=== PATIENT | male | born 1975 | race Two or more races ===

== ENCOUNTER 2020-01-16 18:33 | Emergency (ER) | payer MEDICARE, MEDICAID, SELFPAY ==
--- NOTE | 2020-01-16 | CT_ITS ---
EXAMINATION: CT ABDOMEN AND PELVIS WITHOUT CONTRAST CLINICAL INFORMATION: Abdominal pain. Abdominal distention. COMPARISON: CT scan abdomen pelvis 06/16/2014. TECHNIQUE: Multidetector volumetric imaging was performed from the superior aspect of the liver through the pubic symphysis. Sagittal and coronal reformatted images were obtained on the technologist's workstation. This CT examination was performed using dose optimization techniques as appropriate, variously including the following: *Automated exposure control *Adjustment of mA and/or kV according to patient size (this includes techniques or standardized protocols for targeted exams where dose is matched to indication/reason for exam; i.e. extremities or head) *Use of iterative reconstruction technique DLP: 723 mGy-cm FINDINGS: LUNG BASES: The visualized lung bases are unremarkable. LIVER, GALLBLADDER, AND BILIARY TREE: The liver is normal in size, shape, and attenuation. No focal hepatic lesion or biliary ductal dilatation is present. The gallbladder is unremarkable with no evidence of radiopaque gallstones, gallbladder wall thickening, or obvious pericholecystic inflammatory changes. PANCREAS: Unremarkable. SPLEEN: Unremarkable. ADRENAL GLANDS: Unremarkable. KIDNEYS AND URETERS: The kidneys are normal in size, shape, and attenuation. No hydronephrosis, hydroureter, or calculi seen. No perinephric stranding. BLADDER: Unremarkable. GASTROINTESTINAL TRACT: There are scattered diverticula throughout the colon. There is no diverticulitis. There is no bowel wall thickening /edema. There is no bowel obstruction. There is a moderate volume of stool in the colon. The appendix is normal . The small bowel loops are unremarkable. The stomach is normal. There is no hiatal hernia. ABDOMINAL WALL: No significant hernia is appreciated. LYMPH NODES: Normal. VASCULAR: Unremarkable. PELVIC VISCERA: Unremarkable. OSSEOUS STRUCTURES: Degenerative spondylosis spine. Vacuum disc phenomenon L4-L5 and L5-S1. Degenerative lipping at the anterior endplates of lower thoracic and lower lumbar vertebrae. IMPRESSION: No acute abnormality CT scan abdomen pelvis.
[2020-01-16 19:21] VITALS: BP 130/84; PULSE 88; RESP 18; TEMP 37.1; O2SAT 100; BMI 33.3
[2020-01-16 19:48] VITALS: BP 123/76; PULSE 82; RESP 24; O2SAT 96
--- NOTE | 2020-01-16 20:51 | ECG_ITS ---
Test Reason : CHEST PAIN Blood Pressure : / mmHG Vent. Rate : 087 BPM Atrial Rate : 087 BPM P-R Int : 146 ms QRS Dur : 082 ms QT Int : 338 ms P-R-T Axes : 054 009 079 degrees QTc Int : 406 ms Normal sinus rhythm Nonspecific T wave abnormality Abnormal ECG When compared with ECG of 30-SEP-2019 11:35, Nonspecific T wave abnormality, worse in Lateral leads Referred By: Zayra Partida Electronically Signed By:DHRUV DURAND MD
--- NOTE | 2020-01-16 20:51 | XR_ITS ---
EXAMINATION: XR CHEST CLINICAL INFORMATION: Chest pain. COMPARISON: Chest x-ray 09/30/2019. TECHNIQUE: An upright portable view of the chest was obtained at 9:00 PM. FINDINGS: The lung prater are well expanded and appear clear bilaterally. The cardiac silhouette is normal. There are no pleural effusions or pneumothorax. The central pulmonary vasculature is normal. The hilar regions appear normal. There are multiple monitor leads overlying the chest. There are no acute osseous findings. IMPRESSION: 1. There are no acute cardiopulmonary findings.
--- NOTE | 2020-01-16 21:14 | ED_ITS ---
HPI - Chest Pain General Chief Complaint: Chest Pain Stated Complaint: chest pain Time Seen by Provider: 01/16/20 20:51 Source: patient Mode of arrival: ambulatory Limitations: no limitations History of Present Illness HPI narrative: 44-year-old male presents with left-sided chest pain radiating up to his neck and left arm. This pain has been intermittent, has no real onset, occurs while asleep, exertion, and rest. [id number] medications have not been effective to control this pain. He does report recent echocardiogram with Dr. Garza and states that the exam was normal. Does have hyperlipidemia but does not take the medications that were prescribed to him because he does not feel like he needs them. he also reports abdominal pain with this chest pain. States this pain is a throbbing pulling pain. He denies fevers, chills, palpitations, dysuria, hematuria, edema, changes in vision, falls, recent trauma, and illicit drug use. MD complaint: chest pain Onset (ago): week(s) ( Several) Timing of current episode: episodic Prior episodes: Yes Onset: during rest, during exertion and awoke with symptoms Pain location: left chest and lateral Pain radiation: right arm, neck and abdomen Severity: moderate Quality: tightness, aching and sharp Relieving factors: nothing Exacerbating factors: exertion, inspiration, eating and movement Treatment prior to arrival: other ( Tylenol) Risk Factors Coronary artery disease risk factors: hyperlipidemia Thoracic aortic dissection risk factors: none Related Data Home Medications Medication Instructions Recorded Confirmed baclofen 1 tab PO QID PRN 01/16/20 01/16/20 fluticasone propionate 1 spray INTRANASAL BID 01/16/20 01/16/20 naproxen 1 tab PO Q6H PRN 01/16/20 01/16/20 omeprazole 1 cap PO DAILY 01/16/20 01/16/20 Allergies Allergy/AdvReac Type Severity Reaction Status Date / Time aspirin [Aspirin] Allergy Unknown UNKNOWN Verified 01/16/20 19:51 penicillin V Allergy Unknown Swelling Verified 01/16/20 19:51 Penicillins Allergy Unknown SWELLING Verified 01/16/20 19:51 Review of Systems Review of Systems: Constitutional: No Fever, No Chills ENT/Mouth: no oral swelling, No Hoarseness, No Swallowing Difficulty Eyes: No Eye Pain, No Swelling, No Redness Cardiovascular: chest pain, No SOB Respiratory: No Cough, No Sputum, No Wheezing, No Smoke Exposure, No Dyspnea Gastrointestinal: No Nausea, No Vomiting, No Diarrhea, No abdominal Pain Genitourinary: No Dysuria, No Urinary Frequency, No Hematuria Musculoskeletal: No joint pain, No Myalgias, No Joint Swelling Skin: No Skin Lesions, positive rash Neuro: No Weakness, No Numbness, No Headache Psych: No Anxiety/Panic, No Depression Heme/Lymph: No Bruising, No Lymphadenopathy Endocrine: No Polyuria, No Polydipsia [facility] Past Medical History Attestation statement: The following information was validated with the patient. Source: old records reviewed Social History Social History Alcohol intake: never Smoking Status: Never smoker Smoked in Last 30 Days: No Use of substances other than those prescribed or required for medical reasons: No Advance Directives: No Advance Directives Information Provided: No Physical Exam Vital Signs and I&O and Narrative: Vital Signs and I&O: Vital Signs Temp 98.8 F 01/16/20 19:21 Pulse 76 01/16/20 23:15 Resp 18 01/16/20 23:15 BP 115/75 01/16/20 23:15 Pulse Ox 100 01/16/20 23:15 Intake & Output 01/16/20 01/16/20 01/17/20 06:59 18:59 06:59 Weight 90.718 kg Body Mass Index 33.3 Appearance: Alert. Oriented X3. No acute distress. Eyes: Pupils equal, round and reactive to light. ENT: Pharynx normal. Neck: Normal inspection. Neck supple. CVS: Normal heart rate and rhythm. Pulses normal. Respiratory: No respiratory distress. Breath sounds normal. Abdomen: Soft and nontender. Skin: Skin warm and dry. Normal skin color. Normal skin turgor. Extremities: No lower extremity edema. No lower extremity edema. Neuro: Oriented X 3. No motor deficit. No sensory deficit. Course Course Course Narrative: 44-year-old male presents with left-sided chest pain with radiation to the neck, arm, and abdomen. Patient is noncompliant with his medications for hyperlipidemia, does not have any other prescriptions. We will rule out ACS, AAA, acute abdomen, pneumonia. Lab values are unremarkable, troponins are negative, EKG is normal sinus, echo report on November 06, [address] Garza indicates a stress echo that is negative for ischemia. Highly unlikely that this is ACS, most likely costochondritis or musculoskeletal pain. Plan is for patient to follow-up with primary care physician as an outpatient for further workup as needed. Patient does verbalize understanding of and agrees to plan of care discharge home. MDM - Chest Pain MDM Narrative Medical decision making narrative: aaa, pneumonia Differential Diagnosis Differential diagnosis: Likely fracture of rib, pneumothorax, stable angina, atypical chest pain, st elevation myocardial infarction, costochondritis, chest pain and biliary colic Lab Data Attestation: I reviewed the patient's lab results. Result diagrams: 01/16/20 21:12 01/16/20 21:12 Labs: Lab Results 01/16/20 01/16/20 01/16/20 Range/Units 21:12 21:12 21:12 WBC 8.5 (4.8-10.8) X10*3/uL RBC 4.70 (4.60-5.80) X10*6/uL Hgb 15.1 (14.0-18.0) g/dl Hct 42.6 (42-52) % MCV 90.6 (80-98) fL MCH 32.1 (27.0-33.0) pg MCHC 35.4 (31.0-36.0) g/dl RDW 12.5 (11.0-16.0) % Plt Count 201 (160-400) X10*3/uL MPV 11.6 (9.4-12.4) fL Immature Gran % (Auto) 0.2 (0.0-0.4) % Neut % (Auto) 53.4 (45-73) % Lymph % (Auto) 36.0 (20-40) % [place] % (Auto) 6.3 (2-11) % Eos % (Auto) 3.4 (0-4) % Baso % (Auto) 0.7 (0-2) % Lymph # (Auto) 3.1 (1.2-4.9) X10*3/uL [place] # (Auto) 0.5 (0.1-1.2) X10*3/uL Eos # (Auto) 0.3 (0.0-0.4) X10*3/uL Baso # (Auto) 0.1 (0.0-0.2) X10*3/uL Abs Immat Gran (auto) 0.02 (0.00-0.03) X10*3/uL Absolute Neuts (auto) 4.5 (2.0-8.3) X10*3/uL Absolute Nucleated RBC 0.000 (0.0-0.012) X10*3/uL Nucleated RBC % (auto) 0.0 (0.0-0.2) /100WBC PT 12.4 (10.8-13.0) SEC INR 1.0 (0.9-1.1) APTT 36.6 (24.1-38.0) SEC Sodium (135-145) mmol/L Potassium (3.3-5.1) mmol/l Chloride (96-108) mmol/L Carbon Dioxide (22-29) mmol/L Anion Gap (12-20) BUN (9-16) mg/dL Creatinine (0.5-1.4) mg/dL Estim Creat Clear Calc Estimated GFR Random Glucose (60-115) mg/dL Calcium (8.4-10.2) mg/dL Magnesium (1.6-2.6) mg/dL Total Bilirubin 0.5 (0.0-1.0) mg/dL Direct Bilirubin < 0.2 (0.0-0.5) mg/dL AST 15 (5-37) U/L ALT 27 (0-40) U/L Alkaline Phosphatase 109 (39-117) U/L Troponin I High Sens (<3.5-35.0) ng/L Total Protein 6.6 (6.5-8.0) g/dL Albumin 4.0 (3.5-5.0) g/dL Lipase 58 (8-78) U/L 01/16/20 01/16/20 Range/Units 21:12 21:12 WBC (4.8-10.8) X10*3/uL RBC (4.60-5.80) X10*6/uL Hgb (14.0-18.0) g/dl Hct (42-52) % MCV (80-98) fL MCH (27.0-33.0) pg MCHC (31.0-36.0) g/dl RDW (11.0-16.0) % Plt Count (160-400) X10*3/uL MPV (9.4-12.4) fL Immature Gran % (Auto) (0.0-0.4) % Neut % (Auto) (45-73) % Lymph % (Auto) (20-40) % [place] % (Auto) (2-11) % Eos % (Auto) (0-4) % Baso % (Auto) (0-2) % Lymph # (Auto) (1.2-4.9) X10*3/uL [place] # (Auto) (0.1-1.2) X10*3/uL Eos # (Auto) (0.0-0.4) X10*3/uL Baso # (Auto) (0.0-0.2) X10*3/uL Abs Immat Gran (auto) (0.00-0.03) X10*3/uL Absolute Neuts (auto) (2.0-8.3) X10*3/uL Absolute Nucleated RBC (0.0-0.012) X10*3/uL Nucleated RBC % (auto) (0.0-0.2) /100WBC PT (10.8-13.0) SEC INR (0.9-1.1) APTT (24.1-38.0) SEC Sodium 140 (135-145) mmol/L Potassium 3.6 (3.3-5.1) mmol/l Chloride 107 (96-108) mmol/L Carbon Dioxide 24 (22-29) mmol/L Anion Gap 13 (12-20) BUN 14 (9-16) mg/dL Creatinine 0.86 (0.5-1.4) mg/dL Estim Creat Clear Calc 112.2 Estimated GFR > 60 Random Glucose 110 (60-115) mg/dL Calcium 8.6 (8.4-10.2) mg/dL Magnesium 2.0 (1.6-2.6) mg/dL Total Bilirubin (0.0-1.0) mg/dL Direct Bilirubin (0.0-0.5) mg/dL AST (5-37) U/L ALT (0-40) U/L Alkaline Phosphatase (39-117) U/L Troponin I High Sens < 3.5 (<3.5-35.0) ng/L Total Protein (6.5-8.0) g/dL Albumin (3.5-5.0) g/dL Lipase (8-78) U/L Imaging Data CT scan - abdomen: Attestation: I personally reviewed and interpreted this imaging study as follows: Radiologist's impression: LUNG BASES: The visualized lung bases are unremarkable. LIVER, GALLBLADDER, AND BILIARY TREE: The liver is normal in size, shape, and attenuation. No focal hepatic lesion or biliary ductal dilatation is present. The gallbladder is unremarkable with no evidence of radiopaque gallstones, gallbladder wall thickening, or obvious pericholecystic inflammatory changes. PANCREAS: Unremarkable. SPLEEN: Unremarkable. ADRENAL GLANDS: Unremarkable. KIDNEYS AND URETERS: The kidneys are normal in size, shape, and attenuation. No hydronephrosis, hydroureter, or calculi seen. No perinephric stranding. BLADDER: Unremarkable. GASTROINTESTINAL TRACT: There are scattered diverticula throughout the colon. There is no diverticulitis. There is no bowel wall thickening /edema. There is no bowel obstruction. There is a moderate volume of stool in the colon. The appendix is normal . The small bowel loops are unremarkable. The stomach is normal. There is no hiatal hernia. ABDOMINAL WALL: No significant hernia is appreciated. LYMPH NODES: Normal. VASCULAR: Unremarkable. PELVIC VISCERA: Unremarkable. OSSEOUS STRUCTURES: Degenerative spondylosis spine. Vacuum disc phenomenon L4-L5 and L5-S1. Degenerative lipping at the anterior endplates of lower thoracic and lower lumbar vertebrae. IMPRESSION: No acute abnormality CT scan abdomen pelvis. Chest x-ray: Attestation: I personally reviewed and interpreted this imaging study as follows: Radiologist's impression: COMPARISON: Chest x-ray 09/30/2019. TECHNIQUE: An upright portable view of the chest was obtained at 9:00 PM. FINDINGS: The lung prater are well expanded and appear clear bilaterally. The cardiac silhouette is normal. There are no pleural effusions or pneumothorax. The central pulmonary vasculature is normal. The hilar regions appear normal. There are multiple monitor leads overlying the chest. There are no acute osseous findings. IMPRESSION: 1. There are no acute cardiopulmonary findings ECG Data ECG #1: Attestation: I personally reviewed and interpreted this ECG as follows: ECG interpretation date: 01/16/20 ECG interpretation time: 18:37 Prior ECG tracings: available for review Interpretation: Normal sinus rhythm, 87 beats per minute, p.r. interval 146, QTC 406 Cannot rule out Inferior infarct , age undetermined Abnormal ECG When compared with ECG of 30-SEP-2019 11:35, Nonspecific T wave abnormality, worse in Lateral leads Discharge Plan Discharge Clinical Impression: Chest pain Qualifiers: Chest pain type: unspecified Qualified Code(s): R07.9 - Chest pain, unspecified Patient Disposition: Home, Self-Care Instructions: Chest Pain (ED), Chest Wall Pain (ED) Additional Instructions: you were evaluated for chest pain. Chest x-ray is negative for acute findings, CT scan of the abdomen is negative findings needing emergent intervention, EKG is normal sinus rhythm, troponins are negative. You must follow-up the primary care provider for further workup. Thank you for choosing this emergency department for evaluation. Please follow-up with primary care physician as needed. Return to the emergency department for any new, concerning, or worsening symptoms. Prescriptions: No Action baclofen 10 mg tablet 1 tab PO QID PRN (Reason: muscle spasm) RF: 0 omeprazole 20 mg capsule,delayed release(DR/EC) 1 cap PO DAILY RF: 0 fluticasone propionate 50 mcg/actuation spray,suspension 1 spray intranasal BID RF: 0 naproxen 500 mg tablet 1 tab PO Q6H PRN (Reason: pain) RF: 0 Interventions: ED Discharge Assessment Last Done: 01/16/20 23:18 Discharge Date/Time: 01/16/20 23:20 Print Language: [place]
[2020-01-16 21:24] LABS: MANUAL DIFF FLAG NO
[2020-01-16 21:25] LABS: Basophils Absolute Auto 0.1 X10*3/uL (0.0-0.2); Basophils Percent Auto 0.7 % (0-2); Eosinophils Absolute Auto 0.3 X10*3/uL (0.0-0.4); Eosinophils Percent Auto 3.4 % (0-4); Hematocrit 42.6 % (42-52); Hemoglobin 15.1 g/dl (14.0-18.0); Imm Gran Abs Auto 0.02 X10*3/uL (0.00-0.03); Imm Gran Pct Auto 0.2 % (0.0-0.4); Lymphocytes Absolute Auto 3.1 X10*3/uL (1.2-4.9); Mean Corpuscular HGB Conc 35.4 g/dl (31.0-36.0); Mean Corpuscular Hemoglobin 32.1 pg (27.0-33.0); Mean Corpuscular Volume 90.6 fL (80-98); Mean Platelet Volume 11.6 fL (9.4-12.4); Monocytes Absolute Auto 0.5 X10*3/uL (0.1-1.2); Monocytes Percent Auto 6.3 % (2-11); Neutrophils Absolute Auto 4.5 X10*3/uL (2.0-8.3); Neutrophils Percent Auto 53.4 % (45-73); Platelet Count 201 X10*3/uL (160-400); Red Cell Distribution Width 12.5 % (11.0-16.0); White Blood Count 8.5 X10*3/uL (4.8-10.8)
[2020-01-16 21:30] LABS: Prothrombin Time 12.4 SEC (10.8-13.0)
[2020-01-16 21:33] LABS: Partial Thromboplastin Time 36.6 SEC (24.1-38.0)
[2020-01-16 21:54] LABS: Alanine Aminotransferase 27 U/L (0-40); Alkaline Phosphatase 109 U/L (39-117); Aspartate Amino Transferase 15 U/L (5-37); Bilirubin Direct < 0.2 mg/dL (0.0-0.5); Bilirubin Total 0.5 mg/dL (0.0-1.0); Lipase 58 U/L (8-78); Total Protein 6.6 g/dL (6.5-8.0)
[2020-01-16 22:00] LABS: Anion Gap 13 (12-20); Blood Urea Nitrogen 14 mg/dL (9-16); Calcium 8.6 mg/dL (8.4-10.2); Carbon Dioxide 24 mmol/L (22-29); Chloride 107 mmol/L (96-108); Creatinine Clr Calc Pharmacy 112.2; Estimated Glomerular Filt Rate > 60; Glucose Random 110 mg/dL (60-115); Potassium 3.6 mmol/l (3.3-5.1); Sodium 140 mmol/L (135-145)
[2020-01-16 22:01] LABS: Troponin-I High Sensitivity < 3.5 ng/L (<3.5-35.0)
[2020-01-16 22:11] VITALS: BP 119/79; PULSE 78; RESP 16; O2SAT 97
[2020-01-16 23:15] VITALS: BP 115/75; PULSE 76; RESP 18; O2SAT 100
== END 2020-01-16 23:20 | disposition home or self-care (01) ==
PROVIDERS: Nurse Practitioner Family; Emergency Provider Emergency Medicine; PCP Nurse Practitioner Family
DX: R07.9 Chest pain, unspecified (principal)
CPT/HCPCS: 36415; 71045; 74176; 80048; 80076; 83690; 83735; 84484; 85025; 85610; 85730; 93005; 99284

== ENCOUNTER 2020-02-11 08:00 | Outpatient (RCR) | payer MEDICARE, MEDICAID, SELFPAY | END 2020-02-25 08:20 | disposition other institution (70) | LOC: HO.PT 08:00 | PROVIDERS: Visit Provider Family Medicine | DX: M54.6 Pain in thoracic spine (principal) | CPT/HCPCS: 97014; 97110; 97140; 97162 ==

== ENCOUNTER 2020-03-24 12:29 | Outpatient (REF) | payer MEDICARE, MEDICAID, SELFPAY ==
--- NOTE | 2020-03-24 | US_ITS ---
EXAMINATION: US SCROTUM CLINICAL INFORMATION: Bilateral testicular pain, greater than one year. COMPARISON: Scrotal ultrasound dated 04/27/2018. TECHNIQUE: A sonogram of the scrotum was performed assessing nam-scale appearance and color Doppler flow. Spectral Doppler analysis of the arterial and venous flow were performed in the testes bilaterally. FINDINGS: RIGHT: Right testicle measures 3.8 x 2.8 x 3.3 cm, volume 18.6 mL. No focal testicular parenchymal lesions are visualized. Spectral Doppler analysis of the arterial and venous flow is increased in the right testis. Right epididymal head is normal in size. There is small anechoic epididymal cyst measuring 0.6 x 0.6 x 0.5 cm No right varicocele is seen. There is a small complex right hydrocele. Right epididymal Doppler flow is increased. LEFT: Left testicle measures 4.4 x 2.4 x 3.0 cm, volume 16.9 mL. No focal testicular parenchymal lesions are visualized. Spectral Doppler analysis of the arterial and venous flow is increased in the left testis. Left epididymal head is normal in size. There is a small left epididymal cyst measuring 0.7 x 0.4 x 0.7 cm. No left hydrocele or varicocele is seen. Left epididymal Doppler flow is increased. US/US scrotum IMPRESSION: 1. Bilateral epididymoorchitis. 2. Complex hydrocele right scrotum. 3. Bilateral epididymal cysts.
== END 2020-03-24 12:30 | disposition home or self-care (01) ==
LOC: HO.US 12:29
PROVIDERS: Visit Provider Family Medicine
DX: N50.819 Testicular pain, unspecified (principal)
CPT/HCPCS: 76870

== ENCOUNTER 2020-05-14 09:17 | Outpatient (REF) | payer MEDICARE, MEDICAID, SELFPAY ==
--- NOTE | 2020-05-14 09:26 | XR_ITS ---
EXAMINATION: XR CHEST CLINICAL INFORMATION: Unspecified acute lower respiratory infection. COMPARISON: 01/16/2020 chest radiograph. TECHNIQUE: 2 views of the chest were obtained. FINDINGS: Low lung volumes limit evaluation. Minimal bibasilar linear markings are seen. The upper lung prater are clear. The heart and mediastinal structures are unremarkable. XR/XR chest 2V IMPRESSION: Minimal bibasilar linear atelectasis/scarring. No acute cardiopulmonary process.
== END 2020-05-14 09:18 | disposition home or self-care (01) ==
LOC: HO.XRAY 09:17
PROVIDERS: Visit Provider Emergency Medicine
DX: J22 Unspecified acute lower respiratory infection (principal)
CPT/HCPCS: 71046

== ENCOUNTER 2020-05-14 09:51 | Emergency (ER) | payer MEDICARE, MEDICAID, SELFPAY ==
[2020-05-14 12:31] VITALS: BP 117/75; PULSE 93; RESP 20; TEMP 36.9; O2SAT 97; BMI 33.3
--- NOTE | 2020-05-14 13:07 | ECG_ITS ---
Test Reason : SOB Blood Pressure : / mmHG Vent. Rate : 097 BPM Atrial Rate : 097 BPM P-R Int : 140 ms QRS Dur : 084 ms QT Int : 338 ms P-R-T Axes : 031 -01 023 degrees QTc Int : 429 ms Normal sinus rhythm Minimal voltage criteria for LVH, may be normal variant Inferior infarct (cited on or before 14-MAY-2020) Abnormal ECG When compared with ECG of 16-JAN-2020 18:37, Nonspecific T wave abnormality now evident in Inferior leads Nonspecific T wave abnormality no longer evident in Anterior leads Referred By: Nani Varela Electronically Signed By:MARGAUX ROSARIO
[2020-05-14 13:28] LABS: MANUAL DIFF FLAG NO
[2020-05-14 13:34] LABS: Basophils Percent Auto 0.2 % (0-2); Eosinophils Percent Auto 0.2 % (0-4); Hematocrit 44.4 % (42-52); Imm Gran Abs Auto 0.02 X10*3/uL (0.00-0.03); Imm Gran Pct Auto 0.4 % (0.0-0.4); Lymphocytes Absolute Auto 1.5 X10*3/uL (1.2-4.9); Lymphocytes Percent Auto 27.5 % (20-40); Mean Corpuscular HGB Conc 33.8 g/dl (31.0-36.0); Mean Corpuscular Hemoglobin 31.4 pg (27.0-33.0); Mean Corpuscular Volume 92.9 fL (80-98); Mean Platelet Volume 10.9 fL (9.4-12.4); Monocytes Absolute Auto 0.4 X10*3/uL (0.1-1.2); Neutrophils Absolute Auto 3.4 X10*3/uL (2.0-8.3); Neutrophils Percent Auto 64.7 % (45-73); Platelet Count 189 X10*3/uL (160-400); Red Blood Count 4.78 X10*6/uL (4.60-5.80); Red Cell Distribution Width 12.1 % (11.0-16.0); White Blood Count 5.3 X10*3/uL (4.8-10.8)
--- NOTE | 2020-05-14 13:38 | ED_ITS ---
HPI - General Adult General Chief complaint: Upper Respiratory Symptoms Stated complaint: difficulty breathing Time Seen by Provider: 05/14/20 12:51 Source: patient Mode of arrival: ambulatory Limitations: no limitations History of Present Illness HPI narrative: 45 y/o male with history of recently diagnosed COVID-19 last week presents to the ED with right sided chest pain and SOB. He had a CXR done today at his PCP office and it showed bibasilar liner atelectasis/scarring. He has been on azithromycin for the last few days for bronchitis. He is not bringing up phlegm but continues to cough and have SOB. He has nausea and diarrhea as well. MD complaint: SOB + chest pain Onset (ago): day(s) (4) Location: chest Radiation: non-radiation Severity: moderate Severity scale (1-10): 6 Quality: aching Pain Consistency: constant Relieving factors: rest Exacerbating factors: movement and other (deep breath and palpation) Associated symptoms: chest pain, cough, fever/chills, headaches, loss of appetite, nausea/vomiting and shortness of breath Treatments prior to arrival: none Related Data Home Medications Medication Instructions Recorded Confirmed baclofen 1 tab PO QID PRN 01/16/20 01/16/20 fluticasone propionate 1 spray INTRANASAL BID 01/16/20 01/16/20 naproxen 1 tab PO Q6H PRN 01/16/20 01/16/20 omeprazole 1 cap PO DAILY 01/16/20 01/16/20 Previous Rx's Medication Instructions Recorded albuterol sulfate 1 inh INHALATION QID PRN #6.7 g 05/14/20 prednisone 40 mg PO DAILY #10 tab 05/14/20 Allergies Allergy/AdvReac Type Severity Reaction Status Date / Time aspirin [Aspirin] Allergy Unknown UNKNOWN Verified 05/14/20 12:35 penicillin V Allergy Unknown Swelling Verified 05/14/20 12:35 Penicillins Allergy Unknown SWELLING Verified 05/14/20 12:35 Review of Systems Review of Systems: Constitutional: + Fever, No Chills ENT/Mouth: No sore throat, No Rhinorrhea, No Swallowing Difficulty Cardiovascular: + Chest Pain, + SOB, No Orthopnea, No Edema Respiratory: + Cough, No Sputum, No Wheezing, No dyspnea Gastrointestinal: + Nausea, No Vomiting, + Diarrhea, No abdominal Pain Genitourinary: No Dysuria, No Urinary Frequency, No Hematuria Musculoskeletal: No joint pain, + Myalgias Skin: No Skin Lesions, No rash Neuro: No Weakness, No Numbness, No Dizziness, + Headache Heme/Lymph: No Bruising, No Lymphadenopathy Endocrine: No Polyuria, No Polydipsia PMF Past Medical History Attestation statement: The following information was validated with the patient. Social History Social History Alcohol intake: never Smoking Status: Never smoker Advance Directives: No Advance Directives Information Provided: No Physical Exam Vital Signs: Vital Signs: Last Vital Signs Temp 98.4 F 05/14/20 12:31 Pulse 93 05/14/20 12:31 Resp 20 05/14/20 12:31 BP 117/75 05/14/20 12:31 Pulse Ox 97 05/14/20 12:31 Body Mass Index 33.3 Appearance: Alert. Oriented X3. No acute distress. Eyes: normal inspection ENT: Pharynx normal. Neck: Normal inspection. Neck supple. CVS: Normal heart rate and rhythm. Pulses normal. Right sided anterior chest wall tenderness Respiratory: No respiratory distress. Breath sounds normal. Abdomen: Soft and nontender. +BS x4 Skin: Skin warm and dry. Normal skin color. Normal skin turgor. No rashes. Extremities: No lower extremity edema. Negative Yumiko's sign Neuro: Oriented X 3. No motor deficit. No sensory deficit. Course Course Course Narrative: 45 y/o male with recently diagnosed COVID-19 & bronchitis presenting with worsening SOB and right sided chest pain. Will need to r/o ACS and PE - labs and EKG pending. His VSS and exam is reassuring. Reevaluation(s) Reevaluation #1: Labs and DDIMER are normal. VS stable. No resp distress or hypoxia. EKG ok. Stable for discharge. Will give prednisone and PRN albuterol to add to azithromycin for bronchitis. Medical Decision Making Lab Data Result diagrams: 05/14/20 13:25 05/14/20 13:24 Labs: Lab Results 05/14/20 05/14/20 05/14/20 Range/Units 13:24 13:24 13:25 WBC 5.3 (4.8-10.8) X10*3/uL RBC 4.78 (4.60-5.80) X10*6/uL Hgb 15.0 (14.0-18.0) g/dl Hct 44.4 (42-52) % MCV 92.9 (80-98) fL MCH 31.4 (27.0-33.0) pg MCHC 33.8 (31.0-36.0) g/dl RDW 12.1 (11.0-16.0) % Plt Count 189 (160-400) X10*3/uL MPV 10.9 (9.4-12.4) fL Immature Gran % (Auto) 0.4 (0.0-0.4) % Neut % (Auto) 64.7 (45-73) % Lymph % (Auto) 27.5 (20-40) % [place] % (Auto) 7.0 (2-11) % Eos % (Auto) 0.2 (0-4) % Baso % (Auto) 0.2 (0-2) % Lymph # (Auto) 1.5 (1.2-4.9) X10*3/uL [place] # (Auto) 0.4 (0.1-1.2) X10*3/uL Eos # (Auto) 0.0 (0.0-0.4) X10*3/uL Baso # (Auto) 0.0 (0.0-0.2) X10*3/uL Abs Immat Gran (auto) 0.02 (0.00-0.03) X10*3/uL Absolute Neuts (auto) 3.4 (2.0-8.3) X10*3/uL Absolute Nucleated RBC 0.000 (0.0-0.012) X10*3/uL Nucleated RBC % (auto) 0.0 (0.0-0.2) /100WBC D-Dimer < 200 NG/ML Sodium 140 (135-145) mmol/L Potassium 4.2 (3.3-5.1) mmol/L Chloride 104 (96-108) mmol/L Carbon Dioxide 28 (22-29) mmol/L Anion Gap 12 (12-20) BUN 12 (9-16) mg/dL Creatinine 0.95 (0.5-1.4) mg/dL Estim Creat Clear Calc 100.5 Estimated GFR > 60 Random Glucose 115 (60-115) mg/dL Calcium 8.5 (8.4-10.2) mg/dL ECG Data Attestation: I personally reviewed and interpreted this ECG as follows: Interpretation: normal sinus rhythm, HR 97, normal MD interval, normal QTc, no St segment elevations Critical Care Time Critical Care Time Critical Care Time: No Discharge Plan Discharge Clinical Impression: COVID-19 Patient Disposition: Home, Self-Care Instructions: COVID-19 (Coronavirus Disease 2019) (ED) Additional Instructions: Your lab workup & oxygen levels were normal. Rest. Drink plenty of fluids. Do not go out in public for the next 7-10 days. Take over the counter cold/flu medications as needed for your symptoms. Take Tylenol and/or Motrin as needed for fevers and body aches. Follow up with your doctor this week. If you shortness of breath worsens , if you develop difficulty breathing or any other concerning symptom come back to the ER for further evaluation. Prescriptions: New prednisone 20 mg tablet 40 mg PO DAILY Qty: 10 RF: 0 albuterol sulfate 90 mcg/actuation HFA aerosol inhaler 1 inh inhalation QID PRN (Reason: shortness of breath or wheezing) Qty: 6.7 RF: 0 No Action baclofen 10 mg tablet 1 tab PO QID PRN (Reason: muscle spasm) RF: 0 omeprazole 20 mg capsule,delayed release(DR/EC) 1 cap PO DAILY RF: 0 fluticasone propionate 50 mcg/actuation spray,suspension 1 spray intranasal BID RF: 0 naproxen 500 mg tablet 1 tab PO Q6H PRN (Reason: pain) RF: 0 Interventions: ED Discharge Assessment Last Done: 05/14/20 14:24 Discharge Date/Time: 05/14/20 14:25
[2020-05-14 13:43] LABS: D Dimer < 200 NG/ML
[2020-05-14 13:55] LABS: Anion Gap 12 (12-20); Blood Urea Nitrogen 12 mg/dL (9-16); Calcium 8.5 mg/dL (8.4-10.2); Carbon Dioxide 28 mmol/L (22-29); Chloride 104 mmol/L (96-108); Creatinine Clr Calc Pharmacy 100.5; Estimated Glomerular Filt Rate > 60; Glucose Random 115 mg/dL (60-115); Potassium 4.2 mmol/L (3.3-5.1); Sodium 140 mmol/L (135-145)
== END 2020-05-14 14:25 | disposition home or self-care (01) ==
PROVIDERS: Physician Assistant; Emergency Provider Emergency Medicine
DX: U07.1 COVID-19 (principal); R06.02 Shortness of breath; Z79.899 Other long term (current) drug therapy
CPT/HCPCS: 36415; 80048; 85025; 85379; 93005; 99283

== ENCOUNTER → 2020-05-21 15:00 | Outpatient (BNVA) | payer MEDICARE, MEDICAID, SELFPAY | PROVIDERS: Visit Provider Urology | DX: Z13.89 Encounter for screening for other disorder (principal) | CPT/HCPCS: 99202 ==

== ENCOUNTER 2020-09-10 15:43 | Emergency (ER) | payer OTHER, SELFPAY ==
--- NOTE | ~2020-09-10 | XR_ITS ---
EXAMINATION: XR ANKLE, LEFT CLINICAL INFORMATION: Left ankle swelling. COMPARISON: None TECHNIQUE: AP, lateral, and mortise views of the left ankle. FINDINGS: There is a small avulsion fracture fragments tip of medial malleolus with moderate soft tissue swelling. No additional fractures seen. The ankle mortise and subtalar joints are normal. XR/XR ankle LT 2V IMPRESSION: Acute small avulsion fracture fragments tip of medial malleolus with moderate medial malleolar soft tissue swelling.
--- NOTE | 2020-09-10 16:13 | ED.GENADULT ---
HPI - General Adult General Chief complaint: Extremity Injury, Lower Stated complaint: swollen ankle Time Seen by Provider: 09/10/20 16:13 Source: patient Limitations: no limitations History of Present Illness HPI narrative: Patient complaining of left ankle after he states he was cutting the lawn and a shoulder was hit and flew off and hit his left ankle at the medial aspect. Positive swelling since. Pain increases with range of motion or weight-bearing. Pain is 7/10. No other complaints at this time. Patient states he only takes Prilosec. Patient denies nausea vomiting chest pain shortness of breath. Related Data Home Medications Medication Instructions Recorded Confirmed baclofen 1 tab PO QID PRN 01/16/20 01/16/20 fluticasone propionate 1 spray INTRANASAL BID 01/16/20 01/16/20 naproxen 1 tab PO Q6H PRN 01/16/20 01/16/20 omeprazole 1 cap PO DAILY 01/16/20 01/16/20 Previous Rx's Medication Instructions Recorded albuterol sulfate 1 inh INHALATION QID PRN #6.7 g 05/14/20 prednisone 40 mg PO DAILY #10 tab 05/14/20 Allergies Allergy/AdvReac Type Severity Reaction Status Date / Time aspirin [Aspirin] Allergy Unknown UNKNOWN Verified 05/21/20 15:36 penicillin V Allergy Unknown Swelling Verified 05/21/20 15:36 Penicillins Allergy Unknown SWELLING Verified 05/21/20 15:36 Review of Systems Review of Systems: Constitutional : No Weight loss, No Fever, No Chills, No Night Sweats, No Fatigue, No Malaise ENT/Mouth : No Hearing loss, No Ear Pain, No Nasal Congestion, No Sinus Pain, No Hoarseness, No sore throat, No Rhinorrhea, No Swallowing Difficulty Eyes: No Eye Pain, No Swelling, No Redness, No Foreign Body, No Discharge, No Vision Changes Cardiovascular : No Chest Pain, No SOB, No Dyspnea on Exertion, No Orthopnea, No Edema, No Palpitations Respiratory : No Cough, No Sputum, No Wheezing, No Smoke Exposure, No Dyspnea Gastrointestinal : No Nausea, No Vomiting, No Diarrhea, No Constipation, No abdominal Pain, No Hematochezia, No Melena Genitourinary : no irregular bleeding, No Dysuria, No Urinary Frequency, No Hematuria, No Urinary Incontinence, No Urgency, No Flank Pain, No Urinary Flow Changes, No Hesitancy Musculoskeletal : No joint pain, No Myalgias, No Joint SwellingSkin : No Skin Lesions, No rash Neuro : No Weakness, No Numbness, No Paresthesias, No Loss of Consciousness, No Dizziness, No Headache Psych : No Anxiety/Panic, No Depression, No SI/HI/AH/VH, No Social Issues, Heme/Lymph: No Bruising, No Bleeding,No Lymphadenopathy Endocrine : No Polyuria, No Polydipsia, No Temperature Intolerance Constitutional: Constitutional: Denies chills and Denies fever(s) ENT: Denies sore throat Cardiovascular: Cardiovascular: Denies dyspnea Respiratory: Respiratory: Denies dyspnea Gastrointestinal: Gastrointestinal: Denies nausea and Denies vomiting Musculoskeletal: Musculoskeletal: Denies deformity, Reports arthralgias and Reports joint swelling Comments: Left ankle pain Neurologic: Reports system reviewed and no additional complaints, except as documented Hematologic/Lymphatic: Hematologic/Lymphatic: Denies easy bleeding and Denies easy bruising Allergic/Immunologic: Allergic/Immunologic: Denies urticaria PMFSH Past Medical History Attestation statement: The following information was validated with the patient. Social History Social History Alcohol intake: never Advance Directives: No Advance Directives Information Provided: No Physical Exam Vital Signs: Vital Signs: Last Vital Signs Temp 97.6 F 09/10/20 16:15 Pulse 88 09/10/20 16:15 Resp 16 09/10/20 16:15 BP 116/84 09/10/20 16:15 Pulse Ox 99 09/10/20 16:15 Body Mass Index 36.0 vital signs have been reviewed as normal and appeared to be correct. Blood pressure normal. Heart rate normal. Respiration rate normal. Temperature normal. Oxygen saturation normal. Appearance: Alert. Oriented X3. No acute distress. Head: Normal external exam. Normocephalic. Atraumatic. Eyes: PERRLA. EOMI. ENT: Pharynx normal. Uvula midline. Moist mucous membranes. Neck: Soft full range of motion, no JVD CVS: Heart regular rate and rhythm no murmurs and rubs Respiratory: Breath sounds are clear to auscultation bilaterally. No accessory muscle use noted. Abdomen: Soft nontender no rebound or guarding positive bowel sounds Skin: Skin warm and dry. Normal skin color. No rash no ecchymosis noted in the left lower extremity positive sensation positive bowel Extremities: Positive tenderness left ankle anterior aspect slight swelling noted medial malleolus nontender lateral malleolus nontender Neuro: Oriented X 3. No motor deficit. No sensory deficit. Reflexes normal. Course Course Course Narrative: Differential diagnosis: Left ankle sprain Left ankle contusion Left ankle fracture Right ankle positive medial tenderness Aircast crutches follow-up with orthopedics Medical Decision Making Imaging Data ankle: Radiologist's impression: [address] [id number] ReportSigned Patient: Maia Chan#: [id number]: 1975Acct:[id number]/Sex: 45 / MADM Date: 09/10/20Loc: HO.EDAttending Dr: Ordering Physician: Gabrielle Anton DO Date of Service: 09/10/20 Procedure(s): XR ankle LT 2V Accession Number(s): [id number] cc: Gabrielle Anton DO~ EXAMINATION: XR ANKLE, LEFT CLINICAL INFORMATION: Left ankle swelling. COMPARISON: None TECHNIQUE: AP, lateral, and mortise views of the left ankle. FINDINGS: There is a small avulsion fracture fragments tip of medial malleolus with moderate soft tissue swelling. No additional fractures seen. The ankle mortise and subtalar joints are normal. XR/XR ankle LT 2V IMPRESSION: Acute small avulsion fracture fragments tip of medial malleolus with moderate medial malleolar soft tissue swelling. 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: [employer] Discharge Plan Discharge Clinical Impression: Avulsion fracture of ankle Patient Disposition: Home, Self-Care Instructions: Ankle Fracture (ED) Additional Instructions: Your x-ray shows an avulsion fracture on the medial aspect Aircast crutches nonweightbearing follow-up with orthopedics Rest ice elevation Prescriptions: No Action baclofen 10 mg tablet 1 tab PO QID PRN (Reason: muscle spasm) RF: 0 omeprazole 20 mg capsule,delayed release(DR/EC) 1 cap PO DAILY RF: 0 fluticasone propionate 50 mcg/actuation spray,suspension 1 spray intranasal BID RF: 0 naproxen 500 mg tablet 1 tab PO Q6H PRN (Reason: pain) RF: 0 prednisone 20 mg tablet 40 mg PO DAILY Qty: 10 RF: 0 albuterol sulfate 90 mcg/actuation HFA aerosol inhaler 1 inh inhalation QID PRN (Reason: shortness of breath or wheezing) Qty: 6.7 RF: 0 Referrals: Dipak Busby MD [Physician] - 2 days
[2020-09-10 16:15] VITALS: BP 116/84; PULSE 88; RESP 16; TEMP 36.4; O2SAT 99; BMI 36.0
== END 2020-09-10 17:06 | disposition home or self-care (01) ==
PROVIDERS: Emergency Provider Emergency Medicine
DX: S82.52XA Displaced fracture of medial malleolus of left tibia, initial encounter for closed fracture (principal); M25.572 Pain in left ankle and joints of left foot; W01.0XXA Fall on same level from slipping, tripping and stumbling without subsequent striking against object, initial encounter; Y93.H2 Activity, gardening and landscaping; Y92.007 Garden or yard of unspecified non-institutional (private) residence as the place of occurrence of the external cause; Y99.9 Unspecified external cause status
CPT/HCPCS: 73600; 99283

== ENCOUNTER → 2020-09-15 08:18 | Outpatient (BNVA) | payer OTHER, SELFPAY | PROVIDERS: Visit Provider Physician Assistant | DX: S82.892A Other fracture of left lower leg, initial encounter for closed fracture (principal); S82.53XA Displaced fracture of medial malleolus of unspecified tibia, initial encounter for closed fracture | CPT/HCPCS: 99202 ==

== ENCOUNTER 2020-10-20 15:47 | Emergency (ER) | payer OTHER, SELFPAY ==
--- NOTE | 2020-10-20 | ECG_ITS ---
Test Reason : CP Blood Pressure : / mmHG Vent. Rate : 063 BPM Atrial Rate : 063 BPM P-R Int : 154 ms QRS Dur : 084 ms QT Int : 404 ms P-R-T Axes : 023 -09 040 degrees QTc Int : 413 ms Normal sinus rhythm Normal ECG When compared with ECG of 14-MAY-2020 13:44, Vent. rate has decreased BY 34 BPM Criteria for Inferior infarct are no longer Present Referred By: Generic ED Physician Electronically Signed By:Darwin Jones
--- NOTE | ~2020-10-20 | XR_ITS ---
EXAMINATION: XR CHEST CLINICAL INFORMATION: Chest pain COMPARISON: 05/14/2020 TECHNIQUE: Frontal view of the chest was obtained. FINDINGS: The lungs are hypoinflated but No significant abnormality is noted involving the heart, lungs, mediastinum, bony thorax or soft tissues. There has been clearing of previously detected basilar atelectasis. XR/XR chest 1V IMPRESSION: No acute intrathoracic disease.
[2020-10-20 17:05] VITALS: BP 159/101; PULSE 59; RESP 18; TEMP 36.6; O2SAT 99; BMI 33.3
[2020-10-20 17:20] LABS: MANUAL DIFF FLAG NO
[2020-10-20 17:23] LABS: Basophils Absolute Auto 0.1 X10*3/uL (0.0-0.2); Basophils Percent Auto 0.7 % (0-2); Eosinophils Absolute Auto 0.2 X10*3/uL (0.0-0.4); Eosinophils Percent Auto 2.6 % (0-4); Hematocrit 44.3 % (42-52); Hemoglobin 15.5 g/dl (14.0-18.0); Imm Gran Abs Auto 0.02 X10*3/uL (0.00-0.03); Imm Gran Pct Auto 0.3 % (0.0-0.4); Lymphocytes Absolute Auto 2.8 X10*3/uL (1.2-4.9); Lymphocytes Percent Auto 39.2 % (20-40); Mean Corpuscular Hemoglobin 32.1 pg (27.0-33.0); Mean Corpuscular Volume 91.7 fL (80-98); Mean Platelet Volume 11.2 fL (9.4-12.4); Monocytes Absolute Auto 0.5 X10*3/uL (0.1-1.2); Monocytes Percent Auto 6.7 % (2-11); Neutrophils Absolute Auto 3.6 X10*3/uL (2.0-8.3); Neutrophils Percent Auto 50.5 % (45-73); Platelet Count 206 X10*3/uL (160-400); Red Blood Count 4.83 X10*6/uL (4.60-5.80); Red Cell Distribution Width 12.4 % (11.0-16.0)
[2020-10-20 17:51] LABS: Anion Gap 12 (12-20); Blood Urea Nitrogen 11 mg/dL (9-16); Calcium 9.7 mg/dL (8.4-10.2); Carbon Dioxide 27 mmol/L (22-29); Chloride 104 mmol/L (96-108); Creatinine Clr Calc Pharmacy 102.7; Estimated Glomerular Filt Rate > 60; Glucose Random 90 mg/dL (60-115); Potassium 3.9 mmol/L (3.3-5.1); Sodium 139 mmol/L (135-145)
[2020-10-20 17:56] LABS: Troponin-I High Sensitivity < 3.5 ng/L (<3.5-35.0)
[2020-10-20 20:37] VITALS: BP 143/96; PULSE 62; RESP 16; TEMP 35.4; O2SAT 99
[2020-10-20 20:54] VITALS: BP 140/90; PULSE 63; RESP 16; TEMP 36.7; O2SAT 100
--- NOTE | 2020-10-20 22:05 | ED.CHESTPAIN ---
HPI - Chest Pain General Chief Complaint: Chest Pain Stated Complaint: cp Time Seen by Provider: 10/20/20 21:49 Source: patient Mode of arrival: ambulatory Limitations: no limitations History of Present Illness HPI narrative: Appearance: Alert. Oriented X3. No acute distress. Eyes: Pupils equal, round and reactive to light. ENT: Pharynx normal. Neck: Normal inspection. Neck supple. No lymph nodes noted. No crepitus CVS: Normal heart rate and rhythm. Pulses normal. Normal S1 and S2 Respiratory: No respiratory distress. Breath sounds normal. No Wheezing. No rales Abdomen: Soft and nontender. No rigidity. No distention. good BS x4 Skin: Skin warm and dry. Normal skin color. Normal skin turgor. Extremities: No lower extremity edema. No lower extremity edema. No Lacerations. No Rash Neuro: Oriented X 3. No motor deficit. No sensory deficit. Moving all extermities. No slurred speech.Patient comes to the emergency room complaining of chest pain that started yesterday. Patient states it is not quite chest pain, states he has left arm pain, left pain under his left axilla. Patient states this morning when he went to work at 06:30 in the morning, he really had a discomfort. After work, he came to the emergency room. At this time, patient does feel better, no shortness of breath, no numbness or tingling, patient is asymptomatic. Patient states the discomfort he was feeling earlier this morning was not related to exertion. Patient states he had a stress test done approximately 2 months ago, states it was normal Related Data Home Medications Medication Instructions Recorded Confirmed baclofen 1 tab PO QID PRN 01/16/20 01/16/20 fluticasone propionate 1 spray INTRANASAL BID 01/16/20 01/16/20 naproxen 1 tab PO Q6H PRN 01/16/20 01/16/20 omeprazole 1 cap PO DAILY 01/16/20 01/16/20 Previous Rx's Medication Instructions Recorded albuterol sulfate 1 inh INHALATION QID PRN #6.7 g 05/14/20 prednisone 40 mg PO DAILY #10 tab 05/14/20 Allergies Allergy/AdvReac Type Severity Reaction Status Date / Time aspirin [Aspirin] Allergy Unknown UNKNOWN Verified 05/21/20 15:36 penicillin V Allergy Unknown Swelling Verified 05/21/20 15:36 Penicillins Allergy Unknown SWELLING Verified 05/21/20 15:36 Review of Systems Review of Systems: Constitutional : No Weight loss, No Fever, No Chills, No Night Sweats, No Fatigue, No Malaise ENT/Mouth : No Hearing loss, No Ear Pain, No Nasal Congestion, No Sinus Pain, No Hoarseness, No sore throat, No Rhinorrhea, No Swallowing Difficulty Eyes: No Eye Pain, No Swelling, No Redness, No Foreign Body, No Discharge, No Vision Changes Cardiovascular : Left-sided arm pain, axilla pain, No SOB, No Dyspnea on Exertion, No Orthopnea, No Edema, No Palpitations Respiratory : No Cough, No Sputum, No Wheezing, No Smoke Exposure, No Dyspnea Gastrointestinal : No Nausea, No Vomiting, No Diarrhea, No Constipation, No abdominal Pain, No Hematochezia, No Melena Genitourinary : no irregular bleeding, No Dysuria, No Urinary Frequency, No Hematuria, No Urinary Incontinence, No Urgency, No Flank Pain, No Urinary Flow Changes, No Hesitancy Musculoskeletal : No joint pain, No Myalgias, No Joint Swelling Skin : No Skin Lesions, No rash Neuro : No Weakness, No Numbness, No Paresthesias, No Loss of Consciousness, No Dizziness, No Headache Psych : No Anxiety/Panic, No Depression, No SI/HI/AH/VH, No Social Issues, Heme/Lymph: No Bruising, No Bleeding,No Lymphadenopathy Endocrine : No Polyuria, No Polydipsia, No Temperature Intolerance [facility] Social History Social History (Updated 09/15/20 @ 08:31 by Mariela Roldan [facility]) Alcohol intake: never Advance Directives: No Advance Directives Information Provided: Yes Current occupational status: employed Current occupation: [employer] Physical Exam Vital Signs: Vital Signs: Last Vital Signs Temp 98.0 F 10/20/20 20:54 Pulse 63 10/20/20 20:54 Resp 16 10/20/20 20:54 BP 140/90 H 10/20/20 20:54 Pulse Ox 100 10/20/20 20:54 Body Mass Index 33.3 Appearance: Alert. Oriented X3. No acute distress. Eyes: Pupils equal, round and reactive to light. ENT: Pharynx normal. Neck: Normal inspection. Neck supple. No lymph nodes noted. No crepitus CVS: Normal heart rate and rhythm. Pulses normal. Normal S1 and S2 Respiratory: No respiratory distress. Breath sounds normal. No Wheezing. No rales Abdomen: Soft and nontender. No rigidity. No distention. good BS x4 Skin: Skin warm and dry. Normal skin color. Normal skin turgor. Extremities: No lower extremity edema. No Lacerations. No Rash Neuro: Oriented X 3. No motor deficit. No sensory deficit. Moving all extermities. No slurred speech. Course Course Course Narrative: Patient's troponin was obtained almost 24 hours after the pain started, troponin is negative. EKG within normal limits. Patient states he has an appointment tomorrow with his PCP Patient was not given aspirin in the emergency room, states he is allergic to aspirin, causes throat swelling MDM - Chest Pain Lab Data Result diagrams: 10/20/20 17:16 10/20/20 17:16 Labs: Lab Results 10/20/20 10/20/20 10/20/20 Range/Units 17:16 17:16 17:16 WBC 7.0 (4.8-10.8) X10*3/uL RBC 4.83 (4.60-5.80) X10*6/uL Hgb 15.5 (14.0-18.0) g/dl Hct 44.3 (42-52) % MCV 91.7 (80-98) fL MCH 32.1 (27.0-33.0) pg MCHC 35.0 (31.0-36.0) g/dl RDW 12.4 (11.0-16.0) % Plt Count 206 (160-400) X10*3/uL MPV 11.2 (9.4-12.4) fL Immature Gran % (Auto) 0.3 (0.0-0.4) % Neut % (Auto) 50.5 (45-73) % Lymph % (Auto) 39.2 (20-40) % [place] % (Auto) 6.7 (2-11) % Eos % (Auto) 2.6 (0-4) % Baso % (Auto) 0.7 (0-2) % Lymph # (Auto) 2.8 (1.2-4.9) X10*3/uL [place] # (Auto) 0.5 (0.1-1.2) X10*3/uL Eos # (Auto) 0.2 (0.0-0.4) X10*3/uL Baso # (Auto) 0.1 (0.0-0.2) X10*3/uL Abs Immat Gran (auto) 0.02 (0.00-0.03) X10*3/uL Absolute Neuts (auto) 3.6 (2.0-8.3) X10*3/uL Absolute Nucleated RBC 0.000 (0.0-0.012) X10*3/uL Nucleated RBC % (auto) 0.0 (0.0-0.2) /100WBC Sodium 139 (135-145) mmol/L Potassium 3.9 (3.3-5.1) mmol/L Chloride 104 (96-108) mmol/L Carbon Dioxide 27 (22-29) mmol/L Anion Gap 12 (12-20) BUN 11 (9-16) mg/dL Creatinine 0.93 (0.5-1.4) mg/dL Estim Creat Clear Calc 102.7 Estimated GFR > 60 Random Glucose 90 (60-115) mg/dL Calcium 9.7 D (8.4-10.2) mg/dL Troponin I High Sens < 3.5 (<3.5-35.0) ng/L Imaging Data Chest x-ray: Radiologist's impression: The lungs are hypoinflated but No significant abnormality is noted involving the heart, lungs, mediastinum, bony thorax or soft tissues. There has been clearing of previously detected basilar atelectasis. XR/XR chest 1V IMPRESSION: No acute intrathoracic disease. ECG Data ECG #1: Attestation: I personally reviewed and interpreted this ECG as follows: (Normal sinus rhythm, heart rate 63, no ST segment depression or elevation, no T-wave inversion, QTC 413) Discharge Plan Discharge Clinical Impression: Atypical chest pain Patient Disposition: Home, Self-Care Instructions: Chest Pain (ED) Additional Instructions: Please follow-up with your primary care physician tomorrow. If you have any worsening or new symptoms, please return to the emergency room or call 911 Prescriptions: No Action baclofen 10 mg tablet 1 tab PO QID PRN (Reason: muscle spasm) RF: 0 omeprazole 20 mg capsule,delayed release(DR/EC) 1 cap PO DAILY RF: 0 fluticasone propionate 50 mcg/actuation spray,suspension 1 spray intranasal BID RF: 0 naproxen 500 mg tablet 1 tab PO Q6H PRN (Reason: pain) RF: 0 prednisone 20 mg tablet 40 mg PO DAILY Qty: 10 RF: 0 albuterol sulfate 90 mcg/actuation HFA aerosol inhaler 1 inh inhalation QID PRN (Reason: shortness of breath or wheezing) Qty: 6.7 RF: 0
== END 2020-10-20 22:30 | disposition home or self-care (01) ==
PROVIDERS: Emergency Provider Emergency Medicine
DX: R07.89 Other chest pain (principal)
CPT/HCPCS: 36415; 71045; 80048; 84484; 85025; 93005; 99284

== ENCOUNTER 2020-10-26 10:31 | Outpatient (REF) | payer OTHER, SELFPAY ==
--- NOTE | ~2020-10-26 | XR_ITS ---
EXAMINATION: XR KNEE, LEFT CLINICAL INFORMATION: Pain COMPARISON: Previous x-ray December 2019 TECHNIQUE: Two views of the left knee. FINDINGS: Bone alignment is normal. No fracture or dislocation is seen. The joint spaces are normal. There is no joint effusion. There is prepatellar soft tissue swelling. XR/XR knee LT 2V IMPRESSION: Prepatellar soft tissue swelling.
[2020-10-26 12:01] LABS: Estimated Average Glucose 88 mg/dL; Hemoglobin A1c % 4.7 %
[2020-10-26 12:22] LABS: Glucose Urine UA NEG (NEG); Leukocyte Esterase Urine NEG (NEG); Nitrite Urine NEG (NEG); PH 5.5 (5.0-8.0); Specific Gravity - Urine 1.025 (1.005-1.025); Urine Blood NEG (NEG); Urine Ketones NEG (NEG); Urine Protein NEG (NEG-TRACE)
[2020-10-26 12:25] LABS: Appearance Urine CLEAR; Color Urine YELLOW
[2020-10-26 12:26] LABS: Cholesterol 200 mg/dL; Glucose Random 94 mg/dL (60-115); HDL Cholesterol 26 mg/dL; LDL Cholesterol Calculated 141 mg/dl; Triglycerides 169 mg/dL
[2020-10-26 12:36] LABS: RBC Urine 0-2 /HPF (0); Squamous Epithelial Cell Urine TRACE /LPF; WBC Urine 0 /HPF (0-4)
[2020-10-26 12:47] LABS: PSA,Total (Free>4and<10) 0.61 ng/mL (0.00-4.00)
== END 2020-10-26 10:32 | disposition home or self-care (01) ==
LOC: HO.XRAY 10:31
PROVIDERS: PCP Nurse Practitioner Family; Visit Provider Nurse Practitioner Family
DX: Z12.5 Encounter for screening for malignant neoplasm of prostate (principal); M25.562 Pain in left knee
CPT/HCPCS: 36415; 73560; 80061; 81001; 82947; 83036; 84153

== ENCOUNTER 2020-12-23 17:14 | Emergency (ER) | payer OTHER, SELFPAY ==
[2020-12-23 18:54] VITALS: BP 128/88; PULSE 86; RESP 18; TEMP 36.4; O2SAT 98; BMI 35.6
--- NOTE | 2020-12-23 19:27 | ED.GENADULT ---
HPI - General Adult General Chief complaint: General Medical Stated complaint: Headache neck pain Time Seen by Provider: 12/23/20 19:27 History of Present Illness HPI narrative: Patient is a 45-year-old male presents today with having neck pain that is on the right side radiating to the head. Dull in nature worse with movement of his neck. Patient denies any fever chills. No changes in vision. No nausea no vomiting. No change with light. No change with noise. No congestion no coughing, patient not vaccinated for COVID. Denies any chest pain. No shortness of breath. No focal weakness. Patient attempted to take Tylenol to no avail. Related Data Home Medications Medication Instructions Recorded Confirmed baclofen 10 mg tablet 1 tab PO QID PRN 01/16/20 01/16/20 fluticasone propionate 50 1 spray INTRANASAL BID 01/16/20 01/16/20 mcg/actuation nasal spray,suspension naproxen 500 mg tablet 1 tab PO Q6H PRN 01/16/20 01/16/20 omeprazole 20 mg capsule,delayed 1 cap PO DAILY 01/16/20 01/16/20 release Previous Rx's Medication Instructions Recorded albuterol sulfate 90 mcg/actuation 1 inh INHALATION QID PRN #6.7 g 05/14/20 aerosol inhaler prednisone 20 mg tablet 40 mg PO DAILY #10 tab 05/14/20 Allergies Allergy/AdvReac Type Severity Reaction Status Date / Time aspirin [Aspirin] Allergy Unknown UNKNOWN Verified 12/23/20 18:54 penicillin V Allergy Unknown Swelling Verified 12/23/20 18:54 Penicillins Allergy Unknown SWELLING Verified 12/23/20 18:54 Review of Systems Review of Systems: No fever No chills No change in smell or taste. No change in vision No focal weakness Yes all other systems are reviewed and are negative [facility] Past Medical History Attestation statement: The following information was validated with the patient. Medical History Asthma Hypertension Social History Social History Alcohol intake: never Advance Directives: No Advance Directives Information Provided: Yes Current occupational status: employed Current occupation: [employer] Physical Exam Vital Signs: Vital Signs: Last Vital Signs Temp 97.5 F 12/23/20 18:54 Pulse 86 12/23/20 18:54 Resp 18 12/23/20 18:54 BP 128/88 12/23/20 18:54 Pulse Ox 98 12/23/20 18:54 Body Mass Index 35.6 Appearance: Alert. Oriented X3. No acute distress. Eyes: Pupils equal, round and reactive to light. ENT: Pharynx normal. TMs intact bilaterally. Nose is patent mucous membrane is moist. Posterior pharynx is normal. Neck: Normal inspection. Neck supple. No lymph nodes noted. No crepitus. Positive paraspinal muscle tenderness. CVS: Normal heart rate and rhythm. Pulses normal. Normal S1 and S2 Respiratory: No respiratory distress. Breath sounds normal. No Wheezing. No rales Abdomen: Soft and nontender. No rigidity. No distention. good BS x4 Skin: Skin warm and dry. Normal skin color. Normal skin turgor. Extremities: No lower extremity edema. Neurovascular intact to all extremities. No Lacerations. No Rash Neuro: Oriented X 3. No motor deficit. No sensory deficit. Moving all extermities. No slurred speech Medical Decision Making MDM Narrative Medical decision making narrative: Well-appearing no distress TMs intact no evidence for otitis. Neurologically intact. No nuchal rigidity no fever not consistent with having meningitis no sudden in the family headache ongoing in the neck consistent with having toward a callus versus tension headache. Will discharge patient home. Close follow-up on an outpatient basis. Patient's blood pressure in the emergency department is 128/80. Discharge Plan Discharge Clinical Impression: Headache, Torticollis Patient Disposition: Home, Self-Care Instructions: Acute Headache (ED), Spasmodic Torticollis (ED) Prescriptions: No Action baclofen 10 mg tablet 1 tab PO QID PRN (Reason: muscle spasm) RF: 0 omeprazole 20 mg capsule,delayed release(DR/EC) 1 cap PO DAILY RF: 0 fluticasone propionate 50 mcg/actuation spray,suspension 1 spray intranasal BID RF: 0 naproxen 500 mg tablet 1 tab PO Q6H PRN (Reason: pain) RF: 0 prednisone 20 mg tablet 40 mg PO DAILY Qty: 10 RF: 0 albuterol sulfate 90 mcg/actuation HFA aerosol inhaler 1 inh inhalation QID PRN (Reason: shortness of breath or wheezing) Qty: 6.7 RF: 0 Referrals: Physician,Unknown [Primary Care Provider] - 2 days (Warm soak Motrin for pain close follow-up with her doctor on an outpatient basis.)
== END 2020-12-23 20:05 | disposition home or self-care (01) ==
PROVIDERS: Emergency Provider Emergency Medicine Emergency Medical Services
DX: M43.6 Torticollis (principal); M54.2 Cervicalgia; R51.9 Headache, unspecified; Z79.899 Other long term (current) drug therapy
CPT/HCPCS: 99282; 99283

== ENCOUNTER 2021-01-29 12:42 | Emergency (ER) | payer OTHER, SELFPAY ==
--- NOTE | 2021-01-29 | ECG_ITS ---
Test Reason : CHEST PAIN Blood Pressure : / mmHG Vent. Rate : 067 BPM Atrial Rate : 067 BPM P-R Int : 162 ms QRS Dur : 088 ms QT Int : 398 ms P-R-T Axes : 025 -08 024 degrees QTc Int : 420 ms Normal sinus rhythm Normal ECG When compared with ECG of 20-OCT-2020 15:55, No significant change was found Referred By: Generic ED Physician Electronically Signed By:DHRUV DURAND MD
--- NOTE | 2021-01-29 12:45 | PC.NURSE ---
EKG CALLED FOR
[2021-01-29 14:00] VITALS: BP 125/82; PULSE 83; RESP 22; TEMP 36.3; O2SAT 99
[2021-01-29 14:40] VITALS: BP 125/82; PULSE 83; RESP 22; TEMP 36.3; O2SAT 99; BMI 33.3
--- NOTE | 2021-01-29 14:44 | ED_ITS ---
HPI - Chest Pain General Chief Complaint: Chest Pain Stated Complaint: chest pain, lt knee pain Time Seen by Provider: 01/29/21 14:44 Source: patient Mode of arrival: ambulatory Limitations: no limitations History of Present Illness HPI narrative: 12 hours of chest pain radiating to his left arm. The pain woke him from sleep. In addition patient noticed leg swelling. He went to work this morning. Patient is under some stress. Had a stress test 1 year ago that was negative, nuclear stress MD complaint: chest pain Onset (ago): hour(s) Timing of current episode: constant Prior episodes: Yes Onset: during rest Pain location: left chest Pain radiation: left arm Severity: mild Quality: heaviness Relieving factors: nothing Exacerbating factors: exertion Associated symptoms: nausea and dyspnea Treatment prior to arrival: none Risk Factors Coronary artery disease risk factors: smoking history, hyperlipidemia and hypertension Related Data Home Medications Medication Instructions Recorded Confirmed baclofen 10 mg tablet 1 tab PO QID PRN 01/16/20 01/16/20 fluticasone propionate 50 1 spray INTRANASAL BID 01/16/20 01/16/20 mcg/actuation nasal spray,suspension naproxen 500 mg tablet 1 tab PO Q6H PRN 01/16/20 01/16/20 chlorthalidone 25 mg tablet 1 tab PO DAILY 01/29/21 cholecalciferol (vitamin D3) 1,250 1 cap PO QWEEK 01/29/21 mcg (50,000 unit) capsule esomeprazole magnesium 20 mg 1 cap PO DAILY 01/29/21 capsule,delayed release Previous Rx's Medication Instructions Recorded albuterol sulfate 90 mcg/actuation 1 inh INHALATION QID PRN #6.7 g 05/14/20 aerosol inhaler Allergies Allergy/AdvReac Type Severity Reaction Status Date / Time aspirin [Aspirin] Allergy Unknown UNKNOWN Verified 12/23/20 18:54 penicillin V Allergy Unknown Swelling Verified 12/23/20 18:54 Penicillins Allergy Unknown SWELLING Verified 12/23/20 18:54 Review of Systems Constitutional: Constitutional: Reports no additional constitutional complaints Eyes: Eyes: Reports no additional eye complaints ENT: Denies dizziness Cardiovascular: Cardiovascular: Reports no additional cardiovascular complaints Respiratory: Respiratory: Reports as per HPI Gastrointestinal: Gastrointestinal: Reports no additional gastrointestinal complaints Musculoskeletal: Musculoskeletal: Reports no additional musculoskeletal complaints Integumentary/Breasts: Skin/Breast: Denies rash Neurologic: Reports system reviewed and no additional complaints, except as documented, Denies dizziness and Denies Sensory deficit (Neuro) Psychiatric: Psychiatric: Denies anxiety [facility] Past Medical History Medical History Asthma Hypertension Social History Social History Alcohol intake: never Patient Tobacco Use Status: Never used Tobacco Use of substances other than those prescribed or required for medical reasons: No Advance Directives: No Advance Directives Information Provided: Yes Current occupational status: employed Current occupation: [employer] Physical Exam Vital Signs: Vital Signs: Last Vital Signs Temp 97.4 F 01/29/21 14:40 Pulse 83 01/29/21 14:40 Resp 22 H 01/29/21 14:40 BP 125/82 01/29/21 14:40 Pulse Ox 99 01/29/21 14:40 Body Mass Index 33.3 Const: General: healthy appearing Nutritional Appearance: average body habitus Orientation/consciousness: oriented to person and patient oriented x3 Limitations: no limitations HENMT: Head: Yes normal to inspection Ears: external ears normal General nose exam: Normal external nose present Mouth: Normal oral and palatal mucosa present and oropharynx normal Throat: Yes posterior oropharynx normal Eyes: General: appearance normal, both eyes and all related structures Neck: Other: supple Neck: Yes normal visual inspection Chest: Chest palpation & inspection: normal inspection of the chest Resp: Auscultation: clear to auscultation bilaterally Cardio: Jugular venous distension: no JVD Rate: regular rate Rhythm: r egular rhythm Heart sounds: S1 normal heart sound present and S2 normal heart sound present GI: Inspection: Yes normal to inspection Palpation (GI): Soft to palpation, nontender and No hepatosplenomegaly present Auscultation: normal bowel sounds : General: Yes no CVA tenderness Back/Spine/Pelvis: Back: no CVA tenderness Skin: General skin exam: no rashes or lesions noted Neuro: General: oriented to person and patient oriented x3 Cranial nerves: Yes CN's II-XII intact bilaterally Motor exam (neuro): 5/5 motor strength present throughout Sensory Exam: No Sensory deficit (Neuro) Extrem: Other: left knee with prepatellar bursitis Psych: Appearance: grossly normal Course Reevaluation(s) Reevaluation #1: with normal EKG, troponin negative after 12 hours, and less than a year ago negative nuclear stress, will dc home Time: 15:57 MDM - Chest Pain Lab Data Result diagrams: 01/29/21 15:21 01/29/21 15:21 Labs: Lab Results 01/29/21 01/29/21 01/29/21 Range/Units 15:21 15:21 15:21 WBC 5.3 (4.8-10.8) X10*3/uL RBC 4.70 (4.60-5.80) X10*6/uL Hgb 15.1 (14.0-18.0) g/dl Hct 43.1 (42-52) % MCV 91.7 (80-98) fL MCH 32.1 (27.0-33.0) pg MCHC 35.0 (31.0-36.0) g/dl RDW 12.2 (11.0-16.0) % Plt Count 189 (160-400) X10*3/uL MPV 11.4 (9.4-12.4) fL Immature Gran % (Auto) 0.2 (0.0-0.4) % Neut % (Auto) 51.7 (45-73) % Lymph % (Auto) 37.2 (20-40) % Stoddard % (Auto) 6.2 (2-11) % Eos % (Auto) 4.1 H (0-4) % Baso % (Auto) 0.6 (0-2) % Lymph # (Auto) 2.0 (1.2-4.9) X10*3/uL Stoddard # (Auto) 0.3 (0.1-1.2) X10*3/uL Eos # (Auto) 0.2 (0.0-0.4) X10*3/uL Baso # (Auto) 0.0 (0.0-0.2) X10*3/uL Abs Immat Gran (auto) 0.01 (0.00-0.03) X10*3/uL Absolute Neuts (auto) 2.8 (2.0-8.3) X10*3/uL Absolute Nucleated RBC 0.000 (0.0-0.012) X10*3/uL Nucleated RBC % (auto) 0.0 (0.0-0.2) /100WBC Sodium 142 (135-145) mmol/L Potassium 3.8 (3.3-5.1) mmol/L Chloride 109 H (96-108) mmol/L Carbon Dioxide 25 (22-29) mmol/L Anion Gap 12 (12-20) BUN 12 (9-16) mg/dL Creatinine 0.96 (0.5-1.4) mg/dL Estim Creat Clear Calc 98.5 Estimated GFR > 60 Random Glucose 115 (60-115) mg/dL Calcium 9.1 D (8.4-10.2) mg/dL Troponin I High Sens < 3.5 (<3.5-35.0) ng/L Discharge Plan Discharge Clinical Impression: Chest pain Patient Disposition: Home, Self-Care Instructions: Chest Pain (ED) Prescriptions: No Action baclofen 10 mg tablet 1 tab PO QID PRN (Reason: muscle spasm) RF: 0 fluticasone propionate 50 mcg/actuation spray,suspension 1 spray intranasal BID RF: 0 naproxen 500 mg tablet 1 tab PO Q6H PRN (Reason: pain) RF: 0 albuterol sulfate 90 mcg/actuation HFA aerosol inhaler 1 inh inhalation QID PRN (Reason: shortness of breath or wheezing) Qty: 6.7 RF: 0 chlorthalidone 25 mg tablet 1 tab PO DAILY RF: 0 esomeprazole magnesium 20 mg capsule,delayed release(DR/EC) 1 cap PO DAILY RF: 0 cholecalciferol (vitamin D3) 1,250 mcg (50,000 unit) capsule 1 cap PO QWEEK RF: 0 Referrals: Svetlana Shea ECONOMIC DEVELOPMENT MANAGER [Primary Care Provider] - 5 days
[2021-01-29 14:46] VITALS: PULSE 79
--- NOTE | 2021-01-29 15:22 | PC.NURSE ---
20 ga iv est in lac. pt reports 4/10 nonreporducable chest pain, in no distress, skin is wpd resps = and nonlabored, pt is nsr leads 2 and v1
[2021-01-29 15:27] LABS: MANUAL DIFF FLAG NO
[2021-01-29 15:36] LABS: Basophils Percent Auto 0.6 % (0-2); Eosinophils Absolute Auto 0.2 X10*3/uL (0.0-0.4); Eosinophils Percent Auto 4.1 % (0-4); Hematocrit 43.1 % (42-52); Hemoglobin 15.1 g/dl (14.0-18.0); Imm Gran Abs Auto 0.01 X10*3/uL (0.00-0.03); Imm Gran Pct Auto 0.2 % (0.0-0.4); Lymphocytes Percent Auto 37.2 % (20-40); Mean Corpuscular Hemoglobin 32.1 pg (27.0-33.0); Mean Corpuscular Volume 91.7 fL (80-98); Mean Platelet Volume 11.4 fL (9.4-12.4); Monocytes Absolute Auto 0.3 X10*3/uL (0.1-1.2); Monocytes Percent Auto 6.2 % (2-11); Neutrophils Absolute Auto 2.8 X10*3/uL (2.0-8.3); Neutrophils Percent Auto 51.7 % (45-73); Platelet Count 189 X10*3/uL (160-400); Red Cell Distribution Width 12.2 % (11.0-16.0); White Blood Count 5.3 X10*3/uL (4.8-10.8)
[2021-01-29 15:42] LABS: Anion Gap 12 (12-20); Blood Urea Nitrogen 12 mg/dL (9-16); Calcium 9.1 mg/dL (8.4-10.2); Carbon Dioxide 25 mmol/L (22-29); Chloride 109 mmol/L (96-108); Creatinine Clr Calc Pharmacy 98.5; Estimated Glomerular Filt Rate > 60; Glucose Random 115 mg/dL (60-115); Potassium 3.8 mmol/L (3.3-5.1); Sodium 142 mmol/L (135-145)
[2021-01-29 15:48] LABS: Troponin-I High Sensitivity < 3.5 ng/L (<3.5-35.0)
[2021-01-29 17:01] VITALS: BP 114/83; PULSE 67; RESP 16; O2SAT 97
== END 2021-01-29 17:02 | disposition home or self-care (01) ==
PROVIDERS: Emergency Provider Emergency Medicine; PCP Nurse Practitioner Primary Care
DX: R07.9 Chest pain, unspecified (principal); M79.602 Pain in left arm; R11.0 Nausea; Z79.899 Other long term (current) drug therapy
CPT/HCPCS: 36415; 80048; 84484; 85025; 93005; 99283; 99284

== ENCOUNTER → 2021-02-12 14:16 | Outpatient (BNVA) | payer OTHER, SELFPAY | PROVIDERS: PCP Nurse Practitioner Primary Care; Referring Provider Nurse Practitioner Primary Care; Visit Provider Nurse Practitioner | DX: Z01.818 Encounter for other preprocedural examination (principal); R10.13 Epigastric pain; K21.9 Gastro-esophageal reflux disease without esophagitis; Z79.899 Other long term (current) drug therapy | CPT/HCPCS: 99202 ==

== ENCOUNTER 2021-03-31 16:00 | Outpatient (RCR) | payer OTHER, SELFPAY | END 2021-05-05 11:50 | disposition home or self-care (01) | LOC: HO.PT 16:00 | PROVIDERS: PCP Nurse Practitioner Primary Care; Visit Provider Nurse Practitioner Primary Care | DX: M25.562 Pain in left knee (principal) | CPT/HCPCS: 97033; 97110; 97140; 97161; 97530 ==

== ENCOUNTER 2021-04-12 09:44 | Emergency (ER) | payer OTHER, SELFPAY ==
[2021-04-12 10:18] VITALS: BP 138/96; PULSE 83; RESP 16; TEMP 36.4; O2SAT 98; BMI 33.3
[2021-04-12 11:05] LABS: COVID-19 Test Positive (Negative)
--- NOTE | 2021-04-12 12:03 | ED.URI ---
HPI - URI/Sore Throat General Chief Complaint: Upper Respiratory Symptoms Stated Complaint: ear pain Time Seen by Provider: 04/12/21 11:36 Source: patient Mode of arrival: ambulatory Limitations: no limitations History of Present Illness HPI Narrative: This is a 46-year-old male past medical history significant for HTN, asthma, GERD presenting to the emergency department with complaints of facial pressure sinus congestion, and bilateral ear pain x3 days. Patient tells me has been progressively worsening. Patient tells me no one around him is sick. He has not had any recent sick contacts. He is not vaccinated against COVID. He denies chest pain, shortness of breath. MD elicited complaint: nasal congestion, sinus pain and other (Ear ache ) Onset (ago): day(s) (3) Consistency: constant Severity: severe Able to tolerate fluids by mouth: Yes Exacerbating factors: nothing Relieving factors: nothing Associated symptoms: nasal congestion Treatments prior to arrival: none Related Data Home Medications Medication Instructions Recorded Confirmed fluticasone propionate 50 1 spray INTRANASAL BID 01/16/20 01/16/20 mcg/actuation nasal spray,suspension naproxen 500 mg tablet 1 tab PO Q6H PRN 01/16/20 01/16/20 esomeprazole magnesium 20 mg 1 cap PO DAILY 01/29/21 capsule,delayed release Previous Rx's Medication Instructions Recorded albuterol sulfate 90 mcg/actuation 1 inh INHALATION QID PRN #6.7 g 05/14/20 aerosol inhaler peg 3350-electrolytes 236 240 ml PO Q10M 1 Days #4000 ml 02/12/21 gram-22.74 gram-6.74 gram-5.86 gram solution (Golytely) doxycycline hyclate 100 mg capsule 100 mg PO BID 10 Days #20 cap 04/12/21 Allergies Allergy/AdvReac Type Severity Reaction Status Date / Time aspirin [Aspirin] Allergy Unknown UNKNOWN Verified 02/12/21 14:35 penicillin V Allergy Unknown Swelling Verified 02/12/21 14:35 Penicillins Allergy Unknown SWELLING Verified 02/12/21 14:35 Review of Systems Review of Systems: Constitutional : No Fever, No Chills, positive fatigue, positive Malaise ENT/Mouth : No sore throat, positive runny nose, + ear ache Eyes: No Discharge Cardiovascular : No Chest Pain, No SOB Respiratory : No Cough, No Sputum Gastrointestinal : No Nausea, No Vomiting, No Diarrhea Genitourinary : No Dysuria, No Urinary Frequency Musculoskeletal : positive Myalgia Skin : No rash Neuro : No Headache Yes all other systems are reviewed and are negative [facility] Past Medical History Attestation statement: The following information was validated with the patient. Source: old records reviewed and nursing notes reviewed Medical History Asthma Hypertension Social History Social History Alcohol intake: never Patient Tobacco Use Status: Never used Tobacco Advance Directives: No Advance Directives Information Provided: No Current occupational status: employed Current occupation: [employer] Physical Exam Vital Signs: Vital Signs: Last Vital Signs Temp 97.5 F 04/12/21 10:18 Pulse 83 04/12/21 10:18 Resp 16 04/12/21 10:18 BP 138/96 H 04/12/21 10:18 Pulse Ox 98 04/12/21 10:18 BMI result Body Mass Index 33.3 VSS Appearance: Alert.? Oriented X3.? No acute distress.? Head: Normocephalic, atraumatic, no step-offs or deformities Eyes: Pupils equal, round and reactive to light.? ENT: Pharynx normal.? Neck: Normal inspection.? Neck supple.? CVS: Normal heart rate and rhythm.? Pulses normal.? Respiratory: No respiratory distress.? Breath sounds normal.? Abdomen: Soft and nontender.? Skin: Skin warm and dry.? Normal skin color.? Normal skin turgor.? Extremities: No lower extremity edema.? No calf ttp. 5/5 strength to bilateral upper and lower extremities Back: No midline tenderness, no C-spine tenderness, full range of motion, no CVA tenderness bilaterally Neuro: Oriented X 3.? No motor deficit.? No sensory deficit. Course Reevaluation(s) Reevaluation #1: Patient is COVID positive. Likely reason for patient's symptoms however since he is having facial pressure/congestion will also treat for sinusitis. At this time I will treat patient for sinusitis, with doxycycline as patient is allergic to Augmentin. Feel comfortable discharge home patient is saturating well on room air, no acute distress. I have advised him to return with new or worsening symptoms and I have outlined strict return precautions and is discharge and have reviewed them with him. Comfortable with discharge home. Time: 12:07 MDM - URI/Sore Throat MDM Narrative Medical decision making narrative: 1205 46 yo M pmhx GERD presents to ED with sinus congestion & b/l ear ache X3 days. Denies chest pain, shortness of breath. Physical examination benign. However, positive forward bending pressure, consistent with sinusitis. Patient is saturating 98% on room air even after ambulation. Unlikely PE. Plan at this time is to obtain a COVID test to rule out COVID-19. Medical Records Attestation: I reviewed the patient's medical records. Lab Data Attestation: I reviewed the patient's lab results. Labs: Lab Results 04/12/21 Range/Units 10:22 COVID-19 (JAMIE) Positive A (Negative) COVID-19 Clin Com See Note Critical Care Time Critical Care Time Critical Care Time: No Discharge Plan Discharge Clinical Impression: COVID-19, Sinusitis Patient Disposition: Home, Self-Care Instructions: Sinusitis (ED), COVID-19 (Coronavirus Disease 2019) (ED) Additional Instructions: Take your medications as prescribed. If you were prescribed antibiotics today, it is important that you take your medication to their entirety, do not skip any doses, do not finish them early. Today you tested positive for COVID-19. Take Ibuprofen or Tylenol as needed for fevers or body aches. Quarantine for 7 days and ensure you wear a mask. After 7 days you should wear a mask for 3 days after that. Practice social distancing and good hand hygiene. Drink plenty of fluids. Follow-up with your primary care provider this week. Return to the emergency department with new or worsening symptoms. In case of emergency call 911 You can purchase a pulse oximeter from your local pharmacy or grocery store, and monitor your oxygen saturation if it goes below 94% you should return to the emergency department for further evaluation. Prescriptions: New doxycycline hyclate 100 mg capsule 100 mg PO BID 10 Days Qty: 20 RF: 0 No Action fluticasone propionate 50 mcg/actuation spray,suspension 1 spray intranasal BID RF: 0 naproxen 500 mg tablet 1 tab PO Q6H PRN (Reason: pain) RF: 0 albuterol sulfate 90 mcg/actuation HFA aerosol inhaler 1 inh inhalation QID PRN (Reason: shortness of breath or wheezing) Qty: 6.7 RF: 0 esomeprazole magnesium 20 mg capsule,delayed release(DR/EC) 1 cap PO DAILY RF: 0 peg 3350-electrolytes [Golytely] 236-22.74-6.74 -5.86 gram recon soln 240 ml PO Q10M 1 Days Qty: 4000 RF: 0 Referrals: Svetlana Shea PRINCIPAL SOLUTIONS ARCHITECT [Primary Care Provider] - 2 days Stand Alone Forms: Work/School Release Interventions: ED Discharge Assessment Last Done: 04/12/21 12:28 Discharge Date/Time: 04/12/21 12:29
== END 2021-04-12 12:29 | disposition home or self-care (01) ==
PROVIDERS: Emergency Provider Emergency Medicine; PCP Nurse Practitioner Primary Care
DX: U07.1 COVID-19 (principal); J32.9 Chronic sinusitis, unspecified; I10 Essential (primary) hypertension; J45.909 Unspecified asthma, uncomplicated
CPT/HCPCS: 36415; 87635; 99282; 99283

== ENCOUNTER → 2021-05-03 09:27 | Outpatient (BNVA) | payer OTHER, SELFPAY | PROVIDERS: PCP Nurse Practitioner Primary Care; Referring Provider Nurse Practitioner Primary Care; Visit Provider Internal Medicine | DX: I77.810 Thoracic aortic ectasia (principal); R07.2 Precordial pain; G47.33 Obstructive sleep apnea (adult) (pediatric) | CPT/HCPCS: 93005; 99212 ==

== ENCOUNTER → 2021-06-14 10:06 | Outpatient (BNVA) | payer OTHER, SELFPAY | PROVIDERS: PCP Nurse Practitioner Primary Care; Visit Provider Internal Medicine | DX: G47.33 Obstructive sleep apnea (adult) (pediatric) (principal); R40.0 Somnolence; E66.9 Obesity, unspecified; Z68.35 Body mass index [BMI] 35.0-35.9, adult | CPT/HCPCS: 99202 ==

== ENCOUNTER → 2021-06-22 09:41 | Outpatient (BNVA) | payer OTHER, SELFPAY | PROVIDERS: PCP Nurse Practitioner Primary Care; Referring Provider Nurse Practitioner Primary Care; Visit Provider Nurse Practitioner | DX: R10.13 Epigastric pain (principal); K21.9 Gastro-esophageal reflux disease without esophagitis | CPT/HCPCS: 99212 ==

== ENCOUNTER → 2021-07-15 14:46 | Outpatient (REF) | payer OTHER, SELFPAY | LOC: HO.SL 14:46 | PROVIDERS: PCP Nurse Practitioner Primary Care; Visit Provider Internal Medicine | DX: G47.33 Obstructive sleep apnea (adult) (pediatric) (principal); R40.0 Somnolence; E66.9 Obesity, unspecified | CPT/HCPCS: 95806 ==

== ENCOUNTER → 2021-07-27 09:08 | Outpatient (REF) | payer OTHER, SELFPAY ==
--- NOTE | 2021-07-27 09:12 | CA_ITS ---
Transthoracic Echocardiogram Patient (Last, First, Middle): Jay Chan, Gender: Male Date of : 1975 Age: 46 Procedure Date: 07/27/2021 Procedure Type: Transthoracic Echocardiogram Location: OP Height: 165.1 cm Weight: 86.18 kg BSA: 1.94 m2 Heart Rate: bpm BP: 116 / 84 mmHg Scholastic Aptitude Test Grader: IVANA Referring MD: Mukesh Santo MD Pipe Fitter Maintenance: Sacha Garza MD Symptoms: I77.810 - Thoracic aortic ectasia Study Quality: Fair ECG Rhythm: Sinus Conclusions: - 1. Normal LV systolic and diastolic function with LVEF of 60 65% 2. Normal cardiac valvular Doppler 3. Mildly dilated ascending aorta at 3.9 cm 4. Normal RV systolic pressure 5. No gross pericardial effusion Findings Left Ventricle Normal left ventricular size, thickness, and systolic function. The visually estimated ejection fraction is between 60-65%. Spectral Doppler is indicative of a normal filling pattern. Right Ventricle Normal right ventricular cavity size and systolic function. Atria The left atrium is likely dilated. There is no evidence of interatrial shunt. The right atrium is normal in size. Aortic Valve Normal aortic valve structure and function. There is no aortic valve stenosis. There is no aortic valve regurgitation. Mitral Valve Normal mitral valve structure and function. There is trace mitral valve regurgitation. There is no mitral valve stenosis. Pulmonic Valve The pulmonic valve was not well visualized. There is trace pulmonic valve regurgitation. Tricuspid Valve Normal tricuspid valve structure. There is trace tricuspid valve regurgitation. The right ventricular systolic pressure is normal. The right ventricular systolic pressure is 25 mmHg. Normal right atrial pressure. There is no evidence of pulmonary hypertension. Great Vessels The pulmonary artery was not well visualized. There is mild dilatation of the ascending aorta measuring 3.90 cm. Venous The inferior vena cava is normal in size and collapses greater than 50% with inspiration. Pericardium/Pleural There is no evidence of pericardial effusion. Prior Study Comparison No significant change compared to prior study dated: 09/17/2019. Measurements 2D Linear Measurements IVSd: 0.88 0.6-0.9/0.6-1.0 cm LVIDd: 4.67 3.9-5.3/4.2-5.9 cm LVIDd Index: 2.41 2.4-3.2/2.2-3.1 cm/m2 LVIDs: 3.09 2.0-3.6 cm LVPWd: 1.05 0.7-1.1 cm LA Diam: 3.00 2.7-3.8/3.0-4.0 cm LAIDs Index: 1.55 1.5-2.3 cm/m2 LV Mass: 193.21 67-162/88-224 g LV Mass Index: 99.59 43-95/49-115 g/m2 LVOT Diam: 2.40 3.0+(-)1.3 cm 2D Systolic Function EF 4C: 59.70 >55% EF 2C: 61.20 >55% EF BiP: 61.00 >55% Mitral Valve MV Pk E: 0.85 MV PK A: 0.57 MV Decel Time: 174.00 E/A: 1.50 E'Lateral: 10.90 E'Medial: 9.03 E/E' Med: 9.40 E/E' Lat: 7.80 PHT: 51.00 MVA PHT: 4.31 Decel Montague: 4.89 Aortic Valve AoV Pk Ramiro: 1.03 AoV Mn Ramiro: 0.80 AoV VTI: 0.22 AoV Pk Grad: 4.00 Aov Mn Grad: 3.00 JOSEPH Cont.VTI: 3.73 LVOT LVOT Pk Ramiro: 0.82 LVOT Mn Ramiro: 0.59 LVOT VTI: 0.18 LVOT Pk Grad: 3.00 LVOT Mn Grad: 2.00 LVOT Diam: 2.40 LVOT Area: 4.52 Diastolic Function MV Pk E: 0.85 MV Pk A: 0.57 E/A: 1.50 E'Medial: 9.03 E/E' Med: 9.40 E' Laterial: 10.90 E/E' Lat: 7.80 Right Ventricle TAPSE (mm): 17.80 TVS' Ramiro: 9.79 Tricuspid Valve TR Pk Ramiro: 2.32 TR Pk Grad: 22.00 RA Press: 3.00 RVSP: 25.00 Great Vessels Aorta Sinus of Valsalva: 4.16 2.0-3.[address] [place]: 3.62 1.7-3.4 cm Ao Asc: 3.90 2.1-3.4 cm Ao Arch: 3.10 Updated in Other Vendor System with Status of Final Sacha Garza MD electronically signed on 07/27/2021 11:26:21 AM with status of Final
== END ==
LOC: HO.CARD 09:08
PROVIDERS: PCP Nurse Practitioner Primary Care; Visit Provider Internal Medicine
DX: I77.810 Thoracic aortic ectasia (principal)
CPT/HCPCS: 93306

== ENCOUNTER → 2021-08-03 14:51 | Outpatient (BNVA) | payer OTHER, SELFPAY | PROVIDERS: PCP Nurse Practitioner Primary Care; Visit Provider Internal Medicine | DX: G47.33 Obstructive sleep apnea (adult) (pediatric) (principal); E66.9 Obesity, unspecified; Z68.34 Body mass index [BMI] 34.0-34.9, adult | CPT/HCPCS: 99212 ==

== ENCOUNTER → 2021-08-05 10:41 | Outpatient (BNVA) | payer OTHER, SELFPAY | PROVIDERS: PCP Nurse Practitioner Primary Care; Visit Provider Dietitian, Registered | DX: E66.9 Obesity, unspecified (principal); Z68.34 Body mass index [BMI] 34.0-34.9, adult | CPT/HCPCS: 97802 ==

== ENCOUNTER 2021-09-27 09:32 | Emergency (ER) | payer OTHER, SELFPAY ==
[2021-09-27 09:45] VITALS: BP 120/84; PULSE 89; RESP 18; TEMP 36.9; O2SAT 97; BMI 33.3
--- NOTE | 2021-09-27 10:01 | ED_ITS ---
HPI - Extremity Injury (Lower) General Chief Complaint: Extremity Injury, Lower Stated Complaint: r thigh inj work realted Time Seen by Provider: 09/27/21 10:01 Source: patient Mode of arrival: ambulatory Limitations: no limitations History of Present Illness HPI Narrative: Patient is a 46 year old male presenting to the emergency department today with right upper leg pain. Patient states that he stepped out of his work van weird and now has right upper leg pain. Patient denies any dizziness, lightheadedness, abdominal pain, nausea, vomiting, fever, chills, blurry vision, double vision, loss of vision, chest pain, difficulty breathing, shortness of breath, back pain, night sweats, pain with urination, increased urinary frequency, increased urinary urgency, blood in his urine or stool, syncope or a near syncopal episode, bowel incontinence, bladder incontinence, bowel retention, bladder retention, or any other complaints at this time. MD complaint: thigh injury Onset (ago): hour(s) Injury: Right: thigh Place: work Severity: mild Severity scale (1-10): 2 Exacerbating factors: nothing Associated symptoms: snap/pop sensation Other symptoms: none Related Data Home Medications Medication Instructions Recorded Confirmed esomeprazole magnesium 20 mg 1 cap PO DAILY 01/29/21 06/01/21 capsule,delayed release fluticasone propionate 50 1 spray intranasal DAILY 06/14/21 mcg/actuation nasal spray,suspension (Flonase Allergy Relief) Previous Rx's Medication Instructions Recorded peg 3350-electrolytes 236 240 ml PO Q10M 1 day #4,000 mL 06/22/21 gram-22.74 gram-6.74 gram-5.86 gram solution (Golytely) cyclobenzaprine 10 mg tablet 10 mg PO TID PRN muscle spasm 7 09/27/21 days #21 tabs Allergies Allergy/AdvReac Type Severity Reaction Status Date / Time aspirin [Aspirin] Allergy Unknown UNKNOWN Verified 08/03/21 15:06 Penicillins Allergy Unknown SWELLING Verified 08/03/21 15:06 Review of Systems Constitutional: Constitutional: Reports no additional constitutional complaints, Denies chills, Denies fever(s) and Denies night sweats Eyes: Eyes: Reports no additional eye complaints, Denies blurry vision, Denies change in vision, Denies diplopia, Denies eye discharge, Denies loss of vision and Denies eye pain ENT: Denies dizziness Cardiovascular: Cardiovascular: Reports no additional cardiovascular complaints, Denies chest pain, Denies lightheadedness, Denies Loss of Consciousness and Denies dyspnea Respiratory: Respiratory: Reports no additional respiratory complaints and Denies dyspnea Gastrointestinal: Gastrointestinal: Reports no additional gastrointestinal complaints, Denies abdominal pain, Denies melena, Denies hematochezia, Denies change in bowel habits and Denies change in stool character Genitourinary: Genitourinary: Reports no additional male genitourinary complaints, Denies hematuria, Denies oliguria, Denies difficulty urinating, Denies dysuria, Denies urinary frequency, Denies urinary hesitancy, Denies urinary incontinence and Denies urinary urgency Musculoskeletal: Musculoskeletal: Reports no additional musculoskeletal complaints, Denies numbness and Denies tingling Comments: right upper leg pain Neurologic: Denies dizziness, Denies loss of vision, Denies numbness and Denies tingling Psychiatric: Psychiatric: Reports no additional psychiatric complaints Endocrine: Endocrine: Reports no additional endocrine complaints Hematologic/Lymphatic: Hematologic/Lymphatic: Reports no additional hematologic/lymphatic complaints Allergic/Immunologic: Allergic/Immunologic: Reports no additional allergic/immunologic complaints [facility] Past Medical History Attestation statement: The following information was validated with the patient. Source: old records reviewed Medical History Asthma Hypertension Surgical History History of surgery on left wrist Hx of wisdom tooth extraction Family History Family History Mother Breast cancer Hypertension Diabetes Social History Social History Alcohol intake: never Patient Tobacco Use Status: Former Tobacco user Advance Directives: No Advance Directives Information Provided: No Current occupational status: employed Current occupation: [employer] Physical Exam Vital Signs: Vital Signs: Last Vital Signs Temp 98.5 F 09/27/21 09:45 Pulse 89 09/27/21 09:45 Resp 18 09/27/21 09:45 BP 120/84 09/27/21 09:45 Pulse Ox 97 09/27/21 09:45 O2 Del Method 09/27/21 09:45 BMI result Body Mass Index 33.3 Const: General: cooperative, no acute distress, alert and awake Nutritional Appearance: well nourished Orientation/consciousness: patient oriented x3 Limitations: no limitations HEENT: Head: Yes normal to inspection and Yes atraumatic Ears: hearing grossly normal bilaterally and external ears normal General nose exam: Normal external nose present, no nasal discharge noted and no epistaxis Face and sinus: Yes normal facial exam, No abrasion and No laceration Mouth: Normal oral and palatal mucosa present, no drooling and no muffled voice Eyes: General: appearance normal, both eyes and all related structures Periorbital: periorbital findings normal Eyelids: Yes eyelids normal Conjunctivae: conjunctivae normal Pupils: Equal, round and reactive pupils present EOM: EOMs intact bilaterally Neck: Neck: Yes normal visual inspection, Yes full ROM and Yes no lymphadenopathy Chest: Chest palpation & inspection: normal inspection of the chest Resp: Effort & Inspection: normal respiratory effort and able to speak in complete sentences Auscultation: clear to auscultation bilaterally Cardio: Rate: regular rate Rhythm: regular rhythm GI: Inspection: Yes normal to inspection Neuro: General: patient oriented x3 and moves all extremities Cranial nerves: Yes Equal, round and reactive pupils present Cognition (Neuro): normal cognition Motor exam (neuro): 5/5 motor strength present throughout Sensory Exam: Normal double simultaneous stimulation for sensation Coordination: [id number] test normal Extrem: Other: pain with right leg raise but able to do it well General: Yes normal to inspection, Yes full ROM and Yes capillary refill normal Psych: Appearance: grossly normal Mental Status: mental status grossly normal Affect: normal affect Attitude: cooperative Thought process: Normal thought process present Thought content: Normal thought content present Insight: Good insight present (Psych) MDM - Extremity Injury (Lower) MDM Narrative Medical decision making narrative: Patient is a 46 year old male presenting to the emergency department today with right upper leg pain. Patient's physical exam showed pain with a right leg lift however, the patient was able to do it and to do it against resistance. I explained my physical exam findings to the patient. I answered all questions asked by the patient. Patient received PO Flexeril and IM Toradol which he stated helped his pain significantly. I offered the patient a knee immobilizer and crutches however, the patient refused. I stressed the importance of the patient taking his medication as prescribed. I stressed the importance of the patient following up with his primary care provider and an orthopedic provider. I stressed the importance of the patient returning to the emergency department immediately if his symptoms were to worsen or if he were to develop any dizziness, shortness of breath, difficulty breathing, chest pain, blurry vision, loss of vision, nausea, vomiting, abdominal pain, fever, chills, back pain, or any other complaints. Patient verbalized agreement and understanding with this treatment plan and discharge. Differential Diagnosis Differential diagnosis: Unlikely acute internal derangement of knee (quad strain, quad sprain) Medical Records Attestation: I reviewed the patient's medical records. Discharge Plan Discharge Clinical Impression: Quadriceps strain Patient Disposition: Home, Self-Care Instructions: Muscle Strain (ED) Additional Instructions: Follow up with your primary care provider and an orthopedic provider. Return to the emergency department immediately if your symptoms worsen or if you develop any dizziness, shortness of breath, difficulty breathing, chest pain, blurry vision, loss of vision, nausea, vomiting, abdominal pain, fever, chills, back pain, or any other complaints. Prescriptions: New cyclobenzaprine 10 mg tablet 10 mg PO TID PRN (Reason: muscle spasm) 7 Days Qty: 21 0RF No Action esomeprazole magnesium 20 mg capsule,delayed release(DR/EC) 1 cap PO DAILY peg 3350-electrolytes [Golytely] 236-22.74-6.74 -5.86 gram recon soln 240 ml PO Q10M 1 Days Qty: 4000 0RF Rx Instructions: until fecal effluent is clear; do not exceed a total volume of 2,000 mL fluticasone propionate [Flonase Allergy Relief] 50 mcg/actuation spray,suspension 1 spray intranasal DAILY Rx Instructions: administer into each nostril Referrals: [facility] [place] [facility] [Provider Group] Svetlana Shea NP [Primary Care Provider] - Stand Alone Forms: Work/School Release Interventions: ED Discharge Assessment Last Done: 09/27/21 10:23 Discharge Date/Time: 09/27/21 10:23 Print Language: Frisian
[2021-09-27] MEDS: Cyclobenzaprine HCl 5 MG TABLET PO (10:13)
[2021-09-27] MEDS: Ketorolac Tromethamine 15 MG/ML VIAL IM (10:14)
== END 2021-09-27 10:23 | disposition home or self-care (01) ==
PROVIDERS: Emergency Provider Emergency Medicine; PCP Nurse Practitioner Primary Care
DX: S76.111A Strain of right quadriceps muscle, fascia and tendon, initial encounter (principal); W17.89XA Other fall from one level to another, initial encounter; Y93.9 Activity, unspecified; Y92.9 Unspecified place or not applicable; Y99.0 Civilian activity done for income or pay; Z79.899 Other long term (current) drug therapy; Z87.891 Personal history of nicotine dependence
CPT/HCPCS: 96372; 99283; 99284; J1885

== ENCOUNTER → 2021-10-07 12:18 | Outpatient (BNVA) | payer OTHER, SELFPAY | PROVIDERS: PCP Nurse Practitioner Primary Care; Visit Provider Physician Assistant | DX: S76.311A Strain of muscle, fascia and tendon of the posterior muscle group at thigh level, right thigh, initial encounter (principal) | CPT/HCPCS: 99202 ==

== ENCOUNTER 2021-12-21 16:17 | Emergency (ER) | payer OTHER, SELFPAY ==
[2021-12-21 18:55] VITALS: BP 141/97; PULSE 74; RESP 16; TEMP 36.1; O2SAT 97; BMI 33.3
[2021-12-21 19:27] LABS: Strep A Nucleic Acid Negative (Negative)
[2021-12-21 19:31] LABS: COVID-19 Test Negative (Negative); IDNOW Serial# 16C4AD1C
--- NOTE | 2021-12-21 22:02 | ED_ITS ---
HPI - URI/Sore Throat General Chief Complaint: Upper Respiratory Symptoms Stated Complaint: sore throat, nasal drip Time Seen by Provider: 12/21/21 18:47 Source: patient Mode of arrival: ambulatory History of Present Illness HPI Narrative: 46-year-old male with remote history of asthma presents with sore throat, nasal congestion and runny nose and states that he was exposed to COVID positive individual. All the symptoms began yesterday and have not been associated with any fever, chills, ear pain, GI or symptoms. Patient otherwise denies any shortness of breath or chest pain. Related Data Home Medications Medication Instructions Recorded Confirmed esomeprazole magnesium 20 mg 1 cap PO DAILY 01/29/21 06/01/21 capsule,delayed release fluticasone propionate 50 1 spray intranasal DAILY 06/14/21 mcg/actuation nasal spray,suspension (Flonase Allergy Relief) Previous Rx's Medication Instructions Recorded peg 3350-electrolytes 236 240 ml PO Q10M 1 day #4,000 mL 06/22/21 gram-22.74 gram-6.74 gram-5.86 gram solution (Golytely) cyclobenzaprine 10 mg tablet 10 mg PO TID PRN muscle spasm 7 09/27/21 days #21 tabs Allergies Allergy/AdvReac Type Severity Reaction Status Date / Time aspirin [Aspirin] Allergy Unknown UNKNOWN Verified 12/21/21 18:58 Penicillins Allergy Unknown SWELLING Verified 12/21/21 18:58 Review of Systems Review of Systems: Pertinent positives and negatives as stated in HPI 10 point review of systems is otherwise negative. [facility] Past Medical History Source: nursing notes reviewed Medical History Asthma Hypertension Obesity (BMI 35.0-39.9 without comorbidity) Somnolence, daytime Surgical History History of surgery on left wrist Hx of wisdom tooth extraction Family History Family History Mother Breast cancer Hypertension Diabetes Social History Social History Alcohol intake: never Patient Tobacco Use Status: Former Tobacco user Advance Directives: No Advance Directives Information Provided: No Current occupational status: employed Current occupation: [employer] Physical Exam Vital Signs: Vital Signs: Last Vital Signs Temp 97.0 F 12/21/21 18:55 Pulse 74 12/21/21 18:55 Resp 16 12/21/21 18:55 BP 141/97 H 12/21/21 18:55 Pulse Ox 97 12/21/21 18:55 O2 Del Method 12/21/21 18:55 BMI result Body Mass Index 33.3 VITAL SIGNS: Reviewed. GENERAL: Well developed, well nourished, in no acute distress. HEAD: Normocephalic/atraumatic EYES: PERRLA, EOMI EARS: Ext canals without abnormality, TMs non-bulging and non-erythematous NOSE: Nasal congestion with boggy turbinates and mild tenderness on palpation across maxillary sinuses OROPHARYNX: no oral lesions noted, posterior pharynx clear but noted cobblestoning NECK: Supple, no adenopathy LUNGS: Normal breath sounds. No adventitious sounds or accessory muscle use. S pO2<97> CARDIOVASCULAR: Regular rate and rhythm without noted murmurs ABDOMEN: Soft, non-tender, non-distended with bowel sounds. MUSCULOSKELETAL: No tenderness, deformities, or effusions noted on gross inspection. EXTREMITIES: No cyanosis, clubbing or edema. SKIN: Inspection of the skin reveals no rashes NEUROLOGIC: Alert and oriented x 4. Strength and sensation to light touch were grossly intact x 4. Course Course Course Narrative: 46-year-old male with history and clinical presentation consistent with likely allergic rhinitis in combination with postnasal drip. Review of COVID and strep results negative for acute findings. All this was discussed with the patient and he acknowledges that he feels this may be allergic rhinitis as well and has Flonase at home. He is otherwise discharged home in stable condition. MDM - URI/Sore Throat Lab Data Labs: Lab Results 12/21/21 12/21/21 Range/Units 19:01 19:01 COVID-19 (JAMIE) Negative (Negative) COVID-19 Clin Com See Note S. pyogenes GrpA MELBA Negative (Negative) Discharge Plan Discharge Clinical Impression: Cough with exposure to COVID-19 virus, Allergic rhinitis Patient Disposition: Home, Self-Care Instructions: Postnasal Drip (DC), Allergic Rhinitis (ED) Additional Instructions: 1. Recommend that you start using [id number] Flonase and combination with Claritin during the day and consider using Benadryl in the evening as this will reduce the amount of nasal congestion. 2. Continue to drink plenty of water and recommend [id number] Tylenol/ibuprofen as needed for sinus pain. 3. If you have been exposed to someone with COVID 19 positive you must follow current CDC guidelines for isolation. Although your test today was negative it is highly recommended that you test again in 2-3 days. 4. Follow-up with your primary care provider in the next 1-2 days. Return to the ER for any worsening of symptoms. Prescriptions: No Action esomeprazole magnesium 20 mg capsule,delayed release(DR/EC) 1 cap PO DAILY cyclobenzaprine 10 mg tablet 10 mg PO TID PRN (Reason: muscle spasm) 7 Days Qty: 21 0RF peg 3350-electrolytes [Golytely] 236-22.74-6.74 -5.86 gram recon soln 240 ml PO Q10M 1 Days Qty: 4000 0RF Rx Instructions: until fecal effluent is clear; do not exceed a total volume of 2,000 mL fluticasone propionate [Flonase Allergy Relief] 50 mcg/actuation spray,suspension 1 spray intranasal DAILY Rx Instructions: administer into each nostril Referrals: Svetlana Shea NP [Primary Care Provider] -
== END 2021-12-21 23:14 | disposition home or self-care (01) ==
PROVIDERS: Emergency Provider Student in an Organized Health Care Education/Training Program; PCP Nurse Practitioner Primary Care
DX: R05.9 Cough, unspecified (principal); J30.9 Allergic rhinitis, unspecified; Z20.822 Contact with and (suspected) exposure to COVID-19; J02.9 Acute pharyngitis, unspecified; Z87.891 Personal history of nicotine dependence
CPT/HCPCS: 87635; 87651; 99282; 99283

== ENCOUNTER 2022-06-08 09:51 | Emergency (ER) | payer OTHER, SELFPAY ==
--- NOTE | ~2022-06-08 | XR_ITS ---
EXAMINATION: XR CHEST CLINICAL INFORMATION: Cough. COMPARISON: 10/20/2020 chest radiograph. TECHNIQUE: Frontal view of the chest was obtained. FINDINGS: No significant abnormality is noted involving the heart, lungs, mediastinum, bony thorax or soft tissues. XR/XR chest 1V IMPRESSION: No acute cardiopulmonary process.
[2022-06-08 10:04] VITALS: BP 125/92; PULSE 99; RESP 18; TEMP 36.4; O2SAT 96; BMI 34.9
[2022-06-08 11:12] LABS: IDNOW Serial# 6674DD1D; Strep A Nucleic Acid Negative (Negative)
[2022-06-08 11:40] LABS: Influenza A PCR NEGATIVE (Negative); Influenza B PCR NEGATIVE (Negative); Resp Syncy Virus RNA Qual PCR NEGATIVE (Negative); SARS COV2 PCR INHOUSE NEGATIVE (Negative)
[2022-06-08 13:46] VITALS: BP 120/80; PULSE 89; RESP 17; TEMP 37.1; O2SAT 96
--- NOTE | 2022-06-08 13:56 | ED.URI ---
HPI - URI/Sore Throat General Chief Complaint: Upper Respiratory Symptoms Stated Complaint: Cough/Congestion/[place] Time Seen by Provider: 06/08/22 13:30 Source: patient Mode of arrival: ambulatory Limitations: no limitations History of Present Illness HPI Narrative: 47-year-old male with a history of asthma who presents to the ER with complaints of cough, runny nose, wheezing since Monday. Patient reports chest discomfort with coughing only. No fevers, chills, shortness of breath, leg swelling or leg pain. Cough is worsened at night time Related Data Home Medications Medication Instructions Recorded Confirmed esomeprazole magnesium 20 mg 1 cap PO DAILY 01/29/21 06/01/21 capsule,delayed release fluticasone propionate 50 1 spray intranasal DAILY 06/14/21 mcg/actuation nasal spray,suspension (Flonase Allergy Relief) Previous Rx's Medication Instructions Recorded peg 3350-electrolytes 236 240 ml PO Q10M 1 day #4,000 mL 06/22/21 gram-22.74 gram-6.74 gram-5.86 gram solution (Golytely) cyclobenzaprine 10 mg tablet 10 mg PO TID PRN muscle spasm 7 09/27/21 days #21 tabs albuterol sulfate 90 mcg/actuation 2 puff inhalation Q4-6H PRN 06/08/22 aerosol inhaler shortness of breath or wheezing #8.5 grams benzonatate 200 mg capsule 200 mg PO TID PRN cough #30 caps 06/08/22 prednisone 20 mg tablet 40 mg PO DAILY 5 days #10 tabs 06/08/22 Allergies Allergy/AdvReac Type Severity Reaction Status Date / Time aspirin [Aspirin] Allergy Unknown UNKNOWN Verified 06/08/22 10:04 Penicillins Allergy Unknown SWELLING Verified 06/08/22 10:04 Review of Systems Review of Systems: Yes all other systems are reviewed and are negative Constitutional: Constitutional: Reports no additional constitutional complaints, Denies body ache(s), Denies chills, Denies fever(s), Denies headache(s) and Denies weakness Eyes: Eyes: Reports no additional eye complaints and Denies change in vision ENT: Reports system reviewed and no additional complaints, except as documented, Denies dizziness, Denies headache(s), Denies nasal congestion, Reports nasal discharge and Denies neck pain Cardiovascular: Cardiovascular: Reports no additional cardiovascular complaints, Denies chest pain, Denies leg edema and Denies dyspnea Respiratory: Respiratory: Reports no additional respiratory complaints, Reports cough, Denies dyspnea and Reports wheezing Gastrointestinal: Gastrointestinal: Reports no additional gastrointestinal complaints, Denies abdominal pain, Denies diarrhea, Denies nausea and Denies vomiting Genitourinary: Genitourinary: Denies urinary incontinence Musculoskeletal: Musculoskeletal: Reports no additional musculoskeletal complaints, Denies back pain, Denies arthralgias, Denies joint swelling, Denies neck pain, Denies numbness and Denies tingling Integumentary/Breasts: Skin/Breast: Reports system reviewed and no additional complaints, except as docu and Denies rash Neurologic: Reports system reviewed and no additional complaints, except as documented, Denies Abnormal speech present, Denies dizziness, Denies headache(s), Denies numbness, Denies tingling and Denies weakness Allergic/Immunologic: Allergic/Immunologic: Reports wheezing PMFSH Past Medical History Attestation statement: The following information was validated with the patient. Source: old records reviewed and nursing notes reviewed Medical History Asthma Hypertension Obesity (BMI 35.0-39.9 without comorbidity) Somnolence, daytime Surgical History History of surgery on left wrist Hx of wisdom tooth extraction Family History Family History Mother Breast cancer Hypertension Diabetes Social History Social History Alcohol intake: never Patient Tobacco Use Status: Former Tobacco user Advance Directives: No Advance Directives Information Provided: Yes Current occupational status: employed Current occupation: [employer] Physical Exam Vital Signs: Vital Signs: Last Vital Signs Temp 98.7 F 06/08/22 13:46 Pulse 89 06/08/22 13:46 Resp 17 06/08/22 13:46 BP 120/80 06/08/22 13:46 Pulse Ox 96 06/08/22 13:46 O2 Del Method 06/08/22 13:46 BMI result Body Mass Index 34.9 Const: General: cooperative, healthy appearing, comfortable and no acute distress Orientation/consciousness: patient oriented x3 Limitations: no limitations HEENT: Head: Yes normal to inspection Ears: hearing grossly normal bilaterally and TM's normal bilaterally General nose exam: Normal external nose present Face and sinus: Yes normal facial exam Mouth: Normal oral and palatal mucosa present Throat: Yes posterior oropharynx normal, Yes tonsils normal and Yes uvula midline Eyes: General: appearance normal, both eyes and all related structures Pupils: Equal, round and reactive pupils present Neck: Neck: Yes normal visual inspection, Yes full ROM, Yes no lymphadenopathy and Yes no meningeal signs Chest: Chest palpation & inspection: normal inspection of the chest Resp: Other: Mild expiratory wheezing Effort & Inspection: normal respiratory effort Cardio: Rate: regular rate Rhythm: regular rhythm Peripheral pulses: Peripheral pulses 2+ throughout GI: Inspection: Yes normal to inspection Palpation (GI): Soft to palpation and nontender Auscultation: normal bowel sounds Back/Spine/Pelvis: Thoracic/Lumbar Spine: thoracic and lumbar spine normal to inspection Skin: General skin exam: no rashes or lesions noted Neuro: General: patient oriented x3, no meningeal signs, no focal motor deficits and normal sensation to monofilament Cranial nerves: Yes Equal, round and reactive pupils present Cognition (Neuro): normal cognition Speech: No Abnormal speech present Gait exam (Neuro): Normal gait present Motor exam (neuro): 5/5 motor strength present throughout Extrem: General: Yes normal to inspection, Yes no pedal edema and Yes no calf tenderness Course Course Course Narrative: Chest x-ray shows no acute finding. Viral testing is negative. Likely viral URI with wheezing. Patient will be discharged home with albuterol MDI, prednisone course, tessalon p.r.n.. Reviewed worrisome signs and symptoms when to return to the emergency room. Comfortable plan for discharge home. Medical Decision Making Medical Decision Making [facility] Narrative: 47-year-old male here with cough, wheezing, runny nose since Monday. Patient also reports chest discomfort with coughing only. On exam patient with mild expiratory wheezing. Vital stable. Overall nontoxic appearing Will check chest x-ray, viral test Differential Diagnosis Differential Diagnoses: The differential diagnosis associated with the presentation includes Asthma exacerbation, viral URI, pneumonia, influenza Less likely PE perc score 0 Lab Data Labs: Lab Results 06/08/22 06/08/22 Range/Units 10:54 10:54 Influenza Type A (PCR) NEGATIVE (Negative) Influenza Type B (PCR) NEGATIVE (Negative) RSV RNA Qual (PCR) NEGATIVE (Negative) SARS-CoV-2 RNA (RT-PCR) NEGATIVE (Negative) S. pyogenes GrpA MELBA Negative (Negative) Independent Interpretation I performed an independent interpretation of an: Plain X-Ray Interpretation: I independetely reviewed the chest x-ray and agree with radiologist's report Radiology Impression Discussion of test interpretation with radiology: I have reviewed the radiologist's reading. Radiologist Impression: Launch?Image [address] [address] XRay Report Signed Patient: Jay Chan MR#: [id number] : 1975 Acct:[id number] Age/Sex: 47 / M ADM Date: 06/08/22 Loc: .ED Attending Dr: Ordering Physician: Generic ED Physician Date of Service: 06/08/22 Procedure(s): XR chest 1V Accession Number(s): [id number] cc: Generic ED Physician~ EXAMINATION: XR CHEST CLINICAL INFORMATION: Cough. COMPARISON: 10/20/2020 chest radiograph. TECHNIQUE: Frontal view of the chest was obtained. FINDINGS: No significant abnormality is noted involving the heart, lungs, mediastinum, bony thorax or soft tissues. XR/XR chest 1V IMPRESSION: No acute cardiopulmonary process. ? Discharge Plan Discharge Clinical Impression: Viral infection Patient Disposition: Home, Self-Care Instructions: Viral Syndrome (ED) Additional Instructions: Use inhaler as needed Take Motrin and Tylenol as needed for pain or fever Increase fluids, rest Return for worsening symptoms Your COVID and flu test are negative Your x-rays normal Prescriptions: New prednisone 20 mg tablet 40 mg PO DAILY 5 Days Qty: 10 0RF benzonatate 200 mg capsule 200 mg PO TID PRN (Reason: cough) Qty: 30 0RF albuterol sulfate 90 mcg/actuation HFA aerosol inhaler 2 puff inhalation Q4-6H PRN (Reason: shortness of breath or wheezing) Qty: 8.5 0RF No Action esomeprazole magnesium 20 mg capsule,delayed release(DR/EC) 1 cap PO DAILY cyclobenzaprine 10 mg tablet 10 mg PO TID PRN (Reason: muscle spasm) 7 Days Qty: 21 0RF peg 3350-electrolytes [Golytely] 236-22.74-6.74 -5.86 gram recon soln 240 ml PO Q10M 1 Days Qty: 4000 0RF Rx Instructions: until fecal effluent is clear; do not exceed a total volume of 2,000 mL fluticasone propionate [Flonase Allergy Relief] 50 mcg/actuation spray,suspension 1 spray intranasal DAILY Rx Instructions: administer into each nostril Referrals: Svetlana Shea [facility] [Primary Care Provider] - 1 week Stand Alone Forms: Work/School Release Interventions: ED Discharge Assessment Last Done: 06/08/22 14:05 Discharge Date/Time: 06/08/22 14:06
== END 2022-06-08 14:06 | disposition home or self-care (01) ==
PROVIDERS: Emergency Provider Emergency Medicine; PCP Nurse Practitioner Primary Care
DX: B34.9 Viral infection, unspecified (principal); R05.9 Cough, unspecified; Z20.822 Contact with and (suspected) exposure to COVID-19; Z20.828 Contact with and (suspected) exposure to other viral communicable diseases; Z87.891 Personal history of nicotine dependence
CPT/HCPCS: 0241U; 36415; 71045; 87651; 99282; 99283

== ENCOUNTER → 2022-07-26 10:35 | Outpatient (BNVA) | payer OTHER, SELFPAY | PROVIDERS: PCP Nurse Practitioner Primary Care; Referring Provider Nurse Practitioner Primary Care; Visit Provider Surgery | DX: K42.9 Umbilical hernia without obstruction or gangrene (principal); E66.9 Obesity, unspecified | CPT/HCPCS: 99202 ==

== ENCOUNTER 2022-08-08 21:57 | Emergency (ER) | payer OTHER, SELFPAY ==
--- NOTE | 2022-08-08 | ECG_ITS ---
Test Reason : CHEST PAIN Blood Pressure : / mmHG Vent. Rate : 074 BPM Atrial Rate : 074 BPM P-R Int : 154 ms QRS Dur : 082 ms QT Int : 384 ms P-R-T Axes : 039 -11 035 degrees QTc Int : 426 ms Normal sinus rhythm Normal ECG When compared with ECG of 29-JAN-2021 14:41, No significant change was found Referred By: Generic ED Physician Electronically Signed By:KATH TOWNSEND MD
[2022-08-08 22:00] VITALS: BP 156/95; PULSE 84; RESP 18; TEMP 36.1; O2SAT 96; BMI 34.9
[2022-08-08 22:23] LABS: MANUAL DIFF FLAG NO
[2022-08-08 22:24] LABS: Basophils Absolute Auto 0.1 X10*3/uL (0.0-0.2); Basophils Percent Auto 0.8 % (0-2); Eosinophils Absolute Auto 0.3 X10*3/uL (0.0-0.4); Eosinophils Percent Auto 4.7 % (0-4); Hemoglobin 15.3 g/dl (14.0-18.0); Imm Gran Abs Auto 0.01 X10*3/uL (0.00-0.03); Imm Gran Pct Auto 0.1 % (0.0-0.4); Lymphocytes Percent Auto 42.1 % (20-40); Mean Corpuscular HGB Conc 34.8 g/dl (31.0-36.0); Mean Corpuscular Hemoglobin 31.6 pg (27.0-33.0); Mean Corpuscular Volume 90.9 fL (80.0-98.0); Mean Platelet Volume 11.4 fL (9.4-12.4); Monocytes Absolute Auto 0.4 X10*3/uL (0.1-1.2); Monocytes Percent Auto 6.1 % (2-11); NRBC Pct Auto 0.3 /100WBC (0.0-0.2); Neutrophils Absolute Auto 3.3 x10*3/uL (2.0-8.3); Neutrophils Percent Auto 46.2 % (45-73); Platelet Count 215 X10*3/uL (160-400); Red Blood Count 4.84 X10*6/uL (4.60-5.80); Red Cell Distribution Width 12.5 % (11.0-16.0); White Blood Count 7.2 X10*3/uL (4.8-10.8)
[2022-08-08 22:42] LABS: Alanine Aminotransferase 36 U/L (0-40); Albumin Level 4.2 g/dL (3.5-5.0); Alkaline Phosphatase 114 U/L (39-117); Anion Gap 14 (12-20); Aspartate Amino Transferase 21 U/L (5-37); Bilirubin Total 0.4 mg/dL (0.0-1.0); Blood Urea Nitrogen 14 mg/dL (9-16); Carbon Dioxide 25 mmol/L (22-29); Chloride 107 mmol/L (96-108); Creatinine Clr Calc Pharmacy 65.6; Estimated Glomerular Filt Rate 52; Glucose Random 115 mg/dL (60-115); Sodium 142 mmol/L (135-145); Total Protein 7.3 g/dL (6.5-8.0)
[2022-08-08 22:50] LABS: Troponin-I High Sensitivity < 2.7 ng/L (<3.5-35.0)
--- NOTE | 2022-08-08 23:44 | ED.CHESTPAIN ---
HPI - Chest Pain General Chief Complaint: Chest Pain Stated Complaint: chest pain/ left side numb Time Seen by Provider: 08/08/22 23:35 Source: patient Mode of arrival: ambulatory Limitations: no limitations History of Present Illness HPI narrative: Patient comes emergency room complaining of chest pain that started approximately 9 hours ago. Patient states that he had a mild numbness/tingling sensation on his left arm. At this time, patient is asymptomatic. Denies chest pain or shortness of breath, no syncopal episodes. No chest pain or shortness of breath with exertion. Related Data Home Medications Medication Instructions Recorded Confirmed esomeprazole magnesium 20 mg 1 cap PO DAILY 01/29/21 06/01/21 capsule,delayed release fluticasone propionate 50 1 spray intranasal DAILY 06/14/21 mcg/actuation nasal spray,suspension (Flonase Allergy Relief) ibuprofen 800 mg tablet 800 mg PO TID 07/26/22 Previous Rx's Medication Instructions Recorded cyclobenzaprine 10 mg tablet 10 mg PO TID PRN muscle spasm 7 09/27/21 days #21 tabs albuterol sulfate 90 mcg/actuation 2 puff inhalation Q4-6H PRN 06/08/22 aerosol inhaler shortness of breath or wheezing #8.5 grams benzonatate 200 mg capsule 200 mg PO TID PRN cough #30 caps 06/08/22 Allergies Allergy/AdvReac Type Severity Reaction Status Date / Time aspirin [Aspirin] Allergy Unknown UNKNOWN Verified 08/08/22 22:00 Penicillins Allergy Unknown SWELLING Verified 07/26/22 10:39 Review of Systems Review of Systems: Constitutional : No Weight loss, No Fever, No Chills, No Night Sweats, No Fatigue, No Malaise ENT/Mouth : No Hearing loss, No Ear Pain, No Nasal Congestion, No Sinus Pain, No Hoarseness, No sore throat, No Rhinorrhea, No Swallowing Difficulty Eyes: No Eye Pain, No Swelling, No Redness, No Foreign Body, No Discharge, No Vision Changes Cardiovascular : Chest pain that self-resolved, No SOB, No Dyspnea on Exertion, No Orthopnea, No Edema, No Palpitations Respiratory : No Cough, No Sputum, No Wheezing, No Smoke Exposure, No Dyspnea Gastrointestinal : No Nausea, No Vomiting, No Diarrhea, No Constipation, No abdominal Pain, No Hematochezia, No Melena Genitourinary : no irregular bleeding, No Dysuria, No Urinary Frequency, No Hematuria, No Urinary Incontinence, No Urgency, No Flank Pain, No Urinary Flow Changes, No Hesitancy Musculoskeletal : No joint pain, No Myalgias, No Joint Swelling Skin : No Skin Lesions, No rash Neuro : No Weakness, No Numbness, mild paresthesias in the left arm which self-resolved, No Loss of Consciousness, No Dizziness, No Headache Psych : No Anxiety/Panic, No Depression, No SI/HI/AH/VH, No Social Issues, Heme/Lymph: No Bruising, No Bleeding,No Lymphadenopathy Endocrine : No Polyuria, No Polydipsia, No Temperature Intolerance [facility] Past Medical History Medical History Asthma Hypertension Obesity (BMI 35.0-39.9 without comorbidity) Somnolence, daytime Surgical History History of surgery on left wrist Hx of wisdom tooth extraction Family History Family History Mother Breast cancer Hypertension Diabetes Social History Social History Alcohol intake: never Patient Tobacco Use Status: Former Tobacco user Advance Directives: No Advance Directives Information Provided: Yes Current occupational status: employed Current occupation: [employer] Physical Exam Vital Signs: Vital Signs: Last Vital Signs Temp 96.9 F 08/08/22 22:00 Pulse 84 08/08/22 22:00 Resp 18 08/08/22 22:00 BP 156/95 H 08/08/22 22:00 Pulse Ox 96 08/08/22 22:00 O2 Del Method Room Air 08/08/22 22:00 BMI result Body Mass Index 34.9 Const: Other: Appearance: Alert. Oriented X3. No acute distress. Eyes: Pupils equal, round and reactive to light. ENT: Pharynx normal. Neck: Normal inspection. Neck supple. No lymph nodes noted. No crepitus CVS: Normal heart rate and rhythm. Pulses normal. Normal S1 and S2 Respiratory: No respiratory distress. Breath sounds normal. No Wheezing. No rales Abdomen: Soft and nontender. No rigidity. No distention. Skin: Skin warm and dry. Normal skin color. Normal skin turgor. Extremities: No lower extremity edema. No Lacerations. No Rash Neuro: Oriented X 3. No motor deficit. No sensory deficit. Moving all extremities. No slurred speech. CN 2 through 12 grossly intact Psych: calm, cooperative, normal affect Medical Decision Making Medical Decision Making [facility] Narrative: -my interpretation of EKG: Normal sinus rhythm, heart rate 74, no ST segment depression or elevation, no T-wave inversion, QTC 426 -troponin x2 negative -patient is asymptomatic at this time -discussed with the patient if he keeps having recurrent symptoms, he needs to follow up with his primary care physician and probably have him scheduled for a stress test Differential Diagnosis Differential Diagnoses: The differential diagnosis associated with the presentation includes (Atypical chest pain, anxiety, ACS, pleurisy, costochondritis, muscle spasms) Lab Data [facility] Lab Attestation statement: I reviewed the patient's lab results. 08/08/22 22:14 08/08/22 22:14 Labs: Lab Results 08/08/22 08/08/22 08/08/22 Range/Units 22:14 22:14 22:14 WBC 7.2 (4.8-10.8) X10*3/uL RBC 4.84 (4.60-5.80) X10*6/uL Hgb 15.3 (14.0-18.0) g/dl Hct 44.0 (42.0-52.0) % MCV 90.9 (80.0-98.0) fL MCH 31.6 (27.0-33.0) pg MCHC 34.8 (31.0-36.0) g/dl RDW 12.5 (11.0-16.0) % Plt Count 215 (160-400) X10*3/uL MPV 11.4 (9.4-12.4) fL Immature Gran % (Auto) 0.1 (0.0-0.4) % Neut % (Auto) 46.2 (45-73) % Lymph % (Auto) 42.1 H (20-40) % [place] % (Auto) 6.1 (2-11) % Eos % (Auto) 4.7 H (0-4) % Baso % (Auto) 0.8 (0-2) % Lymph # (Auto) 3.0 (1.2-4.9) X10*3/uL [place] # (Auto) 0.4 (0.1-1.2) X10*3/uL Eos # (Auto) 0.3 (0.0-0.4) X10*3/uL Baso # (Auto) 0.1 (0.0-0.2) X10*3/uL Abs Immat Gran (auto) 0.01 (0.00-0.03) X10*3/uL Absolute Neuts (auto) 3.3 (2.0-8.3) x10*3/uL Absolute Nucleated RBC 0.020 H (0.0-0.012) X10*3/uL Nucleated RBC % (auto) 0.3 H (0.0-0.2) /100WBC Sodium 142 (135-145) mmol/L Potassium 4.0 (3.3-5.1) mmol/L Chloride 107 (96-108) mmol/L Carbon Dioxide 25 (22-29) mmol/L Anion Gap 14 (12-20) BUN 14 (9-16) mg/dL Creatinine 1.46 H (0.5-1.4) mg/dL Estim Creat Clear Calc 65.6 Estimated GFR 52 Random Glucose 115 (60-115) mg/dL Calcium 9.0 (8.4-10.2) mg/dL Total Bilirubin 0.4 (0.0-1.0) mg/dL AST 21 (5-37) U/L ALT 36 (0-40) U/L Alkaline Phosphatase 114 (39-117) U/L Troponin I High Sens < 2.7 (<3.5-35.0) ng/L Total Protein 7.3 (6.5-8.0) g/dL Albumin 4.2 (3.5-5.0) g/dL 08/09/22 Range/Units 00:14 WBC (4.8-10.8) X10*3/uL RBC (4.60-5.80) X10*6/uL Hgb (14.0-18.0) g/dl Hct (42.0-52.0) % MCV (80.0-98.0) fL MCH (27.0-33.0) pg MCHC (31.0-36.0) g/dl RDW (11.0-16.0) % Plt Count (160-400) X10*3/uL MPV (9.4-12.4) fL Immature Gran % (Auto) (0.0-0.4) % Neut % (Auto) (45-73) % Lymph % (Auto) (20-40) % [place] % (Auto) (2-11) % Eos % (Auto) (0-4) % Baso % (Auto) (0-2) % Lymph # (Auto) (1.2-4.9) X10*3/uL [place] # (Auto) (0.1-1.2) X10*3/uL Eos # (Auto) (0.0-0.4) X10*3/uL Baso # (Auto) (0.0-0.2) X10*3/uL Abs Immat Gran (auto) (0.00-0.03) X10*3/uL Absolute Neuts (auto) (2.0-8.3) x10*3/uL Absolute Nucleated RBC (0.0-0.012) X10*3/uL Nucleated RBC % (auto) (0.0-0.2) /100WBC Sodium (135-145) mmol/L Potassium (3.3-5.1) mmol/L Chloride (96-108) mmol/L Carbon Dioxide (22-29) mmol/L Anion Gap (12-20) BUN (9-16) mg/dL Creatinine (0.5-1.4) mg/dL Estim Creat Clear Calc Estimated GFR Random Glucose (60-115) mg/dL Calcium (8.4-10.2) mg/dL Total Bilirubin (0.0-1.0) mg/dL AST (5-37) U/L ALT (0-40) U/L Alkaline Phosphatase (39-117) U/L Troponin I High Sens < 2.7 (<3.5-35.0) ng/L Total Protein (6.5-8.0) g/dL Albumin (3.5-5.0) g/dL Discharge Plan Discharge Clinical Impression: Atypical chest pain Patient Disposition: Home, Self-Care Instructions: Chest Pain (ED) Additional Instructions: Please follow-up with your primary care physician tomorrow. If you have any worsening or new symptoms, please return to the emergency room or call 911 Prescriptions: No Action esomeprazole magnesium 20 mg capsule,delayed release(DR/EC) 1 cap PO DAILY cyclobenzaprine 10 mg tablet 10 mg PO TID PRN (Reason: muscle spasm) 7 Days Qty: 21 0RF benzonatate 200 mg capsule 200 mg PO TID PRN (Reason: cough) Qty: 30 0RF albuterol sulfate 90 mcg/actuation HFA aerosol inhaler 2 puff inhalation Q4-6H PRN (Reason: shortness of breath or wheezing) Qty: 8.5 0RF fluticasone propionate [Flonase Allergy Relief] 50 mcg/actuation spray,suspension 1 spray intranasal DAILY Rx Instructions: administer into each nostril ibuprofen 800 mg tablet 800 mg PO TID
--- OUTSIDE RECORDS SUMMARY | 2022-08-08 23:44 | XMS_ITS | Continuity of Care Document ---
Author Name Unknown Organization [facility] ter Address [address] [place] [id number]- Care Team Providers Care Senior Dot Net Developer Name Role Phone Julio César CORBETT, Yann Jonas Primary Care Physician Encounter [facility] Date(s): 05/31/21 - 08/28/[address] [id number] Attending Physician: Mukesh Santo MD Admitting Physician: Mukesh Santo MD Referring Physician: Mukesh Santo MD Allergies, Adverse Reactions, Alerts Substance Reaction Severity Status aspirin throat swelling Active penicillins throat swelling Active Immunizations Given and Recorded Vaccine Date Status Refusal Reason Hepatitis A Adult Vaccine 02/16/15 Given Hepatitis A Adult Vaccine 09/04/13 Recorded Typhoid Vaccine, Inactivated 09/04/13 Recorded Yellow Fever Vaccine 09/04/13 Recorded Medications ciprofloxacin 500 mg oral tablet 1 tablet = 500 mg, By Mouth, Every 12 hours, for severe diarrhea during travel, # 6 tablet, 0 Refills, Maintenance, 02/16/15 13:04:02, 1 tablet By Mouth Every 12 hours,Instr:for severe diarrhea during travel Start Date: 02/16/15 Status: Ordered Flonase 1 sprays, Daily, 0 Refills, Maintenance, 02/16/15 12:55:37 Start Date: 02/16/15 Status: Ordered Prilosec OTC = 20 mg, By Mouth, Daily, 0 Refills, Maintenance, 02/16/15 12:55:26 Start Date: 02/16/15 Status: Ordered Problem List Condition Effective Dates Status Health Status Inform ant Advice or immunization for travel(Confirmed) Active
[2022-08-09 00:41] LABS: Troponin-I High Sensitivity < 2.7 ng/L (<3.5-35.0)
--- NOTE | 2022-08-09 01:15 | PC.NURSE ---
pt a&o, no sob or chest pain at discharge, pt ambulated with a steady gait, Reviewed discharge instructions with pt. pt verbalized understanding.
== END 2022-08-09 01:17 | disposition home or self-care (01) ==
PROVIDERS: Emergency Provider Emergency Medicine; PCP Nurse Practitioner Primary Care
DX: R07.89 Other chest pain (principal); Z87.891 Personal history of nicotine dependence; Z79.899 Other long term (current) drug therapy
CPT/HCPCS: 36415; 80053; 84484; 85025; 93005; 99283; 99285

== ENCOUNTER → 2022-08-17 14:38 | Outpatient (BNVA) | payer OTHER, SELFPAY | PROVIDERS: PCP Nurse Practitioner Primary Care; Visit Provider Urology | DX: N41.9 Inflammatory disease of prostate, unspecified (principal) | CPT/HCPCS: 99212 ==

== ENCOUNTER → 2022-08-22 11:01 | Outpatient (BNVA) | payer OTHER, SELFPAY | PROVIDERS: PCP Nurse Practitioner Primary Care; Referring Provider Nurse Practitioner Primary Care; Visit Provider Internal Medicine | DX: I77.810 Thoracic aortic ectasia (principal); R07.2 Precordial pain | CPT/HCPCS: 99212 ==

== ENCOUNTER → 2022-09-27 10:45 | Outpatient (REF) | payer OTHER, SELFPAY ==
--- NOTE | 2022-09-27 10:48 | CA_ITS ---
Acquisition Time: 2022-09-27 10:50:27 Total Exercise Time: 00:08:26 Test Indications: Chest Pain Medications: Protocol: RHIANNON Max HR: 187 BPM 108% of Pred: 172 BPM Max BP: 142/064 mmHG Max Work Load: 10.1 METS Exercise stress test exercise 8 min 26 sec of Rhiannon protocol achieving 96% MPHR, without anginal symptoms, without arrhythmias, with normotensive response to exericse, without EKG changes. Echo images obtained by tech at rest and immediately post peak exercise. Definity contrast used. Test reviewed with Dr. Santo Referred By: Mukesh Santo Overread By: VIDAL CANO
== END ==
LOC: HO.CARD 10:45
PROVIDERS: PCP Nurse Practitioner Primary Care; Visit Provider Internal Medicine
DX: R07.2 Precordial pain (principal)
CPT/HCPCS: 93350; Q9957

== ENCOUNTER 2022-11-09 13:53 | Outpatient (AMB) | payer OTHER, SELFPAY ==
--- NOTE | 2022-11-09 14:02 | MHC.OFFVIS ---
Intake Vital Signs 11/09/22 14:03 Height 5 ft 5 in Weight 211 lb 10.3 oz BMI 35.2 BP 126/74 Blood Pressure Location Rt brachial Position Sitting Pulse 91 Pulse Source Pulse Oximeter Pulse Oximetry (%) 97 Oxygen Delivery Method Room Air Intake Visit Reasons: Obstructive sleep apnea Allergies aspirin [Aspirin] Allergy (Unknown, Verified 11/09/22 14:24) UNKNOWN Penicillins Allergy (Unknown, Verified 11/09/22 14:24) SWELLING Medication List - Last Reconciled 11/09/22 by Frandy Britton MD albuterol sulfate 90 mcg/actuation 2 puffs inhalation Q4-6H PRN esomeprazole magnesium 1 cap PO DAILY fluticasone propionate 50 mcg/actuation (Flonase Allergy Relief) 1 spray intranasal DAILY Do you need a note to return to daycare/school/sports/work: No HPI Obstructive sleep apnea HPI Details THIS 47 YEARS OLD GENTLEMAN WITH GROSS OBESITY, ROUND FACE AND TYPICAL FEATURES CONDUCIVE TO OBSTRUCTIVE SLEEP APNEA, WAS CONFIRMED CASE OF SLEEP APNEA PER ALL SLEEP STUDY LAST YEAR. HE WAS PRESCRIBED CPAP DEVICE WHICH HE DID GET, BUT NEVER PUT IT ON DUE TO SOME MISUNDERSTANDING. HIS CPAP DEVICE WAS TAKEN AWAY DUE TO NONCOMPLIANCE. HE COMES TODAY WITH SAME COMPLAINTS THAT HE HAS HARD TIME TO SLEEP AT NIGHT, WAKES FREQUENTLY WITH GASPING LIKE FEELING, AND HE REMAINS TIRED/SLLEPY DURING THE DAYTIME . I HAD A LONG DISCUSSION WITH HIM WHY DID HE NOT USE THE CPAP. HE SAY IS HE DID USE FOR 1 NIGHT AND SLEPT BETTER AND ACCORDING TO HIS HE DID NOT HAVE SNORING ON THAT NIGHT. BUT LATER ON HE DID NOT USE IT DUE TO GROSS MISUNDERSTANDING. HE WANTS TO GO BACK ON CPAP. HIS SLEEP STUDY 5 WAS MORE THAN 1 YEAR AGO, AND UNFORTUNATELY WOULD NEED A NEW STUDY TO GO ON CPAP THERAPY. [facility] Medical History Asthma GERD (gastroesophageal reflux disease) Headache Hx of chest pain Hypertension Obesity (BMI 35.0-39.9 without comorbidity) LEEROY (obstructive sleep apnea) Somnolence, daytime Stuffy nose Surgical History History of surgery on left wrist Hx of wisdom tooth extraction Family History Mother Breast cancer Hypertension Diabetes Social History Are you a primary intensive care nurse to a significant other at home: No Do you presently have visiting nurse or other home services: Yes ([facility]) Alcohol intake: never Patient Tobacco Use Status: Former Tobacco user Quit Date: 20 yrs ago Second Hand Smoke Exposure: No Current occupational status: employed Current occupation: [employer] Review of Systems Const All systems reviewed & are unremarkable except as noted in HPI and below Eyes Reports no additional complaints ENT Reports nasal congestion (Mild off and) Card Denies chest pain, Denies irregular heart rhythm and Denies leg edema Resp Reports no additional complaints, Denies cough and Denies wheezing GI Reports heartburn (GERD symptoms controlled) Reports no additional complaints Musc Reports no additional complaints Skin/Breast Reports system reviewed and no additional complaints, except as documented Neuro Reports no additional complaints Psych Reports other (Claims of lot of stress due to family issues.) Aller/Immun Denies wheezing Physical Exam Vital Signs: Last Vital Signs Pulse 91 11/09/22 14:03 BP 126/74 11/09/22 14:03 Pulse Ox 97 11/09/22 14:03 Oxygen Delivery Method Room Air 11/09/22 14:03 BMI result Body Mass Index 35.2 Const General: healthy appearing (Except for being overweight), comfortable, no acute distress, alert and awake Orientation/consciousness: patient oriented x3 HEENT Head: Yes normal to inspection General nose exam: No nasal polyps present and No nasal discharge present Face and sinus: Yes sinuses nontender Mouth: oropharynx abnormals (Moderately narrow, Mallampati class 3) Throat: Yes posterior oropharynx normal Eyes General: appearance normal, both eyes and all related structures Neck Neck: Yes normal visual inspection, Yes no lymphadenopathy, Yes trachea midline, Yes no JVD and Yes other (Neck circumference 17 in) Thyroid: Thyroid normal Chest Chest palpation & inspection: normal inspection of the chest, normal palpation of entire chest wall and no tenderness Resp Effort & Inspection: normal respiratory effort Auscultation: clear to auscultation bilaterally, no crackles, no rales and no wheezes Percussion: percussion normal Cardio Palpation: normal PMI Rate: regular rate Rhythm: regular rhythm Heart sounds: no gallops and no murmurs Peripheral pulses: Peripheral pulses 2+ throughout GI Palpation (GI): Soft to palpation, nontender, No hepatosplenomegaly present and no masses Auscultation: normal bowel sounds Back/Spine/Pelvis Thoracic/Lumbar Spine: thoracic and lumbar spine normal to inspection Skin General skin exam: no rashes or lesions noted Neuro General: patient oriented x3 and no focal motor deficits Cranial nerves: Yes CN's II-XII intact bilaterally Extrem General: Yes normal to inspection, Yes no clubbing, cyanosis or edema and Yes no calf tenderness Psych Appearance: grossly normal and well kempt Speech and movement: Normal speech and movement present Assessment & Plan Assessment & Plan (1) Obesity (BMI 35.0-39.9 without comorbidity): Comment: HE CONTINUES TO BE MODERATELY OBESE. MOST OF HIS OBESITY IS IN ABDOMEN. ALSO HAS A ROUNDED FACE WITH SHORT NECK. DISCUSSED ABOUT NEED TO LOSE WEIGHT, ENCOURAGED TO JOIN A WEIGHT MANAGEMENT PROGRAM. ENCOURAGED TO WALK 2-3 MILES EVERY DAY, AND CUT DOWN THE CALORIES INTAKE. Code(s): E66.9 - Obesity, unspecified (2) Somnolence, daytime: Comment: HE DOES HAVE DAYTIME SLEEPINESS, EPWORTH SLEEPINESS SCALE 16/24. THIS IS MOST LIKELY SECONDARY TO OBSTRUCTIVE SLEEP APNEA AND POOR SLEEP QUALITY AND NON USE OF CPAP . Code(s): R40.0 - Somnolence (3) LEEROY (obstructive sleep apnea): Comment: The sleep study in July 2021, confirmed diagnosis of very severe obstructive sleep apnea, with nocturnal hypoxemia. Ideally he should have CPAP titration in the sleep lab. However because of urgency to start him on the CPAP, CPAP therapy was prescribed. He did get the CPAP machine, but due to lack of understanding he did not start using the CPAP. Due to his noncompliance the CPAP device was taken away. He continues to have active symptoms of sleep apnea, with daytime sleepiness, ESS= 16/24 . I will order a new home-based sleep study, and then take it from there. Code(s): G47.33 - Obstructive sleep apnea (adult) (pediatric) Orders: Orders RT home sleep study Today E66.9 - Obesity, unspecified, G47.33 - Obstructive sleep apnea (adult) (pediatric), R40.0 - Somnolence Coding Level of Care Code Est Pt Level 3 (65968) Diagnoses Obesity (BMI 35.0-39.9 without comorbidity) E66.9 Somnolence, daytime R40.0 LEEROY (obstructive sleep apnea) G47.33
[2022-11-09 14:03] VITALS: BP 126/74; PULSE 91; O2SAT 97; BMI 35.2
== END 2022-11-09 14:31 | disposition home or self-care (01) ==
PROVIDERS: PCP Nurse Practitioner Primary Care; Visit Provider Internal Medicine
DX: E66.9 Obesity, unspecified (principal); R40.0 Somnolence; G47.33 Obstructive sleep apnea (adult) (pediatric)
CPT/HCPCS: 99213

== ENCOUNTER → 2022-11-09 13:53 | Outpatient (BNVA) | payer OTHER, SELFPAY | PROVIDERS: PCP Nurse Practitioner Primary Care; Visit Provider Internal Medicine | DX: G47.33 Obstructive sleep apnea (adult) (pediatric) (principal); R40.0 Somnolence; J45.909 Unspecified asthma, uncomplicated; E66.9 Obesity, unspecified; Z68.35 Body mass index [BMI] 35.0-35.9, adult; Z99.89 Dependence on other enabling machines and devices; Z91.148 Patient's other noncompliance with medication regimen for other reason | CPT/HCPCS: 99212 ==

== ENCOUNTER 2022-11-15 08:48 | Outpatient (REF) | payer OTHER, SELFPAY ==
[2022-11-15 12:08] LABS: Estimated Average Glucose 85 mg/dL; Hemoglobin A1c % 4.6 %
[2022-11-15 13:48] LABS: CT PCR NOT DETECTED (Not Detect.); NG PCR NOT DETECTED (Not Detect.)
== END 2022-11-15 08:49 | disposition home or self-care (01) ==
LOC: HO.HHCL 08:48
PROVIDERS: Visit Provider Nurse Practitioner Primary Care
DX: Z00.00 Encounter for general adult medical examination without abnormal findings (principal); R73.01 Impaired fasting glucose; Z20.2 Contact with and (suspected) exposure to infections with a predominantly sexual mode of transmission
CPT/HCPCS: 0353U; 83036

== ENCOUNTER → 2022-11-24 07:46 | Outpatient (REF) | payer OTHER, SELFPAY ==
--- NOTE | 2022-11-24 07:49 | CA_ITS ---
Transthoracic Echocardiogram Patient (Last, First, Middle): Jay Chan, Gender: Male Date of : 1975 Age: 47 Procedure Date: 11/24/2022 Procedure Type: Transthoracic Echocardiogram Location: OP Height: 165.1 cm Weight: 90.72 kg BSA: 1.98 m2 Heart Rate: 71 bpm BP: 125 / 90 mmHg Milk Truck Driver: NAPOLEON Gallagher MD: Mukesh Santo MD Distribution Center Assistant: Sacha Garza MD Symptoms: I77.810 - Thoracic aortic ectasia Study Quality: Adequate ECG Rhythm: Sinus Conclusions: - 1. Normal LV systolic and diastolic function 2. Normal cardiac valvular Doppler, aortic valve not well visualized 3. Mildly dilated ascending aorta at 4.1 cm 4. Normal RV systolic pressure 5. No pericardial effusion Findings Left Ventricle Normal left ventricular size, thickness, and systolic function. The visually estimated ejection fraction is between 55-60%. Spectral Doppler is indicative of a normal filling pattern. Right Ventricle Normal right ventricular cavity size and systolic function. Atria Both atria are normal in size. Interatrial shunt cannot be excluded. Aortic Valve The aortic valve was not well visualized. There is no aortic valve stenosis. There is no aortic valve regurgitation. Mitral Valve Normal mitral valve structure and function. There is trace mitral valve regurgitation. There is no mitral valve stenosis. Pulmonic Valve The pulmonic valve was not well visualized. Tricuspid Valve Likely normal tricuspid valve structure and function. There is mild tricuspid valve regurgitation. The right ventricular systolic pressure is normal. The right ventricular systolic pressure is 25 mmHg. Normal right atrial pressure. There is no evidence of pulmonary hypertension. Great Vessels The pulmonary artery was not well visualized. There is mild dilatation of the ascending aorta measuring 4.10 cm. Venous The inferior vena cava is normal in size and collapses greater than 50% with inspiration. Pericardium/Pleural There is no evidence of pericardial effusion. Prior Study Comparison Changes noted compared to prior study dated: 07/27/2021. Ascending aorta is further enlarged at 4.1 cm Measurements 2D Linear Measurements IVSd: 0.98 0.6-0.9/0.6-1.0 cm LVIDd: 4.34 3.9-5.3/4.2-5.9 cm LVIDd Index: 2.19 2.4-3.2/2.2-3.1 cm/m2 LVIDs: 2.58 2.0-3.6 cm LVPWd: 0.86 0.7-1.1 cm LA Diam: 3.00 2.7-3.8/3.0-4.0 cm LAIDs Index: 1.52 1.5-2.3 cm/m2 LV Mass: 160.33 67-162/88-224 g LV Mass Index: 80.98 43-95/49-115 g/m2 LVOT Diam: 2.70 3.0+(-)1.3 cm 2D Systolic Function EF 4C: 53.00 >55% EF 2C: 57.60 >55% EF BiP: 55.70 >55% Mitral Valve MV Pk E: 0.80 MV PK A: 0.64 MV Decel Time: 199.00 E/A: 1.20 E'Lateral: 11.20 E'Medial: 8.16 E/E' Med: 9.80 E/E' Lat: 7.10 PHT: 58.00 MVA PHT: 3.79 Decel Heard: 4.01 Aortic Valve AoV Pk Ramiro: 1.09 AoV Mn Ramiro: 0.78 AoV VTI: 0.23 AoV Pk Grad: 5.00 Aov Mn Grad: 3.00 JOSEPH Cont.VTI: 4.59 LVOT LVOT Pk Ramiro: 0.93 LVOT Mn Ramiro: 0.61 LVOT VTI: 0.18 LVOT Pk Grad: 3.00 LVOT Mn Grad: 2.00 LVOT Diam: 2.70 LVOT Area: 5.73 Diastolic Function MV Pk E: 0.80 MV Pk A: 0.64 E/A: 1.20 E'Medial: 8.16 E/E' Med: 9.80 E' Laterial: 11.20 E/E' Lat: 7.10 Right Ventricle TAPSE (mm): 18.90 TVS' Ramiro: 9.14 Tricuspid Valve TR Pk Ramiro: 2.32 TR Pk Grad: 22.00 RA Press: 3.00 RVSP: 25.00 Great Vessels Aorta Sinus of Valsalva: 4.20 2.0-3.5 cm Ao Asc: 4.10 2.1-3.4 cm Ao Arch: 3.90 Pulmonary Valve PV Pk Ramiro: 0.87 Peak PV Grad: 3.00 Updated in Other Vendor System with Status of Final Sacha Garza MD electronically signed on 11/24/2022 3:45:42 PM with status of Final
== END ==
LOC: HO.CARD 07:46
PROVIDERS: Visit Provider Internal Medicine
DX: I77.810 Thoracic aortic ectasia (principal)
CPT/HCPCS: 93306

== ENCOUNTER → 2022-11-24 07:49 | Outpatient (BNV) | payer OTHER, SELFPAY | PROVIDERS: Visit Provider Internal Medicine Cardiovascular Disease | DX: I36.1 Nonrheumatic tricuspid (valve) insufficiency (principal) | CPT/HCPCS: 93306 ==

== ENCOUNTER 2022-12-09 13:48 | Emergency (ER) | payer OTHER, SELFPAY ==
--- NOTE | ~2022-12-09 | XR_ITS ---
EXAMINATION: XR CHEST CLINICAL INFORMATION: Cough COMPARISON: Chest radiograph from 06/08/2022 TECHNIQUE: 2 views of the chest were obtained. FINDINGS: Bilateral low lung volumes. No pneumothorax. Trachea is midline. Cardiac mediastinal silhouette is not enlarged. No large pleural effusion. Degenerative changes of the thoracolumbar spine. Soft tissues are unremarkable. XR/XR chest 2V IMPRESSION: No acute cardiopulmonary process.
[2022-12-09 14:01] VITALS: BP 117/78; PULSE 110; RESP 18; TEMP 36.9; O2SAT 99; BMI 34.6
--- NOTE | 2022-12-09 14:03 | ED_ITS ---
HPI - URI/Sore Throat General Chief Complaint: Upper Respiratory Symptoms Stated Complaint: cold symptoms Time Seen by Provider: 12/09/22 14:27 Source: patient Mode of arrival: ambulatory Limitations: no limitations History of Present Illness HPI Narrative: 39-year-old male with a history of GERD, LEEROY, obesity, history of prostatitis, history of COVID in the past who presents to the ER for evaluation of cough, alecia dy aches, sore throat, malaise and generally not feeling well since yesterday. His woke up today with similar symptoms. He works for [email or web address] in is around a lot of people all the time but no known sick contacts. He has had a dry cough with some chest discomfort when coughing only. No sputum production. He has had subjective fevers and chills at home. No nausea, vomiting, abdominal pain. No difficulty breathing or shortness of breath. He took a COVID test that was negative yesterday MD elicited complaint: cough, sore throat and other ( body aches, headaches) Onset (ago): day(s) (1) Consistency: progressively worsening Severity: moderate Able to tolerate fluids by mouth: Yes Exacerbating factors: supine positioning Relieving factors: OTC cold medicine Associated symptoms: fever, chills, myalgias, headache, nasal congestion, sore throat, cough and shortness of breath Treatments prior to arrival: cold medicine Related Data Home Medications Medication Instructions Recorded Confirmed esomeprazole magnesium 20 mg 1 cap PO DAILY 01/29/21 09/20/22 capsule,delayed release fluticasone propionate 50 1 spray intranasal DAILY 06/14/21 09/20/22 mcg/actuation nasal spray,suspension (Flonase Allergy Relief) Previous Rx's Medication Instructions Recorded albuterol sulfate 90 mcg/actuation 2 puff inhalation Q4-6H PRN 06/08/22 aerosol inhaler shortness of breath or wheezing #8.5 grams Allergies Allergy/AdvReac Type Severity Reaction Status Date / Time aspirin [Aspirin] Allergy Unknown UNKNOWN Verified 11/09/22 14:24 Penicillins Allergy Unknown SWELLING Verified 11/09/22 14:24 Review of Systems Review of Systems: Yes all other systems are reviewed and are negative PMFSH Past Medical History Medical History Asthma GERD (gastroesophageal reflux disease) Headache Hx of chest pain Hypertension Obesity (BMI 35.0-39.9 without comorbidity) LEEROY (obstructive sleep apnea) Somnolence, daytime Stuffy nose Surgical History History of surgery on left wrist Hx of wisdom tooth extraction Family History Family History Mother Breast cancer Hypertension Diabetes Social History Social History Are you a primary dog day care attendant to a significant other at home: No Do you presently have visiting nurse or other home services: Yes ([facility]) Alcohol intake: never Patient Tobacco Use Status: Former Tobacco user Quit Date: 20 yrs ago Second Hand Smoke Exposure: No Advance Directives: No Advance Directives Information Provided: No Current occupational status: employed Current occupation: [employer] Physical Exam Vital Signs: Vital Signs: Last Vital Signs Temp 98.4 F 12/09/22 14:01 Pulse 110 H 12/09/22 14:01 Resp 18 12/09/22 14:01 BP 117/78 12/09/22 14:01 Pulse Ox 99 12/09/22 14:01 O2 Del Method Room Air 12/09/22 14:01 BMI result Body Mass Index 34.6 Appearance: Alert. Oriented X3. No acute distress. Head: normocephalic, atraumatic. Eyes: Pupils equal, round and reactive to light. ENT: Pharynx normal. No tonsillar swelling or exudate. Normal TMs bilaterally. Neck: Normal inspection. Neck supple. CVS: Normal heart rate and rhythm. Pulses normal. Respiratory: No respiratory distress. Breath sounds normal. Abdomen: Soft and nontender. +BS x4 Skin: Skin warm and dry. Normal skin color. Normal skin turgor. No rashes. Extremities: No lower extremity edema. No joint swelling. Neuro/psych: Oriented X 3. No motor deficit. No sensory deficit. CN II-XII intact. Normal speech and cognition. Course Course Course Narrative: This is an RME: Additional HPI, ROS, PE not included below will be deferred to primary provider. This is a 16-atyv-vni-male presenting to the ER with complaints of cough, body aches x 2 days. Tested negative for covid yesterday. VSS. Slight expiratory wheeze at RLB. Normal respiratory effort. Plan: Viral swabs, cxr Medical Decision Making Medical Decision Making [facility] Narrative: 47-year-old male presenting to the ER for evaluation of cough, body aches, headaches, fatigue since yesterday. Vital signs stable on arrival. His examination is unremarkable, clear lungs without wheezing or rhonchi. He is in no distress. Chest x-ray was performed which was normal, no evidence of pneumonia. Viral PCR was also negative. Patient counseled that his symptoms most likely due to other viral etiology. At this time he is stable for discharge home with supportive care. We discussed diagnosis, management as well as return precautions. He is stable for discharge home. Differential Diagnosis Differential Diagnoses: The differential diagnosis associated with the presentation includes strep, covid, flu, rsv, other viral syndrome, bronchitis, pneumonia, no evidence of peritonsillar abcsess or retropharyngeal abscess Lab Data [facility] Lab Attestation statement: I reviewed the patient's lab results. Labs: Lab Results 12/09/22 Range/Units 14:28 Influenza Type A (PCR) NEGATIVE (Negative) Influenza Type B (PCR) NEGATIVE (Negative) RSV RNA Qual (PCR) NEGATIVE (Negative) SARS-CoV-2 RNA (RT-PCR) NEGATIVE (Negative) Independent Interpretation I performed an independent interpretation of an: Plain X-Ray Interpretation: Clear lungs, no infiltrate Radiology Impression Discussion of test interpretation with radiology: I have reviewed the radiologist's reading. Radiologist Impression: EXAMINATION: XR CHEST CLINICAL INFORMATION: Cough COMPARISON: Chest radiograph from 06/08/2022 TECHNIQUE: 2 views of the chest were obtained. FINDINGS: Bilateral low lung volumes. No pneumothorax. Trachea is midline. Cardiac mediastinal silhouette is not enlarged. No large pleural effusion. Degenerative changes of the thoracolumbar spine. Soft tissues are unremarkable. XR/XR chest 2V IMPRESSION: No acute cardiopulmonary process. External Record Review External record reviewed: Outpatient record, Prior outpatient labs and Prior outpatient radiology Prescription Management I considered prescription management with: Antibiotic Critical Care Time Critical Care Time Critical Care Time: No Discharge Plan Discharge Clinical Impression: Viral infection Patient Disposition: Home, Self-Care Instructions: Viral Syndrome (ED) Additional Instructions: You tested negative for COVID, flu, RSV. Your chest x-ray was normal. Your lungs are clear on examination her vital signs are normal. Your symptoms most likely due to a viral illness. Treatment is rest and supportive care. Take [id number] cold and flu medications as needed for your symptoms. Acute drinking plenty of fluids. Do not down public while you are not feeling well. Follow-up with your doctor as needed. If you develop new or worsening symptoms call 911 or come back to the ER for further evaluation. Prescriptions: No Action esomeprazole magnesium 20 mg capsule,delayed release(DR/EC) 1 cap PO DAILY albuterol sulfate 90 mcg/actuation HFA aerosol inhaler 2 puff inhalation Q4-6H PRN (Reason: shortness of breath or wheezing) Qty: 8.5 0RF fluticasone propionate [Flonase Allergy Relief] 50 mcg/actuation spray,suspension 1 spray intranasal DAILY Rx Instructions: administer into each nostril
[2022-12-09 15:11] LABS: Influenza A PCR NEGATIVE (Negative); Influenza B PCR NEGATIVE (Negative); Resp Syncy Virus RNA Qual PCR NEGATIVE (Negative); SARS COV2 PCR INHOUSE NEGATIVE (Negative)
== END 2022-12-09 16:03 | disposition home or self-care (01) ==
PROVIDERS: Physician Assistant Medical; Emergency Provider Emergency Medicine; PCP Nurse Practitioner Primary Care
DX: B34.9 Viral infection, unspecified (principal); R05.9 Cough, unspecified; M79.10 Myalgia, unspecified site; R50.9 Fever, unspecified; Z20.822 Contact with and (suspected) exposure to COVID-19; Z20.828 Contact with and (suspected) exposure to other viral communicable diseases
CPT/HCPCS: 0241U; 71046; 99282; 99283

== ENCOUNTER → 2022-12-13 15:00 | Outpatient (REF) | payer OTHER, SELFPAY | LOC: HO.SL 15:00 | PROVIDERS: Visit Provider Internal Medicine | DX: G47.33 Obstructive sleep apnea (adult) (pediatric) (principal); R40.0 Somnolence; E66.9 Obesity, unspecified | CPT/HCPCS: 95806 ==

== ENCOUNTER → 2022-12-13 15:20 | Outpatient (BNV) | payer OTHER, SELFPAY | PROVIDERS: Visit Provider Internal Medicine | DX: G47.33 Obstructive sleep apnea (adult) (pediatric) (principal) | CPT/HCPCS: 95806 ==

== ENCOUNTER 2023-01-17 13:09 | Outpatient (AMB) | payer OTHER, SELFPAY ==
[2023-01-17 13:24] VITALS: BP 110/72; PULSE 75; O2SAT 97; BMI 36.3
--- NOTE | 2023-01-17 13:24 | MHC.OFFVIS ---
Intake Vital Signs 01/17/23 13:24 Height 5 ft 5 in Weight 218 lb BMI 36.3 BP 110/72 Blood Pressure Location Lt brachial Position Sitting Pulse 75 Pulse Source Pulse Oximeter Pulse Oximetry (%) 97 Oxygen Delivery Method Room Air Intake Visit Reasons: f/u sleep study Intake Note: pt is here for follow up of sleep study School Health Assistant Required: No Allergies aspirin [Aspirin] Allergy (Unknown, Verified 01/17/23 13:40) UNKNOWN Penicillins Allergy (Unknown, Verified 01/17/23 13:40) SWELLING Medication List - Last Reconciled 01/17/23 by Frandy Britton MD albuterol sulfate 90 mcg/actuation 2 puffs inhalation Q4-6H PRN esomeprazole magnesium 1 cap PO DAILY fluticasone propionate 50 mcg/actuation (Flonase Allergy Relief) 1 spray intranasal DAILY Do you need a note to return to daycare/school/sports/work: No HPI f/u sleep study HPI Details 47 YEARS OLD GENTLEMAN IS HERE FOR FOLLOW-UP AFTER HIS SLEEP STUDY. HE CONTINUES TO HAVE DIFFICULTY IN SLEEPING AT NIGHT BECAUSE OF FREQUENT AWAKENING. FEELS TIRED AND SLEEPY DURING THE DAYTIME. HE HAS NASAL CONGESTION OFF AND ON DUE TO ALLERGIC RHINITIS. 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 [facility] Medical History (Updated 01/17/23 @ 13:55 by Frandy Britton MD) Asthma Stuffy nose Hx of chest pain GERD (gastroesophageal reflux disease) Headache LEEROY (obstructive sleep apnea) Somnolence, daytime Obesity (BMI 35.0-39.9 without comorbidity) Asthma Hypertension Surgical History Hx of wisdom tooth extraction History of surgery on left wrist Family History Mother Breast cancer Hypertension Diabetes Social History Are you a primary dog daycare provider to a significant other at home: No Do you presently have visiting nurse or other home services: Yes ([facility]) Alcohol intake: never Patient Tobacco Use Status: Former Tobacco user Quit Date: 20 yrs ago Second Hand Smoke Exposure: No Current occupational status: employed Current occupation: [employer] Review of Systems Const All systems reviewed & are unremarkable except as noted in HPI and below Eyes Reports no additional complaints ENT Reports nasal congestion (Mild off and) Card Denies chest pain, Denies irregular heart rhythm and Denies leg edema Resp Reports no additional complaints, Denies cough and Denies wheezing GI Reports heartburn (GERD symptoms controlled) Reports no additional complaints Musc Reports no additional complaints Skin/Breast Reports system reviewed and no additional complaints, except as documented Neuro Reports no additional complaints Psych Reports other (Claims of lot of stress due to family issues.) Aller/Immun Denies wheezing Physical Exam Vital Signs: Last Vital Signs Pulse 75 01/17/23 13:24 BP 110/72 01/17/23 13:24 Pulse Ox 97 01/17/23 13:24 Oxygen Delivery Method Room Air 01/17/23 13:24 BMI result Body Mass Index 36.3 Const General: healthy appearing (Except for being overweight), comfortable, no acute distress, alert and awake Orientation/consciousness: patient oriented x3 HEENT Head: Yes normal to inspection General nose exam: No nasal polyps present and No nasal discharge present Face and sinus: Yes sinuses nontender Mouth: oropharynx abnormals (Moderately narrow, Mallampati class 3) Throat: Yes posterior oropharynx normal Eyes General: appearance normal, both eyes and all related structures Neck Neck: Yes normal visual inspection, Yes no lymphadenopathy, Yes trachea midline, Yes no JVD and Yes other (Neck circumference 17 in) Thyroid: Thyroid normal Chest Chest palpation & inspection: normal inspection of the chest, normal palpation of entire chest wall and no tenderness Resp Effort & Inspection: normal respiratory effort Auscultation: clear to auscultation bilaterally, no crackles, no rales and no wheezes Percussion: percussion normal Cardio Palpation: normal PMI Rate: regular rate Rhythm: regular rhythm Heart sounds: no gallops and no murmurs Peripheral pulses: Peripheral pulses 2+ throughout GI Palpation (GI): Soft to palpation, nontender, No hepatosplenomegaly present and no masses Auscultation: normal bowel sounds Back/Spine/Pelvis Thoracic/Lumbar Spine: thoracic and lumbar spine normal to inspection Skin General skin exam: no rashes or lesions noted Neuro General: patient oriented x3 and no focal motor deficits Cranial nerves: Yes CN's II-XII intact bilaterally Extrem General: Yes normal to inspection, Yes no clubbing, cyanosis or edema and Yes no calf tenderness Psych Appearance: grossly normal and well kempt Speech and movement: Normal speech and movement present Results Reviewed Results Reviewed: Home-based sleep study on 12/14/2022. TOTAL SLEEP TIME AHI 26.4, ALL THE SLEEP WAS IN SUPINE POSITION, HE SLEPT ONLY FOR 86 MINUTES DURING THE WHOLE NIGHT. Assessment & Plan Assessment & Plan (1) Obesity (BMI 35.0-39.9 without comorbidity): Comment: HE CONTINUES TO BE MODERATELY OBESE. MOST OF HIS OBESITY IS IN ABDOMEN. ALSO HAS A ROUNDED FACE WITH SHORT NECK. DISCUSSED ABOUT NEED TO LOSE WEIGHT, ENCOURAGED TO JOIN A WEIGHT MANAGEMENT PROGRAM. ENCOURAGED TO WALK 2-3 MILES EVERY DAY, AND CUT DOWN THE CALORIES INTAKE. Code(s): E66.9 - Obesity, unspecified (2) LEEROY (obstructive sleep apnea): Comment: The sleep study in July 2021, confirmed diagnosis of very severe obstructive sleep apnea, with nocturnal hypoxemia. Due to his noncompliance the CPAP device was taken away. He had a repeat sleep study as noted above and it shows moderately severe obstructive sleep apnea, with total sleep time AHI 26. He slept only for 86 minute. Nocturnal hypoxemia was only minimal O2 sat below 88% for 8 minutes. HE IS ANXIOUS TO RESTART CPAP THERAPY. I HAVE ORDERED AUTO PAP MODE PRESSURE SETTING 6-20 CM .USING FULLFACE MASK HE HAS BEEN GIVEN FULL INSTRUCTIONS FOR THE USE. OF CPAP WILL BE RECHECKED IN 6-8 WEEKS. Code(s): G47.33 - Obstructive sleep apnea (adult) (pediatric) (3) Somnolence, daytime: Comment: HE DOES HAVE DAYTIME SLEEPINESS, EPWORTH SLEEPINESS SCALE 16/24. THIS IS MOST LIKELY SECONDARY TO OBSTRUCTIVE SLEEP APNEA AND POOR SLEEP QUALITY AND NON USE OF CPAP . HOPEFULLY WITH THE USE OF CPAP OF THIS WILL IMPROVE, HE MAY ALSO NEED SOME SLEEP FACILITATING AGENT BUT WILL SEE HOW HE DOES AFTER HE STARTS ON THE CPAP THERAPY. Code(s): R40.0 - Somnolence (4) Asthma: Comment: HE HAS INTERMITTENT COUGH WITH SOME WHEEZING AND ALSO DYSPNEA ON EXERTION, PROBABLY DUE TO MILD BRONCHIAL ASTHMA. TX : ALBUTEROL HFA 2 PUFFS Q 4-6 HOURS P.R.N.. Code(s): J45.909 - Unspecified asthma, uncomplicated Medications: Refilled albuterol sulfate 90 mcg/actuation 2 puffs inhalation Q4-6H PRN 8.5 grams 3RF shortness of breath or wheezing Coding Level of Care Code Est Pt Level 3 (89941) Diagnoses Obesity (BMI 35.0-39.9 without comorbidity) E66.9 LEEROY (obstructive sleep apnea) G47.33 Somnolence, daytime R40.0 Asthma J45.909
== END 2023-01-17 13:46 | disposition home or self-care (01) ==
PROVIDERS: Visit Provider Internal Medicine
DX: E66.9 Obesity, unspecified (principal); G47.33 Obstructive sleep apnea (adult) (pediatric); R40.0 Somnolence; J45.909 Unspecified asthma, uncomplicated
CPT/HCPCS: 99213

== ENCOUNTER → 2023-01-17 13:09 | Outpatient (BNVA) | payer OTHER, SELFPAY | PROVIDERS: Visit Provider Internal Medicine | DX: G47.33 Obstructive sleep apnea (adult) (pediatric) (principal); R40.0 Somnolence; E66.9 Obesity, unspecified; J45.909 Unspecified asthma, uncomplicated; Z68.36 Body mass index [BMI] 36.0-36.9, adult | CPT/HCPCS: 99212 ==

== ENCOUNTER 2023-03-24 15:25 | Emergency (ER) | payer MEDICARE, SELFPAY ==
[2023-03-24 15:28] VITALS: BP 114/67; PULSE 90; RESP 20; TEMP 36.5; O2SAT 97; BMI 34.3
--- NOTE | 2023-03-24 15:28 | ED.GENADULT ---
HPI - General Adult General Chief complaint: Extremity Problem Stated complaint: ankles swollen,legs bruised, chest rash Time Seen by Provider: 03/24/23 17:50 Source: patient Mode of arrival: ambulatory Limitations: no limitations History of Present Illness HPI narrative: Patient is a 48 year old assigned male at with a history of asthma presenting to the emergency department today with bilateral ankle swelling and a rash. Patient states that over the last week he has been having bilateral ankle swelling that is better when he elevates them and a rash all over that is itchy. Patient denies any dizziness, lightheadedness, abdominal pain, nausea, vomiting, fever, chills, blurry vision, double vision, loss of vision, chest pain, difficulty breathing, shortness of breath, back pain, night sweats, pain with urination, increased urinary frequency, increased urinary urgency, blood in his urine or stool, syncope or a near syncopal episode, recent trauma or falls, bowel incontinence, bladder incontinence, bowel retention, bladder retention, or any other complaints at this time. Onset (ago): week(s) (1) Location: left, right and lower extremity Severity: mild Relieving factors: none Exacerbating factors: none Associated symptoms: rash Treatments prior to arrival: none Related Data Home Medications Medication Instructions Recorded Confirmed esomeprazole magnesium 20 mg 1 cap PO DAILY 01/29/21 09/20/22 capsule,delayed release fluticasone propionate 50 1 spray intranasal DAILY 06/14/21 09/20/22 mcg/actuation nasal spray,suspension (Flonase Allergy Relief) Previous Rx's Medication Instructions Recorded albuterol sulfate 90 mcg/actuation 2 puff inhalation Q4-6H PRN 01/17/23 aerosol inhaler shortness of breath or wheezing #8.5 grams prednisone 20 mg tablet 20 mg PO DAILY 7 days #7 tabs 03/24/23 Allergies Allergy/AdvReac Type Severity Reaction Status Date / Time aspirin [Aspirin] Allergy Unknown UNKNOWN Verified 01/17/23 13:40 Penicillins Allergy Unknown SWELLING Verified 01/17/23 13:40 Review of Systems Constitutional: Constitutional: Reports no additional constitutional complaints, Denies chills, Denies fever(s) and Denies night sweats Eyes: Eyes: Reports no additional eye complaints, Denies blurry vision, Denies change in vision, Denies diplopia, Denies eye discharge, Denies loss of vision and Denies eye pain ENT: Denies dizziness Cardiovascular: Cardiovascular: Reports no additional cardiovascular complaints, Denies chest pain, Denies lightheadedness, Denies Loss of Consciousness and Denies dyspnea Respiratory: Respiratory: Reports no additional respiratory complaints and Denies dyspnea Gastrointestinal: Gastrointestinal: Reports no additional gastrointestinal complaints, Denies abdominal pain, Denies melena, Denies hematochezia, Denies change in bowel habits and Denies change in stool character Genitourinary: Genitourinary: Reports no additional male genitourinary complaints, Denies hematuria, Denies oliguria, Denies difficulty urinating, Denies dysuria, Denies urinary frequency, Denies urinary hesitancy, Denies urinary incontinence and Denies urinary urgency Musculoskeletal: Musculoskeletal: Reports no additional musculoskeletal complaints, Denies numbness and Denies tingling Comments: bilateral ankle pain Integumentary/Breasts: Skin/Breast: Reports rash Neurologic: Denies dizziness, Denies loss of vision, Denies numbness and Denies tingling Psychiatric: Psychiatric: Reports no additional psychiatric complaints Endocrine: Endocrine: Reports no additional endocrine complaints Hematologic/Lymphatic: Hematologic/Lymphatic: Reports no additional hematologic/lymphatic complaints Allergic/Immunologic: Allergic/Immunologic: Reports no additional allergic/immunologic complaints [facility] Past Medical History Attestation statement: The following information was validated with the patient. Source: old records reviewed and nursing notes reviewed Medical History Cough with exposure to COVID-19 virus Right hamstring muscle strain Somnolence, daytime Obesity (BMI 35.0-39.9 without comorbidity) Precordial chest pain Colon cancer screening Epigastric pain Avulsion fracture of medial malleolus Closed avulsion fracture of left ankle Orchalgia COVID-19 Chest pain Asthma Stuffy nose Hx of chest pain GERD (gastroesophageal reflux disease) Headache LEEROY (obstructive sleep apnea) Asthma Hypertension Surgical History Hx of wisdom tooth extraction History of surgery on left wrist Family History Family History Mother Breast cancer Hypertension Diabetes Social History Social History Are you a primary patient care coordinator to a significant other at home: No Do you presently have visiting nurse or other home services: Yes ([facility]) Alcohol intake: never Patient Tobacco Use Status: Former Tobacco user Quit Date: 20 yrs ago Second Hand Smoke Exposure: No Advance Directives: No Advance Directives Information Provided: No Current occupational status: employed Current occupation: [employer] Physical Exam ED Vital Signs: Vital Signs - 24 hr 03/24/23 15:28 Temperature 97.7 F Pulse Rate 90 Respiratory Rate 20 Blood Pressure 114/67 Pulse Oximetry 97 Oxygen Delivery Method Room Air BMI result Body Mass Index 34.3 Const General: cooperative, no acute distress, alert and awake Nutritional Appearance: well nourished Orientation/consciousness: patient oriented x3 Limitations: no limitations HENMT Head: Yes normal to inspection and Yes atraumatic Ears: hearing grossly normal bilaterally and external ears normal General nose exam: Normal external nose present, no nasal discharge noted and no epistaxis Face and sinus: Yes normal facial exam, No abrasion and No laceration Mouth: Normal oral and palatal mucosa present, no drooling and no muffled voice Eyes General: appearance normal, both eyes and all related structures Periorbital: periorbital findings normal Eyelids: Yes eyelids normal Conjunctivae: conjunctivae normal Pupils: Equal, round and reactive pupils present EOM: EOMs intact bilaterally Neck Neck: Yes normal visual inspection, Yes full ROM and Yes no lymphadenopathy Chest Chest palpation & inspection: normal inspection of the chest Resp Effort & Inspection: normal respiratory effort and able to speak in complete sentences GI Inspection: Yes normal to inspection Skin Other: rash consistent with dermatitis to the bilateral arms and legs Neuro General: patient oriented x3 and moves all extremities Cranial nerves: Yes Equal, round and reactive pupils present Cognition (Neuro): normal cognition Motor exam (neuro): 5/5 motor strength present throughout Sensory Exam: Normal double simultaneous stimulation for sensation Coordination: [id number] test normal Extrem General: Yes normal to inspection, Yes full ROM and Yes capillary refill normal Psych Appearance: grossly normal Mental Status: mental status grossly normal Affect: normal affect Attitude: cooperative Thought process: Normal thought process present Thought content: Normal thought content present Insight: Good insight present (Psych) Course Course Course Narrative: RME performed by Spring Prado PA-C. Patient is a 48 year old assigned male at presenting to the emergency department with bilateral ankle swelling and a rash. Labs ordered. Patient placed back in the waiting room pending room availability and results. Medical Decision Making Medical Decision Making [facility] Narrative: Patient is a 48 year old assigned male at with a history of asthma and HTN presenting to the emergency department today with bilateral ankle swelling and a rash. Patient's physical exam was as noted in the physical exam portion of this note. Patient's blood work was unremarkable. I explained my physical exam findings as well as all test results to the patient. I answered all questions asked by the patient. I stressed the importance of the patient taking his medication as prescribed. I stressed the importance of the patient following up with his primary care provider. I stressed the importance of the patient returning to the emergency department immediately if his symptoms were to worsen or if he were to develop any dizziness, shortness of breath, difficulty breathing, chest pain, blurry vision, loss of vision, nausea, vomiting, abdominal pain, fever, chills, back pain, or any other complaints. Patient verbalized agreement and understanding with this treatment plan and discharge. Differential Diagnosis Differential Diagnoses: The differential diagnosis associated with the presentation includes Dermatitis Arthritis Leg edema Dependent edema Admission/Observation Consideration of admission/observation: Escalation of care including admission/observation considered Patient would have been admitted to the hospital had his work up had any findings where hospital admission was appropriate and his clinical presentation warranted hospital admission. Lab Data [facility] Lab Attestation statement: I reviewed the patient's lab results. My interpretation of these studies and their corresponding values is that they are grossly normal. 03/24/23 16:07 03/24/23 16:07 Labs: Lab Results 03/24/23 Range/Units 16:07 WBC 6.4 (4.8-10.8) X10*3/uL RBC 4.59 L (4.60-5.80) X10*6/uL Hgb 14.6 (14.0-18.0) g/dl Hct 41.3 L (42.0-52.0) % MCV 90.0 (80.0-98.0) fL MCH 31.8 (27.0-33.0) pg MCHC 35.4 (31.0-36.0) g/dl RDW 12.6 (11.0-16.0) % Plt Count 213 (160-400) X10*3/uL MPV 11.1 (9.4-12.4) fL Immature Gran % (Auto) 0.3 (0.0-0.4) % Neut % (Auto) 50.1 (45-73) % Lymph % (Auto) 35.7 (20-40) % [place] % (Auto) 7.8 (2-11) % Eos % (Auto) 5.5 H (0-4) % Baso % (Auto) 0.6 (0-2) % Lymph # (Auto) 2.3 (1.2-4.9) X10*3/uL [place] # (Auto) 0.5 (0.1-1.2) X10*3/uL Eos # (Auto) 0.4 (0.0-0.4) X10*3/uL Baso # (Auto) 0.0 (0.0-0.2) X10*3/uL Abs Immat Gran (auto) 0.02 (0.00-0.03) X10*3/uL Absolute Neuts (auto) 3.2 (2.0-8.3) x10*3/uL Absolute Nucleated RBC 0.000 (0.0-0.012) X10*3/uL Nucleated RBC % (auto) 0.0 (0.0-0.2) /100WBC ESR 7 (0-15) MM/HR Sodium 144 (135-145) mmol/L Potassium 3.6 (3.3-5.1) mmol/L Chloride 110 H (96-108) mmol/L Carbon Dioxide 26 (22-29) mmol/L Anion Gap 12 (12-20) BUN 14 (9-16) mg/dL Creatinine 1.00 (0.5-1.4) mg/dL Estim Creat Clear Calc 90.7 Estimated GFR > 60 Random Glucose 89 (60-115) mg/dL Calcium 8.8 (8.4-10.2) mg/dL Magnesium 2.2 (1.6-2.6) mg/dL Total Bilirubin 0.5 (0.0-1.0) mg/dL AST 16 (5-37) U/L ALT 23 (0-40) U/L Alkaline Phosphatase 107 (39-117) U/L C-Reactive Protein 0.92 H (< or = 0.50) mg/dL B-Natriuretic Peptide < 10 (<100) pg/mL Total Protein 6.6 (6.5-8.0) g/dL Albumin 3.9 (3.5-5.0) g/dL Discharge Plan Discharge Clinical Impression: Rash, Edema Patient Disposition: Home, Self-Care Instructions: Acute Rash (ED), Leg Edema (ED) Additional Instructions: Follow up with your primary care provider. Return to the emergency department immediately if your symptoms worsen or if you develop any dizziness, shortness of breath, difficulty breathing, chest pain, blurry vision, loss of vision, nausea, vomiting, abdominal pain, fever, chills, back pain, or any other complaints. Prescriptions: New prednisone 20 mg tablet 20 mg PO DAILY 7 Days Qty: 7 0RF No Action esomeprazole magnesium 20 mg capsule,delayed release(DR/EC) 1 cap PO DAILY fluticasone propionate [Flonase Allergy Relief] 50 mcg/actuation spray,suspension 1 spray intranasal DAILY Rx Instructions: administer into each nostril albuterol sulfate 90 mcg/actuation HFA aerosol inhaler 2 puff inhalation Q4-6H PRN (Reason: shortness of breath or wheezing) Qty: 8.5 3RF Referrals: Svetlana Shea, [facility] [Primary Care Provider] - Stand Alone Forms: Work/School Release Print Language: Nigerian
[2023-03-24 16:16] LABS: MANUAL DIFF FLAG NO
[2023-03-24 16:18] LABS: Basophils Percent Auto 0.6 % (0-2); Eosinophils Absolute Auto 0.4 X10*3/uL (0.0-0.4); Eosinophils Percent Auto 5.5 % (0-4); Hematocrit 41.3 % (42.0-52.0); Hemoglobin 14.6 g/dl (14.0-18.0); Imm Gran Abs Auto 0.02 X10*3/uL (0.00-0.03); Imm Gran Pct Auto 0.3 % (0.0-0.4); Lymphocytes Absolute Auto 2.3 X10*3/uL (1.2-4.9); Lymphocytes Percent Auto 35.7 % (20-40); Mean Corpuscular HGB Conc 35.4 g/dl (31.0-36.0); Mean Corpuscular Hemoglobin 31.8 pg (27.0-33.0); Mean Platelet Volume 11.1 fL (9.4-12.4); Monocytes Absolute Auto 0.5 X10*3/uL (0.1-1.2); Monocytes Percent Auto 7.8 % (2-11); Neutrophils Absolute Auto 3.2 x10*3/uL (2.0-8.3); Neutrophils Percent Auto 50.1 % (45-73); Platelet Count 213 X10*3/uL (160-400); Red Blood Count 4.59 X10*6/uL (4.60-5.80); Red Cell Distribution Width 12.6 % (11.0-16.0); White Blood Count 6.4 X10*3/uL (4.8-10.8)
[2023-03-24 16:32] LABS: Alanine Aminotransferase 23 U/L (0-40); Albumin Level 3.9 g/dL (3.5-5.0); Alkaline Phosphatase 107 U/L (39-117); Anion Gap 12 (12-20); Aspartate Amino Transferase 16 U/L (5-37); Bilirubin Total 0.5 mg/dL (0.0-1.0); Blood Urea Nitrogen 14 mg/dL (9-16); C Reactive Protein 0.92 mg/dL (< or = 0.50); Calcium 8.8 mg/dL (8.4-10.2); Carbon Dioxide 26 mmol/L (22-29); Chloride 110 mmol/L (96-108); Creatinine Clr Calc Pharmacy 90.7; Estimated Glomerular Filt Rate > 60; Glucose Random 89 mg/dL (60-115); Magnesium 2.2 mg/dL (1.6-2.6); Potassium 3.6 mmol/L (3.3-5.1); Sodium 144 mmol/L (135-145); Total Protein 6.6 g/dL (6.5-8.0)
[2023-03-24 16:38] LABS: B Type Natriuretic Peptide < 10 pg/mL (<100)
[2023-03-24 17:17] LABS: Erythrocyte Sedimentation Rate 7 MM/HR (0-15)
--- NOTE | 2023-03-24 17:52 | PC.NURSE ---
strong steady gait. non pitting edema noted left ankle. pt states he has swelling juan ankles.
== END 2023-03-24 18:42 | disposition home or self-care (01) ==
PROVIDERS: Physician Assistant Medical; Emergency Provider Emergency Medicine; PCP Nurse Practitioner Primary Care
DX: R60.0 Localized edema (principal); R21 Rash and other nonspecific skin eruption; R06.02 Shortness of breath; M25.473 Effusion, unspecified ankle; Z87.891 Personal history of nicotine dependence; Z79.899 Other long term (current) drug therapy
CPT/HCPCS: 36415; 80053; 83735; 83880; 85025; 85652; 86140; 99282; 99283

== ENCOUNTER 2023-05-06 10:13 | Emergency (ER) | payer MEDICARE, MEDICAID, SELFPAY ==
--- NOTE | ~2023-05-06 | US_ITS ---
EXAMINATION: US VENOUS ULTRASOUND WITH DOPPLER LOWER EXTREMITY, RIGHT CLINICAL INFORMATION: Right-sided pain COMPARISON: None available. TECHNIQUE: Ultrasound of the deep veins is performed from the hip to the calf with compression sonography and color and pulse Doppler assessment. Spectral analysis with color-flow imaging is performed. FINDINGS: There is normal venous compression and respiratory variation and augmented flow. The visualized common femoral vein, superficial femoral vein, profunda femoral vein, popliteal vein, and the trifurcation region shows no evidence of deep venous thrombosis. There is no significant popliteal fossa cyst. If the patient's symptoms persist, followup ultrasound in 5 days 7 days might be of value to exclude proximal propagation from a non-visualized calf vein. US/US venous duplex LE RT IMPRESSION: No DVT demonstrated in the right lower extremity.
[2023-05-06 10:22] VITALS: BP 125/91; PULSE 81; RESP 20; TEMP 36.6; O2SAT 98; BMI 35.1
--- NOTE | 2023-05-06 10:56 | ED_ITS ---
HPI - Extremity Injury (Lower) General Chief Complaint: Extremity Injury, Lower Stated Complaint: calf pain Time Seen by Provider: 05/06/23 10:35 Source: patient and RN notes reviewed Mode of arrival: ambulatory Limitations: no limitations History of Present Illness HPI Narrative: This is a 48-year-old male presenting to the emergency department with complaints of right calf pain since yesterday. Patient denies any recent trauma or injury to his right leg or calf. He states that he has been driving back and forth short distances for the last several weeks. He also reports that he had a flight to [facility] in March. He denies any chest pain or shortness of breath. Denies any history of blood clots, recent hospitalizations or surgeries. No other complaints or concerns at this time. Onset (ago): day(s) Relieving factors: nothing Exacerbating factors: movement Other symptoms: none Related Data Home Medications Medication Instructions Recorded Confirmed esomeprazole magnesium 20 mg 1 cap PO DAILY 01/29/21 09/20/22 capsule,delayed release fluticasone propionate 50 1 spray intranasal DAILY 06/14/21 09/20/22 mcg/actuation nasal spray,suspension (Flonase Allergy Relief) Previous Rx's Medication Instructions Recorded albuterol sulfate 90 mcg/actuation 2 puff inhalation Q4-6H PRN 01/17/23 aerosol inhaler shortness of breath or wheezing #8.5 grams prednisone 20 mg tablet 20 mg PO DAILY 7 days #7 tabs 03/24/23 Allergies Allergy/AdvReac Type Severity Reaction Status Date / Time aspirin [Aspirin] Allergy Unknown UNKNOWN Verified 05/06/23 10:24 Penicillins Allergy Unknown SWELLING Verified 05/06/23 10:24 Review of Systems Review of Systems: Yes all other systems are reviewed and are negative [facility] Past Medical History Attestation statement: The following information was validated with the patient. Medical History Cough with exposure to COVID-19 virus Right hamstring muscle strain Somnolence, daytime Obesity (BMI 35.0-39.9 without comorbidity) Precordial chest pain Colon cancer screening Epigastric pain Avulsion fracture of medial malleolus Closed avulsion fracture of left ankle Orchalgia COVID-19 Chest pain Asthma Stuffy nose Hx of chest pain GERD (gastroesophageal reflux disease) Headache LEEROY (obstructive sleep apnea) Asthma Hypertension Surgical History Hx of wisdom tooth extraction History of surgery on left wrist Family History Family History Mother Breast cancer Hypertension Diabetes Social History Social History Are you a primary congregational care pastor to a significant other at home: No Do you presently have visiting nurse or other home services: Yes ([facility]) Alcohol intake: never Patient Tobacco Use Status: Former Tobacco user Quit Date: 20 yrs ago Second Hand Smoke Exposure: No Advance Directives: No Advance Directives Information Provided: No Current occupational status: employed Current occupation: [employer] Physical Exam Vital Signs: Vital Signs: Last Vital Signs Temp 97.9 F 05/06/23 10:22 Pulse 81 05/06/23 10:22 Resp 20 05/06/23 10:22 BP 125/91 H 05/06/23 10:22 Pulse Ox 98 05/06/23 10:22 O2 Del Method Room Air 05/06/23 10:22 BMI result Body Mass Index 35.1 Const: Other: General: Awake, alert, and oriented X3. No acute distress. HEENT: Normal inspection CVS: Normal heart rate and rhythm. Pulses normal. Respiratory: No respiratory distress Skin: Warm, dry, no rashes noted to exposed skin. Normal skin color. Normal skin turgor. Extremities: Right calf with no obvious swelling or deformity. Mild tenderness palpation along the calf, negative Homans sign, pedal pulse 2 +. Full range of motion of the ankle without difficulty. No overlying erythema or warmth. Neuro: Oriented X 3. No motor deficit. No sensory deficit. Course Reevaluation(s) Reevaluation #1: Ultrasound negative for DVT. Symptoms likely musculoskeletal in nature. Discharged with conservative treatment, given return precautions. Patient understands and agrees with plan. Patient stable for discharge. Time: 12:16 Medical Decision Making Medical Decision Making [facility]DM Narrative: This is a 48-year-old male, with a history of hypertension, asthma, GERD, LEEROY, presenting to the emergency department with complaints of atraumatic right calf pain since yesterday. On arrival, blood pressure 125/91, all other vital signs within normal limits. Patient has mild tenderness palpation along the right calf. Given recent travel history, will obtain ultrasound of the right lower leg to rule out DVT. Other differential diagnoses include calf strain, muscle spasm. There is no overlying erythema or warmth, to suggest any evidence of cellulitis. He has no chest pain or shortness of breath therefore PE is less likely. Differential Diagnosis Differential Diagnoses: The differential diagnosis associated with the presentation includes See above Radiology Impression Discussion of test interpretation with radiology: I have reviewed the radiologist's reading. Radiologist Impression: EXAMINATION: US VENOUS ULTRASOUND WITH DOPPLER LOWER EXTREMITY, RIGHT CLINICAL INFORMATION: Right-sided pain COMPARISON: None available. TECHNIQUE: Ultrasound of the deep veins is performed from the hip to the calf with compression sonography and color and pulse Doppler assessment. Spectral analysis with color-flow imaging is performed. FINDINGS: There is normal venous compression and respiratory variation and augmented flow. The visualized common femoral vein, superficial femoral vein, profunda femoral vein, popliteal vein, and the trifurcation region shows no evidence of deep venous thrombosis. There is no significant popliteal fossa cyst. If the patient's symptoms persist, followup ultrasound in 5 days 7 days might be of value to exclude proximal propagation from a non-visualized calf vein. US/US venous duplex LE RT IMPRESSION: No DVT demonstrated in the right lower extremity. Dictated By: Sb Hernández MD Discharge Plan Discharge Clinical Impression: Pain of right calf Patient Disposition: Home, Self-Care Instructions: Leg Cramps (ED) Additional Instructions: You were seen in the emergency department due to right calf pain. You likely have a strain in your muscle. Your ultrasound of your calf does not show any blood clots. Please take ibuprofen or Tylenol as needed for pain. Massage, heat or ice can also help with your pain. If continued to have pain in your right calf, please return or follow-up with your primary care physician for re-evaluation. If any new or worsening symptoms occur, please return for re-evaluation. Prescriptions: No Action esomeprazole magnesium 20 mg capsule,delayed release(DR/EC) 1 cap PO DAILY prednisone 20 mg tablet 20 mg PO DAILY 7 Days Qty: 7 0RF fluticasone propionate [Flonase Allergy Relief] 50 mcg/actuation spray,suspension 1 spray intranasal DAILY Rx Instructions: administer into each nostril albuterol sulfate 90 mcg/actuation HFA aerosol inhaler 2 puff inhalation Q4-6H PRN (Reason: shortness of breath or wheezing) Qty: 8.5 3RF
[2023-05-06 12:42] VITALS: BP 138/89; PULSE 64; RESP 16; TEMP 36.6; O2SAT 97
== END 2023-05-06 12:45 | disposition home or self-care (01) ==
PROVIDERS: Emergency Provider Emergency Medicine; PCP Nurse Practitioner Primary Care
DX: M79.661 Pain in right lower leg (principal)
CPT/HCPCS: 93971; 99284

== ENCOUNTER 2023-05-09 11:59 | Outpatient (REF) | payer MEDICARE, MEDICAID, SELFPAY ==
[2023-05-09 13:28] LABS: MANUAL DIFF FLAG NO
[2023-05-09 13:38] LABS: Basophils Absolute Auto 0.1 X10*3/uL (0.0-0.2); Basophils Percent Auto 0.8 % (0-2); Eosinophils Absolute Auto 0.3 X10*3/uL (0.0-0.4); Eosinophils Percent Auto 4.3 % (0-4); Hematocrit 45.9 % (42.0-52.0); Imm Gran Abs Auto 0.02 X10*3/uL (0.00-0.03); Imm Gran Pct Auto 0.3 % (0.0-0.4); Lymphocytes Absolute Auto 2.7 X10*3/uL (1.2-4.9); Mean Corpuscular HGB Conc 34.9 g/dl (31.0-36.0); Mean Corpuscular Hemoglobin 31.6 pg (27.0-33.0); Mean Corpuscular Volume 90.7 fL (80.0-98.0); Mean Platelet Volume 11.9 fL (9.4-12.4); Monocytes Absolute Auto 0.5 X10*3/uL (0.1-1.2); Monocytes Percent Auto 6.5 % (2-11); Neutrophils Absolute Auto 3.7 x10*3/uL (2.0-8.3); Neutrophils Percent Auto 51.1 % (45-73); Platelet Count 254 X10*3/uL (160-400); Red Blood Count 5.06 X10*6/uL (4.60-5.80); Red Cell Distribution Width 12.6 % (11.0-16.0); White Blood Count 7.3 X10*3/uL (4.8-10.8)
[2023-05-09 13:49] LABS: Anion Gap 12 (12-20); Blood Urea Nitrogen 14 mg/dL (9-16); C Reactive Protein 0.68 mg/dL (< or = 0.50); Calcium 9.5 mg/dL (8.4-10.2); Carbon Dioxide 26 mmol/L (22-29); Chloride 108 mmol/L (96-108); Estimated Glomerular Filt Rate > 60; Glucose Random 104 mg/dL (60-115); Potassium 4.1 mmol/L (3.3-5.1); Sodium 142 mmol/L (135-145)
[2023-05-09 13:50] LABS: Estimated Average Glucose 88 mg/dL; Hemoglobin A1c % 4.7 % (<6.0)
[2023-05-09 14:15] LABS: Prostate Specific Antigen 0.43 ng/mL (<0.05-4.0)
[2023-05-09 14:31] LABS: Erythrocyte Sedimentation Rate 7 MM/HR (0-15)
== END 2023-05-09 12:00 | disposition home or self-care (01) ==
LOC: HO.HHCL 11:59
PROVIDERS: Visit Provider Nurse Practitioner Family
DX: N40.1 Benign prostatic hyperplasia with lower urinary tract symptoms (principal); N13.8 Other obstructive and reflux uropathy; E66.01 Morbid (severe) obesity due to excess calories; Z68.35 Body mass index [BMI] 35.0-35.9, adult
CPT/HCPCS: 36415; 80048; 83036; 84153; 85025; 85652; 86140; 87086

== ENCOUNTER 2023-08-30 11:10 | Emergency (ER) | payer MEDICAID, SELFPAY ==
[2023-08-30 11:22] VITALS: BP 117/81; PULSE 95; RESP 19; TEMP 37.1; O2SAT 97; BMI 37.8
--- NOTE | 2023-08-30 11:27 | ED_ITS ---
HPI - General Adult General Chief complaint: Upper Respiratory Symptoms Stated complaint: sinus infection Time Seen by Provider: 08/30/23 11:26 Source: patient, RN notes reviewed and old records reviewed Mode of arrival: ambulatory Limitations: no limitations History of Present Illness HPI narrative: 48-year-old male presents for evaluation facial pain and pressure, bilateral ear pain Reports his symptoms started yesterday noon Patient reports 8/10 pressure below both of his eyes and to both of his ears. Denies any sore throat, fevers, chills, coughing He admits to seasonal allergies Denies any abdominal pain, nausea, vomiting, diarrhea He also complains of swelling above his right eye and thinks he may have a ?stye. ? Denies blurry vision Related Data Home Medications ?Medication ?Instructions ?Recorded ?Confirmed esomeprazole magnesium 20 mg 1 cap PO DAILY 01/29/21 09/20/22 capsule,delayed release fluticasone propionate 50 1 spray intranasal DAILY 06/14/21 09/20/22 mcg/actuation nasal spray,suspension (Flonase Allergy Relief) Previous Rx's ?Medication ?Instructions ?Recorded albuterol sulfate 90 mcg/actuation 2 puff inhalation Q4-6H PRN 01/17/23 aerosol inhaler shortness of breath or wheezing #8.5 grams prednisone 20 mg tablet 20 mg PO DAILY 7 days #7 tabs 03/24/23 azithromycin 250 mg tablet See Rx Instructions PO .COMPLEX #6 08/30/23 tabs Allergies Allergy/AdvReac Type Severity Reaction Status Date / Time aspirin [Aspirin] Allergy Unknown UNKNOWN Verified 08/30/23 11:25 Penicillins Allergy Unknown SWELLING Verified 08/30/23 11:25 Review of Systems Constitutional: Constitutional: Denies body ache(s), Denies chills, Denies fever(s) and Reports headache(s) Eyes: Eyes: Denies blurry vision Comments: Right upper eyelid swelling ENT: Reports otalgia, Reports facial pain, Reports headache(s), Reports nasal congestion, Reports nasal discharge, Reports sinus pain and Reports sinus pressure Cardiovascular: Cardiovascular: Denies chest pain and Denies dyspnea Respiratory: Respiratory: Denies cough and Denies dyspnea Gastrointestinal: Gastrointestinal: Denies abdominal pain, Denies nausea and Denies vomiting Musculoskeletal: Musculoskeletal: Denies back pain Integumentary/Breasts: Skin/Breast: Denies rash Neurologic: Reports headache(s) [facility] Past Medical History Medical History Cough with exposure to COVID-19 virus Right hamstring muscle strain Somnolence, daytime Obesity (BMI 35.0-39.9 without comorbidity) Precordial chest pain Colon cancer screening Epigastric pain Avulsion fracture of medial malleolus Closed avulsion fracture of left ankle Orchalgia COVID-19 Chest pain Asthma Stuffy nose Hx of chest pain GERD (gastroesophageal reflux disease) Headache LEEROY (obstructive sleep apnea) Asthma Hypertension Surgical History Hx of wisdom tooth extraction History of surgery on left wrist Family History Family History Mother Breast cancer Hypertension Diabetes Social History Social History Are you a primary healthcare advisory services manager to a significant other at home: No Do you presently have visiting nurse or other home services: Yes ([facility]) Alcohol intake: never Patient Tobacco Use Status: Former Tobacco user Quit Date: 20 yrs ago Second Hand Smoke Exposure: No Current occupational status: employed Current occupation: [employer] Physical Exam ED Vital Signs: Vital Signs - 24 hr 08/30/23 11:22 Temperature 98.8 F Pulse Rate 95 Respiratory Rate 19 Blood Pressure 117/81 Pulse Oximetry 97 Oxygen Delivery Method Room Air BMI result Body Mass Index 37.8 Const General: healthy appearing, comfortable, no acute distress, alert and awake Nutritional Appearance: well nourished Orientation/consciousness: patient oriented x3 HENMT Head: Yes normocephalic and Yes atraumatic Ears: TM normal on the right, left TM abnormal (Left TM erythematous, bulging. No perforation) and EAC's normal Face and sinus: Yes sinus tenderness and Yes Facial tenderness on exam of face and sinuses Throat: Yes posterior oropharynx normal Eyes Periorbital: periorbital findings abnormal (Right upper eyelid edema/hordeolum. No cellulitis) Eyelids: Yes eyelids normal Conjunctivae: conjunctivae normal Sclerae: sclerae normal Corneas: corneas normal Pupils: Equal, round and reactive pupils present EOM: EOMs intact bilaterally Neck Neck: Yes full ROM Resp Effort & Inspection: normal respiratory effort, able to speak in complete sentences, no audible wheezes and not labored Auscultation: clear to auscultation bilaterally GI Inspection: No distended Palpation (GI): Soft to palpation, not firm, nontender, no guarding and not rigid Skin General skin exam: elasticity normal Neuro General: patient oriented x3 Cranial nerves: Yes Equal, round and reactive pupils present and Yes Bilaterally intact EOM present Cognition (Neuro): normal cognition Extrem Other: Moving all extremities well without any obvious deformities Medical Decision Making Medical Decision Making MDM Narrative: 48-year-old male presents for evaluation of upper respiratory symptoms with sinus pressure, ear pain. His sinus pressure is likely related to seasonal allergies as his symptoms started yesterday, less likely to be infected. However he does have evidence of acute left otitis media. We will treat with azithromycin due to penicillin allergy. He also has a stye and was educated on symptomatic treatment Differential Diagnosis Differential Diagnoses: The differential diagnosis associated with the presentation includes Sinusitis Seasonal allergies Otitis media Otitis externa Upper respiratory infection Hordeolum Stye Discharge Plan Discharge Clinical Impression: Acute left otitis media, Hordeolum Patient Disposition: Home, Self-Care Instructions: Stye (ED), Ear Infection (ED) Additional Instructions: Take azithromycin as directed I also recommend using an [id number] decongestant Use ibuprofen or Tylenol for Apply warm compresses to the right upper eyelid every 2 hours Follow-up your primary doctor Return for new or worsening symptoms Prescriptions: New azithromycin 250 mg tablet See Rx Instructions .ROUTE .COMPLEX Qty: 6 0RF Rx Instructions: For 250 mg dose pack: take 500 mg today (day 1), then 250 mg for 4 days (days 2-5) No Action esomeprazole magnesium 20 mg capsule,delayed release(DR/EC) 1 cap PO DAILY prednisone 20 mg tablet 20 mg PO DAILY 7 Days Qty: 7 0RF fluticasone propionate [Flonase Allergy Relief] 50 mcg/actuation spray,suspension 1 spray intranasal DAILY Rx Instructions: administer into each nostril albuterol sulfate 90 mcg/actuation HFA aerosol inhaler 2 puff inhalation Q4-6H PRN (Reason: shortness of breath or wheezing) Qty: 8.5 3RF Stand Alone Forms: Work/School Release Print Language: Lebanese
== END 2023-08-30 11:35 | disposition home or self-care (01) ==
PROVIDERS: Emergency Provider Emergency Medicine; PCP Nurse Practitioner Primary Care
DX: H92.03 Otalgia, bilateral (principal); H66.93 Otitis media, unspecified, bilateral; H00.019 Hordeolum externum unspecified eye, unspecified eyelid
CPT/HCPCS: 99281

== ENCOUNTER 2023-10-31 10:56 | Emergency (ER) | payer MEDICAID, SELFPAY ==
--- NOTE | ~2023-10-31 | XR_ITS ---
EXAMINATION: XR CHEST CLINICAL INFORMATION: Chest pain. Cough. COMPARISON: Most recent chest radiograph dated 12/09/2022. TECHNIQUE: 2 views of the chest were obtained. FINDINGS: The lungs are clear. The cardiomediastinal silhouette is normal in size. There is no pleural effusion or pneumothorax. No acute osseous abnormality. XR/XR chest 2V IMPRESSION: No acute cardiopulmonary findings.
[2023-10-31 11:01] VITALS: BP 134/104; PULSE 116; RESP 20; TEMP 36.8; O2SAT 98; BMI 35.4
--- NOTE | 2023-10-31 11:06 | ECG_ITS ---
Test Reason : tachy Blood Pressure : / mmHG Vent. Rate : 106 BPM Atrial Rate : 106 BPM P-R Int : 148 ms QRS Dur : 078 ms QT Int : 338 ms P-R-T Axes : 029 -20 051 degrees QTc Int : 448 ms Sinus tachycardia Otherwise normal ECG When compared to the previous EKG of aug 08 2022, increase in rate. Referred By: Jia Aguirre Electronically Signed By:MARGAUX ROSARIO
[2023-10-31 12:06] LABS: Influenza A PCR NEGATIVE (Negative); Influenza B PCR NEGATIVE (Negative); Resp Syncy Virus RNA Qual PCR NEGATIVE (Negative); SARS COV2 PCR INHOUSE NEGATIVE (Negative)
--- NOTE | 2023-10-31 13:13 | ED.GENADULT ---
HPI - General Adult General Chief complaint: General Medical Stated complaint: Body pains Time Seen by Provider: 10/31/23 13:12 Source: patient, RN notes reviewed and old records reviewed Mode of arrival: ambulatory Limitations: no limitations History of Present Illness ED Provider: CHRIS LEIJA PA-C HPI narrative: 48-year-old male, with a history of hypertension, asthma, GERD, LEEROY, presenting to the emergency department with multiple concerns. He endorses bilateral ear pain and sinus pain/ congestion x24 hours. No recent swimming. No hearing changes or discharge from the ears. Denies fever/chills, sore throat, cough, sputum production. No known sick contacts. Also endorses sciatica flare . Admits to atraumatic right hip pain radiating into his thigh. Reports history of same with diagnosis of sciatica. He has not trialled any OTC pain medications for this at home. Denies numbness/tingling/weakness of the LEs. Patient was noted to endorse chest heaviness in triage however is denying this to me. denies chest pain, palpitations, sob, dyspnea, hemoptysis. denies recent travel/ long car rides. Related Data Home Medications ?Medication ?Instructions ?Recorded ?Confirmed esomeprazole magnesium 20 mg 1 cap PO DAILY 01/29/21 09/20/22 capsule,delayed release fluticasone propionate 50 1 spray intranasal DAILY 06/14/21 09/20/22 mcg/actuation nasal spray,suspension (Flonase Allergy Relief) Previous Rx's ?Medication ?Instructions ?Recorded albuterol sulfate 90 mcg/actuation 2 puff inhalation Q4-6H PRN 01/17/23 aerosol inhaler shortness of breath or wheezing #8.5 grams prednisone 20 mg tablet 20 mg PO DAILY 7 days #7 tabs 03/24/23 azithromycin 250 mg tablet See Rx Instructions PO .COMPLEX #6 08/30/23 tabs ciprofloxacin 0.3 %-dexamethasone 4 drp otic (ears) BID 7 days #7.5 10/31/23 0.1 % ear drops,suspension mL (Ciprodex) doxycycline hyclate 100 mg tablet 100 mg PO BID 7 days #14 tabs 10/31/23 lidocaine 5 % topical patch 1 patch topical DAILY #15 ea 10/31/23 (Lidoderm) naproxen 500 mg tablet 500 mg PO Q8-12H PRN pain (scale 10/31/23 score 1-3) #20 tabs Allergies Allergy/AdvReac Type Severity Reaction Status Date / Time aspirin [Aspirin] Allergy Unknown UNKNOWN Verified 10/31/23 11:03 Penicillins Allergy Unknown SWELLING Verified 10/31/23 11:03 Review of Systems Review of Systems: Constitutional: No fever, chills, fatigue, night sweats, weight changes ENT/Mouth: No hearing loss, nasal congestion, sinus pain, rhinorrhea, sore throat, +b/l ear pain, +sinus pain Eyes: No eye pain, swelling, redness, vision changes, discharge Cardio: No chest pain, palpitations, FUENTES, orthopnea, peripheral edema Pulm: No SOB, cough, sputum, wheezing, dyspnea, hemoptysis GI: No nausea, vomiting, hematemesis, abdominal pain, diarrhea, constipation, hematochezia, melena : No irregular bleeding, dysuria, frequency, urgency, hesitancy, hematuria, flank pain, urinary flow changes, urinary incontinence or retention MSK: No back pain, neck pain, joint pain, myalgias Skin: No lesions, rashes, +right hip/thigh pain Neuro: No weakness, numbness, paresthesias, LOC, dizziness, headache Psych: No anxiety/panic, depression, SI/HI, AH/VH All other systems reviewed and are negative. [facility] Past Medical History Attestation statement: The following information was validated with the patient. Source: old records reviewed and nursing notes reviewed Medical History Cough with exposure to COVID-19 virus Right hamstring muscle strain Somnolence, daytime Obesity (BMI 35.0-39.9 without comorbidity) Precordial chest pain Colon cancer screening Epigastric pain Avulsion fracture of medial malleolus Closed avulsion fracture of left ankle Orchalgia COVID-19 Chest pain Asthma Stuffy nose Hx of chest pain GERD (gastroesophageal reflux disease) Headache LEEROY (obstructive sleep apnea) Asthma Hypertension Surgical History Hx of wisdom tooth extraction History of surgery on left wrist Family History Family History Mother Breast cancer Hypertension Diabetes Social History Social History Are you a primary primary care provider to a significant other at home: No Do you presently have visiting nurse or other home services: Yes ([facility]) Alcohol intake: never Patient Tobacco Use Status: Former Tobacco user Second Hand Smoke Exposure: No Advance Directives: No Advance Directives Information Provided: Yes Do you have a plan to hurt others: No Plan Current occupational status: employed Current occupation: [employer] Physical Exam ED Vital Signs: Vital Signs - 24 hr 10/31/23 11:01 10/31/23 13:23 10/31/23 14:21 Temperature 98.3 F 98.7 F Pulse Rate 116 H 96 96 Respiratory Rate 20 18 18 Blood Pressure 134/104 H 136/89 136/89 Pulse Oximetry 98 97 97 Oxygen Delivery Method Room Air Room Air Room Air BMI result Body Mass Index 35.4 Patient initially hypertensive and tachycardic, now normalized. Const General: cooperative, healthy appearing, comfortable and no acute distress Orientation/consciousness: patient oriented x3 Limitations: no limitations HENMT Other: + Pain on manipulation of left pinna. No mastoid tenderness. Left EAC erythematous, no edema or discharge. TM intact without erythema, effusion, or bulging. + Pain on manipulation of right pinna. No mastoid tenderness. Right EAC erythematous, no edema or discharge. TM intact without erythema, effusion, or bulging. + ttp over maxillary sinuses Head: Yes normal to inspection, Yes No palpable skull fracture present, Yes normocephalic and Yes atraumatic Eyes General: appearance normal, both eyes and all related structures Pupils: Equal, round and reactive pupils present Neck Neck: Yes normal visual inspection and Yes no lymphadenopathy Resp Effort & Inspection: normal respiratory effort and able to speak in complete sentences Auscultation: clear to auscultation bilaterally Cardio Rate: regular rate Rhythm: regular rhythm Back/Spine/Pelvis Other: No midline spinous tenderness or step off deformity. No paraspinal muscle tenderness. Skin General skin exam: no rashes or lesions noted Neuro Other: Strength 5/5 intact throughout. No saddle anesthesia. Sensation intact to light touch. Neurovascular intact distally.? General: patient oriented x3 and gait normal Cranial nerves: Yes Equal, round and reactive pupils present Course Course Course Narrative: 1417-- ekg showing sinus tachycardia, otherwise wnl. cxr unremarkable. he tested negative for covid, flu, rsv. > physical exam consistent with bilateral otitis externa and maxillary sinusitis. doxy and ciprodex sent to pharmacy > flexeril, naproxen, and lido patches sent to sciatica flare > Patient has remained stable throughout ED visit today. Discussed worrisome signs and symptoms and when to return to the ED. All questions answered at this time. Patient is agreeable with disposition and stable for discharge. Medical Decision Making Medical Decision Making [facility] Narrative: 48-year-old male, with a history of hypertension, asthma, GERD, LEEROY, presenting to the emergency department with multiple concerns. Patient initially tachy and hypertensive, now normalized. he is nontoxic appearing and in NAD. ttp over maxillary sinuses. Bilateral EACs erythematous without edema or discharge. TMs WNL bilaterally. Hearing intact. No mastoid tenderness or protrusion of the auricles. RRR. Lungs are CTA bilaterally. No midline spinous tenderness or step off deformity. No paraspinal muscle tenderness.Strength 5/5 intact throughout.? No saddle anesthesia.? Sensation intact to light touch.? Neurovascular intact distally.? Ambulating with steady gait. Differential diagnosis includes viral syndrome, sinusitis, msk sprain/ strain, sciatica. unlikely fracture, dislocation, Guillain-[place], cauda equina, epidural abscess, cord compression. Plan for ekg, cxr, viral serology, re-evaluation. Differential Diagnosis Differential Diagnoses: The differential diagnosis associated with the presentation includes as above Admission/Observation not indicated Lab Data [facility] Lab Attestation statement: I reviewed the patient's lab results. as above Labs: Lab Results 10/31/23 Range/Units 11:12 Influenza Type A (PCR) NEGATIVE (Negative) Influenza Type B (PCR) NEGATIVE (Negative) RSV RNA Qual (PCR) NEGATIVE (Negative) SARS-CoV-2 RNA (RT-PCR) NEGATIVE (Negative) Independent Interpretation I performed an independent interpretation of an: EKG and Plain X-Ray Interpretation: EKG showing sinus tachycardia with a rate of 106 beats per minute, QT 338, QTC 448, no acute ischemic changes or ST elevations. CXR without infiltrate or consolidation, agree with radiologist's interpretation. Radiology Impression Discussion of test interpretation with radiology: I have reviewed the radiologist's reading. Radiologist Impression: EXAMINATION: XR CHEST CLINICAL INFORMATION: Chest pain. Cough. COMPARISON: Most recent chest radiograph dated 12/09/2022. TECHNIQUE: 2 views of the chest were obtained. FINDINGS: The lungs are clear. The cardiomediastinal silhouette is normal in size. There is no pleural effusion or pneumothorax. No acute osseous abnormality. XR/XR chest 2V IMPRESSION: No acute cardiopulmonary findings. External Record Review External record reviewed: Inpatient record Prescription Management I considered prescription management with: Pain Medication (naproxen) and Antibiotic (doxycycline, ciprodex) Social Determinants Patient?s care significantly limited by Social Determinants of Health including: Other Social Determinant of Health Critical Care Time Critical Care Time Critical Care Time: No Discharge Plan Discharge Clinical Impression: Bilateral otitis externa, Sinusitis, Sciatica Patient Disposition: Home, Self-Care Instructions: Sinusitis (ED), Otitis Externa (ED), Sciatica (ED), Lower Back Exercises (ED) Additional Instructions: You tested negative for COVID, flu, RSV. Your EKG showed fast heart rate otherwise normal. Your chest x-ray is normal. Your physical exam is consistent with an ear infection of both outer ears along with sinus infection. Ciprodex ear drops have been sent to your pharmacy for treatment. Doxycycline is an antibiotic that has been sent to your pharmacy for treatment. Take all medications to completion and do not skip any doses. Additionally, naproxen as an anti-inflammatory that has been sent to your pharmacy to treat your sciatica. You may also apply lidocaine patches to the area as needed. Please follow-up with your primary care physician. Return with new or worsening symptoms. In the case of an emergency call 911. Prescriptions: New doxycycline hyclate 100 mg tablet 100 mg PO BID 7 Days Qty: 14 0RF ciprofloxacin-dexamethasone [Ciprodex] 0.3-0.1 % drops,suspension 4 drp otic (ears) BID 7 Days Qty: 7.5 0RF lidocaine [Lidoderm] 5 % adhesive patch,medicated 1 patch topical DAILY Qty: 15 0RF Rx Instructions: leave on most painful area for up to 12 hrs naproxen 500 mg tablet 500 mg PO Q8-12H PRN (Reason: pain (scale score 1-3)) Qty: 20 0RF No Action esomeprazole magnesium 20 mg capsule,delayed release(DR/EC) 1 cap PO DAILY azithromycin 250 mg tablet See Rx Instructions .ROUTE .COMPLEX Qty: 6 0RF Rx Instructions: For 250 mg dose pack: take 500 mg today (day 1), then 250 mg for 4 days (days 2-5) prednisone 20 mg tablet 20 mg PO DAILY 7 Days Qty: 7 0RF fluticasone propionate [Flonase Allergy Relief] 50 mcg/actuation spray,suspension 1 spray intranasal DAILY Rx Instructions: administer into each nostril albuterol sulfate 90 mcg/actuation HFA aerosol inhaler 2 puff inhalation Q4-6H PRN (Reason: shortness of breath or wheezing) Qty: 8.5 3RF Referrals: Svetlana Shea, CANCER CENTER DIRECTOR [Primary Care Provider] - Stand Alone Forms: Work/School Release Interventions: ED Discharge Assessment Last Done: 10/31/23 14:21 Discharge Date/Time: 10/31/23 14:22 Print Language: Romanian
[2023-10-31 13:23] VITALS: BP 136/89; PULSE 96; RESP 18; O2SAT 97
[2023-10-31 14:21] VITALS: BP 136/89; PULSE 96; RESP 18; TEMP 37.1; O2SAT 97
== END 2023-10-31 14:22 | disposition home or self-care (01) ==
PROVIDERS: Physician Assistant; Emergency Provider Emergency Medicine Emergency Medical Services; PCP Nurse Practitioner Primary Care
DX: H60.93 Unspecified otitis externa, bilateral (principal); J32.0 Chronic maxillary sinusitis; M54.31 Sciatica, right side; R00.0 Tachycardia, unspecified; I10 Essential (primary) hypertension; Z03.818 Encounter for observation for suspected exposure to other biological agents ruled out; J45.909 Unspecified asthma, uncomplicated
CPT/HCPCS: 0241U; 71046; 93005; 99283

== ENCOUNTER → 2023-10-31 11:06 | Outpatient (BNV) | payer MEDICAID, SELFPAY | PROVIDERS: Emergency Provider Emergency Medicine Emergency Medical Services; PCP Nurse Practitioner Primary Care; Visit Provider Internal Medicine | DX: R00.0 Tachycardia, unspecified (principal) | CPT/HCPCS: 93010 ==

== ENCOUNTER → 2023-11-13 08:31 | Outpatient (REF) | payer MEDICARE, MEDICAID, SELFPAY ==
--- NOTE | 2023-11-13 08:33 | CA_ITS ---
Transthoracic Echocardiogram Patient (Last, First, Middle): Jay Singer, Gender: Male Date of : 1975 Age: 48 Procedure Date: 11/13/2023 Procedure Type: Transthoracic Echocardiogram Location: OP Height: 162.56 cm Weight: 95.26 kg BSA: 2.00 m2 Heart Rate: 74 bpm BP: 122 / 90 mmHg Loan Administrator: NAPOLEON Gallagher MD: Mukesh Santo MD Nuclear Criticality Safety Engineer: Sacha Garza MD Symptoms: I77.810 - Thoracic aortic ectasia Study Quality: Adequate ECG Rhythm: Sinus Conclusions: - 1. Normal LV ejection fraction 55-60% 2. Normal cardiac valvular Doppler 3. Mildly dilated ascending aorta at 4.3 cm 4. Normal RV systolic pressure 5. No pericardial effusion Findings Left Ventricle Normal left ventricular size, thickness, and systolic function. The visually estimated ejection fraction is between 55-60%. Spectral Doppler is indicative of a normal filling pattern. Right Ventricle Normal right ventricular cavity size and systolic function. Atria Both atria are normal in size. There is no evidence of interatrial shunt. Aortic Valve Normal aortic valve structure and function. There is no aortic valve stenosis. There is no aortic valve regurgitation. Mitral Valve Normal mitral valve structure and function. There is trace mitral valve regurgitation. There is no mitral valve stenosis. Pulmonic Valve The pulmonic valve is likely normal. There is trace pulmonic valve regurgitation. Tricuspid Valve Normal tricuspid valve structure. There is trace tricuspid valve regurgitation. The right ventricular systolic pressure is normal. The right ventricular systolic pressure is 25 mmHg. Normal right atrial pressure. There is no evidence of pulmonary hypertension. Great Vessels The pulmonary artery was not well visualized. There is mild dilatation of the ascending aorta measuring 4.20 cm. Venous The inferior vena cava is normal in size and collapses greater than 50% with inspiration. Pericardium/Pleural There is no evidence of pericardial effusion. Prior Study Comparison Changes noted compared to prior study dated: 11/24/2022. Ascending aorta is mildly dilated Measurements 2D Linear Measurements IVSd: 1.30 0.6-0.9/0.6-1.0 cm LVIDd: 3.17 3.9-5.3/4.2-5.9 cm LVIDd Index: 1.59 2.4-3.2/2.2-3.1 cm/m2 LVIDs: 2.19 2.0-3.6 cm LVPWd: 1.17 0.7-1.1 cm LA Diam: 2.80 2.7-3.8/3.0-4.0 cm LAIDs Index: 1.40 1.5-2.3 cm/m2 LV Mass: 153.45 67-162/88-224 g LV Mass Index: 76.73 43-95/49-115 g/m2 LVOT Diam: 2.30 3.0+(-)1.3 cm 2D Systolic Function EF 4C: 54.60 >55% EF 2C: 64.90 >55% EF BiP: 59.50 >55% Mitral Valve MV Pk E: 0.90 MV PK A: 0.61 MV Decel Time: 188.00 E/A: 1.50 E'Lateral: 10.40 E'Medial: 8.92 E/E' Med: 10.00 E/E' Lat: 8.60 PHT: 55.00 MVA PHT: 4.[address] [place]: 4.75 Aortic Valve AoV Pk Ramiro: 0.92 AoV Mn Ramiro: 0.66 AoV VTI: 0.19 AoV Pk Grad: 3.00 Aov Mn Grad: 2.00 JOSEPH Cont.VTI: 3.81 LVOT LVOT Pk Ramiro: 0.82 LVOT Mn Ramiro: 0.57 LVOT VTI: 0.18 LVOT Pk Grad: 3.00 LVOT Mn Grad: 2.00 LVOT Diam: 2.30 LVOT Area: 4.15 Diastolic Function MV Pk E: 0.90 MV Pk A: 0.61 E/A: 1.50 E'Medial: 8.92 E/E' Med: 10.00 E' Laterial: 10.40 E/E' Lat: 8.60 Right Ventricle TAPSE (mm): 18.00 TVS' Ramiro: 9.25 Tricuspid Valve TR Pk Ramiro: 2.32 TR Pk Grad: 22.00 RA Press: 3.00 RVSP: 25.00 Great Vessels Aorta Sinus of Valsalva: 3.90 2.0-3.5 cm Ao Asc: 4.20 2.1-3.4 cm Ao Arch: 3.10 Pulmonary Valve PV Pk Ramiro: 1.06 Peak PV Grad: 4.00 Updated in Other Vendor System with Status of Final Sacha Garza MD electronically signed on 11/13/2023 11:59:51 AM with status of Final
== END ==
LOC: HO.CARD 08:31
PROVIDERS: PCP Nurse Practitioner Primary Care; Visit Provider Internal Medicine
DX: I77.810 Thoracic aortic ectasia (principal)
CPT/HCPCS: 93306

== ENCOUNTER → 2023-11-13 08:33 | Outpatient (BNV) | payer MEDICAID, SELFPAY | PROVIDERS: PCP Nurse Practitioner Primary Care; Visit Provider Internal Medicine Cardiovascular Disease | DX: I71.21 Aneurysm of the ascending aorta, without rupture (principal) | CPT/HCPCS: 93306 ==

== ENCOUNTER 2023-11-17 10:48 | Outpatient (REF) | payer MEDICARE, MEDICAID, SELFPAY ==
[2023-11-17 13:30] LABS: Cholesterol 209 mg/dL (<200); HDL Cholesterol 29 mg/dL (>40); LDL Cholesterol Calculated 138 mg/dL (<100); Triglycerides 212 mg/dL (<150)
== END 2023-11-17 10:49 | disposition home or self-care (01) ==
LOC: HO.HHCL 10:48
PROVIDERS: Visit Provider Nurse Practitioner Primary Care
DX: E78.5 Hyperlipidemia, unspecified (principal)
CPT/HCPCS: 36415; 80061

== ENCOUNTER 2023-11-27 13:02 | Outpatient (REF) | payer MEDICAID, SELFPAY ==
--- NOTE | ~2023-11-27 | US_ITS ---
EXAMINATION: US SCROTUM CLINICAL INFORMATION: Atraumatic scrotal pain x6 months. COMPARISON: Ultrasound scrotum 03/24/2020. TECHNIQUE: A sonogram of the scrotum was performed assessing nam-scale appearance and color Doppler flow. Spectral Doppler analysis of the arterial and venous flow were performed in the testes bilaterally. FINDINGS: RIGHT: Right testicle measures 3.7 x 2.4 x 3.2 cm, volume 15.0 mL. Parenchymal echotexture is homogeneous. No focal testicular parenchymal lesions are visualized. Spectral Doppler analysis of the arterial and venous flow is normal in the right testis. Right testicular appendage measures 4 x 6 mm. Right epididymal head cyst measures 6 x 5 x 7 mm. Small right hydrocele. No varicocele. LEFT: Left testicle measures 4.3 x 2.5 x 2.9 cm, volume 16.1 mL. Parenchymal echotexture is homogeneous. No focal testicular parenchymal lesions are visualized. Spectral Doppler analysis of the arterial and venous flow is normal in the left testis. Prominent rete testis. Left inguinal hernia containing fat measures 3.9 x 1.5 cm invaginating into the left hemiscrotum. Multiseptated left epididymal head cyst measures 1.1 x 1.5 x 1.0 cm. Small left hydrocele. No varicocele. US/US scrotum IMPRESSION: Bilateral epididymal head cysts. Small bilateral hydroceles. Left inguinal hernia containing fat. Right testicular appendage. Electronically signed by: Zackary Diaz MD 02/29/2024 02:00 PM [facility]
== END 2023-11-27 13:03 | disposition home or self-care (01) ==
LOC: HO.US 13:02
PROVIDERS: PCP Nurse Practitioner Primary Care; Visit Provider Nurse Practitioner Primary Care
DX: N50.812 Left testicular pain (principal)
CPT/HCPCS: 76870

== ENCOUNTER 2023-11-29 14:31 | Outpatient (AMB) | payer MEDICAID, SELFPAY ==
[2023-11-29 14:37] VITALS: BP 120/78; PULSE 98; BMI 35.6
--- NOTE | 2023-11-29 14:37 | MHC.OFFVIS ---
Vital Signs 11/29/23 14:37 Height 5 ft 5 in Weight 213 lb 13.574 oz BMI 35.6 BP 120/78 Blood Pressure Location Lt brachial Position Sitting Pulse 98 Pulse Source Pulse Oximeter Intake Visit Reasons: follow up after echo Allergies aspirin [Aspirin] Allergy (Unknown, Verified 10/31/23 11:03) UNKNOWN Penicillins Allergy (Unknown, Verified 10/31/23 11:03) SWELLING HPI Comments Details: 48-year-old male presents today for a follow-up. He had his echocardiogram but did not perform his stress echo. The order for the stress echo has . He reports he still gets the left-sided stabbing at random times. He has a history of sleep apnea but does not use his CPAP machine. [facility] Medical History Chest pain Cough with exposure to COVID-19 virus Right hamstring muscle strain Somnolence, daytime Obesity (BMI 35.0-39.9 without comorbidity) Precordial chest pain Colon cancer screening Epigastric pain Avulsion fracture of medial malleolus Closed avulsion fracture of left ankle Orchalgia COVID-19 Asthma Stuffy nose Hx of chest pain GERD (gastroesophageal reflux disease) Headache LEEROY (obstructive sleep apnea) Asthma Hypertension Surgical History Hx of wisdom tooth extraction History of surgery on left wrist Family History Mother Breast cancer Hypertension Diabetes Social History Are you a primary special needs caregiver to a significant other at home: No Do you presently have visiting nurse or other home services: Yes ([facility]) Alcohol intake: never Patient Tobacco Use Status: Former Tobacco user Second Hand Smoke Exposure: No Current occupational status: employed Current occupation: [employer] Review of Systems Const Denies weakness ENT Denies dizziness Card Denies chest pain, Denies chest pain with activity, Denies syncope, Denies rapid heart rate, Denies pedal edema, Denies edema, Denies leg edema, Denies lightheadedness, Denies palpitations, Denies dyspnea, Denies dyspnea on exertion and Denies orthopnea Resp Denies cough, Denies dyspnea and Denies dyspnea on exertion GI Denies hematochezia and Denies change in stool character Musc Denies abnormal gait, Denies muscle cramps, Denies muscle weakness, Denies numbness, Denies radiating pain into limb and Denies tingling Neuro Denies abnormal gait, Denies dizziness, Denies syncope, Denies numbness, Denies tingling and Denies weakness Endo Denies palpitations Physical Exam Vital Signs: Last Vital Signs Pulse 98 11/29/23 14:37 BP 120/78 11/29/23 14:37 BMI result Body Mass Index 35.6 Const General: healthy appearing and no acute distress Orientation/consciousness: patient oriented x3 HEENT Head: Yes normal to inspection Eyes General: appearance normal, both eyes and all related structures Neck Neck: Yes normal visual inspection Chest Chest palpation & inspection: normal inspection of the chest Resp Effort & Inspection: normal respiratory effort Auscultation: clear to auscultation bilaterally Cardio Jugular venous distension: no JVD Palpation: normal PMI Rate: regular rate Rhythm: regular rhythm Heart sounds: S1 normal heart sound present, S2 normal heart sound present, no click, no gallops, no murmurs and no rubs GI Inspection: Yes normal to inspection Palpation (GI): Soft to palpation Skin General skin exam: no rashes or lesions noted Neuro General: patient oriented x3 Extrem General: Yes normal to inspection Psych Appearance: grossly normal Results Reviewed Results Reviewed: Conclusions: - 1. Normal LV ejection fraction 55-60% 2. Normal cardiac valvular Doppler 3. Mildly dilated ascending aorta at 4.3 cm 4. Normal RV systolic pressure 5. No pericardial effusion Assessment & Plan Assessment & Plan (1) Chest pain: Code(s): R07.9 - Chest pain, unspecified Category: Medical (2) LEEROY (obstructive sleep apnea): Comment: The sleep study in July 2021, confirmed diagnosis of very severe obstructive sleep apnea, with nocturnal hypoxemia. Due to his noncompliance the CPAP device was taken away. He had a repeat sleep study as noted above and it shows moderately severe obstructive sleep apnea, with total sleep time AHI 26. He slept only for 86 minute. Nocturnal hypoxemia was only minimal O2 sat below 88% for 8 minutes. HE IS ANXIOUS TO RESTART CPAP THERAPY. I HAVE ORDERED AUTO PAP MODE PRESSURE SETTING 6-20 CM .USING FULLFACE MASK HE HAS BEEN GIVEN FULL INSTRUCTIONS FOR THE USE. OF CPAP WILL BE RECHECKED IN 6-8 WEEKS. Code(s): G47.33 - Obstructive sleep apnea (adult) (pediatric) Category: Medical (3) Ascending aorta dilatation: Code(s): I77.810 - Thoracic aortic ectasia Category: Medical Plan Advised patient to do stress echocardiogram. Encouraged CPAP use. Ascending aorta is currently a 4.3 cm. Discussed the importance of CPAP use and blood pressure control. Avoidance of salt in diet discussed. Emergency room care if needed for symptoms. Orders: Orders CA echo stress exercise 11/29/23 R07.9 - Chest pain, unspecified Coding Level of Care Code Est Pt Level 3 (11313) Diagnoses Chest pain R07.9 LEEROY (obstructive sleep apnea) G47.33 Ascending aorta dilatation I77.810
== END 2023-11-29 14:54 | disposition home or self-care (01) ==
PROVIDERS: PCP Nurse Practitioner Primary Care; Visit Provider Nurse Practitioner
DX: R07.9 Chest pain, unspecified (principal); G47.33 Obstructive sleep apnea (adult) (pediatric); I77.810 Thoracic aortic ectasia
CPT/HCPCS: 99213

== ENCOUNTER → 2023-11-29 14:31 | Outpatient (BNVA) | payer MEDICAID, SELFPAY | PROVIDERS: PCP Nurse Practitioner Primary Care; Visit Provider Nurse Practitioner | DX: R07.9 Chest pain, unspecified (principal); G47.33 Obstructive sleep apnea (adult) (pediatric); I77.810 Thoracic aortic ectasia | CPT/HCPCS: 99212 ==

== ENCOUNTER 2024-01-15 08:00 | Outpatient (RCR) | payer MEDICAID, SELFPAY | END 2024-03-13 09:30 | disposition home or self-care (01) | LOC: HO.PT 08:00 | PROVIDERS: PCP Nurse Practitioner Primary Care; Visit Provider Nurse Practitioner Primary Care | DX: M54.2 Cervicalgia (principal) | CPT/HCPCS: 97110; 97140; 97161 ==

== ENCOUNTER → 2024-01-18 10:38 | Outpatient (REF) | payer MEDICAID, SELFPAY ==
--- NOTE | 2024-01-18 10:41 | CA_ITS ---
Acquisition Time: 2024-01-18 10:52:15 Total Exercise Time: 00:09:17 Test Indications: Chest Pain Medications: SEE EMAR Protocol: RHIANNON Max HR: 179 BPM 104% of Pred: 171 BPM Max BP: 168/084 mmHG Max Work Load: 10.1 METS Exercise stress test with exercise 9 min 17 sec of Rhiannon protocol, achieving > 85% MPHR, without anginal symptoms, without arrythmia, with normotensive response to exercise, without EKG changes meeting criteria for ischemia. Echo images obtained at rest and immediately post peak exercise. Definity contrast used. Test reviewed with Dr Garza STRESS ECHO : Technique : Images were obtained at rest and immediately post exercise within 1 minute for wall motion analysis. Definity contrast was used to enhance endocardial definition. Images were obtained in multiple views and compared side to side. Findings : Images at rest are of good quality. LV systolic function is normal with normal wall motion. LV diastolic function and RVSP are normal. Post exercise images are of adequate quality.There is good augmentation of overall systolic function with no regional wall motion abnormalities. LV diastolic function and RVSP are normal. Conclusion : No evidence of ischemia, diastolic dysfunction or pulmonary hypertension wiith achieved workload. Referred By: Irene Palacios Overread By: KATH GARZA MD
== END ==
LOC: HO.CARD 10:38
PROVIDERS: PCP Nurse Practitioner Primary Care; Visit Provider Nurse Practitioner
DX: R07.9 Chest pain, unspecified (principal)
CPT/HCPCS: 93350; Q9957

== ENCOUNTER → 2024-01-18 10:41 | Outpatient (BNV) | payer MEDICAID, SELFPAY | PROVIDERS: PCP Nurse Practitioner Primary Care; Visit Provider Internal Medicine Cardiovascular Disease | DX: R07.9 Chest pain, unspecified (principal) | CPT/HCPCS: 93351; 93352 ==

== ENCOUNTER 2024-02-05 13:58 | Emergency (ER) | payer MEDICAID, SELFPAY ==
--- NOTE | ~2024-02-05 | US_ITS ---
EXAMINATION: US ABDOMEN LIMITED CLINICAL INFORMATION: Right upper quadrant pain. COMPARISON: CT abdomen/pelvis 01/16/2020. TECHNIQUE: Real-time imaging of the right upper quadrant abdominal viscera. FINDINGS: PANCREAS: Normal. LIVER: The liver is normal in size. The liver contour is normal. Increased liver parenchymal echogenicity. No focal hepatic lesion. There is no intrahepatic biliary duct dilatation seen. GALLBLADDER: The gallbladder is physiologically distended without evidence of stones, sludge, polyps, wall thickening or pericholecystic fluid. COMMON BILE DUCT: Normal in caliber measuring 0.3 cm in diameter. RIGHT KIDNEY: No hydronephrosis. No renal calculi or focal parenchymal lesions. The kidney measures 11.3 cm in maximum dimension. FREE FLUID: None. US/US abdomen limited IMPRESSION: 1. Increased liver parenchymal echogenicity is nonspecific and could be seen in the setting of hepatic steatosis or hepatocellular disease. Correlate with liver function tests. 2. Otherwise, normal examination. Electronically signed by: Mirta Morales MD 02/05/2024 04:43 PM EDT
--- NOTE | ~2024-02-05 | CT_ITS ---
EXAMINATION: CT ABDOMEN AND PELVIS WITHOUT CONTRAST CLINICAL INFORMATION: Right flank pain. COMPARISON: Abdominal ultrasound done earlier the same day. CT abdomen/pelvis dated 01/16/2020. TECHNIQUE: Multidetector volumetric imaging was performed from the superior aspect of the liver through the pubic symphysis. Sagittal and coronal reformatted images were obtained on the technologist's workstation. This CT examination was performed using dose optimization techniques as appropriate, variously including the following: *Automated exposure control. *Adjustment of mA and/or kV according to patient size (this includes techniques or standardized protocols for targeted exams where dose is matched to indication/reason for exam; i.e. extremities or head). *Use of iterative reconstruction technique. DLP: 694 mGy-cm FINDINGS: LUNG BASES: The visualized lung bases are unremarkable. LIVER, GALLBLADDER, AND BILIARY TREE: The liver is normal in size and shape. Parenchymal hypoattenuation, consistent with steatosis. No focal hepatic lesion or biliary ductal dilatation is present. The gallbladder is unremarkable with no evidence of radiopaque gallstones, gallbladder wall thickening, or obvious pericholecystic inflammatory changes. PANCREAS: Unremarkable. SPLEEN: Unremarkable. ADRENAL GLANDS: Unremarkable. KIDNEYS AND URETERS: The kidneys are normal in size, shape, and attenuation. No hydronephrosis, hydroureter, or calculi seen. No perinephric stranding. BLADDER: Unremarkable. GASTROINTESTINAL TRACT: No small or large bowel obstruction. No bowel wall thickening or inflammatory change. Unremarkable appendix. PERITONEAL CAVITY: No intra-abdominal free air or free fluid. No intra-abdominal mass or organized fluid collection/abscess formation. ABDOMINAL WALL: Tiny, fat-containing midline upper abdominal hernia, increased when compared to the prior examination. This now measures approximately 1.3 cm in ML dimension. This contains fat with mild stranding and trace fluid which could indicate a degree of ischemia. Previously, the neck of the hernia measuring approximately 0.4 cm and demonstrated minimal, if any, stranding. No associated bowel loops. Correlate for focal tenderness. LYMPH NODES: Normal. VASCULAR: Unremarkable. PELVIC VISCERA: Small prostate calcifications. OSSEOUS STRUCTURES: Unremarkable. CT/CT abdomen pelvis wo IV con IMPRESSION: 1. Tiny, fat-containing midline upper abdominal hernia, increased in size when compared to the prior examination. This now measures approximately 1.3 cm in ML dimension. This contains fat with mild stranding and trace fluid which could indicate a degree of ischemia. No associated bowel loops. Correlate for focal tenderness. 2. No intra-abdominal mass, lymphadenopathy, or ascites. 3. Hepatic steatosis. No hepatic parenchymal lesion or biliary ductal dilatation. Fleischner guidelines were followed. Electronically signed by: Delonte Bateman MD 02/05/2024 08:50 PM EDT
[2024-02-05 14:31] VITALS: BP 130/70; PULSE 85; RESP 18; TEMP 36.7; O2SAT 99; BMI 35.8
--- NOTE | 2024-02-05 14:31 | ED_ITS ---
HPI - Abdominal Pain General Chief Complaint: Abdominal Pain Stated Complaint: Kidney pain/nausea Time Seen by Provider: 02/05/24 18:20 Source: patient Mode of arrival: ambulatory Limitations: no limitations History of Present Illness ED Provider: Lynn CATALAN HPI narrative: This is a 49-year-old male history of asthma, obstructive sleep apnea, GERD, hypertension, presenting to the emergency department with right-sided abdominal pain that radiates to the right flank ongoing for the past 2 days, patient reports pain started as intermittent in nature now feels constant. He reports associated nausea however no vomiting. He has no known history of kidney stones. He denies fevers, chills, chest pain, shortness of breath, vomiting, changes in urination or bowel habits. Related Data Home Medications ?Medication ?Instructions ?Recorded ?Confirmed fluticasone propionate 50 1 spray intranasal DAILY 06/14/21 09/20/22 mcg/actuation nasal spray,suspension (Flonase Allergy Relief) esomeprazole magnesium 20 mg 20 mg PO DAILY 11/29/23 capsule,delayed release lidocaine 5 % topical patch 1 patch topical DAILY PRN 11/29/23 (Lidoderm) Previous Rx's ?Medication ?Instructions ?Recorded albuterol sulfate 90 mcg/actuation 2 puff inhalation Q4-6H PRN 01/17/23 aerosol inhaler shortness of breath or wheezing #8.5 grams azithromycin 250 mg tablet See Rx Instructions PO .COMPLEX #6 08/30/23 tabs doxycycline hyclate 100 mg tablet 100 mg PO BID 7 days #14 tabs 10/31/23 naproxen 500 mg tablet 500 mg PO Q8-12H PRN pain (scale 10/31/23 score 1-3) #20 tabs acetaminophen 325 mg capsule 325 mg PO Q4H PRN pain #30 caps 02/05/24 (Tylenol) Allergies Allergy/AdvReac Type Severity Reaction Status Date / Time aspirin [Aspirin] Allergy Unknown UNKNOWN Verified 02/05/24 14:34 Penicillins Allergy Unknown SWELLING Verified 02/05/24 14:34 Review of Systems Review of Systems Yes all other systems are reviewed and are negative PMFSH Past Medical History Attestation statement: The following information was validated with the patient. Source: old records reviewed and nursing notes reviewed Medical History Chest pain Cough with exposure to COVID-19 virus Right hamstring muscle strain Somnolence, daytime Obesity (BMI 35.0-39.9 without comorbidity) Precordial chest pain Colon cancer screening Epigastric pain Avulsion fracture of medial malleolus Closed avulsion fracture of left ankle Orchalgia COVID-19 Asthma Stuffy nose Hx of chest pain GERD (gastroesophageal reflux disease) Headache LEEROY (obstructive sleep apnea) Asthma Hypertension Surgical History Hx of wisdom tooth extraction History of surgery on left wrist Family History Family History Mother Breast cancer Hypertension Diabetes Social History Social History Are you a primary home health care worker to a significant other at home: No Do you presently have visiting nurse or other home services: Yes ([facility]) Alcohol intake: never Patient Tobacco Use Status: Former Tobacco user Second Hand Smoke Exposure: No Advance Directives: No Advance Directives Information Provided: No Do you have a plan to hurt others: No Plan Current occupational status: employed Current occupation: [employer] Physical Exam ED Vital Signs: Vital Signs - 24 hr 02/05/24 14:31 02/05/24 19:56 Temperature 98.0 F 97.7 F Pulse Rate 85 61 Respiratory Rate 18 18 Blood Pressure 130/70 142/91 H Pulse Oximetry 99 100 Oxygen Delivery Method Room Air Room Air BMI result Body Mass Index 35.8 vss Appearance: Alert.? Oriented X3.? No acute distress.? Head: Normocephalic, atraumatic, no step-offs or deformities Eyes: Pupils equal, round and reactive to light.? Neck: Normal inspection.? Neck supple.? CVS: Normal heart rate and rhythm.? Pulses normal.? Respiratory: No respiratory distress.? Breath sounds normal.? Abdomen: Soft and + right sided TTP on exam RUQ > RLQ.?Normal BS throughout Skin: Skin warm and dry.? Normal skin color.? Normal skin turgor.? Back: + CVAT on right Extremities: No lower extremity edema.? No calf ttp. 5/5 strength to bilateral upper and lower extremities Neuro: Oriented X 3.? No motor deficit.? No sensory deficit. CN 2-12 intact Course Course Course Narrative: This is a Rapid Medical Exam performed in triage by Jia Aguirre PA-C. Full HPI, ROS and PE to be performed by primary ED provider. 49-year-old male with past medical history asthma, GERD, LEEROY, prostatitis, HTN presenting to the ED c/o right sided abdominal pain radiating to R flank x 2 days, intermittent but now constant. Admits to nausea. denies fever, dysuria, vomiting. Denies history of stones PE: Abdomen soft /+RUQ & R CVAT Plan: labs, UA Reevaluation(s) Reevaluation #1: CBC unremarkable. Chemistry no acute findings needing intervention. Normal lipase. Urine clean. Ultrasound of abdomen with increased liver parenchymal echogenicity is nonspecific could be in the setting of hepatic steatosis or hepatocellular disease will have him follow-up with GI. Tiny fat containing midline upper umbilical hernia increased in size 1.3 cm contains fat with mild stranding and trace fluid which could indicate a degree of ischemia. No intra-abdominal mass, lymphadenopathy or ascites. Hepatic steatosis noted. Time: 20:55 Reevaluation #2: Dr. Chou evaluated patient no abdominal hernia on exam. Will have him follow with general surgery . Dr. Chou also evaluated patient who agrees there is no umbilical hernia palpated on exam. Discuss this case with General surgery Dr. Monique who recommends outpatient follow-up. No need for emergent management at this time. Patient has no tenderness over umbilical region. Educated patient on diagnosis and treatment plan, answered all question, patient verbalizes understanding. At this time patient will be discharged home, advised to return with new or worsening symptoms. Educated on worrisome signs and symptoms and when to return. At this time I feel comfortable discharge home. Time: 21:02 Medical Decision Making Medical Decision Making MDM Narrative: 49 yo m present w/ right sided abd pain and r flank pain x 2 days PE soft and + right sided TTP on exam RUQ > RLQ.?Normal BS throughout History and physical exam concerning for kidney stone versus pyelonephritis versus renal colic . Unlikely , cholangitis, pancreatitis, acute abdomen, obstruction, diverticulitis, appendicitis, cholecystitis. Will rule out UTI and metabolic derangements Plan labs, imaging, urine Differential Diagnosis Differential Diagnoses: The differential diagnosis associated with the presentation includes (History and physical exam concerning for kidney stone versus pyelonephritis versus renal colic . Unlikely , cholangitis, pancreatitis, acute abdomen, obstruction, diverticulitis, appendicitis, cholecystitis. Will rule out UTI and metabolic derangements) Admission/Observation Consideration of admission/observation: Escalation of care including admission/observation considered (possible ) Lab Data MDM Lab Attestation statement: I reviewed the patient's lab results. 02/05/24 15:22 02/05/24 15:22 Labs: Lab Results 02/05/24 Range/Units 15:22 WBC 7.8 (4.8-10.8) X10*3/uL RBC 4.85 (4.60-5.80) X10*6/uL Hgb 15.3 (14.0-18.0) g/dl Hct 44.3 (42.0-52.0) % MCV 91.3 (80.0-98.0) fL MCH 31.5 (27.0-33.0) pg MCHC 34.5 (31.0-36.0) g/dl RDW 12.4 (11.0-16.0) % Plt Count 223 (160-400) X10*3/uL MPV 10.9 (9.4-12.4) fL Immature Gran % (Auto) 0.1 (0.0-0.4) % Neut % (Auto) 47.9 (45-73) % Lymph % (Auto) 40.0 (20-40) % Ralls % (Auto) 6.2 (2-11) % Eos % (Auto) 4.8 H (0-4) % Baso % (Auto) 1.0 (0-2) % Lymph # (Auto) 3.1 (1.2-4.9) X10*3/uL Ralls # (Auto) 0.5 (0.1-1.2) X10*3/uL Eos # (Auto) 0.4 (0.0-0.4) X10*3/uL Baso # (Auto) 0.1 (0.0-0.2) X10*3/uL Abs Immat Gran (auto) 0.01 (0.00-0.03) X10*3/uL Absolute Neuts (auto) 3.7 (2.0-8.3) x10*3/uL Absolute Nucleated RBC 0.000 (0.0-0.012) X10*3/uL Nucleated RBC % (auto) 0.0 (0.0-0.2) /100WBC Sodium 138 (135-145) mmol/L Potassium 3.9 (3.3-5.1) mmol/L Chloride 107 (96-108) mmol/L Carbon Dioxide 24 (22-29) mmol/L Anion Gap 11 L (12-20) BUN 14 (9-16) mg/dL Creatinine 0.97 (0.5-1.4) mg/dL Estim Creat Clear Calc 97.9 Estimated GFR > 60 Random Glucose 92 (60-115) mg/dL Calcium 9.3 (8.4-10.2) mg/dL Magnesium 2.1 (1.6-2.6) mg/dL Total Bilirubin 0.4 (0.0-1.0) mg/dL Direct Bilirubin 0.1 (0.0-0.5) mg/dL AST 20 (5-37) U/L ALT 32 (0-40) U/L Alkaline Phosphatase 99 (39-117) U/L Total Protein 7.0 (6.5-8.0) g/dL Albumin 4.2 (3.5-5.0) g/dL Lipase 37 (8-78) U/L Urine Color Yellow Urine Appearance Clear Urine pH 5.5 (5.0-9.0) Ur Specific [place] 1.020 (1.005-1.025) Urine Protein Negative (Neg-Trace) mg/dL Urine Glucose (UA) Negative (Negative) mg/dL Urine Ketones Negative (Negative) mg/dL Urine Blood Negative (Negative) Urine Nitrite Negative (Negative) Ur Leukocyte Esterase Negative (Negative) Independent Interpretation I performed an independent interpretation of an: Ultrasound ( US/US abdomen limited IMPRESSION: 1. Increased liver parenchymal echogenicity is nonspecific and could be seen in the setting of hepatic steatosis or hepatocellular disease. Correlate with liver function tests. 2. Otherwise, normal examination. ) and CT Scan (CT/CT abdomen pelvis wo IV con IMPRESSION: 1. Tiny, fat-containing midline upper abdominal hernia, increased in size when compared to the prior examination. This now measures approximately 1.3 cm in ML dimension. This contains fat with mild stranding and trace fluid which could indicate a degree ) Radiology Impression Discussion of test interpretation with radiology: I have reviewed the radiologist's reading. External Record Review External record reviewed: Inpatient record, Office record, Outpatient record, Prior outpatient labs, Prior outpatient radiology, Primary care record and Outside ED record Medications Administered Discontinued Medications Generic Name Dose Route Start Last Admin Trade Name Bethany PRN Reason Stop Dose Admin Acetaminophen 975 mg 02/05/24 20:38 02/05/24 20:56 Acetaminophen 325 Mg Tablet PO 02/05/24 20:39 Not Given ONCE ONE Morphine Sulfate 4 mg 02/05/24 20:24 02/05/24 20:56 Morphine Sulfate 4 Mg/Ml Cartridge IVPUSH 02/05/24 20:25 Not Given ONCE ONE Protocol Ondansetron HCl 4 mg 02/05/24 20:25 02/05/24 20:56 Ondansetron Hcl 4 Mg/2 Ml Vial IVPUSH 02/05/24 20:26 Not Given ONCE ONE Critical Care Time Critical Care Time Critical Care Time: Yes Total Critical Care Time: 35 Attestation: I attest to this time spent taking care of the patient, obtaining history, physical, reviewing labs, imaging, treatment of patients condition +/- specialist/hospitalist consult Discharge Plan Discharge Clinical Impression: Abdominal pain, Acute right flank pain, Hernia, umbilical Patient Disposition: Home, Self-Care Instructions: Umbilical Hernia (ED), Abdominal Pain (ED), Flank Pain (ED) Additional Instructions: Take your medications as prescribed. If you were prescribed antibiotics today, it is important that you take your medication to their entirety, do not skip any doses, do not finish them early. Follow-up with your primary care provider this week. Return to the emergency department with new or worsening symptoms. Such as fevers, chills, chest pain, shortness of breath, nausea, vomiting, dizziness, headache, vision changes, lethargy In case of emergency call 911 Prescriptions: New acetaminophen [Tylenol] 325 mg capsule 325 mg PO Q4H PRN (Reason: pain) Qty: 30 0RF No Action esomeprazole magnesium 20 mg capsule,delayed release(DR/EC) 20 mg PO DAILY azithromycin 250 mg tablet See Rx Instructions .ROUTE .COMPLEX Qty: 6 0RF Rx Instructions: For 250 mg dose pack: take 500 mg today (day 1), then 250 mg for 4 days (days 2-5) doxycycline hyclate 100 mg tablet 100 mg PO BID 7 Days Qty: 14 0RF naproxen 500 mg tablet 500 mg PO Q8-12H PRN (Reason: pain (scale score 1-3)) Qty: 20 0RF fluticasone propionate [Flonase Allergy Relief] 50 mcg/actuation spray,suspension 1 spray intranasal DAILY Rx Instructions: administer into each nostril albuterol sulfate 90 mcg/actuation HFA aerosol inhaler 2 puff inhalation Q4-6H PRN (Reason: shortness of breath or wheezing) Qty: 8.5 3RF lidocaine [Lidoderm] 5 % adhesive patch,medicated 1 patch topical DAILY PRN Rx Instructions: leave on most painful area for up to 12 hrs Referrals: [facility] [place] General Surgeons [Provider Group] - 2 days Stand Alone Forms: Work/School Release Print Language: [place]an
[2024-02-05 15:26] LABS: MANUAL DIFF FLAG NO
[2024-02-05 15:28] LABS: Appearance Urine Clear; Basophils Absolute Auto 0.1 X10*3/uL (0.0-0.2); Color Urine Yellow; Eosinophils Absolute Auto 0.4 X10*3/uL (0.0-0.4); Eosinophils Percent Auto 4.8 % (0-4); Glucose Urine UA Negative (Negative); Hematocrit 44.3 % (42.0-52.0); Hemoglobin 15.3 g/dl (14.0-18.0); Imm Gran Abs Auto 0.01 X10*3/uL (0.00-0.03); Imm Gran Pct Auto 0.1 % (0.0-0.4); Leukocyte Esterase Urine Negative (Negative); Lymphocytes Absolute Auto 3.1 X10*3/uL (1.2-4.9); Mean Corpuscular HGB Conc 34.5 g/dl (31.0-36.0); Mean Corpuscular Hemoglobin 31.5 pg (27.0-33.0); Mean Corpuscular Volume 91.3 fL (80.0-98.0); Mean Platelet Volume 10.9 fL (9.4-12.4); Monocytes Absolute Auto 0.5 X10*3/uL (0.1-1.2); Monocytes Percent Auto 6.2 % (2-11); Neutrophils Absolute Auto 3.7 x10*3/uL (2.0-8.3); Neutrophils Percent Auto 47.9 % (45-73); Nitrite Urine Negative (Negative); PH 5.5 (5.0-9.0); Platelet Count 223 X10*3/uL (160-400); Red Blood Count 4.85 X10*6/uL (4.60-5.80); Red Cell Distribution Width 12.4 % (11.0-16.0); Urine Blood Negative (Negative); Urine Ketones Negative (Negative); Urine Protein Negative (Neg-Trace); White Blood Count 7.8 X10*3/uL (4.8-10.8)
[2024-02-05 15:42] LABS: Alanine Aminotransferase 32 U/L (0-40); Albumin Level 4.2 g/dL (3.5-5.0); Alkaline Phosphatase 99 U/L (39-117); Anion Gap 11 (12-20); Aspartate Amino Transferase 20 U/L (5-37); Bilirubin Direct 0.1 mg/dL (0.0-0.5); Bilirubin Total 0.4 mg/dL (0.0-1.0); Blood Urea Nitrogen 14 mg/dL (9-16); Calcium 9.3 mg/dL (8.4-10.2); Carbon Dioxide 24 mmol/L (22-29); Chloride 107 mmol/L (96-108); Creatinine Clr Calc Pharmacy 97.9; Estimated Glomerular Filt Rate > 60; Glucose Random 92 mg/dL (60-115); Lipase 37 U/L (8-78); Magnesium 2.1 mg/dL (1.6-2.6); Potassium 3.9 mmol/L (3.3-5.1); Sodium 138 mmol/L (135-145)
[2024-02-05 19:56] VITALS: BP 142/91; PULSE 61; RESP 18; TEMP 36.5; O2SAT 100
--- NOTE | 2024-02-05 20:56 | PC.NURSE ---
pt states pain is 0/10. meds not given. PA aware.
[2024-02-05 21:23] VITALS: BP 142/91; PULSE 61; RESP 18; TEMP 36.5; O2SAT 100
== END 2024-02-05 21:24 | disposition home or self-care (01) ==
PROVIDERS: Physician Assistant; Emergency Provider Internal Medicine; PCP Nurse Practitioner Primary Care
DX: R10.9 Unspecified abdominal pain (principal); K42.9 Umbilical hernia without obstruction or gangrene; R10.11 Right upper quadrant pain; I10 Essential (primary) hypertension; J45.909 Unspecified asthma, uncomplicated; Z79.899 Other long term (current) drug therapy
CPT/HCPCS: 36415; 74176; 76705; 80048; 80076; 81003; 83690; 83735; 85025; 99284

== ENCOUNTER 2024-04-24 10:14 | Emergency (ER) | payer MEDICAID, SELFPAY ==
[2024-04-24 11:11] VITALS: BP 140/88; PULSE 99; RESP 18; TEMP 37.1; O2SAT 95; BMI 37.4
--- NOTE | 2024-04-24 11:11 | ED_ITS ---
HPI - General Adult General Chief complaint: Upper Respiratory Symptoms Stated complaint: Cough Chest Discomfort Time Seen by Provider: 04/24/24 12:46 Source: patient, RN notes reviewed and old records reviewed Mode of arrival: ambulatory Limitations: no limitations History of Present Illness ED Provider: Naresh HELTON narrative: 49-year-old male presents for evaluation of fevers, cough, congestion for the last 3 days. He also complains of ear pain. He complains of mucus but denies significant sore throat. No significant shortness of breath or chest pain. Positive sick contacts Related Data Home Medications ?Medication ?Instructions ?Recorded ?Confirmed fluticasone propionate 50 1 spray intranasal DAILY 06/14/21 09/20/22 mcg/actuation nasal spray,suspension (Flonase Allergy Relief) esomeprazole magnesium 20 mg 20 mg PO DAILY 11/29/23 capsule,delayed release lidocaine 5 % topical patch 1 patch topical DAILY PRN 11/29/23 (Lidoderm) Previous Rx's ?Medication ?Instructions ?Recorded albuterol sulfate 90 mcg/actuation 2 puff inhalation Q4-6H PRN 01/17/23 aerosol inhaler shortness of breath or wheezing #8.5 grams azithromycin 250 mg tablet See Rx Instructions PO .COMPLEX #6 08/30/23 tabs doxycycline hyclate 100 mg tablet 100 mg PO BID 7 days #14 tabs 10/31/23 naproxen 500 mg tablet 500 mg PO Q8-12H PRN pain (scale 10/31/23 score 1-3) #20 tabs acetaminophen 325 mg capsule 325 mg PO Q4H PRN pain #30 caps 02/05/24 (Tylenol) azithromycin 250 mg tablet See Rx Instructions PO .COMPLEX #6 04/24/24 tabs Allergies Allergy/AdvReac Type Severity Reaction Status Date / Time aspirin [Aspirin] Allergy Unknown UNKNOWN Verified 04/24/24 11:12 Penicillins Allergy Unknown SWELLING Verified 04/24/24 11:12 Review of Systems Constitutional: Constitutional: Reports body ache(s), Reports chills, Reports fever(s) and Reports headache(s) ENT: Reports headache(s) Cardiovascular: Cardiovascular: Denies dyspnea Respiratory: Respiratory: Reports cough and Denies dyspnea Gastrointestinal: Gastrointestinal: Denies abdominal pain, Denies nausea and Denies vomiting Neurologic: Reports headache(s) [facility] Past Medical History Medical History Chest pain Cough with exposure to COVID-19 virus Right hamstring muscle strain Somnolence, daytime Obesity (BMI 35.0-39.9 without comorbidity) Precordial chest pain Colon cancer screening Epigastric pain Avulsion fracture of medial malleolus Closed avulsion fracture of left ankle Orchalgia COVID-19 Asthma Stuffy nose Hx of chest pain GERD (gastroesophageal reflux disease) Headache LEEROY (obstructive sleep apnea) Asthma Hypertension Surgical History Hx of wisdom tooth extraction History of surgery on left wrist Family History Family History Mother Breast cancer Hypertension Diabetes Social History Social History Are you a primary rn palliative care to a significant other at home: No Do you presently have visiting nurse or other home services: Yes ([facility]) Alcohol intake: never Patient Tobacco Use Status: Former Tobacco user Second Hand Smoke Exposure: No Advance Directives: No Advance Directives Information Provided: Yes Do you have a plan to hurt others: No Plan Current occupational status: employed Current occupation: [employer] Physical Exam ED Vital Signs: Vital Signs - 24 hr 04/24/24 11:11 Temperature 98.8 F Pulse Rate 99 Respiratory Rate 18 Blood Pressure 140/88 H Pulse Oximetry 95 Oxygen Delivery Method Room Air BMI result Body Mass Index 37.4 Const General: healthy appearing, comfortable, no acute distress, alert and awake Nutritional Appearance: well nourished Orientation/consciousness: patient oriented x3 HENMT Head: Yes normocephalic and Yes atraumatic Throat: Yes posterior oropharynx normal Eyes Eyelids: Yes eyelids normal Conjunctivae: conjunctivae normal Sclerae: sclerae normal Corneas: corneas normal Pupils: Equal, round and reactive pupils present EOM: EOMs intact bilaterally Neck Neck: Yes full ROM Resp Effort & Inspection: normal respiratory effort, able to speak in complete sentences, no audible wheezes and not labored Auscultation: clear to auscultation bilaterally Cardio Rate: regular rate Rhythm: regular rhythm Skin General skin exam: elasticity normal Neuro General: patient oriented x3 Cranial nerves: Yes Equal, round and reactive pupils present and Yes Bilaterally intact EOM present Cognition (Neuro): normal cognition Extrem Other: Moving all extremities well without any obvious deformities Course Course Course Narrative: RME, this is a rapid medical exam performed by Damon Infante please refer to primary provider for complete H&P- 49-year-old presents for evaluation congestion, sore throat, ear and cough. Reports positive sick contacts. Plan for viral swabs and strep swab Medical Decision Making Medical Decision Making MDM Narrative: 49-year-old male presents for evaluation of flu-like symptoms. He tested positive for influenza a and strep pharyngitis. He will be treated for strep pharyngitis with azithromycin due to penicillin allergy. He is outside the window of Tamiflu treatment. Lungs are clear, vital signs are stable Differential Diagnosis Differential Diagnoses: The differential diagnosis associated with the presentation includes Influenza COVID-19 Strep pharyngitis Pneumonia Lab Data Labs: Lab Results 04/24/24 Range/Units 11:57 Influenza Type A (PCR) POSITIVE A (Negative) Influenza Type B (PCR) NEGATIVE (Negative) RSV RNA Qual (PCR) NEGATIVE (Negative) SARS-CoV-2 RNA (RT-PCR) NEGATIVE (Negative) S. pyogenes GrpA MELBA Positive A (Negative) Discharge Plan Discharge Clinical Impression: Strep pharyngitis, Influenza A Patient Disposition: Home, Self-Care Instructions: Strep Throat (ED) Additional Instructions: Take the antibiotic as directed You tested positive for strep throat. You also tested positive for the flu Your lungs sound clear Use ibuprofen/Tylenol as needed for pain Follow-up with your primary doctor, return for new or worsening symptoms Prescriptions: New azithromycin 250 mg tablet See Rx Instructions .ROUTE .COMPLEX Qty: 6 0RF Rx Instructions: For 250 mg dose pack: take 500 mg today (day 1), then 250 mg for 4 days (days 2-5) No Action esomeprazole magnesium 20 mg capsule,delayed release(DR/EC) 20 mg PO DAILY azithromycin 250 mg tablet See Rx Instructions .ROUTE .COMPLEX Qty: 6 0RF Rx Instructions: For 250 mg dose pack: take 500 mg today (day 1), then 250 mg for 4 days (days 2-5) doxycycline hyclate 100 mg tablet 100 mg PO BID 7 Days Qty: 14 0RF naproxen 500 mg tablet 500 mg PO Q8-12H PRN (Reason: pain (scale score 1-3)) Qty: 20 0RF acetaminophen [Tylenol] 325 mg capsule 325 mg PO Q4H PRN (Reason: pain) Qty: 30 0RF fluticasone propionate [Flonase Allergy Relief] 50 mcg/actuation spray,suspension 1 spray intranasal DAILY Rx Instructions: administer into each nostril albuterol sulfate 90 mcg/actuation HFA aerosol inhaler 2 puff inhalation Q4-6H PRN (Reason: shortness of breath or wheezing) Qty: 8.5 3RF lidocaine [Lidoderm] 5 % adhesive patch,medicated 1 patch topical DAILY PRN Rx Instructions: leave on most painful area for up to 12 hrs Stand Alone Forms: Work/School Release Print Language: Serbian
[2024-04-24 12:10] LABS: IDNOW Serial# 58CA691E; Strep A Nucleic Acid Positive (Negative)
[2024-04-24 12:53] LABS: Influenza A PCR POSITIVE (Negative); Influenza B PCR NEGATIVE (Negative); Resp Syncy Virus RNA Qual PCR NEGATIVE (Negative); SARS COV2 PCR INHOUSE NEGATIVE (Negative)
[2024-04-24 13:08] VITALS: BP 140/88; PULSE 99; RESP 18; TEMP 37.1; O2SAT 95
== END 2024-04-24 13:09 | disposition home or self-care (01) ==
PROVIDERS: Physician Assistant; Emergency Provider Student in an Organized Health Care Education/Training Program; PCP Nurse Practitioner Primary Care
DX: J02.0 Streptococcal pharyngitis (principal); J10.1 Influenza due to other identified influenza virus with other respiratory manifestations; R05.9 Cough, unspecified; R07.89 Other chest pain; R50.9 Fever, unspecified; H92.03 Otalgia, bilateral; Z87.891 Personal history of nicotine dependence; Z03.818 Encounter for observation for suspected exposure to other biological agents ruled out
CPT/HCPCS: 0241U; 87651; 99282; 99283

== ENCOUNTER 2024-04-29 13:22 | Outpatient (AMB) | payer MEDICAID, SELFPAY ==
[2024-04-29 13:24] VITALS: BP 124/90; PULSE 83; BMI 36.5
--- NOTE | 2024-04-29 13:24 | A.OFFVIS_ITS ---
Vital Signs 04/29/24 13:24 Height 5 ft 4 in Weight 212 lb 8.41 oz BMI 36.5 BP 124/90 H Blood Pressure Location Lt brachial Position Sitting Pulse 83 Pulse Source Pulse Oximeter Intake Visit Reasons: f/u [facility] Required: No Allergies aspirin [Aspirin] Allergy (Unknown, Verified 04/29/24 13:26) UNKNOWN Penicillins Allergy (Unknown, Verified 04/29/24 13:26) SWELLING Medication List - Last Reconciled 04/29/24 by Jasmin Cruz NP-C acetaminophen (Tylenol) 325 mg PO Q4H PRN albuterol sulfate 90 mcg/actuation 2 puffs inhalation Q4-6H PRN esomeprazole magnesium 20 mg PO DAILY fluticasone propionate 50 mcg/actuation (Flonase Allergy Relief) 1 spray intranasal DAILY lidocaine 5% (Lidoderm) 1 patch topical DAILY PRN omega 5-pab-uil-fish oil 1,000 (120-180) mg 1 cap PO BID HPI HPI f/u: Details: Jay is a 49-year-old male with past medical history of hypertension, obesity, sleep apnea which is currently untreated, dilated ascending aorta who reported chest discomfort and recently had stress echocardiogram and now presents for follow-up. Today he reports that he does get periodic sharp pains to the left chest region. These occur randomly and without associated symptoms. No chest discomfort brought on by exertion. No concerning shortness of breath, PND, orthopnea or edema. No lightheadedness, palpitations, presyncope, syncope, falls. He says he was not able to get a CPAP mask as it was not covered by his insurance but he now has new insurance. He is hoping to get a mask in the near future. Taking meds as directed. [facility] Medical History Obesity (BMI 35.0-39.9 without comorbidity) Chest pain Cough with exposure to COVID-19 virus Right hamstring muscle strain Somnolence, daytime Precordial chest pain Colon cancer screening Epigastric pain Avulsion fracture of medial malleolus Closed avulsion fracture of left ankle Orchalgia COVID-19 Asthma Stuffy nose Hx of chest pain GERD (gastroesophageal reflux disease) Headache LEEROY (obstructive sleep apnea) Asthma Hypertension Surgical History Hx of wisdom tooth extraction History of surgery on left wrist Family History Mother Breast cancer Hypertension Diabetes Social History Are you a primary team primary care physician to a significant other at home: No Do you presently have visiting nurse or other home services: Yes ([facility]) Alcohol intake: never Patient Tobacco Use Status: Former Tobacco user Second Hand Smoke Exposure: No Current occupational status: employed Current occupation: [employer] Review of Systems Const All systems reviewed & are unremarkable except as noted in HPI and below ENT Denies dizziness Card Reports chest pain, Denies chest pain at rest, Denies chest pain with activity, Denies rapid heart rate, Denies pedal edema, Denies edema, Denies leg edema, Denies lightheadedness, Denies palpitations, Denies dyspnea, Denies dyspnea on exertion and Denies orthopnea Resp Denies cough, Denies dyspnea and Denies dyspnea on exertion GI Denies hematochezia and Denies change in stool character Musc Denies abnormal gait, Denies limited range of motion, Denies muscle cramps, Denies muscle weakness, Denies numbness, Denies radiating pain into limb, Denies stiffness and Denies tingling Neuro Denies abnormal gait, Denies dizziness, Denies numbness and Denies tingling Endo Denies palpitations Physical Exam Vital Signs: Last Vital Signs Pulse 83 04/29/24 13:24 BP 124/90 H 04/29/24 13:24 BMI result Body Mass Index 36.5 Const General: cooperative, healthy appearing, comfortable and no acute distress Orientation/consciousness: patient oriented x3 Neck Neck: Yes normal visual inspection and Yes no JVD Resp Effort & Inspection: normal respiratory effort Auscultation: clear to auscultation bilaterally, no rales, no rhonchi and no wheezes Cardio Jugular venous distension: no JVD Rate: regular rate Rhythm: regular rhythm Heart sounds: S1 normal heart sound present, S2 normal heart sound present, no murmurs and no rubs Neuro General: patient oriented x3 Extrem General: Yes normal to inspection and No no pedal edema Psych Appearance: grossly normal Mental Status: mental status grossly normal Speech and movement: Normal speech and movement present Assessment & Plan Assessment & Plan (1) Chest pain: Code(s): R07.9 - Chest pain, unspecified Category: Medical Plan: Prior Reports of nonexertional, atypical sounding chest discomfort. Last EKG 10/31/2023 showed sinus tachycardia, no acute ST or T-wave abnormalities, rate 106. Echocardiogram from 11/13/2023 had shown normal EF and no regional wall motion abnormalities. He did undergo a stress echocardiogram on 01/18/2024 with exercise over 9 minutes, no anginal symptoms, no EKG changes and no echo evidence of ischemia, diastolic dysfunction or pulmonary hypertension. Today continues to report periodic left chest discomfort. He says it usually happens when he is upset. No symptoms brought on by physical exertion. Offered reassurance. Signs and symptoms of true angina discussed. Continue with risk factor modifications (2) Ascending aorta dilatation: Code(s): I77.810 - Thoracic aortic ectasia Category: Medical Plan: History of dilated ascending aorta. Echocardiogram 11/24/2022 showed ascending aorta 4.1 cm. Echocardiogram from 11/13/2023 showed ascending aorta 4.3 cm. Will plan for repeat echo 1 year from the last. Maintain good blood pressure control. Cardiology follow-up when results are available. (3) Hypertension: Code(s): I10 - Essential (primary) hypertension Category: Medical Plan: Blood pressure today initially 124/90, recheck done by me 132/90. He is not on any antihypertensive medications at this time. Discuss need for low-salt diet, increasing physical activity as tolerated and weight loss. Current BMI 36.5. If blood pressure remains elevated then antihypertensive would be indicated. LDL goal less than 130/85. (4) LEEROY (obstructive sleep apnea): Comment: Moderately severe sleep apnea Code(s): G47.33 - Obstructive sleep apnea (adult) (pediatric) Category: Medical Plan: History of sleep apnea, moderately severe on last sleep study. He did have CPAP in the past and then it was taken back due to noncompliance. He now tells me he has new health insurance and he is hoping to have CPAP re-initiated. Treatment of his sleep apnea will help with blood pressure control. (5) Obesity (BMI 35.0-39.9 without comorbidity): Code(s): E66.9 - Obesity, unspecified Category: Medical Plan: As above Plan Time spent on chart review, documentation, interview and assessment Orders: Orders CA echo transthoracic complete 11/18/24 I77.810 - Thoracic aortic ectasia Coding Level of Care Code Est Pt Level 4 (34401) Complex EM visit Add On G2211 Diagnoses Chest pain R07.9 Ascending aorta dilatation I77.810 Hypertension I10 LEEROY (obstructive sleep apnea) G47.33 Obesity (BMI 35.0-39.9 without comorbidity) E66.9 Time Spent (min) 30
== END 2024-04-29 13:52 | disposition home or self-care (01) ==
PROVIDERS: PCP Nurse Practitioner Primary Care; Visit Provider Nurse Practitioner Family
DX: R07.9 Chest pain, unspecified (principal); I77.810 Thoracic aortic ectasia; I10 Essential (primary) hypertension; G47.33 Obstructive sleep apnea (adult) (pediatric); E66.9 Obesity, unspecified
CPT/HCPCS: 99214

== ENCOUNTER → 2024-04-29 13:22 | Outpatient (BNVA) | payer MEDICAID, SELFPAY | PROVIDERS: PCP Nurse Practitioner Primary Care; Visit Provider Nurse Practitioner Family | DX: R07.9 Chest pain, unspecified (principal); I77.810 Thoracic aortic ectasia; I10 Essential (primary) hypertension; G47.33 Obstructive sleep apnea (adult) (pediatric); E66.9 Obesity, unspecified; Z68.36 Body mass index [BMI] 36.0-36.9, adult | CPT/HCPCS: 99212 ==

== ENCOUNTER 2024-05-07 15:43 | Outpatient (AMB) | payer MEDICAID, SELFPAY ==
[2024-05-07 15:54] VITALS: BP 112/74; PULSE 73; O2SAT 97; BMI 36.7
--- NOTE | 2024-05-07 15:54 | A.OFFVIS_ITS ---
Vital Signs 05/07/24 15:54 Height 5 ft 4 in Weight 213 lb 13.574 oz BMI 36.7 BP 112/74 Blood Pressure Location Lt brachial Position Sitting Pulse 73 Pulse Source Pulse Oximeter Pulse Oximetry (%) 97 Oxygen Delivery Method Room Air Intake Visit Reasons: Obstructive sleep apnea Intake Note: pt is here for LEEROY, and states tired throughout the day, snores, gasping for air at night. 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 Allergies aspirin [Aspirin] Allergy (Unknown, Verified 05/07/24 16:14) UNKNOWN Penicillins Allergy (Unknown, Verified 05/07/24 16:14) SWELLING Medication List - Last Reconciled 05/07/24 by Frandy Britton MD esomeprazole magnesium 20 mg PO DAILY fluticasone propionate 50 mcg/actuation (Flonase Allergy Relief) 1 spray intranasal DAILY PRN omega 7-pcq-ccd-fish oil 1,000 (120-180) mg 1 cap PO BID Do you need a note to return to daycare/school/sports/work: No HPI HPI Obstructive sleep apnea: Details: THIS 49 YEARS OLD GENTLEMAN IS HERE AFTER A LONG WHILE, AND COMPLAINS OF POOR SLEEP AT NIGHT, FREQUENT AWAKENINGS AND EXCESSIVE DAYTIME SLEEPINESS. 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 HOWEVER AFTER THE WORK WHEN HE SITS DOWN HE HAS TENDENCY TO GO TO SLEEP. DURING THE EVENING WHEN HE COMES HOME HE FALLS ASLEEP QUICKLY. HE DOES SNORE AT NIGHT ALSO. HE HAS THESE SYMPTOMS FOR LONG TIME AND HAS BEEN DIAGNOSED TO HAVE OBSTRUCTIVE SLEEP APNEA AT LEAST TWICE. 1ST TIME HE HAD A HOME-BASED SLEEP STUDY IN 2021 AND HAD MODERATELY SEVERE LEEROY. HE WAS STARTED ON CPAP THERAPY BUT REMAINED NON COMPLIANT AND HIS DEVICE WAS TAKEN AWAY. THEN AGAIN IN 2022 HE HAD A HOME-BASED SLEEP STUDY WHICH ALSO SHOWED MODERATELY SEVERE OBSTRUCTIVE SLEEP APNEA. HIS CPAP WAS ORDERED, BUT HE NEVER PICKED UP THAT MACHINE. TODAY HE IS COMING AFTER A LONG., WITH THE SAME COMPLAINTS NOTED ABOVE, AND SAY IS THAT THIS TIME HE IS MORE SERIOUS AND IS GOING TO USE HIS CPAP REGULARLY. HE ALSO HAS MILD BRONCHIAL ASTHMA WITH OCCASIONAL WHEEZE AND USES ALBUTEROL P.R.N.. HAS MILD INTERMITTENT NASAL CONGESTION FOR WHICH HE USES FLUTICASONE PROPIONATE NASAL SPRAY P.R.N.. HE REMAINS MODERATELY OVERWEIGHT CURRENT BMI 36.7. [facility] Medical History Obesity (BMI 35.0-39.9 without comorbidity) Chest pain Cough with exposure to COVID-19 virus Right hamstring muscle strain Somnolence, daytime Precordial chest pain Colon cancer screening Epigastric pain Avulsion fracture of medial malleolus Closed avulsion fracture of left ankle Orchalgia COVID-19 Asthma Stuffy nose Hx of chest pain GERD (gastroesophageal reflux disease) Headache LEEROY (obstructive sleep apnea) Asthma Hypertension Surgical History Hx of wisdom tooth extraction History of surgery on left wrist Family History Mother Breast cancer Hypertension Diabetes Social History Are you a primary child care development specialist to a significant other at home: No Do you presently have visiting nurse or other home services: Yes ([facility]) Alcohol intake: never Patient Tobacco Use Status: Former Tobacco user Second Hand Smoke Exposure: No Current occupational status: employed Current occupation: [employer] Review of Systems Const All systems reviewed & are unremarkable except as noted in HPI and below Eyes Reports no additional complaints ENT Reports nasal congestion (Mild off and) Card Denies chest pain, Denies irregular heart rhythm and Denies leg edema Resp Reports no additional complaints, Denies cough and Denies wheezing GI Reports heartburn (GERD symptoms controlled) Reports no additional complaints Musc Reports no additional complaints Skin/Breast Reports system reviewed and no additional complaints, except as documented Neuro Reports no additional complaints Psych Reports other (Claims of lot of stress due to family issues.) Aller/Immun Denies wheezing Physical Exam Vital Signs: Last Vital Signs Pulse 73 05/07/24 15:54 BP 112/74 05/07/24 15:54 Pulse Ox 97 05/07/24 15:54 Oxygen Delivery Method Room Air 05/07/24 15:54 BMI result Body Mass Index 36.7 Const General: healthy appearing (Except for being overweight), comfortable, no acute distress, alert and awake Orientation/consciousness: patient oriented x3 HEENT Head: Yes normal to inspection General nose exam: No nasal polyps present and No nasal discharge present Face and sinus: Yes sinuses nontender Mouth: oropharynx abnormals (Moderately narrow, Mallampati class 3) Throat: Yes posterior oropharynx normal Eyes General: appearance normal, both eyes and all related structures Neck Neck: Yes normal visual inspection, Yes no lymphadenopathy, Yes trachea midline, Yes no JVD and Yes other (Neck circumference 17 in) Thyroid: Thyroid normal Chest Chest palpation & inspection: normal inspection of the chest, normal palpation of entire chest wall and no tenderness Resp Effort & Inspection: normal respiratory effort Auscultation: clear to auscultation bilaterally, no crackles, no rales and no wheezes Percussion: percussion normal Cardio Palpation: normal PMI Rate: regular rate Rhythm: regular rhythm Heart sounds: no gallops and no murmurs Peripheral pulses: Peripheral pulses 2+ throughout GI Palpation (GI): Soft to palpation, nontender, No hepatosplenomegaly present and no masses Auscultation: normal bowel sounds Back/Spine/Pelvis Thoracic/Lumbar Spine: thoracic and lumbar spine normal to inspection Skin General skin exam: no rashes or lesions noted Neuro General: patient oriented x3 and no focal motor deficits Cranial nerves: Yes CN's II-XII intact bilaterally Extrem General: Yes normal to inspection, Yes no clubbing, cyanosis or edema and Yes no calf tenderness Psych Appearance: grossly normal and well kempt Speech and movement: Normal speech and movement present Assessment & Plan Assessment & Plan (1) Obesity (BMI 35.0-39.9 without comorbidity): Comment: REMAINS MODERATELY OBESE, HAS A ROUND FACE SHORT NECK IN THE NECK SIZE 17 IN. Code(s): E66.9 - Obesity, unspecified Category: Medical Plan: DISCUSSED ABOUT THE WEIGHT, HE SAID HE IS WALKING MORE AND RESTRICTING HIS DIET AND HAS LOST ABOUT 5 LB OF WEIGHT IN THE LAST FEW MONTHS. ENCOURAGED TO CONTINUE DOING THAT. (2) LEEROY (obstructive sleep apnea): Comment: PER PREVIOUS SLEEP STUDIES, HE DOES HAVE MODERATELY SEVERE OBSTRUCTIVE SLEEP APNEA. Code(s): G47.33 - Obstructive sleep apnea (adult) (pediatric) Category: Medical Plan: HE NEEDS TO BE STARTED ON CPAP THERAPY. HAS BEEN NONCOMPLIANT IN THE PAST. TODAY HE SAY IS HE IS MORE SERIOUS ABOUT USING THE CPAP, AND WOULD DEFINITELY LIKE TO TRY IT AGAIN. HIS LAST SLEEP STUDY WAS IN 2022, SO IN ORDER TO ORDERED CPAP DEVICE FOR HIM WE NEED TO HAVE AN UP TO DATE HOME-BASED SLEEP STUDY, WHICH IS BEING ORDERED. (3) Asthma: Comment: HE HAS INTERMITTENT COUGH WITH SOME WHEEZING AND ALSO DYSPNEA ON EXERTION, PROBABLY DUE TO MILD BRONCHIAL ASTHMA. Code(s): J45.909 - Unspecified asthma, uncomplicated Category: Medical Plan: [place] : ALBUTEROL HFA 2 PUFFS Q 4-6 HOURS P.R.N.. (4) Somnolence, daytime: Comment: HE DOES HAVE DAYTIME SLEEPINESS, EPWORTH SLEEPINESS SCALE 16/24. THIS IS MOST LIKELY SECONDARY TO OBSTRUCTIVE SLEEP APNEA AND POOR SLEEP QUALITY AND NON USE OF CPAP . HOPEFULLY WITH THE USE OF CPAP OF THIS WILL IMPROVE, HE MAY ALSO NEED SOME SLEEP FACILITATING AGENT BUT WILL SEE HOW HE DOES AFTER HE STARTS ON THE CPAP THERAPY. Code(s): R40.0 - Somnolence Category: Medical Plan: HE WOULD NEED TO START ON CPAP THERAPY. A HOME-BASED SLEEP STUDY IS ORDERED. Orders: Orders RT home sleep study Today G47.33 - Obstructive sleep apnea (adult) (pediatric), R40.0 - Somnolence Coding Level of Care Code Est Pt Level 3 (62360) Diagnoses Obesity (BMI 35.0-39.9 without comorbidity) E66.9 LEEROY (obstructive sleep apnea) G47.33 Asthma J45.909 Somnolence, daytime R40.0
--- OUTSIDE RECORDS SUMMARY | 2024-05-07 16:29 | XMS_ITS | Encounter Summary ---
Author Organization [employer] Address [address] [facility] [address] [facility] [address] [place] [address] Care Team Providers Care Emissions Testing And Repair Technician Name Role Phone Svetlana Shea Primary Care Provider [phone] Encounter Details Date Type Department Care Team (Late st Contact Info) Description 04/24/2024 Orders Only GENERIC EXTERNAL DATA DEPARTMENT Provider, Generic External Data Social History Tobacco Use Types Packs/Day Years Used Date Smoking Tobacco: Never Passive Smoke Exposure: Never Smokeless Tobacco: Never Alcohol Use Standard Drinks/Week Comments Not Currently 0 (1 standard drink = 0.6 oz pur e alcohol) Housing Stability Answer Date Recorded What is your housing situation today? I have regino swain [address] you li ve. Do you have problems with any of the following? None of the above 2023 Food Insecurity Answer Date Recorded Within the past 12 months, y ou worried that your food would run out before you got money to buy more: Never True 2023 Within the past 12 months,th e food you bought just didn't last and you didn't have enough money to get more: Never True Transportation Answer Date Recorded In the past 12 months, has l ack of transportation kept you from medical appts, meetings, work or from getting things needed for daily living? No 2023 Utilities Answer Date Recorded In the past 12 months, has t he electric, gas, oil or water company threatened to shut off services in your home? No 2023 Depression Answer Date Recorded Patient Health Questionnaire-2 Score 0 10/18/2022 Internet Access Answer Date Recorded Internet Access Q1 Yes 12/11/2023 Internet Access Q2 Not on file 12/11/2023 Sex and Gender Information Value Date Recorded Sex Assigned at Male 02/07/2022 10:16 AM EDT Legal Sex Male 10:16 AM EDT Gender Identity Male 02/07/2022 10:16 AM EDT Sexual Orientation Straight 02/07/2022 10 :16 AM EDT documented as of this encounter Plan of Treatment Not on file documented as of this encounter Procedures Procedure Name Priority Date/Time Associated Diagnosis Comments STREP A NUCLEIC ACID Routine 04/24/2024 11:57 AM EST SARS COV2/INFLUENZA A/B AND RSV RNA QL NAAT Routine 04/24/2024 11:57 AM EST documented in this encounter Results * (ABNORMAL) SARS-CoV-2 RNA, Influenza A/B, and RSV RNA, Ql NAAT (04/24/2024 11:57 AM EST) Influenza A PCR POSITIVE(A) Negative [facility] Influenza B PCR NEGATIVE Negative [facility] Resp Syncy Virus RNA Qual PCR NEGATIVE Negative [facility] SARS COV2 PCR NEGATIVE Negative [facility] Comment:All test results mus t be correlated with clinical findings.Negative results do not preclude SARS-CoV2, influenza Avirus, influenza B virus and/or RSV infectionand should not be used as the sole basis for treatment orother patient management decisions. Negative results must becombined with clinical observations, patient history, andepidemiological information.This test has not been evaluated for monitoring treatment ofinfection.This test has been authorized by the FDA under an EmergencyUse Authorization (EUA) for use by authorized laboratories.Testing performed on the [employer] GeneXpert utilizingreal-time RT-PCR.All SARS CoV2 and positive influenza A/B results arereported to [facility]. 04/24/2024 11:5 7 AM EST 04/24/2024 12:03 PM EST us Generic External Data Provider LAB MICROBIOLOGY - GENERAL ORDERABLES Final Result [facility] [address] [place] [phone] * (ABNORMAL) Strep A Nucleic Acid (04/24/2024 11:57 AM EST) IDREGGIEW SERIAL# [id number] [facility] Strep A Nucleic Acid Positive(A ) Negative [facility] Comment:All test results mus t be correlated with clinical findings.This test has not been evaluated for monitoring treatment ofinfection.Additional follow-up testing using the culture method isrequired if the result is negative and clinical symptomspersist, or in the event of an acute rheumatic feveroutbreak. 04/24/2024 11:5 7 AM EST 04/24/2024 12:03 PM EST us Generic External Data Provider LAB MICROBIOLOGY - GENERAL ORDERABLES Final Result [facility] [address] [place] [phone] documented in this encounter Visit Diagnoses Not on filedocumented in this encounter Care Teams Emissions Testing And Repair Technician Relationship Specialty Start Date End Date Svetlana Shea ANP [address] [place] [phone] PCP - General Family Medicine 12/01/20 documented as of this encounter
--- OUTSIDE RECORDS SUMMARY | 2024-05-07 16:29 | XMS_ITS | Clinical Summary ---
Author Organization [employer] Address [address] [place] [address] [address] [place] [address] Care Team Providers Care Seed Buyer Name Role Phone Korey Schmitz Primary Care Provider [phone] Allergies Active Allergy Reactions Criticality Noted Date Comments Aspirin 01/22/2013 Other reaction(s): throat swelling Penicillins 07/19/2012 Other reaction(s): throat swelling Medications omeprazole OTC (PriLOSEC OTC) 20 MG EC tablet Take 20 mg by mouth. 5 Active albuterol 108 (90 Base) MCG/ACT inhaler Inhale 2 puffs every 4 (four) hours. 1 Active cetirizine (ZyrTEC) 10 MG tabletIndications: Non-seasonal allergic rhinitis due to other allergic trigger Take 1 tablet (10 mg) by mouth Once daily as needed for allergies. 90 tablet 1 4 Active fluticasone (Flonase) 50 MCG/ACT nasal sprayIndications:N on-seasonal allergic rhinitis due to other allergic trigger USE 1-2 SPRAYS NEEDED 1-2 TIMES DAILY FOR ALLERGIES 48 mL 4 Active omega-3 (Fish Oil) 1000 MG capsuleIndications :Elevated triglycerides with high cholesterol Take 1 capsule via oral route twice daily. 180 capsule 3 4 Active Active Problems Problem Noted Date Diagnosed Date Elevated BP without diagnosis of hypertension Class 2 severe obesity with serious comorbidity and body mass index (BMI) of 35.0 to 35.9 in adult 05/09/2023 BPH with obstruction/lower urinary tract symptom s 05/09/2023 Colon cancer screening 05/09/2023 Overview (11/17/2023): Negative cologuard August 2023 Acute frontal sinusitis 12/15/2022 Acute bacterial sinusitis 12/15/2022 Assessment & Plan (12/15/2022 1:07 PM EDT): Given penicillin allergy will give Doxycycline BID for 10 days. Benadryl PRN. Acute prostatitis 08/22/2022 Overview (08/22/2022): Tx'd via urology w/ Bactrim & prednisone Ventral hernia without obstruction or gangrene 0 08/08/2022 LEEROY (obstructive sleep apnea) 07/11/2022 Cyst of epididymis 06/16/2022 Seasonal allergies 06/16/2022 Essential hypertension 03/19/2021 Gastroesophageal reflux disease 10/09/2014 Allergic rhinitis 01/22/2013 Low back pain 01/22/2013 Dyslipidemia 07/19/2012 Encounters Date Type Department Care Team Description 04/24/2024 Orders Only GENERIC EXTERNAL DATA DEPARTMENT Provider, Generic External Data 02/06/[address] [facility] [address] [place] [address] Korey Schmitz ANP 02/05/2024 Orders Only GENERIC EXTERNAL DATA DEPARTMENT Provider, Generic External Data from Last 3 Months Immunizations Name Administration Dates Next Due Hep A, Adult 02/16/2015,09/04/2013 Hep B, adult 06/19/2007,02/24/2005 TD (adult), 2 Lf tetanus tox oid, preservative free, adsorbed 08/28/2018,03/21/2018,06/19/2007 Tdap 09/20/2012 Typhoid, ViCPs 09/04/2013 Yellow Fever 09/04/2013 Social History Tobacco Use Types Packs/Day Years [...] the past 12 months, has t he Hotreader, gas, oil or water company threatened to [...] Orientation Straight 02/07/2022 10 :16 AM EDT Last Filed Vital Signs Vital Sign Reading Time Taken Comments Blood Pressure 123/86 11/17/2023 9:53 AM EDT Pulse 67 11/17/2023 9:53 AM EDT Temperature 36.8 ??C (98.3 ??F) 11/17/2023 9:53 AM ED T Respiratory Rate 20 11/17/2023 9:53 AM EDT Oxygen Saturation 95% 05/09/2023 10:54 AM EST Inhaled Oxygen Concentration - - Weight 97.5 kg (215 lb) 02/05/2024 4:03 PM EDT Height 162.6 cm (5' 4 ) 02/05/2024 4:03 PM EDT Body Mass Index 36.9 02/05/2024 4:03 PM EDT Plan of Treatment Health Maintenance Due Date Last Done Comments CT Colonography 1975 Colonoscopy 1974 FIT 1974 FOBT 1975 HIV Screening 1975 Sigmoidoscopy 1975 Pneumococcal Vaccine: Pediatrics (0 to 5 Years) and At-Risk Patients (6 to 64 Years) (1 of 2 - PCV) 01/26/1980 Alcohol/Substance Use Screening 1986 Family Planning (PISQ) 1989 Hepatitis C Screening 01/26/1992 Hepatitis B Vaccines (3 of 3 - 19+ 3-dose series) 08/14/2007 06/19/2007, 02/24/2005 Depression Screening 10/19/2023 10/18/2022, 10/19/19 23 COVID-19 Vaccine ( season) 2023 Influenza Vaccine (#1) 2023 Zoster Vaccines (1 of 2) 01/26/2024 SDOH Screening 11/16/2024 11/17/2023 Tobacco Screening 11/16/2024 11/17/2023 Colorectal Cancer Screening 08/09/2026 FIT DNA/Cologuard 08/09/2026 08/10/2023 DTaP/Tdap/Td Vaccines (4 - Td or Tdap) 08/28/2028 08/28/2018, 03/21/2018, 09/20/2012, Additional history exists Lipid Panel 11/16/2028 11/17/2023, 05/0 11/2022, 10/26/2020, Additional history exists RSV Patients and Patients Aged 60 years or older (1 - 1-dose 75+ series) 2049 Hepatitis A Vaccines Aged Out 02/16/2015, 09/05/19 14 No longer eligible based on patient's age to complete this topic HIB Vaccines Aged Out No longer eligi ble based on patient's age to complete this topic HPV Vaccines Aged Out No longer eligi ble based on patient's age to complete this topic IPV Vaccines Aged Out No longer eligi ble based on patient's age to complete this topic Meningococcal Vaccine Aged Out No rosanne mya eligible based on patient's age to complete this topic RSV under 20 months Aged Out No longe r eligible based on patient's age to complete this topic Rotavirus Vaccines Aged Out No longer eligible based on patient's age to complete this topic Procedures Procedure Name Priority Date/Time Associated Diagnosis Comments SARS COV2/INFLUENZA A/B AND RSV RNA QL NAAT Routine 04/24/2024 11:57 AM EST STREP A NUCLEIC ACID Routine 04/24/2024 11:[address] ABDOMEN PELVIS WO CONTRAST Routine 02/05/2024 6:49 PM EDT US ABDOMEN LIMITED Routine 02/05/2024 3: 45 PM EDT LIPASE Routine 02/05/2024 3:22 PM EDT MAGNESIUM Routine 02/05/2024 3:22 PM EDT BASIC METABOLIC PANEL Routine 02/05/2024 3:22 PM EDT HEPATIC FUNCTION PANEL Routine 02/05/2024 3:22 PM EDT CBC WITH AUTO DIFFERENTIAL Routine 02/05/2024 3:22 PM EDT URINALYSIS WITH REFLEX MICROSCOPIC Routine 02/05/2024 3:22 PM EDT LIPID PANEL, STANDARD Routine 11/17/2023 10:55 AM EDT Dyslipidemia LAB COLOGUARD?? COLON CANCER SCREEN Routine 08/10/2023 2:00 AM EDT Colon cancer screening from Last 3 Months or Most Recently Relevant to Health Maintenance Results * (ABNORMAL) Strep A Nucleic Acid (04/24/2024 11:57 AM EST) Pathologist Agustin GUTHRIEW SERIAL# [id number] [facility] Strep A Nucleic Acid Positive(A ) Negative [facility] Comment:All test results mus t be [...] LAB MICROBIOLOGY - GENERAL ORDERABLES Final Result Performing Organization Address City/State/[facility] de Phone Number [facility] [address] [place] [address] [phone] * (ABNORMAL) SARS-CoV-2 RNA, Influenza A/B, and RSV RNA, Ql NAAT (04/24/2024 11:57 AM EST) Influenza A PCR POSITIVE(A) Negative [facility] Influenza B PCR NEGATIVE Negative [facility] Resp Syncy Virus RNA Qual PCR NEGATIVE Negative [facility] SARS COV2 PCR NEGATIVE Negative [facility] Comment:All test results mus t be [...] use by authorized laboratories.Testing performed on the [employer] GeneXpert utilizingreal-time RT-PCR.All SARS CoV2 and positive influenza A/B results arereported to [facility]. 04/24/2024 11:5 7 AM EST 04/24/2024 12:03 PM EST Generic External Data Provider LAB MICROBIOLOGY - GENERAL ORDERABLES Final Result Performing Organization Address [facility] de Phone Number [facility] [address] [place] [phone] * CT Abdomen Pelvis w/o Contrast (02/05/2024 6:49 PM EDT) Anatomical Region Laterality Modality Body, Pelvis, Abdomen Computed T omography 02/05/2024 6:49 PM EDT Narrative 02/05/2024 8:54 PM EDT ? [facility] ?[address] ?[place] [address] ? CT Scan Report ? Signed ? Patient: Chan,Jay ?MR#: [id number] ? : 1975 ?Acct:[id number] ? Age/Sex: 49 / M ?ADM Date: 02/05/24 ? Loc: HO.ED ? Attending Dr: ? Ordering Physician: Gladys Beard ?? Date of Service: 02/05/24 ?? Procedure(s): CT abdomen pelvis wo IV con ?? Accession Number(s): [id number] ? cc: Gladsy Beard; KOREY SCHMITZ NP ? EXAMINATION: ?? CT ABDOMEN AND PELVIS WITHOUT CONTRAST ? CLINICAL INFORMATION: ?? Right flank pain. ? COMPARISON: ?? Abdominal ultrasound done earlier the same day. CT abdomen/pelvis dated ?? 01/16/2020. ? TECHNIQUE: ?? Multidetector volumetric imaging was performed from the superior aspect ?? of the liver through the pubic symphysis. Sagittal and coronal ?? reformatted images were obtained on the technologist's workstation. ? This CT examination was performed using dose optimization techniques as ?? appropriate, variously including the following: ?? *Automated exposure control. ?? *Adjustment of mA and/or kV according to patient size (this includes ?? techniques or standardized protocols for targeted exams where dose is ?? matched to indication/reason for exam; i.e. extremities or head). ?? *Use of iterative reconstruction technique. ? DLP: ?? 694 mGy-cm ? FINDINGS: ?? LUNG BASES: The visualized lung bases are unremarkable. ? LIVER, GALLBLADDER, AND BILIARY TREE: The liver is normal in size and ?? shape. Parenchymal hypoattenuation, consistent with steatosis. No focal ?? hepatic lesion or biliary ductal dilatation is present. The gallbladder ?? is unremarkable with no evidence of radiopaque gallstones, gallbladder ?? wall thickening, or obvious pericholecystic inflammatory changes. ? PANCREAS: Unremarkable. ? SPLEEN: Unremarkable. ? ADRENAL GLANDS: Unremarkable. ? KIDNEYS AND URETERS: The kidneys are normal in size, shape, and ?? attenuation. No hydronephrosis, hydroureter, or calculi seen. No ?? perinephric stranding. ? BLADDER: Unremarkable. ? GASTROINTESTINAL TRACT: No small or large bowel obstruction. No bowel ?? wall thickening or inflammatory change. Unremarkable appendix. ? PERITONEAL CAVITY: No intra-abdominal free air or free fluid. No ?? intra-abdominal mass or organized fluid collection/abscess formation. ? ABDOMINAL WALL: Tiny, fat-containing midline upper abdominal hernia, ?? increased when compared to the prior examination. This now measures ?? approximately 1.3 cm in ML dimension. This contains fat with mild ?? stranding and trace fluid which could indicate a degree of ischemia. ?? Previously, the neck of the hernia measuring approximately 0.4 cm and ?? demonstrated minimal, if any, stranding. No associated bowel loops. ?? Correlate for focal tenderness. ? LYMPH NODES: Normal. ? VASCULAR: Unremarkable. ? PELVIC VISCERA: Small prostate calcifications. ? OSSEOUS STRUCTURES: Unremarkable. ? CT/CT abdomen pelvis wo IV con ?? IMPRESSION: ?? 1. Tiny, fat-containing midline upper abdominal hernia, increased in ?? size when compared to the prior examination. This now measures ?? approximately 1.3 cm in ML dimension. This contains fat with mild ?? stranding and trace fluid which could indicate a degree of ischemia. No ?? associated bowel loops. Correlate for focal tenderness. ? 2. No intra-abdominal mass, lymphadenopathy, or ascites. ? 3. Hepatic steatosis. No hepatic parenchymal lesion or biliary ductal ?? dilatation. ? Fleischner guidelines were followed. ? Electronically signed by: ??Delonte Bateman MD ??02/05/2024 08:50 PM EDT ?? Workstation: [facility] ? Dictated By: ?Delonte Bateman MD ? Signed By: ?<Electronically signed by Delonte Bateman MD in OV> ?02/05/242049 ? DD/ 1849 ? TD/TT: 02/05/24 1902 ? Kiln Fireman: SR ? Procedure Note Alejo Sandoval - 02/05/[address] [address] [address] Scan Report Signed Patient: Jay Chan#: [id number] : 1975Acct:[id number] Age/Sex: 49 / MADM Date: 02/05/24 Loc: HO.ED Attending Dr: Ordering Physician: Gladys Beard Date of Service: 02/05/24 Procedure(s): CT abdomen pelvis wo IV con Accession Number(s): [id number] cc: Gladys Beard; KOREY SCHMITZ NP EXAMINATION: CT ABDOMEN AND PELVIS WITHOUT CONTRAST CLINICAL INFORMATION: Right flank pain. COMPARISON: Abdominal ultrasound done earlier the same day. CT abdomen/pelvis dated 01/16/2020. TECHNIQUE: Multidetector volumetric imaging was performed from the superior aspect of the liver through the pubic symphysis. Sagittal and coronal reformatted images were obtained on the technologist's workstation. This CT examination was performed using dose optimization techniques as appropriate, variously including the following: *Automated exposure control. *Adjustment of mA and/or kV according to patient size (this includes techniques or standardized protocols for targeted exams where dose is matched to indication/reason for exam; i.e. extremities or head). *Use of iterative reconstruction technique. DLP: 694 mGy-cm FINDINGS: LUNG BASES: The visualized lung bases are unremarkable. LIVER, GALLBLADDER, AND BILIARY TREE: The liver is normal in size and shape. Parenchymal hypoattenuation, consistent with steatosis. No focal hepatic lesion or biliary ductal dilatation is present. The gallbladder is unremarkable with no evidence of radiopaque gallstones, gallbladder wall thickening, or obvious pericholecystic inflammatory changes. PANCREAS: Unremarkable. SPLEEN: Unremarkable. ADRENAL GLANDS: Unremarkable. KIDNEYS AND URETERS: The kidneys are normal in size, shape, and attenuation. No hydronephrosis, hydroureter, or calculi seen. No perinephric stranding. BLADDER: Unremarkable. GASTROINTESTINAL TRACT: No small or large bowel obstruction. No bowel wall thickening or inflammatory change. Unremarkable appendix. PERITONEAL CAVITY: No intra-abdominal free air or free fluid. No intra-abdominal mass or organized fluid collection/abscess formation. ABDOMINAL WALL: Tiny, fat-containing midline upper abdominal hernia, increased when compared to the prior examination. This now measures approximately 1.3 cm in ML dimension. This contains fat with mild stranding and trace fluid which could indicate a degree of ischemia. Previously, the neck of the hernia measuring approximately 0.4 cm and demonstrated minimal, if any, stranding. No associated bowel loops. Correlate for focal tenderness. LYMPH NODES: Normal. VASCULAR: Unremarkable. PELVIC VISCERA: Small prostate calcifications. OSSEOUS STRUCTURES: Unremarkable. CT/CT abdomen pelvis wo IV con IMPRESSION: 1. Tiny, fat-containing midline upper abdominal hernia, increased in size when compared to the prior examination. This now measures approximately 1.3 cm in ML dimension. This contains fat with mild stranding and trace fluid which could indicate a degree of ischemia. No associated bowel loops. Correlate for focal tenderness. 2. No intra-abdominal mass, lymphadenopathy, or ascites. 3. Hepatic steatosis. No hepatic parenchymal lesion or biliary ductal dilatation. Fleischner guidelines were followed. Electronically signed by: Delonte Bateman MD 02/05/2024 08:50 PM EDT Dictated By: Delonte Bateman MD Signed By: <Electronically signed by Delonte Bateman MD in OV> 02/05/242049 DD/ 1849 TD/TT: 02/05/24 1902 Kiln Fireman: SR [facility] External Provider IMG CT PROCEDURES Edited Result - Final * US Abdomen Limited (02/05/2024 3:45 PM EDT) Anatomical Region Laterality Modality Abdomen Ultrasound 02/05/2024 3:45 PM EDT Narrative 02/05/2024 4:46 PM EDT ? [facility] ?[address] ?[place] [address] ? Ultrasound Report ? Signed ? Patient: Chan,Jay ?MR#: [id number] ? : 1975 ?Acct:[id number] ? Age/Sex: 49 / M ?ADM Date: 10/28/24 ? Loc: HO.ED ? Attending Dr: ? Ordering Physician: Jia Aguirre ?? Date of Service: 02/05/24 ?? Procedure(s): US abdomen limited ?? Accession Number(s): [id number] ? cc: Jia Aguirre; KOREY SCHMITZ NP ? EXAMINATION: ?? US ABDOMEN LIMITED ? CLINICAL INFORMATION: ?? Right upper quadrant pain. ? COMPARISON: ?? CT abdomen/pelvis 01/16/2020. ? TECHNIQUE: ?? Real-time imaging of the right upper quadrant abdominal viscera. ? FINDINGS: ? PANCREAS: Normal. ? LIVER: The liver is normal in size. The liver contour is normal. ?? Increased liver parenchymal echogenicity. No focal hepatic lesion. ?? There is no intrahepatic biliary duct dilatation seen. ? GALLBLADDER: The gallbladder is physiologically distended without ?? evidence of stones, sludge, polyps, wall thickening or pericholecystic ?? fluid. ? COMMON BILE DUCT: Normal in caliber measuring 0.3 cm in diameter. ? RIGHT KIDNEY: No hydronephrosis. No renal calculi or focal parenchymal ?? lesions. The kidney measures 11.3 cm in maximum dimension. ? FREE FLUID: None. ? US/US abdomen limited ?? IMPRESSION: ?? 1. ??Increased liver parenchymal echogenicity is nonspecific and could ?? be seen in the setting of hepatic steatosis or hepatocellular disease. ?? Correlate with liver function tests. ?? 2. ??Otherwise, normal examination. ? Electronically signed by: ??Mirta Morales MD ??02/05/2024 04:43 PM EDT RP ? Dictated By: ?Mirta Morales ? Signed By: ?<Electronically signed by Mirta Morales in OV> ?02/05/24 1643 ? DD/ 1545 ? TD/TT: 02/05/24 1553 ? Kiln Fireman: ? Procedure Note Alejo Sandoval - 02/05/2024 [place] [address] Ultrasound Report Signed Patient: Maia Chan#: [id number] : 1975Acct:[id number] Age/Sex: 49 / MADM Date: 02/05/24 Loc: HO.ED Attending Dr: Ordering Physician: Jia Aguirre Date of Service: 02/05/24 Procedure(s): US abdomen limited Accession Number(s): [id number] cc: Jia Aguirre; KOREY SCHMITZ NP EXAMINATION: US ABDOMEN LIMITED CLINICAL INFORMATION: Right upper quadrant pain. COMPARISON: CT abdomen/pelvis 01/16/2020. TECHNIQUE: Real-time imaging of the right upper quadrant abdominal viscera. FINDINGS: PANCREAS: Normal. LIVER: The liver is normal in size. The liver contour is normal. Increased liver parenchymal echogenicity. No focal hepatic lesion. There is no intrahepatic biliary duct dilatation seen. GALLBLADDER: The gallbladder is physiologically distended without evidence of stones, sludge, polyps, wall thickening or pericholecystic fluid. COMMON BILE DUCT: Normal in caliber measuring 0.3 cm in diameter. RIGHT KIDNEY: No hydronephrosis. No renal calculi or focal parenchymal lesions. The kidney measures 11.3 cm in maximum dimension. FREE FLUID: None. US/US abdomen limited IMPRESSION: 1. Increased liver parenchymal echogenicity is nonspecific and could be seen in the setting of hepatic steatosis or hepatocellular disease. Correlate with liver function tests. 2. Otherwise, normal examination. Electronically signed by: Mirta Morales MD 02/05/2024 04:43 PM EDT Dictated By: Mirta Morales Signed By: <Electronically signed by Mirta Morales in OV> 02/05/24 1643 DD/ 1545 TD/TT: 02/05/24 1553 Kiln Fireman: us [facility] External Provider IMG US PROCEDURES Final Result * (ABNORMAL) CBC auto differential (02/05/2024 3:22 PM EDT) White Blood Count 7.8 4.8 - 10.8 X10*3/uL [facility] Red Blood Count 4.85 4.60 - 5.80 X10*6/uL [facility] Hemoglobin 15.3 14.0 - 18.0 g/dl [facility] Hematocrit 44.3 42.0 - 52.0 % [facility] Mean Corpuscular Volume 91.3 80.0 - 98.0 fL [facility] Mean Corpuscular Hemoglobin 31.5 27.0 - 33.0 pg [facility] Mean Corpuscular HGB Conc 34.5 31.0 - 36.0 g/dl [facility] Red Cell Distribution Width 12.4 11.0 - 16.0 % [facility] Platelet Count 223 160 - 400 X10*3/uL [facility] Mean Platelet Volume 10.9 9.4 - 12.4 fL [facility] Neutrophils Percent Auto 47.9 45 - 73 % [facility] Imm Gran Pct Auto 0.1 0.0 - 0.4 % [facility] Lymphocytes Percent Auto 40.0 20 - 40 % [facility] Monocytes Percent Auto 6.2 2 - 11 % [facility] Eosinophils Percent Auto 4.8(H) 0 - 4 % [facility] Basophils Percent Auto 1.0 0 - 2 % [facility] NRBC Pct Auto 0.0 0.0 - 0.2 /100WBC [facility] Neutrophils Absolute Auto 3.7 2.0 - 8.3 x10*3/uL [facility] Imm Gran Abs Auto 0.01 0.00 - 0.03 X10*3/uL [facility] Lymphocytes Absolute Auto 3.1 1.2 - 4.9 X10*3/uL [facility] Monocytes Absolute Auto 0.5 0.1 - 1.2 X10*3/uL [facility] Eosinophils Absolute Auto 0.4 0.0 - 0.4 X10*3/uL [facility] Basophils Absolute Auto 0.1 0.0 - 0.2 X10*3/uL [facility] NRBC Abs Auto 0.000 0.0 - 0.012 X10*3/uL [facility] 02/05/2024 3:22 PM EDT 02/05/2024 3:24 PM EDT us Generic External Data Provider LAB BLOOD ORDERAB LES Final Result [facility] [address] [place] [phone] * Urinalysis w/reflex microscopic (02/05/2024 3:22 PM EDT) Color Urine Yellow [facility] Appearance Urine Clear [facility] PH 5.5 5.0 - 9.0 [facility] Glucose Urine UA Negative Negative mg/dL [facility] Urine Blood Negative Negative [facility] Specific [place] - Urine 1.020 1.005 - 1.025 [facility] Urine Protein Negative Neg-Trace mg/dL [facility] Urine Ketones Negative Negative mg/dL [facility] Nitrite Urine Negative Negative [facility] Leukocyte Esterase Urine Negative Negative [facility] 02/05/2024 3:22 PM EDT 02/05/2024 3:24 PM EDT Narrative [facility] - 02/05/2024 3:28 PM EDT [id number], [employer] us Generic External Data Provider LAB URINE ORDERAB LES Final Result Performing Organization Address [facility]/ZIP Co de Phone Number [facility] [address] [place] [phone] * Magnesium (02/05/2024 3:22 PM EDT) Magnesium 2.1 1.6 - 2.6 mg/dL [facility] 02/05/2024 3:22 PM EDT 02/05/2024 3:24 PM EDT us Generic External Data Provider LAB BLOOD ORDERAB LES Final Result Performing Organization Address City/[facility]/ZIP Co de Phone Number [facility] [address] [place] [phone] * Lipase (02/05/2024 3:22 PM EDT) Lipase 37 8 - 78 U/L [facility] 02/05/2024 3:22 PM EDT 02/05/2024 3:24 PM EDT us Generic External Data Provider LAB BLOOD ORDERAB LES Final Result Performing Organization Address [facility]/ZIP Co de Phone Number [facility] [address] [place] [phone] * Hepatic Function Panel (02/05/2024 3:22 PM EDT) Pathologist [facility] Bilirubin, Total 0.4 0.0 - 1.0 mg/dL [facility] Bilirubin, Direct 0.1 0.0 - 0.5 mg/dL [facility] Aspartate Amino Transferase 20 5 - 37 U/L [facility] Alanine Aminotransferase 32 0 - 40 U/L [facility] Total Protein 7.0 6.5 - 8.0 g/dL [facility] Albumin Level 4.2 3.5 - 5.0 g/dL [facility] Alkaline Phosphatase 99 39 - 117 U/L [facility] 02/05/2024 3:22 PM EDT 02/05/2024 3:24 PM EDT [employer] External Data Provider LAB BLOOD ORDERAB LES Final Result Performing Organization Address [facility] Co de Phone Number [facility] [address] [place] [phone] * (ABNORMAL) Basic Metabolic Panel (02/05/2024 3:22 PM EDT) Pathologist [facility] Sodium 138 135 - 145 mmol/L [facility] Potassium 3.9 3.3 - 5.1 mmol/L [facility] Chloride 107 96 - 108 mmol/L [facility] Carbon Dioxide 24 22 - 29 mmol/L [facility] Anion Gap 11(L) 12 - 20 [facility] Urea Nitrogen (BUN) 14 9 - 16 mg/dL [facility] Creatinine, Serum 0.97 0.5 - 1.4 mg/dL [facility] Creatinine Clr Calc Pharmacy 97.9 [facility] Comment:eGFR (calculated fro m the MDRD study equation) and eCrCl(calculated from the Cockcroft-Gault equation) are based ondifferent parameters and may not yield comparable results.If eCrCl result is absurd, please check patient'sheight/weight. Estimated Glomerular Filt Rate >60 [facility] Comment:NOTE: For -Am erican individuals, multiply the result by 1.210.Chronic Kidney Disease: Estimated GFR < 60 mL/min/1.88q7Ylstre Kidney Disease: Estimated GFR < 15 mL/min/1.73m2 Glucose 92 60 - 115 mg/dL [facility] Calcium 9.3 8.4 - 10.2 mg/dL [facility] 02/05/2024 3:22 PM EDT 02/05/2024 3:24 PM EDT us Generic External Data Provider LAB BLOOD ORDERAB LES Final Result [facility] [address] [place] [address] [phone] * (ABNORMAL) Lipid Panel, Standard (11/17/2023 10:55 AM EDT) Triglycerides 212(H) <150 mg/dL [facility] Comment:Desirable Triglyceri de: less than 150 mg/dLBorderline High Triglyceride 150-199 mg/dLHigh Triglyceride: 200-499 mg/dLVery High Triglyceride: greater than or equal to 5OO mg/dL Cholesterol 209(H) <200 mg/dL [facility] Comment:Desirable Cholestero l: less than 200 mg/dLBorderline High Cholesterol: 200-239 mg/dLHigh Cholesterol: greater than 239 mg/dL LDL Cholesterol Calculated 138(H) <100 mg/dL [facility] Comment:Desirable LDL: less than 100 mg/dLNear Optimal/Above Optimal LDL: 110- 129 mg/dLBorderline High LDL: 130-159 mg/dLHigh LDL: 160-189 mg/dLVery High LDL: greater than or equal to 190 mg/dL HDL Cholesterol 29(L) >40 mg/dL [facility] Comment:Desirable HDL: great er than 40 mg/dL Note: This HDL assay may give artificially low results in patients with liver disease. Blood Venous blood specimen / Unknown 11/17/2023 10:55 AM EDT 11/17/2023 1:05 PM EDT Korey Schmitz [facility] BLOOD ORDERABLES Final Resul t [facility] [address] [place] [address] [phone] * Cologuard?? colon cancer screening (08/10/2023 2:00 AM EDT) Cologuard Result Negative Negative 08/22/19 5:29 PM EDT [employer] (CLIA #:[id number]) Comment: NEGATIVE TEST RESULT. A negative Cologuard result indicates a low likelihood that a colorectal cancer (CRC) or advanced adenoma (adenomatous polyps with more advanced pre-malignant features) ??is present. The chance that a person with a negative Cologuard test has a colorectal cancer is less than 1 in 1500 (negative predictive value >99.9%) or has an ??advanced adenoma is less than ??5.3% (negative predictive value 94.7%). These data are based on a prospective cross-sectional study of 10,000 individuals at average risk for colorectal cancer who were screened with both Cologuard and colonoscopy. (Pricilla Cheek al, N Engl J Med 2014;370(14):1286- 1297) The normal value (reference range) for this assay is negative. COLOGUARD RE-SCREENING RECOMMENDATION: Periodic colorectal cancer screening is an important part of preventive healthcare for asymptomatic individuals at average risk for colorectal cancer. ??Following a negative Cologuard result, the [place] Cancer Society and U.S. Multi-Society Task Force screening guidelines recommend a Cologuard re-screening interval of 3 years. References: [place] Cancer Society Guideline for Colorectal Cancer Screening: https://www.cancer.org/cancer/nclvu-wswmwh-hhlmxg/vlgaaiorr-atusoalon-vqqrfer/ac s-rec ommendations.html.; Leeroy CAMPOS, Mario KHAN, Chance ODELL, Colorectal Cancer Screening: Recommendations for Physicians and Patients from the U.S. Multi-Society Task Force on Colorectal Cancer Screening , Am J Gastroenterology 2017; 112:0298-6097. TEST DESCRIPTION: Composite algorithmic analysis of stool DNA-biomarkers with hemoglobin immunoassay. ?? Quantitative values of individual biomarkers are not reportable and are not associated with individual biomarker result reference ranges. Cologuard is intended for colorectal cancer screening of adults of either sex, 45 years or older, who are at average-risk for colorectal cancer (CRC). Cologuard has been approved for use by the U.S. FDA. The performance of Cologuard was established in a cross sectional study of average-risk adults aged 50-84. Cologuard performance in patients ages 45 to 49 years was estimated by sub-group analysis of near-age groups. Colonoscopies performed for a positive result may find as the most clinically significant lesion: colorectal cancer [4.0%], advanced adenoma (including sessile serrated polyps greater than or equal to 1cm diameter) [20%] or non- advanced adenoma [31%]; or no colorectal neoplasia [45%]. These estimates are derived from a prospective cross-sectional screening study of 10,000 individuals at average risk for colorectal cancer who were screened with both Cologuard and colonoscopy. (Pricilla Muniz. et al, N Engl J Med 2014;370(14):4280-4270.) Cologuard may produce a false negative or false positive result (no colorectal cancer or precancerous polyp present at colonoscopy follow up). A negative Cologuard test result does not guarantee the absence of CRC or advanced adenoma (pre-cancer). The current Cologuard screening interval is every 3 years. ([place] Cancer Society and U.S. Multi-Society Task Force). Cologuard performance data in a 10,000 patient pivotal study using colonoscopy as the reference method can be accessed at the following location: www.Sookasa.com/results. Additional description of the Cologuard test process, warnings and precautions can be found at www.[email or web address].com. Stool specimen (specimen) 08/10/2023 2:00 AM EDT 08/11/2023 2:46 PM EDT Anna Graef [facility] ORDERA BLES Final Result [facility] (CLIA #:[id number]) [place] [address], from Last 3 Months or Most Recently Relevant to Health Maintenance Insurance [facility] CARE MEDICARE Care Teams Seed Buyer Relationship Specialty Start Date End Date Korey Schmitz ANP [address] [place] [phone] PCP - General Family Medicine 12/01/20
== END 2024-05-07 16:23 | disposition home or self-care (01) ==
PROVIDERS: PCP Nurse Practitioner Primary Care; Visit Provider Internal Medicine
DX: E66.9 Obesity, unspecified (principal); G47.33 Obstructive sleep apnea (adult) (pediatric); J45.909 Unspecified asthma, uncomplicated; R40.0 Somnolence
CPT/HCPCS: 99213

== ENCOUNTER → 2024-05-07 15:43 | Outpatient (BNVA) | payer MEDICAID, SELFPAY | PROVIDERS: PCP Nurse Practitioner Primary Care; Visit Provider Internal Medicine | DX: G47.33 Obstructive sleep apnea (adult) (pediatric) (principal); J45.909 Unspecified asthma, uncomplicated; E66.9 Obesity, unspecified; R40.0 Somnolence; Z68.36 Body mass index [BMI] 36.0-36.9, adult | CPT/HCPCS: 99212 ==

== ENCOUNTER 2024-07-10 10:53 | Outpatient (REF) | payer SELFPAY ==
--- OUTSIDE RECORDS SUMMARY | 2024-07-10 13:08 | XMS_ITS | Clinical Summary ---
Author Organization [employer] Address [address] [place] [address] [address] [place] [address] Care Team Providers Care Cork Pressing Machine Operator Name Role Phone Svetlana Shea Primary Care Provider [phone] Allergies Active Allergy Reactions Criticality Noted Date [...] Active Problems Problem Noted Date Diagnosed Date Mixed hyperlipidemia 07/10/2024 Elevated BP without diagnosis of hypertension Class [...] Encounters Date Type Department Care Team Description 07/10/2024 Orders Only [facility] [address] [place] [address] Svetlana Shea ANP Cyst of epididymis (Primary Dx); Left testicular pain; Mixed hyperlipidemia 07/10/2024 Travel 07/10/2024 Telephone [facility] [address] [place] [address] Svetlana Shea ANP 04/24/2024 Orders Only GENERIC EXTERNAL DATA DEPARTMENT [...] 02/05/2024 4:03 PM EDT Plan of Treatment Upcoming Encounters Date Type Department Care Team (Late st Contact Info) Description 09/12/2024 11:00 AM EDT Office Visit [facility] [address] [place] [address] Svetlana Shea ANP [address] [place] [address] Health Maintenance Due Date Last Done Comments CT Colonography 1974 Colonoscopy 1974 FIT 1974 FOBT 1974 HIV Screening 1974 Sigmoidoscopy 1974 Alcohol/Substance Use Screening 1986 Family Planning (PISQ) 1989 Hepatitis C Screening 01/26/1992 Pneumococcal Vaccine: 50+ Years (1 of 2 - PCV) 1993 Hepatitis B Vaccines (3 of 3 - [...] Additional history exists Lipid Panel 11/16/2028 11/17/2023, 05/11/2022, 10/26/2020, Additional history exists RSV Patients and [...] NUCLEIC ACID Routine 04/24/2024 11:57 AM EST LIPID PANEL, STANDARD Routine 11/17/2023 10:55 AM EDT Dyslipidemia LAB COLOGUARD?? COLON CANCER SCREEN Routine 08/10/2023 2:00 AM EDT Colon cancer screening from Last 3 Months or Most Recently Relevant to Health Maintenance Results * (ABNORMAL) Strep A Nucleic Acid (04/24/2024 11:57 AM EST) [employer]NOW SERIAL# [id number] [facility] Strep A Nucleic Acid Positive(A ) Negative [facility] Comment:All test results mus t [...] LAB MICROBIOLOGY - GENERAL ORDERABLES Final Result [facility] [address] [place] [address] [phone] * (ABNORMAL) SARS-CoV-2 RNA, Influenza A/B, and RSV RNA, Ql NAAT (04/24/2024 11:57 AM EST) Influenza A PCR POSITIVE(A) Negative [facility] Influenza B PCR NEGATIVE Negative [facility] Resp Syncy Virus RNA Qual PCR NEGATIVE Negative [facility] SARS COV2 PCR NEGATIVE Negative [facility] Comment:All test results mus t [...] use by authorized laboratories.Testing performed on the [employer] GeneXpert utilizingreal-time RT-PCR.All SARS CoV2 and positive influenza A/B results arereported to [facility]. 04/24/2024 11:5 7 AM EST 04/24/2024 12:03 PM EST Generic External Data Provider LAB MICROBIOLOGY - GENERAL ORDERABLES Final Result [facility] [address] [place] [address] [phone] * (ABNORMAL) Lipid Panel, Standard (11/17/2023 10:55 AM EDT) Triglycerides 212(H) <150 mg/dL [facility] Comment:Desirable Triglyceri de: less than 150 mg/dLBorderline High Triglyceride 150-199 mg/dLHigh Triglyceride: 200-499 mg/dLVery High Triglyceride: greater than or equal to 5OO mg/dL Cholesterol 209(H) <200 mg/dL [facility] Comment:Desirable Cholestero l: less than 200 mg/dLBorderline High Cholesterol: 200-239 mg/dLHigh Cholesterol: greater than 239 mg/dL LDL Cholesterol Calculated 138(H) <100 mg/dL [facility] Comment:Desirable LDL: less than 100 mg/dLNear Optimal/Above Optimal LDL: 110- 129 mg/dLBorderline High LDL: 130-159 mg/dLHigh LDL: 160-189 mg/dLVery High LDL: greater than or equal to 190 mg/dL HDL Cholesterol 29(L) >40 mg/dL [facility] Comment:Desirable HDL: great er than 40 mg/dL Note: This HDL assay may give artificially low results in patients with liver disease. Blood Venous blood specimen / Unknown 11/17/2023 10:55 AM EDT 11/17/2023 1:05 PM EDT [facility] BLOOD ORDERABLES Final Resul t [facility] [address] [place] [address] [phone] * Cologuard?? colon cancer screening (08/10/2023 2:00 AM EDT) Cologuard Result Negative Negative 08/22/19 5:29 PM EDT [employer] (CLIA #:[id number]) Comment: NEGATIVE TEST RESULT. A negative Cologuard [...] cancer. ??Following a negative Cologuard result, the [place] Cancer Society and U.S. Multi-Society Task Force screening guidelines recommend a Cologuard re-screening interval of 3 years. References: [place] [employer] Guideline for Colorectal Cancer Screening: https://www.cancer.org/cancer/hgste-cfpqrs-jdstjs/sluwolwhi-qzadckvqn-fkqcchf/ac s-rec ommendations.html.; Leeroy DK, Mario CR, Chance NealK, Colorectal Cancer Screening: Recommendations for Physicians and Patients from the U.S. Multi-Society Task Force on Colorectal Cancer Screening , Am J Gastroenterology 2017; 112:0339-3991. TEST DESCRIPTION: Composite algorithmic analysis of stool [...] (Pricilla Cheek al, N Engl J Med 2014;370(14):7687-8279.) Cologuard may produce a false negative or false positive result (no colorectal cancer or precancerous polyp present at colonoscopy follow up). A negative Cologuard test result does not guarantee the absence of CRC or advanced adenoma (pre-cancer). The current Cologuard screening interval is every 3 years. ([place] Cancer Society and U.S. Multi-Society Task Force). Cologuard performance data in a 10,000 patient pivotal study using colonoscopy as the reference method can be accessed at the following location: www.ULURU.Submittable/results. Additional description of the Cologuard test process, warnings and precautions can be found at www.[employer] [email or web address].[email or web address]. Stool specimen (specimen) 08/10/2023 2:00 AM EDT 08/11/2023 2:46 PM EDT us Anna Hernandez MATERNAL FETAL PHYSICIAN LAB MOLECULAR DIAGNOSTICS ORDERA BLES Final Result [employer] (CLIA #:[id number]) [place] [address], [place] [phone] from Last 3 Months or Most Recently Relevant to Health Maintenance Insurance [facility] CARE MEDICARE Member Subscriber Plan / Payer (Ef fective 2007-Present) Name:Jay Chan Member ID:[id number] Relation to Subscriber:Self Name:Jay Chan Subscriber ID:[id number] Payer ID:STATE Group ID:Not on file Type:Medicare Address: [facility] [address] [address] Care Teams Cork Pressing Machine Operator Relationship Specialty Start Date End Date Svetlana Shea ANP [address] [place] [address] PCP - General Family Medicine 12/01/20
--- OUTSIDE RECORDS SUMMARY | 2024-07-10 13:08 | XMS_ITS | Encounter Summary ---
Author Organization [employer] Address [address] [facility] [address] [place] [address] Care Team Providers Care Local City Driver Name Role Phone Svetlana Shea Primary Care Provider [phone] Encounter Details Date Type Department Care Team (Latest Contact Info) Description 07/10/2024 Travel Social History Tobacco Use Types Packs/Day Years [...] as of this encounter Plan of Treatment Upcoming Encounters Date Type Department Care Team (Late st Contact Info) Description 09/12/2024 11:00 AM EDT Office Visit [facility] [address] [place] [address] Svetlana Shea ANP [address] [place] [address] documented as of this encounter Visit Diagnoses Not on filedocumented in this encounter Care Teams Local City Driver Relationship Specialty Start Date End Date Svetlana Shea ANP [address] [place] [address] PCP - General Family Medicine 12/01/20 documented as of this encounter
--- OUTSIDE RECORDS SUMMARY | 2024-07-10 13:08 | XMS_ITS | Encounter Summary ---
Author Organization [employer] Address [address] [facility] [address] [place] [address] Care Team Providers Care Used Car Manager Name Role Phone Svetlana Shea Primary Care Provider Encounter Details Date Type Department Care Team ([facility] st Contact Info) Description 07/10/2024 Orders Only [facility] [address] [place] [address] Svetlana Shea ANP [address] [place] [address] Cyst of epididymis (Primary Dx); Left testicular pain; Mixed hyperlipidemia Social History Tobacco Use Types Packs/Day Years [...] Description 09/12/2024 11:00 AM EDT Office Visit [facility] [address] [place] [address] Svetlana Shea ANP [address] [place] [address] Scheduled Orders Name Type Priority Associated Diagnoses Orde r Schedule Lipid Panel, Standard Lab Routine Mixed hyperlipidemia Expected: 07/10/2024 (Approximate), Expires: 07/10/2025 Hemoglobin A1c Lab Routine Mixed hyperlipidemia Expected: 07/10/2024 (Approximate), Expires: 07/10/2025 documented as of this encounter Visit Diagnoses Diagnosis Cyst of epididymis- Primary Other specified disorder of male genital organs Left testicular pain Mixed hyperlipidemia documented in this encounter Care Teams Used Car Manager Relationship Specialty Start Date End Date Svetlana Shea ANP [address] [place] [phone] PCP - General Family Medicine 12/01/20 documented as of this encounter
--- OUTSIDE RECORDS SUMMARY | 2024-07-10 13:08 | XMS_ITS | Encounter Summary ---
Author Organization [employer] Address [address] [facility] [address]t [place] [address] Care Team Providers Care Bus And Rail Operator Name Role Phone Svetlana Shea Primary Care Provider [phone] Encounter Details Date Type Department Care Team ([facility] st Contact Info) Description 07/10/2024 Telephone [facility] [address] [place] [address] Svetlana Shea ANP [address] [place] [address] Social History Tobacco Use Types Packs/Day Years [...] AM EDT documented as of this encounter Miscellaneous Notes * Telephone Encounter - Brandy Ghosh RN - 07/10/2024 9:07 AM EDT ----- Message from Svetlana Shea sent at 07/09/2024 4:34 PM EDT ----- Please let pt know, urology should be calling him for an appt to follow-up on his scrotal pain. US confirmed Bilateral epididymal head cysts which were known. TC placed to pt he has agreed to come into the clinic today for 11 am for a follow up apt with PCP documented in this encounter Plan of Treatment Upcoming Encounters Date Type Department Care Team (Late st Contact Info) Description 09/12/2024 11:00 AM EDT Office Visit [facility] [address] [place] [address] Svetlana Shea ANP [address] [place] [address] documented as of this encounter Visit Diagnoses Not on filedocumented in this encounter Care Teams Bus And Rail Operator Relationship Specialty Start Date End Date Svetlana Shea ANP [address] [place] [address] PCP - General Family Medicine 12/01/20 documented as of this encounter
--- OUTSIDE RECORDS SUMMARY | 2024-07-10 13:08 | XMS_ITS | Encounter Summary ---
Author Organization [employer] Address [address] [place] [address] 7[address] [place] [address] Care Team Providers Care Intermodal Dispatcher Name Role Phone Korey Schmitz Primary Care Provider [phone] Reason for Referral * Consultation (Routine) - Authorized Specialty Diagnoses / Procedures Referred By Ben aranda Referred To Contact Urology Diagnoses Pain in left testicle Cyst of epididymis Korey Schmitz ANP [address] [place] [address] Phone: tel: fax: [facility] Referral ID Status Reason Start Date Expiration Date Visits Requested Visits Authorized [id number] Authorized Specialty Services Required 07/09/2024 07/09/2025 1 1 * Consultation (Routine) - Closed Specialty Diagnoses / Procedures Referred By Ben aranda Referred To Contact Physical Therapy Diagnoses Neck pain Korey Schmitz ANP [address] [place] [address] Phone: tel: fax: [facility] Physical Therapy [address] [place] [address] Phone: tel: fax: Referral ID Status Reason Start Date Expiration Date V isits Requested Visits Authorized [id number] Closed Specialty Services Required 11/17/2023 11/16/2024 1 1 * Imaging (Routine) - Closed Specialty Diagnoses / Procedures Referred By Ben aranda Referred To Contact Radiology Diagnoses Pain in left testicle Procedures US Scrotum Korey Schmitz ANP [address] [place] [address] Phone: tel: fax: [address] Phone: tel: fax: Referral ID Status Reason Start Date Expiration Date Visits Re quested Visits Authorized [id number] Closed 11/17/2023 11/16/2024 1 1 * Consultation (Routine) - Pending Review Specialty Diagnoses / Procedures Referred By Ben t Referred To Contact Nutrition Diagnoses Dyslipidemia BMI 36.0-36.9,adult Class 2 severe obesity with serious comorbidity and body mass index (BMI) of 36.0 to 36.9 in adult, unspecified obesity type (CMS/HCC) Korey Schmitz ANP [address] [place] [address] Phone: tel: fax: Referral ID Status Reason Start Date Expiration Date Visits Requested Visits Authorized [id number] Pending Review Consult and Treat 11/17/2023 11/16/2024 1 1 Reason for Visit * Reason Comments wellness visit Encounter Details Date Type Department Care Team (Latest Contact Info) Description 11/17/2023 9:45 AM EDT Office Visit [facility] MEDICINE [address] [place] [id number] Korey Schmitz ANP [address] [place] [id number] Acute ear pain, bilateral (Primary Dx); Dyslipidemia; BMI 36.0-36.9,adult; Class 2 severe obesity with serious comorbidity and body mass index (BMI) of 36.0 to 36.9 in adult, unspecified obesity type (CMS/HCC); Acute bacterial sinusitis; Colon cancer screening; Elevated triglycerides with high cholesterol; Neck pain; Pain in left testicle; Cyst of epididymis Social History Tobacco Use Types Packs/Day Years [...] AM EDT documented as of this encounter Last Filed Vital Signs Vital Sign Reading Time Taken Comments Blood Pressure 123/86 11/17/2023 9:53 AM EDT Pulse 67 11/17/2023 9:53 AM EDT Temperature 36.8 ??C (98.3 ??F) 11/17/2023 9:53 AM ED T Respiratory Rate 20 11/17/2023 9:53 AM EDT Oxygen Saturation - - Inhaled Oxygen Concentration - - Weight 97.2 kg (214 lb 3.2 oz) 11/17/2023 9:53 A M EDT Height 162.6 cm (5' 4 ) 11/17/2023 9:53 AM EDT Body Mass Index 36.77 11/17/2023 9:53 AM EDT documented in this encounter Progress Notes * Korey Schmitz, ROSEANNA - 11/17/2023 9:45 AM EDT Subjective Patient ID: Jay Chan is a 48 y.o. male who presents for wellness visit. PMH hypertension, asthma, GERD, LEEROY Specialists include: Dr. Santo Cardiology Dr. Britton Pulmonology Lives w/ . His kids are grown and he has 7 grandkids. Non-smoker, no etoh. No other substances. 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 Still w/ congestion and ear discomfort. He is still using ciprodex drops but stopped the po abx (doxycycline). When he was little he was told his throat would swell with PCN. H ad previously tolerated doxycycline well. He was taking w/ high dose naproxen. He did try taking meds w/ food. L groin pain - feels like he hit L testicle on something. Feels tender to the touch, but better than it was last week. No fever/chills. No problems urinating. No new partners. 1 partner - . No pain w/ ejaculation. Weight loss - he would like. 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 He walks a lotdaily. Eats empanada and coffee for bfast, sandwich for lunch, then dinner at 5ish. Feels stiff neck, not better with lidocaine topical. Massage gun does help. Review of Systems Constitutional: Negative for chills and fever. HENT: Positive for congestion, ear pain and sinus pressure. Negative for sore throat. Respiratory: Negative for shortness of breath and wheezing. Gastrointestinal: Negative for abdominal pain. Musculoskeletal: Positive for neck pain. Negative for back pain. Skin: Negative for rash. Objective BP 123/86 (BP Location: Right arm, Patient Position: Sitting, BP Cuff Size: Adult) Pulse 67 Temp 98.3 ??F (36.8 ??C) (Temporal) Resp 20 Ht 5' 4 (1.626 m) Wt 214 lb 3.2 oz (97.2 kg) BMI 36.77 kg/m?? Physical Exam Vitals reviewed. Constitutional: Appearance: Normal appearance. HENT: Head: Normocephalic and atraumatic. Eyes: General: No scleral icterus. Extraocular Movements: Extraocular movements intact. Pupils: Pupils are equal, round, and reactive to light. Cardiovascular: Rate and Rhythm: Normal rate and regular rhythm. Heart sounds: Normal heart sounds. No murmur heard. Pulmonary: Effort: Pulmonary effort is normal. Breath sounds: Normal breath sounds. No wheezing. Abdominal: General: Bowel sounds are normal. Palpations: Abdomen is soft. Tenderness: There is no abdominal tenderness. Skin: General: Skin is warm and dry. Neurological: Mental Status: He is alert and oriented to person, place, and time. Psychiatric: Mood and Affect: Mood normal. R testicle normal, L testicle with tenderness at superior edge and possible cyst posterior epididymis Assessment/Plan Diagnoses and all orders for this visit: I actually think it may be the naproxen causing vomiting and not the doxy. He has tolerated doxy well in the past and the sx started after taking naproxen after already tolerating. He will let us know if any new sx develop or sx recur and we will rx 3d doxy to complete 7d tx (he has 4d at home) We will check US for scrotal pain x 6 mo. Rec increased fiber and protein intake, counseled on food choices. Referred to nutrition. PT referral for neck pain Resume fish oil and get lipids drawn as ordered Acute ear pain, bilateral - doxycycline (Vibra-Tabs) 100 MG tablet; Take 1 tablet (100 mg) by mouth 2 times daily for 3 days.Take with a full glass of water and do not lie down for at least 30 minutes after. Dyslipidemia - Referral to Nutrition Therapy; Future BMI 36.0-36.9,adult - Referral to Nutrition Therapy; Future Class 2 severe obesity with serious comorbidity and body mass index (BMI) of 36.0 to 36.9 in adult,unspecified obesity type (CMS/HCC) - Referral to Nutrition Therapy; Future Acute bacterial sinusitis - doxycycline (Vibra-Tabs) 100 MG tablet; Take 1 tablet (100 mg) by mouth 2 times daily for 3 days.Take with a full glass of water and do not lie down for at least 30 minutes after. Colon cancer screening Cologuard negative 08/2023 Elevated triglycerides with high cholesterol - omega-3 (Fish Oil) 1000 MG capsule; Take 1 capsule via oral route twice daily. Neck pain Comments: PT referral Orders: - Referral to Physical Therapy; Future Pain in left testicle Comments: ?epididymal cyst on exam, check US Orders: - US Scrotum; Future 07/09/24 Addendum US/US scrotum IMPRESSION: Bilateral epididymal head cysts. Small bilateral hydroceles. Left inguinal hernia containing fat. Right testicular appendage. documented in this encounter Miscellaneous Notes * Result Encounter Note - ROSEANNA Altamirano - 11/17/2023 9:45 AM EDT Please let pt know, urology should be calling him for an appt to follow-up on his scrotal pain. US confirmed Bilateral epididymal head cysts which were known. * Addendum Note - ROSEANNA Altamirano - 11/17/2023 9:45 AM EDTAddended by: KOREY SCHMITZ on: 07/09/2024 04:32 PM Modules accepted: Orders documented in this encounter Plan of Treatment Upcoming Encounters Date Type Department Care Team (Late st Contact Info) Description 09/12/2024 11:00 AM EDT Office Visit [facility] MEDICINE [address] [place] [address] Korey Schmitz ANP [address] [place] [address] Scheduled Referrals Name Type Priority Associated Diagnoses Orde r Schedule Referral to Nutrition Therapy Outpatient Referral Routine Dyslipidemia BMI 36.0-36.9,adult Class 2 severe obesity with serious comorbidity and body mass index (BMI) of 36.0 to 36.9 in adult, unspecified obesity type (CMS/HCC) Expected: 11/17/2023 (Approximate), Expires: 11/16/2024 Referral to Physical Therapy Outpatient Referral Routine Neck pain Expected: 11/17/2023 (Approximate), Expires: 11/16/2024 Referral to Urology Outpatient Referral Routine Pain in left testicle Cyst of epididymis Expected: 07/09/2024 (Approximate), Expires: 07/09/2025 documented as of this encounter Procedures Procedure Name Priority Date/Time Associated Diagnosis Comments US SCROTUM Routine 11/27/2023 1:26 PM EDT Pain in left testicle documented in this encounter Results * US Scrotum (11/27/2023 1:26 PM EDT) Anatomical Region Laterality Modality Body Ultrasound 11/27/2023 1:26 PM EDT Narrative 02/29/2024 2:02 PM EST ? [facility] ?[address] ?[place] [address] ? Ultrasound Report ? Signed ? Patient: Jay Chan ?MR#: [id number] ? : 1975 ?Acct:[id number] ? Age/Sex: 48 / M ?ADM Date: 11/27/23 ? Loc: HO.US ? Attending Dr: Korey Schmitz NP ? Ordering Physician: KOREY SCHMITZ NP ?? Date of Service: 11/27/23 ?? Procedure(s): US scrotum ?? Accession Number(s): [id number] ? cc: KOREY SCHMITZ NP ? EXAMINATION: ?? US SCROTUM ? CLINICAL INFORMATION: ?? Atraumatic scrotal pain x6 months. ? COMPARISON: ?? Ultrasound scrotum 03/24/2020. ? TECHNIQUE: ?? A sonogram of the scrotum was performed assessing nam-scale appearance ?? and color Doppler flow. Spectral Doppler analysis of the arterial and ?? venous flow were performed in the testes bilaterally. ? FINDINGS: ? RIGHT: Right testicle measures 3.7 x 2.4 x 3.2 cm, volume 15.0 mL. ?? Parenchymal echotexture is homogeneous. No focal testicular parenchymal ?? lesions are visualized. Spectral Doppler analysis of the arterial and ?? venous flow is normal in the right testis. Right testicular appendage ?? measures 4 x 6 mm. ? Right epididymal head cyst measures 6 x 5 x 7 mm. Small right ?? hydrocele. No varicocele. ? LEFT: Left testicle measures 4.3 x 2.5 x 2.9 cm, volume 16.1 mL. ?? Parenchymal echotexture is homogeneous. No focal testicular parenchymal ?? lesions are visualized. Spectral Doppler analysis of the arterial and ?? venous flow is normal in the left testis. Prominent rete testis. ? Left inguinal hernia containing fat measures 3.9 x 1.5 cm invaginating ?? into the left hemiscrotum. ? Multiseptated left epididymal head cyst measures 1.1 x 1.5 x 1.0 cm. ?? Small left hydrocele. No varicocele. ? US/ scrotum ?? IMPRESSION: ?? Bilateral epididymal head cysts. ?? Small bilateral hydroceles. ?? Left inguinal hernia containing fat. ?? Right testicular appendage. ? Electronically signed by: ??Zackary Diaz MD ??02/29/2024 02:00 PM EST RP ? Dictated By: ?Oscar Diaz MD ? Signed By: ?<Electronically signed by Oscar Diaz MD in OV> ? 02/29/24 1400 ? DD/ 1326 ? TD/TT: 11/27/23 1410 ? Help Desk Associate: ? Procedure Note Alejo Sandoval - 02/29/2024 [place] [address] Ultrasound Report Signed Patient: Maia Chan#: [id number] : 1975Acct:[id number] Age/Sex: 48 / MADM Date: 11/27/23 Loc: HO.US Attending Dr: Korey Schmitz NP Ordering Physician: KOREY SCHMITZ NP Date of Service: 11/27/23 Procedure(s): US scrotum Accession Number(s): [id number] cc: KOREY SCHMITZ NP EXAMINATION: US SCROTUM CLINICAL INFORMATION: Atraumatic scrotal pain x6 months. COMPARISON: Ultrasound scrotum 03/24/2020. TECHNIQUE: A sonogram of the scrotum was performed assessing nam-scale appearance and color Doppler flow. Spectral Doppler analysis of the arterial and venous flow were performed in the testes bilaterally. FINDINGS: RIGHT: Right testicle measures 3.7 x 2.4 x 3.2 cm, volume 15.0 mL. Parenchymal echotexture is homogeneous. No focal testicular parenchymal lesions are visualized. Spectral Doppler analysis of the arterial and venous flow is normal in the right testis. Right testicular appendage measures 4 x 6 mm. Right epididymal head cyst measures 6 x 5 x 7 mm. Small right hydrocele. No varicocele. LEFT: Left testicle measures 4.3 x 2.5 x 2.9 cm, volume 16.1 mL. Parenchymal echotexture is homogeneous. No focal testicular parenchymal lesions are visualized. Spectral Doppler analysis of the arterial and venous flow is normal in the left testis. Prominent rete testis. Left inguinal hernia containing fat measures 3.9 x 1.5 cm invaginating into the left hemiscrotum. Multiseptated left epididymal head cyst measures 1.1 x 1.5 x 1.0 cm. Small left hydrocele. No varicocele. US/US scrotum IMPRESSION: Bilateral epididymal head cysts. Small bilateral hydroceles. Left inguinal hernia containing fat. Right testicular appendage. Electronically signed by: Zackary Diaz MD 02/29/2024 02:00 PM [facility] Dictated By: Oscar Diaz MD Signed By: <Electronically signed by Oscar Diaz MD in OV> 02/29/24 1400 DD/ 1326 TD/TT: 11/27/23 1410 Help Desk Associate: us Korey CONDON IMG US PROCEDURES Final Result documented in this encounter Visit Diagnoses Diagnosis Acute ear pain, bilateral- Primary Dyslipidemia Other and unspecified hyperlipidemia BMI 36.0-36.9,adult Class 2 severe obesity with serious comorbidity and body mass index (BMI) of 36.0 to 36.9 in adult, unspecified obesity type (CMS/HCC) Acute bacterial sinusitis Acute sinusitis, unspecified Colon cancer screening Special screening for malignant neoplasms, colon Elevated triglycerides with high cholesterol Mixed hyperlipidemia Neck pain Cervicalgia Pain in left testicle Unspecified disorder of male genital organs Cyst of epididymis Other specified disorder of male genital organs documented in this encounter Care Teams Intermodal Dispatcher Relationship Specialty Start Date End Date Korey Schmitz ANP [address] [place] [address] PCP - General Family Medicine 12/01/20 documented as of this encounter
[2024-07-10 13:40] LABS: Estimated Average Glucose 94 mg/dL; Hemoglobin A1C 124.4588 umol/L; Hemoglobin A1c % 4.9 % (<6.0); Total Hemoglobin (HGBA1C) 4095.0099 umol/L
[2024-07-10 14:02] LABS: Cholesterol 218 mg/dL (<200); HDL Cholesterol 34 mg/dL (>40); LDL Cholesterol Calculated 150 mg/dL (<100); Triglycerides 173 mg/dL (<150)
== END 2024-07-10 10:54 | disposition home or self-care (01) ==
LOC: HO.HHCL 10:53
PROVIDERS: Visit Provider Nurse Practitioner Primary Care
DX: E78.2 Mixed hyperlipidemia (principal); Z13.1 Encounter for screening for diabetes mellitus
CPT/HCPCS: 36415; 80061; 83036

== ENCOUNTER 2024-08-03 08:56 | Emergency (ER) | payer OTHER, MEDICAID, SELFPAY ==
--- NOTE | ~2024-08-03 | CT_ITS ---
CLINICAL HISTORY: LLQ TTP, nausea, diarrhea CT abdomen and pelvis with contrast Comparison: CT - CT ABDOMEN PELVIS W IV CON - 08/03/24 10:21 EDT Findings: No consolidation or effusion. The liver, spleen, gallbladder, adrenal glands, pancreas, kidneys, ureters and bladder are normal. There is mildly distended small bowel within the left midabdomen and left pelvis with gradual transition involving the anterior mid pelvis. No pneumatosis or free air. No free fluid or abscess. There is engorgement of the vasa recta. The colon demonstrates mild diverticulosis but no evidence of diverticulitis. The appendix is normal. No acute osseous finding. Impression: Borderline prominent small bowel within the left midabdomen and left pelvis with a gradual transition as detailed. Early small-bowel obstruction versus enteritis. Close clinical follow-up recommended. No current pneumatosis, free air or abscess. This document has been electronically signed by: Spencer Celestin MD on 08/03/2024 10:55:37
[2024-08-03 09:01] VITALS: BP 113/71; PULSE 117; RESP 16; TEMP 36.8; O2SAT 97; BMI 34.7
--- NOTE | 2024-08-03 09:06 | ED_ITS ---
HPI - Abdominal Pain General Chief Complaint: Abdominal Pain Stated Complaint: abd pain Time Seen by Provider: 08/03/24 09:06 Source: patient Mode of arrival: ambulatory Limitations: no limitations History of Present Illness ED Provider: Ruth Rios NP HPI narrative: Patient is a 49-year-old male who presents emergency department for evaluation of abdominal pain. He reports primarily localized to the left upper portion of his abdomen with onset approximately 0000 yesterday morning after eating frozen burgers home made the evening before. He also reports having multiple bouts of watery diarrhea since the onset of the pain with mild nausea but no vomiting, and subjective fevers. He does have a history of GERD for which he has been taking Prilosec daily. Yesterday he began having dysuria, admits to a history of urinary tract infections in the past but none recently, denies history of kidney stones. No known sick contacts. Denies chills, chest pain, vomiting, hematemesis, constipation, hematochezia, melena, urinary urgency, urinary hesitancy, hematuria. denies testicular pain/urethral discharge or scrotal swelling. Related Data Home Medications ?Medication ?Instructions ?Recorded ?Confirmed esomeprazole magnesium 20 mg 20 mg PO DAILY 11/29/23 04/29/24 capsule,delayed release omega 3-tzh-atz-fish oil 1,000 mg 1 cap PO BID 04/29/24 04/29/24 (120 mg-180 mg) capsule fluticasone propionate 50 1 spray intranasal DAILY PRN 05/07/24 mcg/actuation nasal spray,suspension (Flonase Allergy Relief) Previous Rx's ?Medication ?Instructions ?Recorded loperamide 2 mg capsule (Imodium 2 mg PO Q4H PRN loose stool #14 08/03/24 A-D) caps Allergies Allergy/AdvReac Type Severity Reaction Status Date / Time aspirin [Aspirin] Allergy Unknown UNKNOWN Verified 08/03/24 09:03 Penicillins Allergy Unknown SWELLING Verified 08/03/24 09:03 Review of Systems Review of Systems Yes all other systems are reviewed and are negative PMFSH Past Medical History Attestation statement: The following information was validated with the patient. Source: old records reviewed Medical History (Updated 08/03/24 @ 11:56 by Ruth Rios CNP) Diarrhea Somnolence, daytime Obesity (BMI 35.0-39.9 without comorbidity) Chest pain Cough with exposure to COVID-19 virus Right hamstring muscle strain Precordial chest pain Colon cancer screening Epigastric pain Avulsion fracture of medial malleolus Closed avulsion fracture of left ankle Orchalgia COVID-19 Asthma Stuffy nose Hx of chest pain GERD (gastroesophageal reflux disease) Headache LEEROY (obstructive sleep apnea) Asthma Hypertension Surgical History Hx of wisdom tooth extraction History of surgery on left wrist Family History Family History Mother Breast cancer Hypertension Diabetes Social History Social History Are you a primary children's zoo caretaker to a significant other at home: No Do you presently have visiting nurse or other home services: Yes ([facility]) Alcohol intake: never Patient Tobacco Use Status: Former Tobacco user Second Hand Smoke Exposure: No Advance Directives: No Advance Directives Information Provided: No Current occupational status: employed Current occupation: [employer] Physical Exam ED Vital Signs: Vital Signs - 24 hr 08/03/24 09:01 Temperature 98.3 F Pulse Rate 117 H Respiratory Rate 16 Blood Pressure 113/71 Pulse Oximetry 97 Oxygen Delivery Method Room Air BMI result Body Mass Index 34.7 Appearance: Alert.?Oriented to person, place and time. No acute distress.?Normal affect.?? Neck: Normal inspection.? Neck supple.?? CVS: Heart sounds normal. Normal heart rate and rhythm.? Pulses normal.?? Respiratory: No respiratory distress.? Lung sounds clear to auscultation bilaterally?? Abdomen: Soft with mild left upper quadrant tenderness upon palpation, exquisite left lower quadrant tenderness upon palpation.. No rebound tenderness at McBurney's point. Negative psoas sign. Negative Rovsing sign. Negative Esquivel sign. No CVAT. Normoactive bowel sounds. No pulsatile mass.?? Skin: Skin warm and dry.? Normal skin color.? Extremities: No lower extremity edema.? Neuro: Moves all extremities spontaneously. Sensation intact bilaterally. Ambulates with normal steady gait. Course Reevaluation(s) Reevaluation #1: He is without leukocytosis anemia or thrombocytopenia. No electrolyte derangement. No MARIELY. No lactic acidosis. LFTs and lipase are unremarkable. Urinalysis without evidence of infection or microscopic hematuria. Received call from [facility] regarding critical findings on CT of the abdomen and pelvis concerning for early SBO versus enteritis. Consulting with General surgery, Dr. Flores, who reviewed CT, will come to bedside to evaluate patient as well. Time: 11:01 Reevaluation #2: Evaluated by General surgery, agrees history, physical exam, interpretation of CT does not favor small bowel obstruction at this time. Symptoms more so favoring an enteritis. Reviewed these findings with the patient. Discussed clear liquid diet for the remainder of today, followed by a bland diet. Will send prescription for Imodium to the pharmacy. Outpatient follow-up with PCP. Strict return precautions discussed. All questions answered Time: 11:54 Medical Decision Making Medical Decision Making MDM Narrative: Patient is a 49-year-old male with a past medical history of asthma, LEEROY, GERD, hypertension, umbilical hernia who presents emergency department for evaluation of left-sided abdominal pain primarily reporting left upper quadrant on evaluation has notable tenderness primarily to the left lower quadrant with mild tenderness in the upper quadrant he states with onset after eating homemade hamburgers the evening before but has associated watery diarrhea, nausea as well as dysuria. He endorses subjective fevers at home but has not taken a temperature, arrives tachycardic he has no hypotension at this time. Given his tachycardia and subjective fever, will obtain blood cultures and lactic acid, patient will receive 1 L normal saline IV fluid, will cover prophylactically with Rocephin, will additionally trial GI cocktail for symptomatic relief at this time. Will obtain CBC to evaluate for leukocytosis/ anemia, CMP and lipase to evaluate for abnormal electrolytes /abnormal renal function/ abnormal hepatic/biliary function, CT of the abdomen and pelvis and Urinalysis. Differential Diagnosis Differential Diagnoses: The differential diagnosis associated with the presentation includes (See narrative above) Admission/Observation Consideration of admission/observation: Escalation of care including admission/observation considered (See narrative above ) Lab Data MDM Lab Attestation statement: I reviewed the patient's lab results. 08/03/24 09:33 08/03/24 09:33 Labs: Lab Results 08/03/24 08/03/24 Range/Units 09:33 09:41 WBC 6.5 (4.8-10.8) X10*3/uL RBC 5.17 (4.60-5.80) X10*6/uL Hgb 16.5 (14.0-18.0) g/dl Hct 46.2 (42.0-52.0) % MCV 89.4 (80.0-98.0) fL MCH 31.9 (27.0-33.0) pg MCHC 35.7 (31.0-36.0) g/dl RDW 12.8 (11.0-16.0) % Plt Count 200 (160-400) X10*3/uL MPV 11.4 (9.4-12.4) fL Immature Gran % (Auto) 0.3 (0.0-0.4) % Neut % (Auto) 68.7 (45-73) % Lymph % (Auto) 20.7 (20-40) % [place] % (Auto) 7.6 (2-11) % Eos % (Auto) 2.2 (0-4) % Baso % (Auto) 0.5 (0-2) % Lymph # (Auto) 1.3 (1.2-4.9) X10*3/uL [place] # (Auto) 0.5 (0.1-1.2) X10*3/uL Eos # (Auto) 0.1 (0.0-0.4) X10*3/uL Baso # (Auto) 0.0 (0.0-0.2) X10*3/uL Abs Immat Gran (auto) 0.02 (0.00-0.03) X10*3/uL Absolute Neuts (auto) 4.5 (2.0-8.3) x10*3/uL Absolute Nucleated RBC 0.000 (0.0-0.012) X10*3/uL Nucleated RBC % (auto) 0.0 (0.0-0.2) /100WBC Sodium 138 (135-145) mmol/L Potassium 3.7 (3.3-5.1) mmol/L Chloride 106 (96-108) mmol/L Carbon Dioxide 23 (22-29) mmol/L Anion Gap 13 (12-20) BUN 17 H (9-16) mg/dL Creatinine 1.05 (0.5-1.4) mg/dL Estim Creat Clear Calc 85.9 Estimated GFR > 60 Random Glucose 121 H (60-115) mg/dL Lactic Acid 0.8 (0.5-2.0) mmol/L Calcium 8.7 D (8.4-10.2) mg/dL Total Bilirubin 0.8 (0.0-1.0) mg/dL AST 19 (5-37) U/L ALT 24 (0-40) U/L Alkaline Phosphatase 105 (39-117) U/L Total Protein 6.5 (6.5-8.0) g/dL Albumin 4.0 (3.5-5.0) g/dL Lipase 26 (8-78) U/L Urine Color Dark Yellow Urine Appearance Clear Urine pH 5.5 (5.0-9.0) Ur Specific [place] >= 1.030 H (1.005-1.025) Urine Protein 30 (1+) H (Neg-Trace) mg/dL Urine Glucose (UA) Negative (Negative) mg/dL Urine Ketones Trace (Negative) mg/dL Urine Blood Negative (Negative) Urine Nitrite Negative (Negative) Ur Leukocyte Esterase Negative (Negative) Urine RBC 0-2 (0-2) /HPF Urine WBC 0-5 (0-5) /HPF Ur Squamous Epith Cells 0-2 (0-2) /HPF Urine Bacteria None Seen (None Seen) Hyaline Casts 0-2 (0-2) /LPF Influenza Type A (PCR) NEGATIVE (Negative) Influenza Type B (PCR) NEGATIVE (Negative) RSV RNA Qual (PCR) NEGATIVE (Negative) SARS-CoV-2 RNA (RT-PCR) NEGATIVE (Negative) Radiology Impression Discussion of test interpretation with radiology: I have reviewed the radiologist's reading. Radiologist Impression: CT abdomen and pelvis with contrast Comparison: CT - CT ABDOMEN PELVIS W IV CON - 08/03/24 10:21 EDT Findings: No consolidation or effusion. The liver, spleen, gallbladder, adrenal glands, pancreas, kidneys, ureters and bladder are normal. There is mildly distended small bowel within the left midabdomen and left pelvis with gradual transition involving the anterior mid pelvis. No pneumatosis or free air. No free fluid or abscess. There is engorgement of the vasa recta. The colon demonstrates mild diverticulosis but no evidence of diverticulitis. The appendix is normal. No acute osseous finding. Impression: Borderline prominent small bowel within the left midabdomen and left pelvis with a gradual transition as detailed. Early small-bowel obstruction versus enteritis. Close clinical follow-up recommended. No current pneumatosis, free air or abscess. Independent Historian Clinical information obtained from an independent historian. History obtained from or confirmed by: Spouse External Record Review External record reviewed: Outpatient record Chronic Conditions Patient?s care impacted by: Other (See narrative above) Medications Administered Discontinued Medications Generic Name Dose Route Start Last Admin Trade Name Bethany PRN Reason Stop Dose Admin Al Hydroxide/Mg Hydroxide 30 ml 08/03/24 09:20 08/03/24 09:47 Magnesium Hydrox/Alum Hydrox 30 Ml Oral.Susp PO 08/03/24 09:21 30 ml ONCE ONE Administration Ceftriaxone Sodium 1 gm 08/03/24 09:24 08/03/24 09:47 Ceftriaxone Sodium 1 Gm Vial IVPUSH 08/03/24 09:25 1 gm ONCE ONE Administration Famotidine 20 mg 08/03/24 09:20 08/03/24 09:47 Famotidine 20 Mg Tablet PO 08/03/24 09:21 20 mg ONCE ONE Administration Sodium Chloride 1,000 mls @ 999 mls/hr 08/03/24 09:30 08/03/24 09:47 Ns IV 08/03/24 10:30 999 mls/hr .Q1H1M RUBIN Administration Iohexol 100 ml 08/03/24 10:26 08/03/24 10:27 Iohexol 350 Mg/Ml 100 Ml Infus..Btl IV 08/03/24 10:27 85 ml ONCE ONE Administration Lidocaine HCl 15 ml 08/03/24 09:20 08/03/24 09:47 Lidocaine Hcl Viscous 2 % 15 Ml Solution MUCOUS MEM 08/03/24 09:21 15 ml ONCE ONE Administration Ondansetron HCl 4 mg 08/03/24 09:20 08/03/24 09:47 Ondansetron Hcl 4 Mg/2 Ml Vial IVPUSH 08/03/24 09:21 4 mg ONCE ONE Administration Discharge Plan Discharge Clinical Impression: Enteritis Patient Disposition: Home, Self-Care Instructions: Enteritis (ED) Additional Instructions: Consume clear liquids for the remainder of today. Start with a bland diet tomorrow. Introduce a bland diet including crackers, bananas, rice, soup, toast, and boiled vegetables. This may progress to plain baked or boiled chicken or turkey. Avoid dairy products or foods high in fat or grease. I have sent a prescription for Imodium to use as needed for diarrhea, take as prescribed. Be sure that you are staying well hydrated. Follow-up with your primary care doctor. Return with any new or worsening symptoms or concerns. Prescriptions: New loperamide [Imodium A-D] 2 mg capsule 2 mg PO Q4H PRN (Reason: loose stool) Qty: 14 0RF Rx Instructions: administer after each loose stool until symptoms controlled; do not exceed 8 mg per 24 hrs No Action esomeprazole magnesium 20 mg capsule,delayed release(DR/EC) 20 mg PO DAILY fluticasone propionate [Flonase Allergy Relief] 50 mcg/actuation spray,suspension 1 spray intranasal DAILY PRN Rx Instructions: administer into each nostril omega 0-qpw-gmz-fish oil 1,000 (120-180) mg capsule 1 cap PO BID Referrals: Svetlana Shea PROJECT MANAGER/TEAM COACH [Primary Care Provider] - Print Language: Polish
--- OUTSIDE RECORDS SUMMARY | 2024-08-03 09:27 | XMS_ITS | Clinical Summary ---
Author Organization [email or web address] Address [address] [place] [address] [address] [place] [address] Care Team Providers Care Individual Pension Adviser Name Role Phone Svetlana Shea Primary Care Provider Allergies Active Allergy Reactions Criticality Noted Date [...] Department Care Team Description 07/10/2024 Orders Only [facility] [address] [place], [place] [phone] Svetlana Shea ANP Cyst of epididymis (Primary Dx); Left testicular pain; Mixed hyperlipidemia 07/10/2024 Travel 07/10/2024 Telephone [facility] [address] [place], [place] [phone] Svetlana Shea ANP from Last 3 Months Immunizations Name Administration [...] Description 09/12/2024 11:00 AM EDT Office Visit [facility] [address] [place] [address] Svetlana Shea, ANP [address] [place] [address] Health Maintenance Due Date Last Done Comments [...] 03/21/2018, 09/20/2012, Additional history exists Lipid Panel 07/10/2029 07/10/2024, 08/0 12/2023, 08/15/2022, Additional history exists RSV Patients and Patients [...] Procedure Name Priority Date/Time Associated Diagnosis Comments HEMOGLOBIN A1C Routine 07/10/2024 10:56 AM EDT Mixed hyperlipidemia LIPID PANEL, STANDARD Routine 07/10/2024 10:56 AM EDT Mixed hyperlipidemia LAB COLOGUARD?? COLON CANCER SCREEN Routine 08/10/2023 2:00 AM EDT Colon cancer screening from Last 3 Months or Most Recently Relevant to Health Maintenance Results * Hemoglobin A1c (07/10/2024 10:56 AM EDT) Hemoglobin A1c 4.9 <6.0 % [facility] Comment:Hemoglobin A1C Refer ence Range Adults: 4.8 - 6.0 % Non diabetic: < 6.0 % Goal: < 7.0 %Additional Action Suggested: > 8.0 %Note: Hemoglobin A1c results are invalid for patients with abnormal amounts of HbF. Blood transfusions may impact the HbA1c concentration in the patient sample. Estimated Average Glucose 94 mg/dL [facility] Comment:eAG = Estimated ave rage glucose which is %A1C expressed asaverage glucose, using the formula of the Q4F-HingdqtMkancge Glucose study (ADAG), Diabetes Care, Vol.31,#8,Nov. 2007 Blood Venous blood specimen / Unknown 07/10/2024 10:56 AM EDT 07/10/2024 1:12 PM EDT Svetlana CONDON LAB BLOOD ORDERABLES Final Resul t [facility] [address] [place] [address] [phone] * (ABNORMAL) Lipid Panel, Standard (07/10/2024 10:56 AM EDT) Triglycerides 173(H) <150 mg/dL [facility] Comment:Desirable Triglyceri de: less than 150 mg/dLBorderline High Triglyceride 150-199 mg/dLHigh Triglyceride: 200-499 mg/dLVery High Triglyceride: greater than or equal to 5OO mg/dL Cholesterol 218(H) <200 mg/dL [facility] Comment:Desirable Cholestero l: less than 200 mg/dLBorderline High Cholesterol: 200-239 mg/dLHigh Cholesterol: greater than 239 mg/dL LDL Cholesterol Calculated 150(H) <100 mg/dL [facility] Comment:Desirable LDL: less than 100 mg/dLNear Optimal/Above Optimal LDL: 110- 129 mg/dLBorderline High LDL: 130-159 mg/dLHigh LDL: 160-189 mg/dLVery High LDL: greater than or equal to 190 mg/dL HDL Cholesterol 34(L) >40 mg/dL [facility] Comment:Desirable HDL: great er than 40 mg/dL Note: This HDL assay may give artificially low results in patients with liver disease. Blood Venous blood specimen / Unknown 07/10/2024 10:56 AM EDT 07/10/2024 1:12 PM EDT [facility] LAB BLOOD ORDERABLES Final Resul t [facility] [address] [place] [phone] * Cologuard?? colon cancer screening (08/10/2023 2:00 AM EDT) Cologuard Result Negative Negative 08/22/19 24 5:29 PM EDT [facility] (CLIA #:[id number]) Comment: NEGATIVE TEST RESULT. A negative Cologuard [...] cancer. ??Following a negative Cologuard result, the [place] [employer] Society and U.S. Multi-Society Task Force screening guidelines recommend a Cologuard re-screening interval of 3 years. References: [place] [employer] Guideline for Colorectal Cancer Screening: https://www.cancer.org/cancer/yigel-mmzjka-lhkexh/psrdysngb-eczknefzt-jcglxkg/ac s-rec ommendations.html.; Leeroy CAMPOS, Mario KHAN, Chance NealK, Colorectal Cancer Screening: Recommendations for Physicians and Patients from the U.S. Multi-Society Task Force on Colorectal Cancer Screening , Am J Gastroenterology 2017; 112:1506-6005. TEST DESCRIPTION: Composite algorithmic analysis of stool [...] screened with both Cologuard and colonoscopy. (Pricilla Turner, N Engl J Med 2014;370(14):9398-9687.) Cologuard may produce a false negative or false positive result (no colorectal cancer or precancerous polyp present at colonoscopy follow up). A negative Cologuard test result does not guarantee the absence of CRC or advanced adenoma (pre-cancer). The current Cologuard screening interval is every 3 years. ([place] [employer] and U.S. Multi-Society Task Force). Cologuard performance data in a 10,000 patient pivotal study using colonoscopy as the reference method can be accessed at the following location: www.[employer]/results. Additional description of the Cologuard test process, warnings and precautions can be found at www.[employer].com. Stool specimen (specimen) 08/10/2023 2:00 AM EDT 08/11/2023 2:46 PM EDT Anna Hernandez NP LAB MOLECULAR DIAGNOSTICS ORDERA BLES Final Result [facility] (CLIA #:[id number]) Manuel Hebert [place] [phone], from Last 3 Months or Most Recently Relevant to Health Maintenance Insurance MEDICARE [facility] < 65 Care Teams Individual Pension Adviser Relationship Specialty Start Date End Date Svetlana Shea ANP [address] [place] [address] PCP - General Family Medicine 12/01/20
[2024-08-03 09:40] LABS: MANUAL DIFF FLAG NO
[2024-08-03] MEDS: 0.9 % Sodium Chloride 1,000 ML 999 ML IV (09:47)
[2024-08-03] MEDS: Famotidine 20 MG TABLET PO (09:47)
[2024-08-03] MEDS: cefTRIAXone sodium 1 GM VIAL IVPUSH (09:47)
[2024-08-03] MEDS: ondansetron HCL 4 MG/2 ML VIAL IVPUSH (09:47)
[2024-08-03] MEDS: Lidocaine HCl Viscous 2 % 15 ML SOLUTION MUCOUS MEM (09:47)
[2024-08-03] MEDS: Magnesium Hydrox/Alum Hydrox 30 ML ORAL.SUSP PO (09:47)
[2024-08-03 09:49] LABS: Basophils Percent Auto 0.5 % (0-2); Eosinophils Absolute Auto 0.1 X10*3/uL (0.0-0.4); Eosinophils Percent Auto 2.2 % (0-4); Hematocrit 46.2 % (42.0-52.0); Hemoglobin 16.5 g/dl (14.0-18.0); Imm Gran Abs Auto 0.02 X10*3/uL (0.00-0.03); Imm Gran Pct Auto 0.3 % (0.0-0.4); Lymphocytes Absolute Auto 1.3 X10*3/uL (1.2-4.9); Lymphocytes Percent Auto 20.7 % (20-40); Mean Corpuscular HGB Conc 35.7 g/dl (31.0-36.0); Mean Corpuscular Hemoglobin 31.9 pg (27.0-33.0); Mean Corpuscular Volume 89.4 fL (80.0-98.0); Mean Platelet Volume 11.4 fL (9.4-12.4); Monocytes Absolute Auto 0.5 X10*3/uL (0.1-1.2); Monocytes Percent Auto 7.6 % (2-11); Neutrophils Absolute Auto 4.5 x10*3/uL (2.0-8.3); Neutrophils Percent Auto 68.7 % (45-73); Platelet Count 200 X10*3/uL (160-400); Red Blood Count 5.17 X10*6/uL (4.60-5.80); Red Cell Distribution Width 12.8 % (11.0-16.0); White Blood Count 6.5 X10*3/uL (4.8-10.8)
[2024-08-03 09:53] LABS: Appearance Urine Clear; Color Urine Dark Yellow; Glucose Urine UA Negative (Negative); Leukocyte Esterase Urine Negative (Negative); Nitrite Urine Negative (Negative); PH 5.5 (5.0-9.0); Specific Gravity - Urine >= 1.030 (1.005-1.025); UMIC TRIGGER UACC YES; Urine Blood Negative (Negative); Urine Ketones Trace mg/dL (Negative); Urine Protein 30 (1+) mg/dL (Neg-Trace)
[2024-08-03 09:55] LABS: Anion Gap 13 (12-20)
[2024-08-03 09:58] LABS: Lactic Acid 0.8 mmol/L (0.5-2.0)
[2024-08-03 10:01] LABS: Alanine Aminotransferase 24 U/L (0-40); Aspartate Amino Transferase 19 U/L (5-37); Bilirubin Total 0.8 mg/dL (0.0-1.0); Blood Urea Nitrogen 17 mg/dL (9-16); Calcium 8.7 mg/dL (8.4-10.2); Carbon Dioxide 23 mmol/L (22-29); Chloride 106 mmol/L (96-108); Creatinine Clr Calc Pharmacy 85.9; Estimated Glomerular Filt Rate > 60; Glucose Random 121 mg/dL (60-115); Lipase 26 U/L (8-78); Potassium 3.7 mmol/L (3.3-5.1); Sodium 138 mmol/L (135-145); Total Protein 6.5 g/dL (6.5-8.0)
[2024-08-03 10:03] LABS: Alkaline Phosphatase 105 U/L (39-117)
[2024-08-03 10:06] LABS: Bacteria Urine None Seen (None Seen); Hyaline Casts Urine 0-2 /LPF (0-2); RBC Urine 0-2 /HPF (0-2); Squamous Epithelial Cell Urine 0-2 /HPF (0-2); WBC Urine 0-5 /HPF (0-5)
[2024-08-03 10:19] LABS: Influenza A PCR NEGATIVE (Negative); Influenza B PCR NEGATIVE (Negative); Resp Syncy Virus RNA Qual PCR NEGATIVE (Negative); SARS COV2 PCR INHOUSE NEGATIVE (Negative)
--- NOTE | 2024-08-03 10:19 | PC.NURSE ---
18g IV access established in right AC. Labs obtained and sent to lab for analysis. Urine specimen & SARS/Flu/RSV swab also collected and sent for analysis. Results pending. Medicated per provider orders. Plan for CT scan with contrast. Care ongoing by this RN.
[2024-08-03] MEDS: iohexoL 350 MG/ML 100 ML INFUS..BTL IV (10:27)
--- NOTE | 2024-08-03 11:52 | PM.CNGS ---
History of Present Illness Consult details Consult date: 08/03/24 Narrative: 49-year-old male referred for an abdominal CAT scan. He says that came to the ER today because of abdominal pain and severe diarrhea. He says that this started yesterday. He says that he did have a fever 2 days ago. He points to his abdominal pain as mostly in the left upper quadrant. He says this seems to have started after he had some frozen hamburgers at home. He describes multiple very watery stools since yesterday and she says that he could not count many he has had. He denies any vomiting. No history of previous abdominal surgeries. Review of Systems Constitutional: Constitutional: Denies chills and Denies fever(s) Cardiovascular: Cardiovascular: Denies chest pain, Denies dyspnea and Denies dyspnea on exertion Respiratory: Respiratory: Denies cough, Denies dyspnea and Denies dyspnea on exertion Gastrointestinal: Gastrointestinal: Denies hematochezia and Denies change in bowel habits Genitourinary: Genitourinary: Denies hematuria and Denies difficulty urinating Musculoskeletal: Musculoskeletal: Denies back pain and Denies limited range of motion Neurologic: Denies focal weakness and Denies convulsions Psychiatric: Psychiatric: Denies depression and Denies mood swings PENDING SALE TO [facility] Past Medical History Medical History (Updated 08/04/24 @ 00:00 by Background Daemon) Diarrhea Somnolence, daytime Obesity (BMI 35.0-39.9 without comorbidity) Chest pain Cough with exposure to COVID-19 virus Right hamstring muscle strain Precordial chest pain Colon cancer screening Epigastric pain Avulsion fracture of medial malleolus Closed avulsion fracture of left ankle Orchalgia COVID-19 Asthma Stuffy nose Hx of chest pain GERD (gastroesophageal reflux disease) Headache LEEROY (obstructive sleep apnea) Asthma Hypertension Family History Family History Mother Breast cancer Hypertension Diabetes Surgical History Surgical History Hx of wisdom tooth extraction History of surgery on left wrist Social History Social History Are you a primary acute care registered nurse to a significant other at home: No Do you presently have visiting nurse or other home services: Yes ([facility]) Alcohol intake: never Patient Tobacco Use Status: Former Tobacco user Second Hand Smoke Exposure: No Advance Directives: No Advance Directives Information Provided: No Current occupational status: employed Current occupation: [employer] Meds Allergies Allergy/AdvReac Type Severity Reaction Status Date / Time aspirin [Aspirin] Allergy Unknown UNKNOWN Verified 08/03/24 09:03 Penicillins Allergy Unknown SWELLING Verified 08/03/24 09:03 Home Medications ?Medication ?Instructions ?Recorded ?Confirmed ?Last Taken ?Type esomeprazole magnesium 20 mg 20 mg PO DAILY 11/29/23 04/29/24 Unknown History capsule,delayed release omega [id number] oil 1,000 mg 1 cap PO BID 04/29/24 04/29/24 Unknown History (120 mg-180 mg) capsule fluticasone propionate 50 1 spray intranasal DAILY PRN 05/07/24 Unknown History mcg/actuation nasal spray,suspension (Flonase Allergy Relief) Physical Exam Vital Signs: Vital Signs: Last Vital Signs Temp 98.3 F 08/03/24 09:01 Pulse 117 H 08/03/24 09:01 Resp 16 08/03/24 09:01 BP 113/71 08/03/24 09:01 Pulse Ox 97 08/03/24 09:01 O2 Del Method Room Air 08/03/24 09:01 BMI result Body Mass Index 34.7 Const: Other: Obese General: comfortable and no acute distress Orientation/consciousness: patient oriented x3 Neck: Neck: Yes no lymphadenopathy Resp: Auscultation: clear to auscultation bilaterally Cardio: Rhythm: regular rhythm GI: Palpation (GI): Soft to palpation, Tenderness to palpation present (GI) (Very mild tenderness on the left side), no guarding and not rigid Neuro: General: patient oriented x3 Results Labs 08/03/24 09:33 08/03/24 09:33 Labs: Abnormal lab results 08/03/24 08/03/24 Range/Units 09:33 09:41 BUN 17 H (9-16) mg/dL Random Glucose 121 H (60-115) mg/dL Ur Specific [place] >= 1.030 H (1.005-1.025) Urine Protein 30 (1+) H (Neg-Trace) mg/dL Short CBC 08/03/24 Range/Units 09:33 WBC 6.5 (4.8-10.8) X10*3/uL Hgb 16.5 (14.0-18.0) g/dl Hct 46.2 (42.0-52.0) % Plt Count 200 (160-400) X10*3/uL BMP 08/03/24 09:33 Sodium 138 Potassium 3.7 Chloride 106 Carbon Dioxide 23 BUN 17 H Creatinine 1.05 Calcium 8.7 D Liver Function 08/03/24 Range/Units 09:33 Total Bilirubin 0.8 (0.0-1.0) mg/dL AST 19 (5-37) U/L ALT 24 (0-40) U/L Alkaline Phosphatase 105 (39-117) U/L Albumin 4.0 (3.5-5.0) g/dL Urine 08/03/24 Range/Units 09:41 Urine Color Dark Yellow Urine Appearance Clear Urine pH 5.5 (5.0-9.0) Ur Specific [place] >= 1.030 H (1.005-1.025) Urine Protein 30 (1+) H (Neg-Trace) mg/dL Urine Glucose (UA) Negative (Negative) mg/dL All other labs normal. Imaging Abdomen CT scan report/results: report reviewed and image reviewed CT scan - pelvis: report reviewed and image reviewed Additional studies: Impression: Borderline prominent small bowel within the left midabdomen and left pelvis with a gradual transition as detailed. Early small-bowel obstruction versus enteritis. Close clinical follow-up recommended. No current pneumatosis, free air or abscess. Assessment and Plan (1) Diarrhea: Status: Acute 49-year-old male with diarrhea and abdominal pain in the left upper quadrant since yesterday. I have reviewed his CAT scan. There was note of some mild distention of a segment of small bowel. There was no transition point. Overall clinical picture I just more of an enteritis especially with severe diarrhea. He does not present with signs of obstruction. He may be volume depleted as well from his I losses. His abdominal exam is very benign and he was minimal tenderness. He does not appear to have any surgical issues at this time. Procedures Date of Service Date of Service: 08/08/24
[2024-08-03 12:31] VITALS: BP 127/82; PULSE 98; RESP 16; TEMP 36.7; O2SAT 98
== END 2024-08-03 12:31 | disposition home or self-care (01) ==
PROVIDERS: Nurse Practitioner Family; Emergency Provider Emergency Medicine; PCP Nurse Practitioner Primary Care
DX: K52.9 Noninfective gastroenteritis and colitis, unspecified (principal); R10.12 Left upper quadrant pain; R11.0 Nausea; R10.2 Pelvic and perineal pain; Z03.818 Encounter for observation for suspected exposure to other biological agents ruled out; Z79.899 Other long term (current) drug therapy
CPT/HCPCS: 0241U; 36415; 74177; 80053; 81001; 83605; 83690; 85025; 87040; 96361; 96374; 96375; 99284; J0696; J2405; Q9967

== ENCOUNTER → 2024-08-03 09:20 | Outpatient (BNV) | payer OTHER, MEDICAID, SELFPAY | PROVIDERS: Emergency Provider Emergency Medicine; PCP Nurse Practitioner Primary Care; Visit Provider Radiology Vascular & Interventional Radiology | DX: R10.32 Left lower quadrant pain (principal); R11.0 Nausea; R19.7 Diarrhea, unspecified | CPT/HCPCS: 74177 ==

== ENCOUNTER → 2024-08-03 09:24 | Outpatient (BNV) | payer OTHER, MEDICAID, SELFPAY | PROVIDERS: Emergency Provider Emergency Medicine; PCP Nurse Practitioner Primary Care; Visit Provider Surgery | DX: R19.7 Diarrhea, unspecified (principal) | CPT/HCPCS: 99283 ==

== ENCOUNTER 2024-09-10 10:42 | Outpatient (AMB) | payer MEDICARE, MEDICAID, SELFPAY ==
--- NOTE | 2024-09-10 10:50 | A.OFFVIS_ITS ---
Intake Visit Reasons: scrotal pain Intake Note: Patient is present for [facility] Medication:NONE Antibiotic Allergy:PENICILLINS Blood Thinner:NONE Food Safety Manager Required: No Allergies aspirin [Aspirin] Allergy (Unknown, Verified 09/10/24 10:51) UNKNOWN Penicillins Allergy (Unknown, Verified 09/10/24 10:51) SWELLING HPI Comments Details: Jay is a pleasant male. He is a patient of Dr. Shea. He is seen for the following urologic conditions - intermittent orchalgia - prostatitis Last seen 2 years ago with episode of prostatitis Re presentation with testicular discomfort Current creatinine 1.1 Without symptoms currently Had been sent by PCP May use nonsteroidals judiciously Follow-up p.r.n. Prostatitis Pain with ejaculation toward tip of penis Recreated with RICKI Trial antibiotics with prednisone Cannot tolerate NSAIDs secondary to elevated creatinine Testicular discomfort Examination today mild tenderness on right side Testicle has improved since scheduling appointment Did respond well to anti-inflammatories Recommended to him use anti-inflammatories 2-3 days of pain were to return PENDING SALE TO [facility] Medical History (Updated 08/04/24 @ 00:00 by Hang Wong) Diarrhea Somnolence, daytime Obesity (BMI 35.0-39.9 without comorbidity) Chest pain Cough with exposure to COVID-19 virus Right hamstring muscle strain Precordial chest pain Colon cancer screening Epigastric pain Avulsion fracture of medial malleolus Closed avulsion fracture of left ankle Orchalgia COVID-19 Asthma Stuffy nose Hx of chest pain GERD (gastroesophageal reflux disease) Headache LEEROY (obstructive sleep apnea) Asthma Hypertension Surgical History Hx of wisdom tooth extraction History of surgery on left wrist Family History Mother Breast cancer Hypertension Diabetes Social History Are you a primary resident care director to a significant other at home: No Do you presently have visiting nurse or other home services: Yes ([facility]) Alcohol intake: never Patient Tobacco Use Status: Former Tobacco user Second Hand Smoke Exposure: No Current occupational status: employed Current occupation: [employer] Review of Systems Const Denies chills and Denies fever(s) Card Reports no additional complaints and Denies syncope Resp Denies cough GI Denies abdominal pain and Denies heartburn Reports as per HPI and Denies change in libido Neuro Denies syncope Psych Denies change in libido Endo Denies change in libido Physical Exam Const General: cooperative, healthy appearing, comfortable and no acute distress Orientation/consciousness: patient oriented x3 HEENT Face and sinus: Yes normal facial exam Mouth: moist mucous membranes Neck Neck: Yes normal visual inspection, Yes full ROM and Yes trachea midline Chest Chest palpation & inspection: normal inspection of the chest Resp Effort & Inspection: normal respiratory effort, able to speak in complete sentences and no respiratory distress GI Inspection: Yes normal to inspection Back/Spine/Pelvis Cervical Spine: normal cervical lordosis Thoracic/Lumbar Spine: thoracic and lumbar spine normal to inspection Skin General skin exam: no rashes or lesions noted Neuro General: patient oriented x3, gait normal, tone normal and moves all extremities Extrem General: Yes normal to inspection and Yes capillary refill normal Assessment & Plan Assessment & Plan (1) Prostatitis: Code(s): N41.9 - Inflammatory disease of prostate, unspecified Category: Medical Plan Plan 1. Scrotal Sensitivity Continue observation and advise the patient to return if symptoms change. Normal sensitivity reaffirmed, no current intervention required. 2. Past Scrotal Issues Past issues resolved. No additional treatment or follow-up currently necessary unless symptoms recur. Discussion Notes In our discussion, the patient reported no current scrotal pain, with sensitivity a manageable concern since childhood, affecting approximately 20% of men similarly. I advised the patient that anti-inflammatory medications could be taken if symptoms intensify. As for previously noted scrotal issues resolved two years prior, no intervention is currently warranted. I recommended the patient contact me should symptoms change. Potential risks and benefits of taking occasional anti-inflammatories were outlined, and the patient is aware of maintaining vigilance for new symptoms. We concluded with reassurance about condition normalcy, and mutual understanding that follow-up is not necessary unless a substantive problem arises. The patient appeared satisfied with this management plan. Patient Instructions - Monitor for any changes or increases in scrotal sensitivity - Use [id number] anti-inflammatories like Advil or Aleve if pain develops, but only if kidneys are in good condition - Contact if new or worsening symptoms occur - Ensure follow-up only if new significant scrotal problems develop Patient Instructions: This note is constructed using voice recognition software. While every effort has been made to ensure accuracy cabinet builder errors may have been included. Imaging studies, laboratory and physical exam results were discussed and reviewed in detail. No major barriers to patient understanding were identified. An opportunity to ask questions regarding the treatment plan was provided. All questions were answered. The patient expressed understanding and agreement with the above treatment plan. The patient is aware they should contact our office by phone for worsening of their current condition or the appearance of new urologic symptoms. Compliance is encouraged with any medications and followup testing that is ordered. It is a privilege to participate in the urologic care of your patient. If you have any questions or concerns regarding treatment for the above conditions, or other urologic issues, please do not hesitate to contact me. The office telephone contact is [phone]. Sincerely, Dr Manuel Whitman MD, [facility] - Urology Compassionate Specialist Care for the Genitourinary System Coding Level of Care Code Est Pt Level 3 (53334) Diagnoses Prostatitis N41.9
--- OUTSIDE RECORDS SUMMARY | 2024-09-10 12:21 | XMS_ITS | Clinical Summary ---
Author Organization [facility] Address [address] [place] [address] Phone Care Team Providers Care Sales Project Coordinator Name Role Phone Svetlana Shea LASER CUTTER Primary Care Provider [phone] Allergies Active Allergy Reactions Criticality Noted Date Comments Aspirin 08/05/2024 Penicillins 08/05/2024 Encounters Date Type Department Care Team Description 08/05/2024 9:17 AM EDT - 08/05/2024 1:00 PM EDT Emergency [facility] [address] [place] [address] Will Hartman MD Enteritis (Primary Dx); Diarrhea, unspecified type Discharge Disposition: Home or Self Care from Last 3 Months Social History Tobacco Use Types Packs/Day Years Used Date Smoking Tobacco: Never Assessed Sex and Gender Information Value Date Recorded Sex Assigned at Male 08/05/2024 9:37 AM EDT Legal Sex Male 11:02 AM EDT Gender Identity Male 08/05/2024 9:37 AM EDT Sexual Orientation Straight 08/05/2024 9: 37 AM EDT Last Filed Vital Signs Vital Sign Reading Time Taken Comments Blood Pressure 120/88 08/05/2024 11:32 AM EDT Pulse 88 08/05/2024 11:32 AM EDT Temperature 36.6 ??C (97.9 ??F) 08/05/2024 11:32 AM E DT Respiratory Rate 18 08/05/2024 11:32 AM EDT Oxygen Saturation 100% 08/05/2024 11:32 AM EDT Inhaled Oxygen Concentration - - Weight 90.7 kg (200 lb) 08/05/2024 8:24 AM EDT Height 165.1 cm (5' 5 ) 08/05/2024 8:24 AM EDT Body Mass Index 33.28 08/05/2024 8:24 AM EDT Plan of Treatment Health Maintenance Due Date Last Done Comments Hepatitis B Vaccines (3 of 3 - 19+ 3-dose series) 08/14/2007 06/19/2007, 02/24/2005 Depression Screening 11/10/2023 HIV Screening 11/10/2023 Hepatitis C Screening 11/10/2023 Social Influencers of Health Screening 11/10/2023 COVID-19 Vaccine ( - season) 2023 Pneumococcal Vaccine: 50+ Years (1 of 1 - PCV) 01/26/2024 Zoster Vaccines (1 of 2) 01/26/2024 Influenza Vaccine (Season Ended) 2024 Hypertension/CHF/CAD Annual BMP Blood Test 08/05/2025 08/05/2024, 08/03/2024 Colorectal Cancer Screening: FIT-DNA (Cologuard) 08/09/2026 08/10/2023 DTaP,Tdap,and Td Vaccines (5 - Td or Tdap) 08/28/2028 08/28/2018, 03/21/2018, 09/20/2012, Additional history exists Cholesterol Screening (Lipid Panel) 07/10/2029 07/10/2024 Hepatitis A Vaccines Aged Out 02/16/2015, 09/05/19 [...] on patient's age to complete this topic MMR Vaccines Aged Out No longer eligi ble based on patient's age to complete this topic Meningococcal ACWY Vaccine Aged Out N o longer eligible based on patient's age to complete this topic Meningococcal B Vaccine Aged Out No l onger eligible based on patient's age to complete this topic Pneumococcal Vaccine: Pediatrics (0 to 5 Years) and At-Risk Patients (6 to 64 Years) Aged Out No longer eligible based on patient's age to complete this topic RSV Immunization Patients Under 20 months Aged Out No longer eligible based on patient's age to complete this topic Varicella Vaccines Aged Out No longer eligible based on patient's age to complete this topic Procedures Procedure Name Priority Date/Time Associated Diagnosis Comments CT ABDOMEN PELVIS W CONTRAST STAT 08/05/2024 11:17 AM EDT CBC WITH AUTO DIFFERENTIAL STAT 08/05/2024 8:31 AM EDT LIPASE STAT 08/05/2024 8:31 AM EDT COMPREHENSIVE METABOLIC PANEL STAT 08/05/2024 8:31 AM EDT CBC AND DIFFERENTIAL STAT 08/05/2024 8:31 AM EDT from Last 3 Months Results * CT Abdomen Pelvis w Contrast (08/05/2024 11:17 AM EDT) Anatomical Region Laterality Modality Body Computed Tomogra phy 08/05/2024 11:3 5 AM EDT Impressions 08/05/2024 11:44 AM EDT Impression: 1. Suspect mild, nonspecific enteritis with trace pelvic ascites. 2. Small midline anterior abdominal wall hernia containing fat and potentially a portion of the wall or lymphovascular structures of a mid small bowel loop. No associated obstruction. [place] ([id number]) -------- FINAL REPORT -------- Dictated By: Sandra Vazquez Dictated Date: 08/05/2024 11:35 ET Assigned Physician: Sandra Vazquez Reviewed and Electronically Signed By: Sandra Vazquez Signed Date: 08/05/2024 11:44 ET Workstation ID: [id number] Transcribed By: Self Edit Transcribed Date: 08/05/2024 11:35 ET Narrative 08/05/2024 11:44 AM EDT History: Left upper quadrant abdominal pain. Recent watery diarrhea. Comparison: No previous imaging at this institution. Technique: Helical volumetric imaging of the abdomen and pelvis was performed without oral contrast and during the uneventful intravenous administration of 90 cc Isovue-370. DLP: 1518.23 mGy/cm [employer] Iterative reconstruction technique Findings: The liver is normal in size and configuration. The hepatic attenuation is heterogeneous, suggesting geographic fatty infiltration. This limits evaluation for masses. The portal vein is patent. The gallbladder is physiologically distended. No evidence of biliary obstruction is seen. Spleen is normal in size. A 5 mm hyperattenuating lesion in the anterior subcapsular spleen may represent a hemangioma. No follow-up is recommended. The pancreas and adrenal glands are unremarkable. The kidneys are normal in position and size, with symmetric, intact nephrograms and no evidence of hydronephrosis. A parapelvic cyst is noted in the right kidney. The abdominal aorta and IVC are unremarkable. Several small, subcentimeter mesenteric lymph nodes are nonspecific. No retroperitoneal lymphadenopathy is seen. There is a trace amount of pelvic ascites. The prostate, seminal vesicles and urinary bladder appear unremarkable. No evidence of bowel obstruction is seen. There are scattered colonic diverticula. The appendix appears unremarkable in the right lower quadrant. There are fluid-filled but nondilated loops of small bowel throughout the central abdomen, with sagittal hazy increased attenuation within the perienteric fat and mild prominence of the lymphovascular structures in the mesentery, possibly underlying mild enteritis. There is a small defect in the midline of the anterior abdominal wall, approximately 3 cm above the level of the umbilicus, through which herniates a small amount of omental fat and likely some lymphovascular structures versus a portion of the wall of a small bowel loop which lies immediately deep to the abdominal wall defect (image 91 series 3 and coronal image 73). Lumbar disc degenerative changes are noted. There is marked narrowing of the right L5-S1 intervertebral neural foramen due to Bernick bony hypertrophy along the vertebral endplate. Procedure Note Sandra Vazquez MD - 08/05/2024 History: Left upper quadrant abdominal pain. Recent watery diarrhea. Comparison: No previous imaging at this institution. Technique: Helical volumetric imaging of the abdomen and pelvis wasperformed without oral contrast and during the uneventful intravenousadministration of 90 cc Isovue-370. DLP: 1518.23 mGy/cm [employer] Iterative reconstruction technique Findings: The liver is normal in size and configuration. The hepatic attenuation isheterogeneous, suggesting geographic fatty infiltration. This limitsevaluation for masses. The portal vein is patent. The gallbladder isphysiologically distended. No evidence of biliary obstruction is seen. Spleen is normal in size. A 5 mm hyperattenuating lesion in the anteriorsubcapsular spleen may represent a hemangioma. No follow-up isrecommended. The pancreas and adrenal glands are unremarkable. The kidneys are normal in position and size, with symmetric, intactnephrograms and no evidence of hydronephrosis. A parapelvic cyst is notedin the right kidney. The abdominal aorta and IVC are unremarkable. Several small, subcentimetermesenteric lymph nodes are nonspecific. No retroperitoneal lymphadenopathyis seen. There is a trace amount of pelvic ascites. The prostate, seminal vesicles and urinary bladder appear unremarkable. No evidence of bowel obstruction is seen. There are scattered colonicdiverticula. The appendix appears unremarkable in the right lowerquadrant. There are fluid-filled but nondilated loops of small bowel throughout thecentral abdomen, with sagittal hazy increased attenuation within theperienteric fat and mild prominence of the lymphovascular structures inthe mesentery, possibly underlying mild enteritis. There is a small defect in the midline of the anterior abdominal wall,approximately 3 cm above the level of the umbilicus, through whichherniates a small amount of omental fat and likely some lymphovascularstructures versus a portion of the wall of a small bowel loop which liesimmediately deep to the abdominal wall defect (image 91 series 3 andcoronal image 73). Lumbar disc degenerative changes are noted. There is marked narrowing ofthe right L5-S1 intervertebral neural foramen due to Bernick bonyhypertrophy along the vertebral endplate. IMPRESSION: Impression: 1. Suspect mild, nonspecific enteritis with trace pelvic ascites. 2. Small midline anterior abdominal wall hernia containing fat andpotentially a portion of the wall or lymphovascular structures of a midsmall bowel loop. No associated obstruction. [employer] DUBON ([id number]) -------- FINAL REPORT -------- Dictated By: Sandra Vazquez Dictated Date: 08/05/2024 11:35 ET Assigned Physician: Sandra Vazquez Reviewed and Electronically Signed By: Sandra Vazquez Signed Date: 08/05/2024 11:44 ET Workstation ID: [id number] Transcribed By: Self Edit Transcribed Date: 08/05/2024 11:35 ET Will Hartman MD IMG CT PROCEDURES Final Result * (ABNORMAL) CBC auto differential (08/05/2024 8:31 AM EDT) [facility] WBC 4.5(L) 4.8 - 10.8 K/mcL LAB HEMETOLOGY METHOD 08/05/2024 9:12 AM [facility] RBC 4.80 4.50 - 5.50 M/mcL LAB HEMETOLOGY METHOD 08/05/2024 9:12 AM [facility] Hemoglobin 15.3 13.5 - 17.5 g/dL LAB HEMETOLOGY METHOD 08/05/2024 9:12 AM [facility] Hematocrit 44.5 42.0 - 54.0 % LAB HEMETOLOGY METHOD 08/05/2024 9:12 AM [facility] MCV 92.1 79.0 - 98.0 FL LAB HEMETOLOGY METHOD 08/05/2024 9:12 AM [facility] MCH 31.7 27.0 - 32.0 pcg LAB HEMETOLOGY METHOD 08/05/2024 9:12 AM [facility] MCHC 34.4 32.0 - 37.0 g/dL LAB HEMETOLOGY METHOD 08/05/2024 9:12 AM [facility] RDW 12.6 11.0 - 15.0 % LAB HEMETOLOGY METHOD 08/05/2024 9:12 AM [facility] Platelets 207 130 - 400 K/mcL LAB HEMETOLOGY METHOD 08/05/2024 9:12 AM [facility] MPV 11.8(H) 7.0 - 11.0 FL LAB HEMETOLOGY METHOD 08/05/2024 9:12 AM [facility] NRBC 0.0 <1.0 % LAB HEMETOLOGY METHOD 08/05/2024 9:12 AM [facility] NRBC Absolute 0.00 <0.10 K/mcL LAB HEMETOLOGY METHOD 08/05/2024 9:12 AM [facility] Neutrophils Relative 36.0 % LAB HEMETOLOGY METHOD 08/05/2024 9:12 AM [facility] Lymphocytes Relative 50.9 % LAB HEMETOLOGY METHOD 08/05/2024 9:12 AM [facility] Monocytes Relative 8.9 % LAB HEMETOLOGY METHOD 08/05/2024 9:12 AM [facility] Eosinophils Relative 3.6 % LAB HEMETOLOGY METHOD 08/05/2024 9:12 AM [facility] Basophils Relative 0.4 % LAB HEMETOLOGY METHOD 08/05/2024 9:12 AM [facility] Immature Granulocytes Relative 0.2 % LAB HEMETOLOGY METHOD 08/05/2024 9:12 AM [facility] Neutrophils Absolute 1.62 1.50 - 7.00 K/mcL LAB HEMETOLOGY METHOD 08/05/2024 9:12 AM [facility] Lymphocytes Absolute 2.29 1.00 - 5.00 K/mcL LAB HEMETOLOGY METHOD 08/05/2024 9:12 AM [facility] Monocytes Absolute 0.40 0.20 - 1.00 K/mcL LAB HEMETOLOGY METHOD 08/05/2024 9:12 AM [facility] Eosinophils Absolute 0.16 0.00 - 0.50 K/mcL LAB HEMETOLOGY METHOD 08/05/2024 9:12 AM [facility] Basophils Absolute 0.02 0.00 - 0.20 K/mcL LAB HEMETOLOGY METHOD 08/05/2024 9:12 AM [facility] Immature Granulocytes Absolute 0.01 0.00 - 0.03 K/mcL LAB HEMETOLOGY METHOD 08/05/2024 9:12 AM EDT [facility] Blood Venous blood specimen / Unknown Venipuncture / Unknown 08/05/2024 8:31 AM EDT 08/05/2024 9:06 AM EDT us Will Hartman MD LAB BLOOD ORDERABLES Final Resu lt Performing Organization Address City/[facility]/ZIP Co de Phone Number [facility] [address] [place] [address], [place] [phone] * Lipase (08/05/2024 8:31 AM EDT) Lipase 43 13 - 75 unit/L LAB CHEMISTRY METHOD 08/05/2024 9:39 AM EDT [facility] Blood Venous blood specimen / Unknown Venipuncture / Unknown 08/05/2024 8:31 AM EDT 08/05/2024 9:06 AM EDT us Will Hartman MD LAB BLOOD ORDERABLES Final Resu lt Performing Organization Address City/[facility]/ZIP Co de Phone Number [facility] [address] [place] [address], [place] [phone] * Comprehensive metabolic panel (08/05/2024 8:31 AM EDT) Pathologist [facility] Sodium 141 133 - 145 mmol/L LAB CHEMISTRY METHOD 08/05/2024 9:39 AM EDT [facility] Potassium 3.6 3.5 - 5.5 mmol/L LAB CHEMISTRY METHOD 08/05/2024 9:39 AM T [facility] Chloride 108 96 - 110 mmol/L LAB CHEMISTRY METHOD 08/05/2024 9:39 AM EDT [facility] CO2 28 21 - 32 mmol/L LAB CHEMISTRY METHOD 08/05/2024 9:39 AM T [facility] Anion Gap 5 3 - 11 LAB CHEMISTRY METHOD 08/05/2024 9:39 AM [facility] Glucose 93 70 - 100 mg/dL LAB CHEMISTRY METHOD 08/05/2024 9:39 AM [facility] BUN 8 5 - 25 mg/dL LAB CHEMISTRY METHOD 08/05/2024 9:39 AM [facility] Creatinine 0.86 0.70 - 1.30 mg/dL LAB CHEMISTRY METHOD 08/05/2024 9:39 AM [facility] eGFR 105 >=60 mL/min/1. 73m2 LAB CHEMISTRY METHOD 08/05/2024 9:39 AM [facility] Comment:Calculation based on the??Chronic Kidney Disease Epidemiology Collaboration (CKD-EPI) equation refit??without adjustment for race. BUN/Creatinine Ratio 9.3 LAB CHEMISTRY METHOD 08/05/2024 9:39 AM [facility] Calcium 8.8 8.5 - 10.5 mg/dL LAB CHEMISTRY METHOD 08/05/2024 9:39 AM [facility] AST (SGOT) 18 10 - 42 unit/L LAB CHEMISTRY METHOD 08/05/2024 9:39 AM [facility] ALT (SGPT) 27 10 - 60 unit/L LAB CHEMISTRY METHOD 08/05/2024 9:39 AM [facility] Alkaline Phosphatase 100 42 - 121 unit/L LAB CHEMISTRY METHOD 08/05/2024 9:39 AM [facility] Total Protein 6.5 6.0 - 8.0 g/dL LAB CHEMISTRY METHOD 08/05/2024 9:39 AM [facility] Albumin 3.4 3.2 - 5.0 g/dL LAB CHEMISTRY METHOD 08/05/2024 9:39 AM [facility] Total Bilirubin 0.8 0.0 - 1.4 mg/dL LAB CHEMISTRY METHOD 08/05/2024 9:39 AM [facility] Blood Venous blood specimen / Unknown Venipuncture / Unknown 08/05/2024 8:31 AM EDT 08/05/2024 9:06 AM EDT us Will Hartman MD LAB BLOOD ORDERABLES Final Resu lt [facility] [address] [place] [address], from Last 3 Months Insurance MEDICAID - [place] Care Teams Sales Project Coordinator Relationship Specialty Start Date End Date Svetlana Shea NP [address] [address] PCP - General 08/05/24
== END 2024-09-10 11:30 | disposition home or self-care (01) ==
PROVIDERS: PCP Nurse Practitioner Primary Care; Visit Provider Urology
DX: N41.9 Inflammatory disease of prostate, unspecified (principal)
CPT/HCPCS: 99213

== ENCOUNTER → 2024-09-10 10:42 | Outpatient (BNVA) | payer MEDICARE, MEDICAID, SELFPAY | PROVIDERS: PCP Nurse Practitioner Primary Care; Visit Provider Urology | DX: N41.9 Inflammatory disease of prostate, unspecified (principal) | CPT/HCPCS: 99212 ==

== ENCOUNTER → 2024-11-18 09:57 | Outpatient (REF) | payer MEDICAID, SELFPAY ==
--- NOTE | 2024-11-18 10:00 | CA_ITS ---
Transthoracic Echocardiogram Patient (Last, First, Middle): Jay Chan, Gender: Male Date of : 1975 Age: 49 Procedure Date: 11/18/2024 Procedure Type: Transthoracic Echocardiogram Location: OP Height: 165. cm Weight: 99.79 kg BSA: 2.06 m2 Heart Rate: 64 bpm BP: 110 / 80 mmHg Insurance Claims Clerk: [place] Referring MD: Jasmin Cruz RADIOLOGY THERAPIST-C Symptoms: I77.810 - Thoracic aortic ectasia Study Quality: Adequate ECG Rhythm: Sinus Conclusions: - The left ventricular systolic function is normal. The calculated ejection fraction is 61% by biplane method. - No obvious valvular pathology seen on this study. - There is mild dilatation of the ascending aorta measuring 4.00 cm. Findings Left Ventricle Normal left ventricular cavity size. The left ventricular systolic function is normal. The calculated ejection fraction is 61% by biplane method. There is no evidence of regional wall motion abnormalities. Diastolic function is normal for age. There is mild septal asymmetric hypertrophy. Right Ventricle Normal right ventricular cavity size and systolic function. Atria Both atria are normal in size. Aortic Valve There is a normal trileaflet aortic valve. There is no aortic valve stenosis. There is no aortic valve regurgitation. Mitral Valve The mitral valve appears normal. There is no mitral valve regurgitation. There is no mitral valve stenosis. Pulmonic Valve The pulmonic valve is likely normal. Tricuspid Valve There is mild tricuspid valve regurgitation. There is no evidence of pulmonary hypertension. Great Vessels The aortic arch is normal in size. There is mild dilatation of the ascending aorta measuring 4.00 cm. Venous The inferior vena cava is normal in size and collapses greater than 50% with inspiration. Pericardium/Pleural There is no evidence of pericardial effusion. Prior Study Comparison Changes noted compared to prior study dated: 01/18/2024. Ascending aortic dimension is smaller than prior study. Changes probably technical. Recommendations, Care & Conclusions No obvious valvular pathology seen on this study. Measurements 2D Linear Measurements IVSd: 1.05 0.6-0.9/0.6-1.0 cm LVIDd: 4.21 3.9-5.3/4.2-5.9 cm LVIDd Index: 2.04 2.4-3.2/2.2-3.1 cm/m2 LVIDs: 2.82 2.0-3.6 cm LVPWd: 0.97 0.7-1.1 cm LA Diam: 3.70 2.7-3.8/3.0-4.0 cm LAIDs Index: 1.80 1.5-2.3 cm/m2 LV Mass: 173.27 67-162/88-224 g LV Mass Index: 84.11 43-95/49-115 g/m2 LVOT Diam: 2.40 3.0+(-)1.3 cm 2D Systolic Function EF 4C: 57.70 >55% EF 2C: 64.00 >55% EF BiP: 61.20 >55% Mitral Valve MV Pk E: 0.91 MV PK A: 0.65 MV Decel Time: 186.00 E/A: 1.40 E'Lateral: 10.20 E'Medial: 8.05 E/E' Med: 11.30 E/E' Lat: 9.00 PHT: 54.00 MVA PHT: 4.07 Decel Beltrami: 4.91 Aortic Valve AoV Pk Rmairo: 1.09 AoV Mn Ramiro: 0.78 AoV VTI: 0.24 AoV Pk Grad: 5.00 Aov Mn Grad: 3.00 JOSEPH Cont.VTI: 3.94 LVOT LVOT Pk Ramiro: 0.97 LVOT Mn Ramiro: 0.65 LVOT VTI: 0.21 LVOT Pk Grad: 4.00 LVOT Mn Grad: 2.00 LVOT Diam: 2.40 LVOT Area: 4.52 Diastolic Function MV Pk E: 0.91 MV Pk A: 0.65 E/A: 1.40 E'Medial: 8.05 E/E' Med: 11.30 E' Laterial: 10.20 E/E' Lat: 9.00 Right Ventricle TAPSE (mm): 18.90 TVS' Ramiro: 10.80 Tricuspid Valve TR Pk Ramiro: 2.28 TR Pk Grad: 21.00 RA Press: 3.00 RVSP: 24.00 Great Vessels Aorta Sinus of Valsalva: 4.10 2.0-3.5 cm Ao Asc: 4.00 2.1-3.4 cm Ao Arch: 3.10 Pulmonary Valve PV Pk Ramiro: 1.03 Peak PV Grad: 4.00 Updated in Other Vendor System with Status of Final Mukesh Santo MD electronically signed on 11/18/2024 12:16:56 PM with status of Final
--- OUTSIDE RECORDS SUMMARY | 2024-11-18 10:32 | XMS_ITS | Clinical Summary ---
Author Organization [facility] Address [address] [place] [address] Phone Care Team Providers Care Html Web Developer Name Role Phone SheaSvetlana CHELLE Primary Care Provider [phone] Allergies Active Allergy Reactions Criticality Noted Date Comments Aspirin 08/05/2024 Penicillins 08/05/2024 Social History Tobacco Use Types Packs/Day Years [...] 88 08/05/2024 11:32 AM EDT Temperature 36.6 C (97.9 F) 08/05/2024 11:32 AM EDT Respiratory Rate 18 08/05/2024 11:32 AM EDT [...] - 19+ 3-dose series) 08/14/2007 06/19/2007, 02/24/2005 HIV Screening 11/10/2023 Hepatitis C Screening 11/10/2023 Social Influencers of Health Screening 11/10/2023 COVID-19 Vaccine (1 - 2023- season) 2023 Pneumococcal Vaccine: 50+ Years (1 of 1 - PCV) 01/26/2024 Zoster Vaccines (1 of 2) 01/26/2024 Depression Screening 04/10/2024 Influenza Vaccine (#1) 2024 Hypertension/CHF/CAD Annual BMP Blood Test 08/05/2025 [...] Procedure Name Priority Date/Time Associated Diagnosis Comments COMPREHENSIVE METABOLIC PANEL STAT 08/05/2024 8:31 AM EDT from Last 3 Months or Most Recently Relevant to Health Maintenance Results * Comprehensive metabolic panel (08/05/2024 8:31 AM EDT) Sodium 141 133 - 145 mmol/L LAB CHEMISTRY METHOD 08/05/2024 9:39 AM EDT [facility] Potassium 3.6 3.5 - 5.5 mmol/L LAB CHEMISTRY METHOD 08/05/2024 9:[address] [facility] Chloride 108 96 - 110 mmol/L LAB CHEMISTRY METHOD 08/05/2024 9:[address] [facility] CO2 28 21 - 32 mmol/L LAB CHEMISTRY METHOD 08/05/2024 9:[address] [facility] Anion Gap 5 3 - 11 LAB CHEMISTRY METHOD 08/05/2024 9:[address] [facility] Glucose 93 70 - 100 mg/dL LAB CHEMISTRY METHOD 08/05/2024 9:[address] [facility] BUN 8 5 - 25 mg/dL LAB CHEMISTRY METHOD 08/05/2024 9:[address] [facility] Creatinine 0.86 0.70 - 1.30 mg/dL LAB CHEMISTRY METHOD 08/05/2024 9:[address] [facility] eGFR 105 >=60 mL/min/1. 73m2 LAB CHEMISTRY METHOD 08/05/2024 9:[address] [facility] Comment:Calculation based on the Chronic Kidney Disease Epidemiology Collaboration (CKD-EPI) equation refit without adjustment for race. BUN/Creatinine Ratio 9.3 LAB CHEMISTRY METHOD 08/05/2024 9:[address] [facility] Calcium 8.8 8.5 - 10.5 mg/dL LAB CHEMISTRY METHOD 08/05/2024 9:[address] [facility] AST (SGOT) 18 10 - 42 unit/L LAB CHEMISTRY METHOD 08/05/2024 9:[address] [facility] ALT (SGPT) 27 10 - 60 unit/L LAB CHEMISTRY METHOD 08/05/2024 9:[address] [facility] Alkaline Phosphatase 100 42 - 121 unit/L LAB CHEMISTRY METHOD 08/05/2024 9:[address] [facility] Total Protein 6.5 6.0 - 8.0 g/dL LAB CHEMISTRY METHOD 08/05/2024 9:39 AM EDT [facility] Albumin 3.4 3.2 - 5.0 g/dL LAB CHEMISTRY METHOD 08/05/2024 9:39 AM EDT [facility] Total Bilirubin 0.8 0.0 - 1.4 mg/dL LAB CHEMISTRY METHOD 08/05/2024 9:39 AM EDT [facility] Blood Venous blood specimen / Unknown Venipuncture / Unknown 08/05/2024 8:31 AM EDT 08/05/2024 9:06 AM EDT us Will Hartman MD LAB BLOOD ORDERABLES Final Resu lt [facility] ([facility] [address] [place] [address], from Last 3 Months or Most Recently Relevant to Health Maintenance Insurance MEDICAID - [place] Care Teams Html Web Developer Relationship Specialty Start Date End Date Svetlana Shea NP [address] [address] PCP - General 08/05/24
--- OUTSIDE RECORDS SUMMARY | 2024-11-18 10:32 | XMS_ITS | Encounter Summary ---
Author Organization [employer] Address [address] [facility] 7 [place] [address] Care Team Providers Care Direct Mail Coordinator Name Role Phone Svetlana Shea Primary Care Provider [phone] Reason for Visit * Reason Onset Date Comments Nurse Triage 10/24/2024 Encounter Details Date Type Department Care Team (Late st Contact Info) Description 10/24/2024 Telephone [facility] [address] [place] [address] Svetlana Shea ANP [address] [place] [address] Nurse Triage Social History Tobacco Use Types Packs/Day Years [...] encounter Miscellaneous Notes * Telephone Encounter - Jojo Malcolm - 10/24/2024 10:10 AM EDT Symptoms: Foot or Ankle Swelling, Itching - No Rash Outcome: Schedule an urgent appointment (within 4 hours) or talk to a nurse or provider soon Reason: Getting worse The caller accepted this outcome. documented in this encounter Plan of Treatment Upcoming Encounters Date Type Department Care Team (Late st Contact Info) Description 11/21/2024 1:30 PM EDT Office Visit [facility] [address] [place] [address] Svetlana Shea ANP [address] [place] [address] documented as of this encounter Visit Diagnoses Not on filedocumented in this encounter Care Teams Direct Mail Coordinator Relationship Specialty Start Date End Date Svetlana Shea ANP [address] [place] [address] PCP - General Family Medicine 12/01/20 documented as of this encounter
== END ==
LOC: HO.CARD 09:57
PROVIDERS: PCP Nurse Practitioner Primary Care; Visit Provider Nurse Practitioner Family
DX: I77.810 Thoracic aortic ectasia (principal)
CPT/HCPCS: 93306

== ENCOUNTER → 2024-11-18 10:00 | Outpatient (BNV) | payer MEDICAID, SELFPAY | PROVIDERS: PCP Nurse Practitioner Primary Care; Visit Provider Internal Medicine | DX: I77.810 Thoracic aortic ectasia (principal) | CPT/HCPCS: 93306 ==

== ENCOUNTER 2024-11-30 08:26 | Emergency (ER) | payer MEDICAID, SELFPAY ==
--- NOTE | ~2024-11-30 | XR_ITS ---
CLINICAL HISTORY: feels like he inhaled ham Exam: AP portable chest x-ray. Comparison: October 31, 2023. Findings: Cardiac silhouette is unchanged in size. No focal areas of consolidation. No pleural effusion or pneumothorax. Mild convex left lower thoracic curvature. Impression: No acute findings. This document has been electronically signed by: Tim Galarza MD on 11/30/2024 09:50:40
[2024-11-30 08:27] VITALS: BP 128/91; PULSE 88; RESP 16; TEMP 36.5; O2SAT 97; BMI 34.1
--- OUTSIDE RECORDS SUMMARY | 2024-11-30 08:52 | XMS_ITS | Encounter Summary ---
Author Organization [employer] Address [address] [facility] 7 [place] [address] Care Team Providers Care Sizing Sponger Name Role Phone Svetlana Shea Primary Care Provider [phone] Reason for Visit * Reason Onset Date Comments Appointment Request 11/28/2024 Encounter Details Date Type Department Care Team ([facility] st Contact Info) Description 11/28/2024 Telephone [facility] MEDICINE [address] [place] [address] Svetlana Shea ANP [address] [place] [address] Appointment Request Social History Tobacco Use Types Packs/Day Years [...] encounter Miscellaneous Notes * Telephone Encounter - Yue Hernández RN - 11/29/2024 3:48 PM EDT Telephone call returned to pt re below message. No answer and v/m not set up. * Telephone Encounter - Daniel Davidson - 11/28/2024 10:27 AM EDT Patient calling to report ED visit on : Date: 11/25/24 Hospital: [facility] Seen for: Feet Swelling Symptomatic No Please contact pt at [phone] documented in this encounter Plan of Treatment Not on file documented as of this encounter Visit Diagnoses Not on filedocumented in this encounter Care Teams Sizing Sponger Relationship Specialty Start Date End Date Svetlana Shea ANP [address] [place] [id number] PCP - General Family Medicine 12/01/20 documented as of this encounter
--- OUTSIDE RECORDS SUMMARY | 2024-11-30 08:52 | XMS_ITS | Clinical Summary ---
Author Organization [facility] Address [address] [place] [address] Phone Care Team Providers Care Aoc Plans Intelligence Officer Name Role Phone SheaSvetlana CHELLE Primary Care Provider [phone] Allergies Active Allergy Reactions Criticality Noted Date [...] LAB CHEMISTRY METHOD 08/05/2024 9:39 AM EDT [facility] Potassium 3.6 3.5 - 5.5 mmol/L LAB CHEMISTRY METHOD 08/05/2024 9:39 AM [facility] Chloride 108 96 - 110 mmol/L LAB CHEMISTRY METHOD 08/05/2024 9:39 AM [facility] CO2 28 21 - 32 mmol/L LAB CHEMISTRY METHOD 08/05/2024 9:39 AM [facility] Anion Gap 5 3 - 11 LAB CHEMISTRY METHOD 08/05/2024 9:39 AM [facility] Glucose 93 70 - 100 mg/dL LAB CHEMISTRY METHOD 08/05/2024 9:39 AM [facility] BUN 8 5 - 25 mg/dL LAB CHEMISTRY METHOD 08/05/2024 9:39 AM [facility] Creatinine 0.86 0.70 - 1.30 mg/dL LAB CHEMISTRY METHOD 08/05/2024 9:39 AM [facility] eGFR 105 >=60 mL/min/1. 73m2 LAB CHEMISTRY METHOD 08/05/2024 9:39 AM [facility] Comment:Calculation based on the Chronic Kidney Disease Epidemiology Collaboration (CKD-EPI) equation refit without adjustment for race. BUN/Creatinine Ratio 9.3 LAB CHEMISTRY METHOD 08/05/2024 9:39 AM [facility] Calcium 8.8 8.5 - 10.5 mg/dL LAB CHEMISTRY METHOD 08/05/2024 9:39 AM [facility] AST (SGOT) 18 10 - 42 unit/L LAB CHEMISTRY METHOD 08/05/2024 9:39 AM [facility] ALT (SGPT) 27 10 - 60 unit/L LAB CHEMISTRY METHOD 08/05/2024 9:39 AM [facility] Alkaline Phosphatase 100 42 - 121 unit/L LAB CHEMISTRY METHOD 08/05/2024 9:39 AM [facility] Total Protein 6.5 6.0 - 8.0 g/dL LAB CHEMISTRY METHOD 08/05/2024 9:39 AM EDT [facility] Albumin 3.4 3.2 - 5.0 g/dL LAB CHEMISTRY METHOD 08/05/2024 9:39 AM EDT [facility] Total Bilirubin 0.8 0.0 - 1.4 mg/dL LAB CHEMISTRY METHOD 08/05/2024 9:39 AM EDT [facility] Blood Venous blood specimen / Unknown Venipuncture / Unknown 08/05/2024 8:31 AM EDT 08/05/2024 9:06 AM EDT us Will Hartman MD LAB BLOOD ORDERABLES Final Resu lt [facility] ([facility]) [facility] [address] [place] [address], from Last 3 Months or Most Recently Relevant to Health Maintenance Insurance MEDICAID - [place] Care Teams Aoc Plans Intelligence Officer Relationship Specialty Start Date End Date Svetlana Shea NP [address] [phone] PCP - General 08/05/24
--- NOTE | 2024-11-30 09:09 | ED_ITS ---
HPI - General Adult General Chief complaint: General Medical Stated complaint: throat hurts Time Seen by Provider: 11/30/24 09:05 Source: patient Mode of arrival: ambulatory Limitations: no limitations History of Present Illness ED Provider: LING Phillips HPI narrative: This is a 49-year-old male presenting with sore throat/burning throat for the past 2 days. He reports he was eating a hot piece of ham and he fellt like he burned his windpipe. He reports it is uncomfortable each time he tries to swallow or drink anything. He is just concerned and wanted it to get checked out. Denies fevers, chills, drooling, changes in voice, nausea, vomiting, abdominal pain, headache, vision changes, dizziness, weakness Related Data Home Medications ?Medication ?Instructions ?Recorded ?Confirmed esomeprazole magnesium 20 mg 20 mg PO DAILY 11/29/23 0 04/29/24 capsule,delayed release omega 3-wni-uoa-fish oil 1,000 mg 1 cap PO BID 5 04/29/24 (120 mg-180 mg) capsule fluticasone propionate 50 1 spray intranasal DAILY PRN 05/07/24 mcg/actuation nasal spray,suspension (Flonase Allergy Relief) Previous Rx's ?Medication ?Instructions ?Recorded loperamide 2 mg capsule (Imodium 2 mg PO Q4H PRN loose stool #14 08/03/24 A-D) caps Allergies Allergy/AdvReac Type Severity Reaction Status Date / Time aspirin (Aspirin) Allergy Unknown UNKNOWN Verified 11/30/24 08:30 Penicillins Allergy Unknown SWELLING Verified 11/30/24 08:30 Review of Systems Review of Systems: Yes all other systems are reviewed and are negative [facility] Past Medical History Attestation statement: The following information was validated with the patient. Source: old records reviewed and nursing notes reviewed Medical History Diarrhea Somnolence, daytime Obesity (BMI 35.0-39.9 without comorbidity) Chest pain Cough with exposure to COVID-19 virus Right hamstring muscle strain Precordial chest pain Colon cancer screening Epigastric pain Avulsion fracture of medial malleolus Closed avulsion fracture of left ankle Orchalgia COVID-19 Asthma Stuffy nose Hx of chest pain GERD (gastroesophageal reflux disease) Headache LEEROY (obstructive sleep apnea) Asthma Hypertension Surgical History Hx of wisdom tooth extraction History of surgery on left wrist Family History Family History Mother Breast cancer Hypertension Diabetes Social History Social History Are you a primary care provider to a significant other at home: No Do you presently have visiting nurse or other home services: Yes ([facility]) Alcohol intake: never Patient Tobacco Use Status: Former Tobacco user Second Hand Smoke Exposure: No Advance Directives: No Advance Directives Information Provided: Yes Current occupational status: employed Current occupation: [employer] Physical Exam ED Exam Exam: Appearance: Alert.? Oriented X3.? No acute distress.? Head: Normocephalic, atraumatic, no step-offs or deformities Eyes: Pupils equal, round and reactive to light.? ENT: Pharynx normal.? Patent airway. No edema to posterior pharynx or erythema. Speaking in full sentences controlling secretions well Neck: Normal inspection.? Neck supple.? CVS: Normal heart rate and rhythm.? Pulses normal.? Respiratory: No respiratory distress.? Breath sounds normal.? Abdomen: Soft and nontender.? Skin: Skin warm and dry.? Normal skin color.? Normal skin turgor.? Extremities: No lower extremity edema.? No calf ttp. 5/5 strength to bilateral upper and lower extremities Back: No midline tenderness, no C-spine tenderness, full range of motion, no CVA tenderness bilaterally Neuro: Oriented X 3.? No motor deficit.? No sensory deficit. CN 2-12 intact Vital Signs: Vital Signs - 24 hr 11/30/24 08:27 Temperature 97.7 F Pulse Rate 88 Respiratory Rate 16 Blood Pressure 128/91 H Pulse Oximetry 97 Oxygen Delivery Method Room Air BMI result Body Mass Index 34.1 Vital signs stable Course Reevaluation(s) Reevaluation #1: Patient will be discharged home gave viscous lidocaine here. Advised to drink fluids and cool drinks. Educated patient on diagnosis and treatment plan, answered all question, patient verbalizes understanding. At this time patient will be discharged home, advised to return with new or worsening symptoms. Educated on worrisome signs and symptoms and when to return. At this time I feel comfortable discharge home. Time: 09:12 Reevaluation #2: Patient's chest x-ray unremarkable. Medications Administered Discontinued Medications Generic Name Dose Route Start Last Admin Trade Name Bethany PRN Reason Stop Dose Admin Lidocaine HCl 15 ml 11/30/24 09:06 11/30/24 09:20 Lidocaine Hcl Viscous 2 % 15 Ml Solution MUCOUS MEM 11/30/24 09:07 15 ml ONCE ONE Administration Medical Decision Making Medical Decision Making [facility] Narrative: 49-year-old male presents status post burning his throat after eating hot ham two days ago Physical exam benign Patient likely burned his posterior pharynx/esophagus after drinking a hot beverage. No signs of acute threat to airway, edema, cellulitis or blistering to the posterior pharynx. Plan labs, imaging Differential Diagnosis Differential Diagnoses: The differential diagnosis associated with the presentation includes (Patient likely burned his posterior pharynx/esophagus after drinking a hot beverage. No signs of acute threat to airway, edema, cellulitis or blistering to the posterior pharynx.) Admission/Observation Consideration of admission/observation: Escalation of care including admission/observation considered Lab Data No indication for labs. Critical Care Time Critical Care Time Critical Care Time: No Discharge Plan Discharge Clinical Impression: Burn of mouth and pharynx, initial encounter Patient Disposition: Home, Self-Care Additional Instructions: Take your medications as prescribed. If you were prescribed antibiotics today, it is important that you take your medication to their entirety, do not skip any doses, do not finish them early. Follow-up with your primary care provider this week. Return to the emergency department with new or worsening symptoms. Such as fevers, chills, chest pain, shortness of breath, nausea, vomiting, dizziness, headache, vision changes, lethargy In case of emergency call 911 Drink cold fluids Return with any difficulty breathing. Prescriptions: No Action esomeprazole magnesium 20 mg capsule,delayed release(DR/EC) 20 mg PO DAILY loperamide [Imodium A-D] 2 mg capsule 2 mg PO Q4H PRN (Reason: loose stool) Qty: 14 0RF Rx Instructions: administer after each loose stool until symptoms controlled; do not exceed 8 mg per 24 hrs fluticasone propionate [Flonase Allergy Relief] 50 mcg/actuation spray,suspension 1 spray intranasal DAILY PRN Rx Instructions: administer into each nostril omega 9-zkg-cwq-fish oil 1,000 (120-180) mg capsule 1 cap PO BID Referrals: Svetlana Shea NP [Primary Care Provider, Internal Medicine] Print Language: Portuguese
[2024-11-30] MEDS: Lidocaine HCl Viscous 2 % 15 ML SOLUTION MUCOUS MEM (09:20)
[2024-11-30 09:58] VITALS: BP 128/91; PULSE 88; RESP 16; TEMP 36.5; O2SAT 97
== END 2024-11-30 09:59 | disposition home or self-care (01) ==
PROVIDERS: Emergency Provider Emergency Medicine; PCP Nurse Practitioner Primary Care
DX: R07.0 Pain in throat (principal); I10 Essential (primary) hypertension; J45.909 Unspecified asthma, uncomplicated; T28.0XXA Burn of mouth and pharynx, initial encounter; X10.1XXA Contact with hot food, initial encounter; Y93.89 Activity, other specified; Y92.89 Other specified places as the place of occurrence of the external cause; Y99.8 Other external cause status
CPT/HCPCS: 71045; 99282; 99283

== ENCOUNTER → 2024-11-30 09:24 | Outpatient (BNV) | payer MEDICAID, SELFPAY | PROVIDERS: Emergency Provider Emergency Medicine; PCP Nurse Practitioner Primary Care; Visit Provider Radiology Diagnostic Radiology | DX: R09.A2 Foreign body sensation, throat (principal) | CPT/HCPCS: 71045 ==

== ENCOUNTER 2025-01-30 16:02 | Outpatient (REF) | payer MEDICAID, SELFPAY ==
[2025-01-30 17:01] LABS: Microalbum/Creatinine Ratio Ur 3.9 ug/mg cr (<30)
--- OUTSIDE RECORDS SUMMARY | 2025-01-30 19:26 | XMS_ITS | Clinical Summary ---
Author Organization [facility] Address [address] [place] [address] Phone Care Team Providers Care Oil Spreader Operator Name Role Phone MonseSvetlana Susanna CORBETT Primary Care Provider [phone] Allergies Active Allergy Reactions Criticality Noted Date [...] HIV Screening 11/10/2023 Hepatitis C Screening 11/10/2023 Medicare Annual Wellness Visit 11/10/2023 Social Influencers of Health Screening 11/10/2023 Pneumococcal Vaccine: 50+ Years (1 of 1 - PCV) 01/26/2024 Zoster Vaccines (1 of 2) 01/26/2024 Depression Screening 04/10/2024 COVID-19 Vaccine (1 - 2023- season) 2024 Influenza Vaccine (#1) 2024 Hypertension/CHF/CAD Annual BMP Blood Test 08/05/2025 08/05/2024, 08/03/2024 Colorectal Cancer Screening: FIT-DNA (Cologuard) 08/09/2026 08/10/2023 DTaP,Tdap,and Td Vaccines (5 - Td or Tdap) 08/28/2028 08/28/2018, 03/21/2018, 09/20/2012, Additional history exists Cholesterol Screening (Lipid Panel) 07/10/2029 07/10/2024 RSV Immunization Adult Patients (1 - 1-dose 75+ series) 2049 Hepatitis [...] Comprehensive metabolic panel (08/05/2024 8:31 AM EDT) [facility] Signature Sodium 141 133 - 145 mmol/L LAB CHEMISTRY METHOD 08/05/2024 9:[address] [facility] Potassium 3.6 3.5 - 5.5 [...] 9:39 AM EDT [facility] Total Protein 6.5 6.0 - 8.0 g/dL LAB CHEMISTRY METHOD 08/05/2024 9:39 AM EDT [facility] Albumin 3.4 3.2 - 5.0 g/dL LAB CHEMISTRY METHOD 08/05/2024 9:39 AM EDT [facility] Total Bilirubin 0.8 0.0 - 1.4 mg/dL LAB CHEMISTRY METHOD 08/05/2024 9:39 AM EDT [facility] Blood Venous blood specimen / Unknown Venipuncture / Unknown 08/05/2024 8:31 AM EDT 08/05/2024 9:06 AM EDT us Will Hartman MD LAB BLOOD ORDERABLES Final Resu lt [facility] [address] [place] [address], from Last 3 Months or Most Recently Relevant to Health Maintenance Insurance [place] - [place] MEDICARE Care Teams Oil Spreader Operator Relationship Specialty Start Date End Date Svetlana Shea NP [address] [place] [phone] PCP - General 08/05/24
== END 2025-01-30 16:03 | disposition home or self-care (01) ==
LOC: HO.LNP 16:02
PROVIDERS: Visit Provider Nurse Practitioner Primary Care
DX: I10 Essential (primary) hypertension (principal)
CPT/HCPCS: 82043; 82570

== ENCOUNTER 2025-02-07 12:46 | Outpatient (AMB) | payer MEDICAID, SELFPAY ==
--- NOTE | 2025-02-07 12:55 | MHC.OFFVIS ---
Vital Signs 02/07/25 12:59 Height 5 ft 4 in Weight 207 lb 10.807 oz BMI 35.6 BP 140/90 H Blood Pressure Location Rt brachial Position Sitting Pulse 86 Pulse Source Monitor Intake Visit Reasons: 1 yr follow up r/s 12-12-24 Intake Note: 1 yr f/up Registered Pharmacist Required: No Accompanied by: Self / Same As Patient Allergies aspirin (Aspirin) Allergy (Unknown, Verified 11/30/24 08:30) UNKNOWN Penicillins Allergy (Unknown, Verified 11/30/24 08:30) SWELLING Medication List - Last Reconciled 02/07/25 by Jasmin Cruz, ULTRASOUND TECHNOLOGIST SONOGRAPHER-C esomeprazole magnesium 20 mg PO DAILY fluticasone propionate 50 mcg/actuation (Flonase Allergy Relief) 1 spray intranasal DAILY PRN loperamide (Imodium A-D) 2 mg PO Q4H PRN omega 8-dtn-afm-fish oil 1,000 (120-180) mg 1 cap PO BID HPI HPI 1 yr follow up r/s 12-12-24: Details: Jay is a 89year-old male with past medical history of hypertension, obesity, sleep apnea which is currently untreated, dilated ascending aorta, atypical chest discomfort with normal stress echocardiogram who presents for follow-up after recent echocardiogram. Today he reports that he continues to get brief sharp pains to the left chest region that occur randomly, suddenly and last seconds before resolving. No chest discomfort brought on by exertion. No concerning shortness of breath, PND, orthopnea or edema. No lightheadedness, palpitations, presyncope, syncope, falls. He still has not received his CPAP mask yet. He plans to reach out to pulmonology for this. His blood pressure has been variable at home and he was told by his PCP to keep a log. 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 He admits to using salt in his diet. Taking meds as directed. [facility] Medical History Diarrhea Somnolence, daytime Obesity (BMI 35.0-39.9 without comorbidity) Chest pain Cough with exposure to COVID-19 virus Right hamstring muscle strain Precordial chest pain Colon cancer screening Epigastric pain Avulsion fracture of medial malleolus Closed avulsion fracture of left ankle Orchalgia COVID-19 Asthma Stuffy nose Hx of chest pain GERD (gastroesophageal reflux disease) Headache LEEROY (obstructive sleep apnea) Asthma Hypertension Surgical History Hx of wisdom tooth extraction History of surgery on left wrist Family History Mother Breast cancer Hypertension Diabetes Social History Are you a primary direct care worker to a significant other at home: No Do you presently have visiting nurse or other home services: Yes ([facility]) Alcohol intake: never Patient Tobacco Use Status: Former Tobacco user Second Hand Smoke Exposure: No Current occupational status: employed Current occupation: [employer] Review of Systems Const All systems reviewed & are unremarkable except as noted in HPI and below Denies chills, Denies fatigue, Denies fever(s), Denies frequent falls, Denies weakness, Denies weight gain and Denies weight loss ENT Denies dizziness Card Reports chest pain (sharp, brief), Denies chest pain at rest, Denies chest pain with activity, Denies leg edema, Denies lightheadedness, Denies palpitations, Denies dyspnea and Denies dyspnea on exertion Resp Denies cough, Denies dyspnea and Denies dyspnea on exertion GI Denies hematochezia Musc Denies abnormal gait, Denies muscle weakness, Denies numbness, Denies radiating pain into limb and Denies tingling Neuro Denies abnormal gait, Denies dizziness, Denies frequent falls, Denies numbness, Denies tingling and Denies weakness Endo Denies fatigue and Denies palpitations Physical Exam Vital Signs: BMI result Body Mass Index 35.6 Const General: cooperative, healthy appearing, comfortable and no acute distress Orientation/consciousness: patient oriented x3 Neck Neck: Yes normal visual inspection and Yes no JVD Resp Effort & Inspection: normal respiratory effort Auscultation: clear to auscultation bilaterally, no rales, no rhonchi and no wheezes Cardio Jugular venous distension: no JVD Rate: regular rate Rhythm: regular rhythm Heart sounds: S1 normal heart sound present, S2 normal heart sound present, no murmurs and no rubs Neuro General: patient oriented x3 Extrem General: Yes normal to inspection and No no pedal edema Psych Appearance: grossly normal Mental Status: mental status grossly normal Speech and movement: Normal speech and movement present Office Procedures EKG Details: Today, read by me, normal sinus rhythm, minimal voltage criteria for LVH, possible inferior infarct, nonspecific T-wave abnormality, rate 86, QTC 404 milliseconds [id number], Complete Assessment & Plan Assessment & Plan (1) Chest pain: Code(s): R07.9 - Chest pain, unspecified Category: Medical Plan: Reports of nonexertional, atypical sounding chest discomfort. Stress echocardiogram on 01/18/2024 with exercise over 9 minutes, no anginal symptoms, no EKG changes and no echo evidence of ischemia, diastolic dysfunction or pulmonary hypertension. Echocardiogram done 11/18/2024 showed EF 61%, no valve abnormalities or regional wall motion abnormalities, ascending aorta 4 cm. EKG today showing normal sinus rhythm, nonspecific T-wave abnormality, possible prior inferior infarct, rate 86. Current chest discomfort sounds non cardiac, more likely musculoskeletal. Offered reassurance. Signs and symptoms of true angina discussed. Continue with risk factor modifications (2) Ascending aorta dilatation: Code(s): I77.810 - Thoracic aortic ectasia Category: Medical Plan: History of dilated ascending aorta. Echocardiogram 11/24/2022 showed ascending aorta 4.1 cm. Echocardiogram from 11/13/2023 showed ascending aorta 4.3 cm. Echocardiogram done 11/18/2024 showed ascending aorta 4.0 cm Will plan for repeat echo 2 year from the last. Maintain good blood pressure control. Cardiology follow-up when results are available. (3) Hypertension: Code(s): I10 - Essential (primary) hypertension Category: Medical Plan: Blood pressure goal less than 130/80. Blood pressure is borderline hypertension. He is keeping a log for his PCP already. He is not on any antihypertensive medications at this time. Reviewed need for low-salt diet, increasing physical activity as tolerated and weight loss. Instructed to get CPAP as soon as possible and start using. If blood pressure remains elevated following lifestyle changes then antihypertensive agents can be used. (4) LEEROY (obstructive sleep apnea): Comment: PER PREVIOUS SLEEP STUDIES, HE DOES HAVE MODERATELY SEVERE OBSTRUCTIVE SLEEP APNEA. Code(s): G47.33 - Obstructive sleep apnea (adult) (pediatric) Category: Medical Plan: History of sleep apnea, moderately severe on last sleep study. He did have CPAP in the past and then it was taken back due to noncompliance. He is working with pulmonology now to get his CPAP reinstituted. Treatment of his sleep apnea will help with blood pressure control. (5) Obesity (BMI 35.0-39.9 without comorbidity): Comment: REMAINS MODERATELY OBESE, HAS A ROUND FACE SHORT NECK IN THE NECK SIZE 17 IN. Code(s): E66.9 - Obesity, unspecified Category: Medical Plan: As above Plan Time spent on chart review, documentation, interview and assessment Coding Level of Care Code Est Pt Level 4 (73511) Complex EM visit Add On G2211 Diagnoses Chest pain R07.9 Ascending aorta dilatation I77.810 Hypertension I10 LEEROY (obstructive sleep apnea) G47.33 Obesity (BMI 35.0-39.9 without comorbidity) E66.9 CPT Codes EKG - CPT: [id number], Complete ([id number]) Time Spent (min) 28
[2025-02-07 12:59] VITALS: BP 140/90; PULSE 86; BMI 35.6
--- OUTSIDE RECORDS SUMMARY | 2025-02-07 13:54 | XMS_ITS | Clinical Summary ---
Author Organization [employer] Address [address] [place] [address] [address] [place] [address] Care Team Providers Care Concrete Float Maker Name Role Phone Korey Schmitz Primary Care Provider [phone] Allergies Active Allergy Reactions Criticality Noted Date Comments Aspirin 01/22/2013 Other reaction(s): throat swelling Penicillins 07/19/2012 Other reaction(s): throat swelling Medications albuterol 108 (90 Base) MCG/ACT inhaler Inhale 2 puffs every 4 (four) hours. 01/08/20 21 Active cetirizine (ZyrTEC) 10 MG tabletIndication s:Non-seasonal allergic rhinitis due to other allergic trigger Take 1 tablet (10 mg) by mouth Once daily as needed for allergies. 90 tablet 1 07/18/19 24 Active fluticasone (Flonase) 50 MCG/ACT nasal sprayIndications :Non-seasonal allergic rhinitis due to other allergic trigger USE 1-2 SPRAYS NEEDED 1-2 TIMES DAILY FOR ALLERGIES 48 mL 10/23/19 24 Active omega-3 (Fish Oil) 1000 MG capsuleIndicatio ns:Elevated triglycerides with high cholesterol Take 1 capsule via oral route twice daily. 180 capsule 3 10/01/19 25 Active terbinafine (LamISIL) 250 MG tabletIndication s:Onychomycosis Take 1 tablet (250 mg) by mouth Once per day. 90 tablet 01/31/20 25 026 Active omeprazole OTC (PriLOSEC OTC) 20 MG EC tabletIndication s:Gastroesophage al reflux disease, unspecified whether esophagitis present Take 1 tablet (20 mg) by mouth before breakfast. 90 tablet 3 01/31/20 25 Active Tirzepatide-Weig ht Management (Zepbound) 2.5 MG/0.5ML solution auto-injectorInd ications:LEEROY (obstructive sleep apnea) Inject 0.5 mL (2.5 mg) under the skin 1 (one) time per week. 2 mL 01/31/20 25 Active omeprazole OTC (PriLOSEC OTC) 20 MG EC tablet Take 20 mg by mouth. 02/17/20 15 025 Discontinued(R eorder (will not trigger notification to Pharmacy)) Active Problems Problem Noted Date Diagnosed Date Mixed hyperlipidemia 07/10/2024 Elevated BP without diagnosis of hypertension Class 2 severe obesity with serious comorbidity and body mass index (BMI) of 35.0 to 35.9 in adult 05/09/2023 BPH with obstruction/lower urinary tract symptom s 05/09/2023 Colon cancer screening 05/09/2023 Overview (11/17/2023): Negative cologuard August 2023 Ventral hernia without obstruction or gangrene 0 08/08/2022 LEEROY (obstructive sleep apnea) 07/11/2022 Cyst of epididymis 06/16/2022 Seasonal allergies 06/16/2022 Essential hypertension 03/19/2021 Gastroesophageal reflux disease 10/09/2014 Allergic rhinitis 01/22/2013 Low back pain 01/22/2013 Dyslipidemia 07/19/2012 Resolved Problems Problem Noted Date Diagnosed Date Resolved Date Acute frontal sinusitis 12/15/202201/09 Acute bacterial sinusitis 12/15/2022 Assessment & Plan (12/15/2022 1:07 PM EDT): Given penicillin allergy will give Doxycycline BID for 10 days. Benadryl PRN. Acute prostatitis 08/22/2022 01/30/2025 Overview (08/22/2022): Tx'd via urology w/ Bactrim & prednisone Encounters Date Type Department Care Team Description 02/03/[address] [facility] MEDICINE [address] [place] [phone] Korey Schmitz ANP Prior Authorization 01/30/2025 10:15 AM EDT Office Visit [address] [address] Korey Schmitz ANP LEEROY (obstructive sleep apnea) (Primary Dx); Plantar wart of left foot; Onychomycosis; BPH with obstruction/lower urinary tract symptoms; Essential hypertension; Mixed hyperlipidemia; Class 2 severe obesity with serious comorbidity and body mass index (BMI) of 35.0 to 35.9 in adult, unspecified obesity type; Rash of both feet; Gastroesophageal reflux disease, unspecified whether esophagitis present; Need for hepatitis B screening test; Need for hepatitis C screening test 01/30/2025 Travel 01/28/[address] [address] Korey Schmitz ANP chart prep 01/22/2025 Patient Outreach [address] [address] Korey Schmitz ANP Pre-visit Planning (SDOH Screening negative and Tobacco screening negative) 12/02/[address] [address] Yue Hernández RN ER Follow-up 11/30/2024 Orders Only [facility] External Provider, [facility] 11/28/[address] [address] Korey Schmitz ANP Appointment Request 11/20/[address] [address] Korey Schmitz ANP chart prep from Last 3 Months Immunizations Immunization Administration Dates Next Due Hep A, Adult 02/16/2015,09/04/2013 Hep B, adult 06/19/2007,02/24/2005 TD (adult), 2 Lf tetanus tox oid, preservative free, adsorbed 08/28/2018,03/21/2018,06/19/2007 Tdap 09/20/2012 Typhoid, ViCPs 09/04/2013 Yellow Fever 09/04/2013 Social History Tobacco Use Types Packs/Day Years Used Date Smoking Tobacco: Never Passive Smoke Exposure: Never Smokeless Tobacco: Never Tobacco Cessation:Counseling Given: Not Answered Alcohol Use Standard Drinks/Week Comments Not Currently 0 (1 standard drink = 0.6 oz pur e alcohol) Depression Answer Date Recorded Patient Health Questionnaire-9 Score 3 01/30/2025 Patient Health Questionnaire-9 Score 3 01/30/2025 Last PHQ-9: Questionnaire Data Not on file 1 Housing Stability Answer Date Recorded What is your housing situation today? I have regino swain 01/22/[address] you li ve. Do you have problems with any of the following? None of the above 01/22/2025 Food Insecurity Answer Date Recorded Within the past 12 months, y ou worried that your food would run out before you got money to buy more: Never True 01/22/2025 Within the past 12 months,th e food you bought just didn't last and you didn't have enough money to get more: Never True Transportation Answer Date Recorded In the past 12 months, has l ack of transportation kept you from medical appts, meetings, work or from getting things needed for daily living? No 01/22/2025 Utilities Answer Date Recorded In the past 12 months, has t he electric, gas, oil or water company threatened to shut off services in your home? No 01/22/2025 Depression Answer Date Recorded Patient Health Questionnaire-2 Score 0 01/30/2025 Internet Access Answer Date Recorded Internet Access Q1 Yes 01/22/2025 Internet Access Q2 Not on file 01/22/2025 Sex and Gender Information Value Date Recorded Sex Assigned at Male 02/07/2022 10:16 AM EDT Legal Sex Male 10:16 AM EDT Gender Identity Male 02/07/2022 10:16 AM EDT Sexual Orientation Straight 02/07/2022 10 :16 AM EDT Last Filed Vital Signs Vital Sign Reading Time Taken Comments Blood Pressure 124/96 01/30/2025 10:59 AM EDT Pulse 69 01/30/2025 10:22 AM EDT Temperature 36.2 C (97.1 F) 01/30/2025 10:22 AM EDT Respiratory Rate 11 01/30/2025 10:22 AM EDT Oxygen Saturation 95% 01/30/2025 10:22 AM EDT Inhaled Oxygen Concentration - - Weight 94.8 kg (209 lb) 01/30/2025 10:22 AM EDT Height 162.6 cm (5' 4 ) 01/30/2025 10:22 AM EDT Body Mass Index 35.87 01/30/2025 10:22 AM EDT Plan of Treatment Upcoming Encounters Date Type Department Care Team (Late st Contact Info) Description 02/27/2025 1:30 PM EST Clinical Support [address] [address] Health Maintenance Due Date Last Done Comments CT Colonography 1974 Colonoscopy 1974 FIT 1974 HIV Screening 1975 Sigmoidoscopy 1975 Family Planning (PISQ) 1989 Hepatitis C Screening 01/26/1992 Pneumococcal Vaccine: 50+ Years (1 of 2 - PCV) 1993 Hepatitis B Vaccines (3 of 3 - 19+ 3-dose series) 08/14/2007 06/19/2007, 02/24/2005 Zoster Vaccines (1 of 2) 01/26/2024 FOBT 08/09/2024 08/10/2023 COVID-19 Vaccine ( - season) 2024 Influenza Vaccine (#1) 2024 SDOH Screening 01/22/2026 01/22/2025 Alcohol/Substance Use Screening 01/30/2026 01/30/2025 Depression Screening 01/30/2026 01/30/2025, 01/31/20 25 Disability Screening 01/30/2026 01/30/2025 Tobacco Screening 01/30/2026 01/30/2025 Colorectal Cancer Screening 08/09/2026 FIT DNA/Cologuard 08/09/2026 [...] Procedure Name Priority Date/Time Associated Diagnosis Comments ALBUMIN, RANDOM URINE W/CREATININE Routine 01/30/2025 11:07 AM EDT Essential hypertension XR CHEST 1 VIEW Routine 11/30/2024 9:50 AM EDT LIPID PANEL, STANDARD Routine 07/10/2024 10:56 AM EDT Mixed hyperlipidemia LAB COLOGUARD COLON CANCER SCREEN Routine 08/10/2023 2:00 AM EDT Colon cancer screening from Last 3 Months or Most Recently Relevant to Health Maintenance Results * Albumin, Random Urine W/Creatinine (01/30/2025 11:07 AM EDT) Creatinine, Urine 201.17 mg/dL [facility] Microalbumin Urine 8.0 mg/L [facility] Microalbum Creatinine Ratio Ur 3.9 <30 ug/mg cr [facility] Comment:Albumin/Creatinine R atio Reference Ranges: Normal: < 30 ug/mg creatinine Microalbuminuria: 30 - 300 ug/mg creatinineClinical Albuminuria: > 300 ug/mg creatinine Urine (Urine, Random) 01/30/2025 11:07 AM EDT 01/30/2025 4:05 PM EDT us Korey CONDON LAB URINE ORDERABLES Final Resul t [facility] [address] [place] [phone] * XR Chest 1 View (11/30/2024 9:50 AM EDT) Anatomical Region Laterality Modality Chest Radiographic Amy ging 11/30/2024 9:50 AM EDT Narrative 11/30/2024 9:52 AM EDT [address] [address] XRay Report Signed Patient: Jay Chan MR#: [id number] : 1975 Acct:[id number] Age/Sex: 49 / M ADM Date: 11/30/24 Loc: .ED Attending Dr: Ordering Physician: Gladys Phillips Date of Service: 11/30/24 Procedure(s): XR chest 1V Accession Number(s): [id number] cc: Gladys Phillips; KOREY SCHMITZ NP CLINICAL HISTORY: feels like he inhaled ham Exam: AP portable chest x-ray. Comparison: October 31, 2023. Findings: Cardiac silhouette is unchanged in size. No focal areas of consolidation. No pleural effusion or pneumothorax. Mild convex left lower thoracic curvature. Impression: No acute findings. This document has been electronically signed by: Tim Galarza MD on 11/30/2024 09:50:40 Dictated By: Tim Galarza MD Signed By: <Electronically signed by Tim Galarza MD in OV> 11/30/24 0951 DD/ 0950 TD/TT: 11/30/24 0950 Deboning Team Leader: Procedure Note Donotuseinterpreter, Image - 11/30/[address] [address] XRay Report Signed Patient: Jay ChanMR#: [id number] : 1975Acct:[id number] Age/Sex: 49 / MADM Date: 11/30/24 Loc: .ED Attending Dr: Ordering Physician: Gladys Phillips Date of Service: 11/30/24 Procedure(s): XR chest 1V Accession Number(s): [id number] cc: Gladys Phillips; SCHMITZ,KOREY SHOCHET CLINICAL HISTORY: feels like he inhaled ham Exam: AP portable chest x-ray. Comparison: October 31, 2023. Findings: Cardiac silhouette is unchanged in size. No focal areas of consolidation. No pleural effusion or pneumothorax. Mild convex left lower thoracic curvature. Impression: No acute findings. This document has been electronically signed by: Tim Galarza MD on 11/30/2024 09:50:40 Dictated By: Tim Galarza MD Signed By: <Electronically signed by Tim Galarza MD in OV> 11/30/[address] DD/ 9 TD/TT: 11/30/[address] Deboning Team Leader: [facility] External Provider IMG XR PROCEDURES Edited Result - Final * (ABNORMAL) Lipid Panel, Standard (07/10/2024 10:56 AM EDT) Triglycerides 173(H) <150 mg/dL [facility] Comment:Desirable Triglyceri de: less than 150 mg/dLBorderline High Triglyceride 150-199 mg/dLHigh Triglyceride: 200-499 mg/dLVery High Triglyceride: greater than or equal to 5OO mg/dL Cholesterol 218(H) <200 mg/dL [facility] Comment:Desirable Cholestero l: less than 200 mg/dLBorderline High Cholesterol: 200-239 mg/dLHigh Cholesterol: greater than 239 mg/dL LDL Cholesterol Calculated 150(H) <100 mg/dL [facility] Comment:Desirable LDL: less than 100 mg/dLNear Optimal/Above Optimal LDL: 110- 129 mg/dLBorderline High LDL: 130-159 mg/dLHigh LDL: 160-189 mg/dLVery High LDL: greater than or equal to 190 mg/dL HDL Cholesterol 34(L) >40 mg/dL [facility] Comment:Desirable HDL: great er than 40 mg/dL Note: This HDL assay may give artificially low results in patients with liver disease. Blood Venous blood specimen / Unknown 07/10/2024 10:56 AM EDT 07/10/2024 1:12 PM EDT us Korey Schmitz ANP LAB BLOOD ORDERABLES Final Resul t [facility] [address] [place] [phone] * Cologuard?? colon cancer screening (08/10/2023 2:00 AM EDT) Cologuard Result Negative Negative 08/22/19 5:29 PM EDT [facility] (CLIA #:[id number]) Comment: NEGATIVE TEST RESULT. A negative Cologuard result indicates a low likelihood that a colorectal cancer (CRC) or advanced adenoma (adenomatous polyps with more advanced pre-malignant features) is present. The chance that a person with a negative Cologuard test has a colorectal cancer is less than 1 in 1500 (negative predictive value >99.9%) or has an advanced adenoma is less than 5.3% (negative predictive value 94.7%). These data are based on a prospective cross-sectional study of 10,000 individuals at average risk for colorectal cancer who were screened with both Cologuard and colonoscopy. (Pricilla Cheek al, N Engl J Med 2014;370(14):9775-3484) The normal value (reference range) for this assay is negative. COLOGUARD RE-SCREENING RECOMMENDATION: Periodic colorectal cancer screening is an important part of preventive healthcare for asymptomatic individuals at average risk for colorectal cancer. Following a negative Cologuard result, the Chinese Cancer Society and U.S. Multi-Society Task Force screening guidelines recommend a Cologuard re-screening interval of 3 years. References: Chinese Cancer Society Guideline for Colorectal Cancer Screening: https://www.cancer.org/cancer/hbzat-fniuch-ghvcxk/rjkvawque-jmbzloser-gfcaayt/ac s-rec ommendations.html.; Leeroy DK, Mario CR, Chance NealK, Colorectal Cancer Screening: Recommendations for Physicians and Patients from the U.S. Multi-Society Task Force on Colorectal Cancer Screening , Am J Gastroenterology 2017; 112:5641-8510. TEST DESCRIPTION: Composite algorithmic analysis of stool DNA-biomarkers with hemoglobin immunoassay. Quantitative values of individual biomarkers are not [...] (Pricilla Cheek al, N Engl J Med 2014;370(14):5627-8127.) Cologuard may produce a false negative or false positive result (no colorectal cancer or precancerous polyp present at colonoscopy follow up). A negative Cologuard test result does not guarantee the absence of CRC or advanced adenoma (pre-cancer). The current Cologuard screening interval is every 3 years. (Chinese Cancer Society and U.S. Multi-Society Task Force). Cologuard performance data in a 10,000 patient pivotal study using colonoscopy as the reference method can be accessed at the following location: www.Medium/results. Additional description of the Cologuard test process, warnings and precautions can be found at www.[employer].com. Stool specimen (specimen) 08/10/2023 2:00 AM EDT 08/11/2023 2:46 PM EDT us Anna Hernandez NP LAB MOLECULAR DIAGNOSTICS ORDERA BLESumi Final Result [facility] (CLIA #:[id number]) [place] [address], [place] [phone] from Last 3 Months or Most Recently Relevant to Health Maintenance Insurance [facility] C3 Care Teams Concrete Float Maker Relationship Specialty Start Date End Date Korey Schmitz ANP [address] [place] [phone] PCP - General Family Medicine 12/01/20
--- OUTSIDE RECORDS SUMMARY | 2025-02-07 13:54 | XMS_ITS | Clinical Summary ---
Author Organization [facility] Address [address] [place] [address] Phone Care Team Providers Care Litigation Attorney Associate Name Role Phone MonseSvetlana Susanna CORBETT Primary Care Provider [phone] Allergies Active Allergy Reactions Criticality Noted Date [...] Comprehensive metabolic panel (08/05/2024 8:31 AM EDT) [facility] Signature Sodium 141 133 - 145 mmol/L LAB CHEMISTRY METHOD 08/05/2024 9:39 AM [facility] Potassium 3.6 3.5 - 5.5 mmol/L LAB CHEMISTRY METHOD 08/05/2024 9:39 AM [facility] Chloride 108 96 - 110 mmol/L LAB CHEMISTRY METHOD 08/05/2024 9:39 AM [facility] CO2 28 21 - 32 mmol/L LAB CHEMISTRY METHOD 08/05/2024 9:39 AM [facility] Anion Gap 5 3 - 11 LAB CHEMISTRY METHOD 08/05/2024 9:39 AM [facility] Glucose 93 70 - 100 mg/dL LAB CHEMISTRY METHOD 08/05/2024 9:39 AM [facility] BUN 8 5 - 25 mg/dL LAB CHEMISTRY METHOD 08/05/2024 9:39 AM [facility] Creatinine 0.86 0.70 - 1.30 mg/dL LAB CHEMISTRY METHOD 08/05/2024 9:39 AM [facility] eGFR 105 >=60 mL/min/1. 73m2 LAB CHEMISTRY METHOD 08/05/2024 9:39 AM [facility] Comment:Calculation based on the Chronic Kidney Disease Epidemiology Collaboration (CKD-EPI) equation refit without adjustment for race. BUN/Creatinine Ratio 9.3 LAB CHEMISTRY METHOD 08/05/2024 9:39 AM [facility] Calcium 8.8 8.5 - 10.5 mg/dL LAB CHEMISTRY METHOD 08/05/2024 9:39 AM [facility] AST (SGOT) 18 10 - 42 unit/L LAB CHEMISTRY METHOD 08/05/2024 9:39 AM [facility] ALT (SGPT) 27 10 - 60 unit/L LAB CHEMISTRY METHOD 08/05/2024 9:39 AM [facility] Alkaline Phosphatase 100 42 - 121 unit/L LAB CHEMISTRY METHOD 08/05/2024 9:39 AM EDT [facility] Total Protein 6.5 6.0 - 8.0 g/dL LAB CHEMISTRY METHOD 08/05/2024 9:39 AM EDT [facility] Albumin 3.4 3.2 - 5.0 g/dL LAB CHEMISTRY METHOD 08/05/2024 9:39 AM EDT [facility] Total Bilirubin 0.8 0.0 - 1.4 mg/dL LAB CHEMISTRY METHOD 08/05/2024 9:39 AM EDT [facility] Blood Venous blood specimen / Unknown Venipuncture / Unknown 08/05/2024 8:31 AM EDT 08/05/2024 9:06 AM EDT us Will Hartman MD LAB BLOOD ORDERABLES Final Resu lt [facility] [address] [place] [address], from Last 3 Months or Most Recently Relevant to Health Maintenance Insurance MEDICAID - [place] MEDICARE Care Teams Litigation Attorney Associate Relationship Specialty Start Date End Date Svetlana Shea NP [address] [place] [phone] PCP - General 08/05/24
--- OUTSIDE RECORDS SUMMARY | 2025-02-07 13:54 | XMS_ITS | Encounter Summary ---
Author Organization [employer] Address [address] [facility] [address] [place] [address] Care Team Providers Care Undercutter Operator Name Role Phone Svetlana Shea Primary Care Provider [phone] Reason for Visit * Reason Onset Date Comments Prior Authorization 02/03/2025 Encounter Details Date Type Department Care Team (Late st Contact Info) Description 02/03/2025 Telephone [facility] MEDICINE [address] [place] [address] Svetlana Shea ANP [address] [place] [address] Prior Authorization Social History Tobacco Use Types Packs/Day Years [...] encounter Miscellaneous Notes * Telephone Encounter - Kalie Zaldivar - 02/03/2025 10:36 AM EDT Images from the original note were not included. PA for Zepbound generated and faxed to [email or web address]. Confirmation received and sent to ricardo. ROSEANNA Altamirano Pa Specialist Green Team PA for zepbound please, LEEROY documented in this encounter Plan of Treatment Upcoming Encounters Date Type Department Care Team (Late st Contact Info) Description 02/27/2025 1:30 PM EST Clinical Support [facility] [address] [place] [address] documented as of this encounter Visit Diagnoses Not on filedocumented in this encounter Additional Health Concerns Assessment Noted Time PHQ-9 Depression Total Score: 3 01/31/20 25 10:23 AM EDT documented as of this encounter Care Teams Undercutter Operator Relationship Specialty Start Date End Date Svetlana Shea ANP [address] [place] [address] PCP - General Family Medicine 12/01/20 documented as of this encounter
== END 2025-02-07 13:22 | disposition home or self-care (01) ==
LOC: HO.HCS 12:47
PROVIDERS: PCP Nurse Practitioner Primary Care; Visit Provider Nurse Practitioner Family
DX: R07.9 Chest pain, unspecified (principal); I77.810 Thoracic aortic ectasia; I10 Essential (primary) hypertension; G47.33 Obstructive sleep apnea (adult) (pediatric); E66.9 Obesity, unspecified
CPT/HCPCS: 93010; 99214

== ENCOUNTER → 2025-02-07 12:46 | Outpatient (BNVA) | payer MEDICAID, SELFPAY | PROVIDERS: PCP Nurse Practitioner Primary Care; Visit Provider Nurse Practitioner Family | DX: I10 Essential (primary) hypertension (principal); I77.810 Thoracic aortic ectasia; R07.9 Chest pain, unspecified; G47.33 Obstructive sleep apnea (adult) (pediatric); E66.9 Obesity, unspecified; Z68.35 Body mass index [BMI] 35.0-35.9, adult; R94.31 Abnormal electrocardiogram [ECG] [EKG] | CPT/HCPCS: 93005; 99212 ==